=== PATIENT | female | born 1975 | race Caucasian/White ===

== ENCOUNTER → 2018-05-06 11:48 | Outpatient (CLI) | payer BC, SELFPAY ==
[2018-05-06 12:39] LABS: Hematocrit 46.7 % (37-47); Hemoglobin 15.9 g/dl (12.0-15.0); Mean Corpuscular Hgb 33.7 pg (27.0-32.0); Mean Corpuscular Volume 98.9 fL (81-99); Mean Platelet Vol. 9.8 fl (6.2-12.0); Platelet Count 249 K/mm3 (150-450); RBC Distribution Width CV 12.3 % (11.6-14.6); RBC Distribution Width SD 44.6 fl (35.1-43.9); Red Blood Count 4.72 M/mm3 (4.2-5.4)
[2018-05-06 12:41] LABS: Scan Indicated on CBC? Y/N NO
[2018-05-06 13:20] LABS: Hemoglobin A1c 5.1 % (4.2-6.3)
[2018-05-06 13:31] LABS: Progesterone Level 0.41 ng/mL (See Comment)
[2018-05-06 14:56] LABS: Estradiol 43.3 pg/mL; Free T3 2.8 pg/mL (2.18-3.98); T4 Free Direct 0.89 ng/dL (0.76-1.46)
== END ==
PROVIDERS: Visit Provider Obstetrics & Gynecology
DX: N92.6 Irregular menstruation, unspecified (principal)
CPT/HCPCS: 36415; 82670; 83036; 84144; 84403; 84439; 84443; 84481; 85027

== ENCOUNTER 2018-08-22 18:41 | Emergency (ER) | payer BC, SELFPAY ==
[2018-08-22 18:42] VITALS: BP 131/103; PULSE 104; RESP 20; TEMP 36.2; O2SAT 93; BMI 29.5
[2018-08-22] MEDS: MethylPREDNISolone 125 MG/2 ML Vial IV (18:54)
[2018-08-22] MEDS: DiphenhydrAMINE 50 MG/ML Syringe 25 MG IV (18:55)
[2018-08-22] MEDS: 0.9% Normal Saline 1,000 ML 1000 ML IV (18:55)
--- NOTE | 2018-08-22 18:56 | ED.DCSUM_ITS ---
- ER Visit Summary Date of Service: 08/22/18 Chief Complaint: Allergic rash History of Present Illness: The patient is a 43 F presents to the emergency department with allergic reaction. 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 She states that it was her dadejuan hter's birthday. They did buy her a guinea pig. She was trying to prepare the cage. She states that there was heavy in cedar. She states shortly after this exposure. She she began to have facial swelling, eye watering, and felt short of breath. She denies any throat swelling. She did not take her EpiPen. She did take oral Benadryl with little improvement. Physical Examination: Vital signs reviewed General: Well-nourished, well-developed Head: Normocephalic, atraumatic Eyes: Pupils equal and reactive, extraocular muscles intact, diffuse facial edema ENT: Posterior oropharynx widely patent. No angioedema Neck, supple, no lymphadenopathy Heart: Regular rate and rhythm Respiratory: No distress, wheezing throughout Abdomen: Soft, nontender, nondistended, no peritoneal signs Back: Nontender Extremities: Nontender, no edema, no cords Skin: Normal color urticaria of the face and upper chest Neuro: Alert and oriented, no focal or lateralizing deficits Test Results: [] Emergency Department Course and Treatment: The patient presents with allergic reaction. She has facial edema, cough, shortness of breath. She is not hypertensive, but given the progression of her symptoms she was given epi. She was also given Solu-Medrol, Benadryl, and Pepcid. Within 30 minutes, the patient had marked improvement. She was observed and continued to have improvement. She had no further wheezing. She had resolution of her facial edema. At this time, I do feel the patient is safe for discharge. She will be given an EpiPen for home. She will be continued on Pepcid and prednisone. She was counseled on concerning symptoms and reasons to return. She will be discharged home. Treatment Plan: [] Disposition: Discharge Impression: 1. Allergic reaction This note was generated with [employer] software. It may contain incorrect words, spelling, and punctuation that were not noted in review of the chart prior to signing ED Disposition - Plan for ED Patient: Chief Complaint: Allergic Reaction Instructions: ED Allergic Reaction General Other Prescriptions: Prednisone [Deltasone] 60 mg PO DAILY #15 tab Famotidine [Pepcid] 20 mg PO BID #28 tab Referrals: Flora Fuentes MD [Primary Care Provider] -
[2018-08-22 19:01] VITALS: BP 138/87; PULSE 98; RESP 22
[2018-08-22 19:07] VITALS: PULSE 103; RESP 18; O2SAT 99
[2018-08-22] MEDS: Ipratropium/Albuterol Sulfate 3 ML AMPUL.NEB INHALATION (19:07)
[2018-08-22 22:09] VITALS: BP 138/93; PULSE 93; RESP 17; O2SAT 97
[2018-08-22 22:10] VITALS: BP 138/97; PULSE 92; RESP 18; O2SAT 97
--- OUTSIDE RECORDS SUMMARY | 2018-10-17 23:36 | XMS RPT_ITS ---
:1975 Author Organization OH[facility] Care Team Providers Name Role Phone KATHY VILLALOBOS (SWINE GENETICS RESEARCHER) Attending Unavailable HANNAH MASON (PHOTOGRAPHIC SPOTTER) Attending Unavailable FLORA PETERSON Attending Unavailable FLORA PETERSON Referring Unavailable FLORA PETERSON Referring Unavailable NEO NAIK (RANGE MANAGER) Attending Unavailable GANJOLLY, FLORA Referring Unavailable Nichelle Ovalles Attending Unavailable Flora Peterson Primary Care Unavailable Van López Attending Unavailable PROBLEMS PROBLEMS DATE TYPE CONDITION / CODE ATTENDING STATUS SOURCE 06/15/2017 Active Essential NA Active [facility] (primary) [place] hypertension / Repository I10(ICD-10) 07/24/2018 Active Other termite inspector NA Active [facility] (current) drug [place] therapy / Repository Z79.899(ICD-10) 07/24/2018 Active Vitamin D NA Active [facility] deficiency, [place] unspecified / Repository E55.9(ICD-10) 07/24/2018 Active Other fatigue / NA Active [facility] R53.83(ICD-10) [place] Repository 05/06/2018 Unknown N92.6 - Irregular Nichelle Ovalles Active [facility] menstruation, Community unspecified / Hospital N92.6(ICD-10) Repository 10/23/2017 Active Unknown / HANNAH MASON Active [facility] UNK(Unknown) (PHOTOGRAPHIC SPOTTER) [place] Repository PROCEDURES PROCEDURES No Procedure Records FoundRESULTS RESULTS EMERGENCY DEPARTMENT Observed: 08/22/2018 Status: F Source: [place] SUMMARY 10:05 PM [facility] REPOSITORY [facility] Medical Records Department [address] [place] [address] Emergency Department Summary 08/22/18 1855 MR#: [id number] Acct: [id number] Name: ANDREIAN GEE Rep #: [id number] : 1975 43 From: Van López MD PCP: Flora Peterson MD Status: REG ER - ER Visit Summary Date of Service: 08/22/18 Chief Complaint: Allergic rash History of Present Illness: The patient is a 43 F presents to the emergency department with allergic reaction. 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 She states that it was her daughter's birthday. They did buy her a guinea pig. She was trying to prepare the cage. She states that there was heavy in cedar. She states shortly after this exposure. She she began to have facial swelling, eye watering, and felt short of breath. She denies any throat swelling. She did not take her EpiPen. She did take oral Benadryl with little improvement. Physical Examination: Vital signs reviewed General: Well-nourished, well-developed Head: Normocephalic, atraumatic Eyes: Pupils equal and reactive, extraocular muscles intact, diffuse facial edema ENT: Posterior oropharynx widely patent. No angioedema Neck, supple, no lymphadenopathy Heart: Regular rate and rhythm Respiratory: No distress, wheezing throughout Abdomen: Soft, nontender, nondistended, no peritoneal signs Back: Nontender Extremities: Nontender, no edema, no cords Skin: Normal color urticaria of the face and upper chest Neuro: Alert and oriented, no focal or lateralizing deficits Test Results: [] Emergency Department Course and Treatment: The patient presents with allergic reaction. She has facial edema, cough, shortness of breath. She is not hypertensive, but given the progression of her symptoms she was given epi. She was also given Solu-Medrol, Benadryl, and Pepcid. Within 30 minutes, the patient had marked improvement. She was observed and continued to have improvement. She had no further wheezing. She had resolution of her facial edema. At this time, I do feel the patient is safe for discharge. She will be given an EpiPen for home. She will be continued on Pepcid and prednisone. She was counseled on concerning symptoms and reasons to return. She will be discharged home. Treatment Plan: [] Disposition: Discharge Impression: 1. Allergic reaction This note was generated with [employer] dictation software. It may contain incorrect words, spelling, and punctuation that were not noted in review of the chart prior to signing ED Disposition - Plan for ED Patient: Chief Complaint: Allergic Reaction Instructions: ED Allergic Reaction General Other Prescriptions: Prednisone [Deltasone] 60 mg PO DAILY #15 tab Famotidine [Pepcid] 20 mg PO BID #28 tab Referrals: Flora Peterson MD [Primary Care Provider] - What to do if you have Problems For any increased pain, shortness of breath, bleeding, nausea or vomiting, chest pain, or any unexpected problems, contact your Primary Care Provider. Call [facility] ([phone]) or report to the closest Emergency Room. Call 911 if necessary. 08/22/18 1800 <Electronically signed by Van López MD> Date Van López MD Cosigner Signature (If Indicated): Date CC: Flora Peterson MD PROGRESS Observed: 08/21/2018 Status: COMPLETED Source: [place] 11:26 AM [facility] REPOSITORY O ID: [id number] Author: Neo (Kai) Thang Service: (none) Author Type: Nurse Practitioner Type: Progress Notes Filed: 08/21/2018 12:10 PM Note Text: HPI/CC: Andreina Gee is an 43 year old female who presents for followup of depression and anxiety treatment. Increased Zoloft from 25mg to 50mg ~4 weeks ago. Patient reports she hasn't noticed much of a difference. 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 Since last visit patient anxious feelings, fatigue and feelings of worthlessness/guilt. Denies SI/HI Symptoms have occurred daily. Panic hx: No Sleep Problems: Yes averages 5 hours of sleep per night. Routine putting kids to bed then TV and bed. Appetite: No changes Support system: , kids, parents. 3 kids at home, 2 of which are in counseling. Patient reports that she is able to have counseling time of her own during these sessions and finds them helpful. Positive health behaviors: Nothing specific- mostly focuses on the kids and work. Does like to take walks with her depending on weather. Ongoing sinus complaints, Reports recurrent sinus infections over the last 2 months. Prescribed 2 different antibiotics, on flonase, cough syrup and steroids without much realief. Told the last time she saw UC she needed referral to ENT if symptoms persist. Associated symptoms include fatigue, maxillary sinus pain and pressure, stuffy nose, mild PND, non-productive cough and intermittent headaches. Previously received allergy shots as a child, tried Zyrtec/Claritin without improvement. Allergic to most plants, trees and grass. Continues use of Flonase, Miriam pot and humidifier. ROS as above, otherwise non-contributory. Reviewed PMHx, PSHx, social Hx, medications and allergies. PHYSICAL EXAMINATION: BP 132/84 Pulse 99 Temp 36.4 ?C (97.5 ?F) (Temporal Artery) Resp 16 Wt 77.1 kg (170 lb) SpO2 97% BMI 29.18 kg/m? Appearance: well dressed well groomed, cooperative and pleasant Behavior: good eye contact Speech: fluent and coherent Mood: appropriate Affect: appropriate Perceptions: none Thought process: goal directed Thought Content: normal Intelligence level: normal Insight: good Judgment: good Head: Normocephalic Eyes: normal, conjunctiva/corneas normal Ears: R TM - clear with good landmarks, L TM - clear with good landmarks Nose: clear rhinorrhea, mucosa erythematous and swollen, sinus tenderness over maxillary sinuses bilateral Oropharynx: moist without lesions, teeth in good repair Neck: supple Lungs: Lungs clear to auscultation. No wheezing, rhonchi, rales Heart: RRR without murmur, gallop, or rubs. No ectopy ASSESSMENT/PLAN: 1. Anxiety and depression - ICD9: 300.00, 311, ICD10: F41.9, F32.9 (primary diagnosis) - Unchanged, increase Zoloft dosing as instructed to 100mg daily - Follow up in 6 weeks, sooner for new or worsening symptoms 2. Chronic sinusitis of both maxillary sinuses - ICD9: 473.0, ICD10: J32.0 - The patient should also be given OTC decongestants prn, OTC cough and cold meds as needed, behind the counter Pseudoephedrine, Cough syrup with codeine- Rx given, warm salt water gargles, throat lozenges and/or OTC throat spray as needed and nasal saline gtts and suction prn - Supportive care with plenty of fluids, rest, and analgesia prn. - CONSULT TO ENT Prescription instructions reviewed with patient as applicable. Potential red flag symptoms discussed with the patient. Reviewed appropriate action plan to take if red flag symptoms occur. Patient agreeable to treatment plan. STEVEN ScottOV Observed: 08/21/2018 Status: COMPLETED Source: [place] 11:20 AM [facility] REPOSITORY Office Visit (INTMWS) HAROONANDREINA Anthony ([id number]) 1975 F Date Time Provider Department 08/21/18 11:20 AM NEO NAIK (RANGE MANAGER) INTMWS During your visit today, we recorded the following information about you: Temperature Pulse Respiration Blood pressure 97.5 degrees 99/minute 16/minute 132/84 Weight 77.1 kg Neo Naik APRN.CNP 08/21/2018 12:10 PM Signed HPI/CC: Andreina Anthony Gee is an 43 year old female who presents for followup of depression and anxiety treatment. Increased Zoloft from 25mg to 50mg ~4 weeks ago. Patient reports she hasn't noticed much of a difference. 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 Since last visit patient anxious feelings, fatigue and feelings of worthlessness/guilt. Denies SI/HI Symptoms have occurred daily. Panic hx: No Sleep Problems: Yes averages 5 hours of sleep per night. Routine putting kids to bed then TV and bed. Appetite: No changes Support system: , kids, parents. 3 kids at home, 2 of which are in counseling. Patient reports that she is able to have counseling time of her own during these sessions and finds them helpful. Positive health behaviors: Nothing specific- mostly focuses on the kids and work. Does like to take walks with her depending on weather. Ongoing sinus complaints, Reports recurrent sinus infections over the last 2 months. Prescribed 2 different antibiotics, on flonase, cough syrup and steroids without much realief. Told the last time she saw UC she needed referral to ENT if symptoms persist. Associated symptoms include fatigue, maxillary sinus pain and pressure, stuffy nose, mild PND, non-productive cough and intermittent headaches. Previously received allergy shots as a child, tried Zyrtec/Claritin without improvement. Allergic to most plants, trees and grass. Continues use of Flonase, Miriam pot and humidifier. ROS as above, otherwise non-contributory. Reviewed PMHx, PSHx, social Hx, medications and allergies. PHYSICAL EXAMINATION: BP 132/84 Pulse 99 Temp 36.4 ?C (97.5 ?F) (Temporal Artery) Resp 16 Wt 77.1 kg (170 lb) SpO2 97% BMI 29.18 kg/m? Appearance: well dressed well groomed, cooperative and pleasant Behavior: good eye contact Speech: fluent and coherent Mood: appropriate Affect: appropriate Perceptions: none Thought process: goal directed Thought Content: normal Intelligence level: normal Insight: good Judgment: good Head: Normocephalic Eyes: normal, conjunctiva/corneas normal Ears: R TM - clear with good landmarks, L TM - clear with good landmarks Nose: clear rhinorrhea, mucosa erythematous and swollen, sinus tenderness over maxillary sinuses bilateral Oropharynx: moist without lesions, teeth in good repair Neck: supple Lungs: Lungs clear to auscultation. No wheezing, rhonchi, rales Heart: RRR without murmur, gallop, or rubs. No ectopy ASSESSMENT/PLAN: 1. Anxiety and depression - ICD9: 300.00, 311, ICD10: F41.9, F32.9 (primary diagnosis) - Unchanged, increase Zoloft dosing as instructed to 100mg daily - Follow up in 6 weeks, sooner for new or worsening symptoms 2. Chronic sinusitis of both maxillary sinuses - ICD9: 473.0, ICD10: J32.0 - The patient should also be given OTC decongestants prn, OTC cough and cold meds as needed, behind the counter Pseudoephedrine, Cough syrup with codeine- Rx given, warm salt water gargles, throat lozenges and/or OTC throat spray as needed and nasal saline gtts and suction prn - Supportive care with plenty of fluids, rest, and analgesia prn. - CONSULT TO ENT Prescription instructions reviewed with patient as applicable. Potential red flag symptoms discussed with the patient. Reviewed appropriate action plan to take if red flag symptoms occur. Patient agreeable to treatment plan. STEVEN Scott APRN.KAI 08/21/2018 11:50 AM Signed Increase Zoloft to a goal of 100mg. Start by taking 1.5 tabs (50mg) daily for 1-2 weeks then increase to full 2 tabs for a total of 100mg. Follow up in 6 weeks. Referring Provider: FLORA PETERSON [[id number]] Allergies As of Date: 08/21/2018 Noted Allergy Reaction PENICILLINS 03/02/2006 Date Reviewed: 08/21/2018 Reviewed by: Bibi Willett Ma - Fully Assessed Reason for Visit: Recheck [92] Cmt: Medication follow up Primary Visit Diagnosis:Anxiety and depression [F41.9, F32.9] Other Visit Diagnosis:Chronic sinusitis of both maxillary sinuses [J32.0] Order(s):sertraline (ZOLOFT) 50 mg tabletTake 2 tablets by mouth once daily.Disp: 90 tabletRfl: 1 CONSULT TO ENT [[id number]] Order #: [id number]: 1 Prescriptions as of 08/21/2018 Sig: SERTRALINE 50 MG TABLET Take 2 tablets by mouth once * ERGOCALCIFEROL (VITAMIN D2) 5* Take 1 capsule by mouth twice* AMILORIDE 5 MG-HYDROCHLOROTHI* Take 0.5 tablets by mouth onc* AMLODIPINE 2.5 MG TABLET take 1 tablet by mouth once d* ZOLPIDEM 10 MG TABLET Take 0.5 tablets by mouth at * Problem List As Of Date 08/21/2018 Noted Resolved 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 Start by taking 1.5 tabs (50mg) daily for 1-2 weeks then increase to full 2 tabs for a total of 100mg. Follow up in 6 weeks. Prescriptions ordered this encounter Disp Refills Start End SERTRALINE 50 MG TABLET 90 t* 1 08/21/2018 Route: ORAL Sig: Take 2 tablets by mouth once daily. Medications Discontinued During This Encounter sertraline (ZOLOFT) 50 mg tablet 30 t* 3 07/24/2018 08/21/2018 Route: ORAL Sig: Take 1 tablet by mouth once daily. Disc: Reason for discontinue is not on file. Disposition: Return in about 6 weeks (around 10/02/2018). Follow-up and Disposition History Recorded Encounter Status:Closed by NEO NAIK CNP on 08/21/18 PROGRESS Observed: 08/04/2018 Status: COMPLETED Source: [place] 12:54 PM [facility] REPOSITORY HNO ID: [id number] Author: Kathy Latham (Agustin) Anjum Service: (none) Author Type: Nurse Practitioner Type: Progress Notes Filed: 08/04/2018 1:17 PM Note Text: Subjective HPI Patient presents with: Sinus pain, cough, headaches, fatigue x 5 weeks. Seen 07/18 in , tx for Sinusitis, tx with Doxycycline but no improvement. Review of Systems Constitutional: Positive for malaise/fatigue. Negative for chills and fever. HENT: Positive for congestion and sinus pain. Negative for ear pain and sore throat. Eyes: Positive for redness. Negative for discharge. Respiratory: Positive for cough. Negative for hemoptysis, sputum production, shortness of breath and wheezing. Gastrointestinal: Negative for abdominal pain, diarrhea, nausea and vomiting. Skin: Negative for rash. Neurological: Positive for headaches. PAST MEDICAL HISTORY Diagnosis Date - Essential hypertension PAST SURGICAL HISTORY Procedure Laterality Date - SECTION HX x2 - EXTRACTION ERUPTED TOOTH/EXR - REMOVAL OF TONSILS,<12 Y/O Tonsillectomy ALLERGIES Penicillins MEDICATIONS ergocalciferol, vitamin D2, (DRISDOL) 50,000 unit capsule Take 1 capsule by mouth twice a week. TO BE TAKEN ORALLY DIRECTED. Take 1 tablet by mouth twice weekly [id number], then decrease to 1 tablet weekly. aMILoride-hydrochlorothiazide (MODURETIC 5-50) 5-50 mg tab Take 0.5 tablets by mouth once daily. sertraline (ZOLOFT) 50 mg tablet Take 1 tablet by mouth once daily. amLODIPine (NORVASC) 2.5 mg tablet take 1 tablet by mouth once daily zolpidem (AMBIEN) 10 mg tab Take 0.5 tablets by mouth at bedtime as needed. cefdinir (OMNICEF) 300 mg capsule Take 1 capsule by mouth twice daily for 10 days. predniSONE (DELTASONE) 20 mg tablet Take 2 tablets by mouth once daily for 5 days. Take daily with food. Wfimkhylrhqafok-Pigueewxd-AZ (BROMFED DM) 2-30-10 mg/5 mL syrup Take 10 mL by mouth four times daily as needed for up to 7 days. FAMILY HISTORY Problem Relation Age of Onset - Hypertension Mother - Stroke Mother - Heart Mother - Hypertension Father - Heart Father - COPD Father Social History Substance Use Topics - Smoking status: Former Smoker Packs/day: 1.00 Years: 20.00 Quit date: 09/24/2011 - Smokeless tobacco: Never Used Comment: uses E-cigarettes - Alcohol use 3.0 - 6.0 oz/week 2 - 4 Glasses of Wine (5oz) per week Objective Physical Exam Constitutional: She is well-developed, well-nourished, and in no distress. HENT: Head: Normocephalic. Right Ear: Tympanic membrane, external ear and ear canal normal. Left Ear: Tympanic membrane, external ear and ear canal normal. Nose: Mucosal edema present. Right sinus exhibits maxillary sinus tenderness. Right sinus exhibits no frontal sinus tenderness. Left sinus exhibits maxillary sinus tenderness. Left sinus exhibits no frontal sinus tenderness. Mouth/Throat: Posterior oropharyngeal erythema (PND) present. Eyes: Right conjunctiva is injected. Left conjunctiva is injected. Neck: Normal range of motion. Neck supple. Cardiovascular: Normal rate, regular rhythm and normal heart sounds. Pulmonary/Chest: Effort normal and breath sounds normal. No respiratory distress. She has no wheezes. Abdominal: Soft. She exhibits no distension. There is no tenderness. Lymphadenopathy: She has no cervical adenopathy. Skin: Skin is warm and dry. No rash noted. Nursing note and vitals reviewed. ASSESSMENT/PLAN: 1. Acute sinusitis, recurrence not specified, unspecified location - ICD9: 461.9, ICD10: J01.90 (primary diagnosis) - Will begin treatment with as per antibiotic as written, see orders - The patient should also be given OTC decongestants prn, OTC cough and cold meds as needed, warm salt water gargles, throat lozenges and/or OTC throat spray as needed and nasal saline gtts and suction prn for the first 5-7 days of treatment. - Supportive care with plenty of fluids, rest, and analgesia prn. - Follow up in 3-5 days if symptoms persist or worsen. 2. Cough - ICD9: 786.2, ICD10: R05 -Prednisone -Bromfed -F/u with pcp in 3-5 days or sooner if symptoms are not improving or worsening Prescription instructions reviewed with patient as applicable. Patient advised if symptoms do not improve or if symptoms worsen sooner, to contact their primary care physician. Potential red flag symptoms discussed with the patient. Reviewed appropriate action plan to take if red flag symptoms occur. Patient agreeable to treatment plan. Kathy Robertson APRN.CNP CNOV Observed: 08/04/2018 Status: COMPLETED Source: [place] 12:15 PM [facility] REPOSITORY Office Visit (WSTR) ANDREINA GEE ([id number]) 1975 F Date Time Provider Department 08/04/18 12:15 PM KATHY ROBERTSON (SWINE GENETICS RESEARCHER) W[facility] During your visit today, we recorded the following information about you: Temperature Pulse Respiration Blood pressure 98.8 degrees 94/minute 16/minute 118/88 Weight 76.7 kg Kathy Robertson APRN.CNP 08/04/2018 12:41 PM Signed Each of us has four paired cavities (spaces) in our head that are connected to the nose by narrow channels. These cavities, known as sinuses, produce a thin mucus that drains out of the channels of the nose. Normally, sinuses are filled with air. But when sinuses become blocked and filled with fluid, bacteria can grow and cause an infection (sinusitis). Conditions that cause sinus blockage include the common cold, allergic rhinitis (swelling of the lining of the nose due to allergies), nasal polyps (small growths in the lining of the nose), or deviated septum (a shift in the nasal cavity). Allergies such as hay fever can also cause swelling and poor drainage of the sinuses. If you have symptoms that involve the sinuses, it may be difficult to tell if you have sinusitis, a cold, or a nasal allergy. This article will describe the symptoms, diagnosis, and treatment of sinusitis, and how to distinguish sinusitis from a cold or nasal allergy. What is sinusitis? Sinusitis is an inflammation, or swelling, of the tissue lining the sinuses. There are two types of sinusitis: Acute sinusitis: a sudden onset of cold symptoms such as runny nose, stuffy nose, and facial pain that does not go away after 7-10 days. It responds well to antibiotics and decongestants. Chronic sinusitis: characterized by nasal congestion, drainage, facial pain/pressure, and decreased sense of smell for at least 12 weeks. Who gets sinusitis? About 37 million Americans suffer from at least one episode of sinusitis each year. People who have the following conditions have a higher risk of sinusitis: Nasal mucus membrane swelling, as from a common cold Blockage of drainage ducts Structure differences that narrow the drainage ducts Conditions that result in an increased risk of infection In children, common environmental factors that contribute to sinusitis include allergies, illness from other children at day care or school, pacifiers, bottle drinking while lying on the back, and smoke in the environment. In adults, the contributing factors are most frequently infections, allergies, and smoking. What are the signs and symptoms of acute sinusitis? The primary symptoms of acute sinusitis include: Facial pain/pressure Nasal stuffiness Nasal discharge Loss of smell Cough/congestion Additional symptoms may include: Fever Bad breath Fatigue Dental pain Acute sinusitis can last four weeks or more. This condition may be diagnosed when a person has two or more symptoms and/or the presence of thick, green, or yellow nasal discharge. What are the signs and symptoms of chronic sinusitis? People with chronic sinusitis may have the following symptoms for 12 weeks or more: Facial congestion/fullness A nasal obstruction/blockage Pus in the nasal cavity Fever Nasal discharge/discolored postnasal drainage Additional symptoms may include: Headaches Bad breath Fatigue Dental pain Thick nasal discharge How is sinusitis treated? Acute sinusitis. If you have a simple sinusitis infection, your health care provider may recommend treatment with decongestants like Sudafed and steam inhalations alone, as most sinusitis is viral. Antibiotics are generally needed for more seriously ill patients. If antibiotics are administered, they are given for 10 to 14 days. With treatment, the symptoms usually disappear and antibiotics are no longer required. Oral and topical decongestants may be prescribed to alleviate the symptoms. Use of prescription intranasal steroid sprays might be effective in controlling symptoms. However, non-prescription drops or sprays should not be used beyond their recommended period--usually four to five days--or they may actually increase congestion. Chronic sinusitis. Warm moist air may alleviate sinus congestion. Using a vaporizer or inhaling steam from a martinez of boiling water (removed from heat) may also help. Warm compresses are useful to relieve pain in the nose and sinuses. Saline nose drops are also safe for home use. Nonprescription drops or sprays might be effective in controlling symptoms; however, they should not be used beyond their recommended period of time. Nasal steroid sprays that shrink swollen membranes of the nose are beneficial. Antibiotics may also be prescribed. Avoidance of triggers is important. Allergies should be controlled and irritants, such as smoke, should be avoided. Kathy Robertson APRN.RANGE MANAGER 08/04/2018 1:17 PM Signed Subjective HPI Patient presents with: Sinus pain, cough, headaches, fatigue x 5 weeks. Seen 07/18 in UC, tx for Sinusitis, tx with Doxycycline but no improvement. Review of Systems Constitutional: Positive for malaise/fatigue. Negative for chills and fever. HENT: Positive for congestion and sinus pain. Negative for ear pain and sore throat. Eyes: Positive for redness. Negative for discharge. Respiratory: Positive for cough. Negative for hemoptysis, sputum production, shortness of breath and wheezing. Gastrointestinal: Negative for abdominal pain, diarrhea, nausea and vomiting. Skin: Negative for rash. Neurological: Positive for headaches. PAST MEDICAL HISTORY Diagnosis Date - Essential hypertension PAST SURGICAL HISTORY Procedure Laterality Date - SECTION HX x2 - EXTRACTION ERUPTED TOOTH/EXR - REMOVAL OF TONSILS,<12 Y/O Tonsillectomy ALLERGIES Penicillins MEDICATIONS ergocalciferol, vitamin D2, (DRISDOL) 50,000 unit capsule Take 1 capsule by mouth twice a week. TO BE TAKEN ORALLY DIRECTED. Take 1 tablet by mouth twice weekly [id number], then decrease to 1 tablet weekly. aMILoride-hydrochlorothiazide (MODURETIC 5-50) 5-50 mg tab Take 0.5 tablets by mouth once daily. sertraline (ZOLOFT) 50 mg tablet Take 1 tablet by mouth once daily. amLODIPine (NORVASC) 2.5 mg tablet take 1 tablet by mouth once daily zolpidem (AMBIEN) 10 mg tab Take 0.5 tablets by mouth at bedtime as needed. cefdinir (OMNICEF) 300 mg capsule Take 1 capsule by mouth twice daily for 10 days. predniSONE (DELTASONE) 20 mg tablet Take 2 tablets by mouth once daily for 5 days. Take daily with food. Nozqoqkhtdaijnn-Czrraynvt-IC (BROMFED DM) 2-30-10 mg/5 mL syrup Take 10 mL by mouth four times daily as needed for up to 7 days. FAMILY HISTORY Problem Relation Age of Onset - Hypertension Mother - Stroke Mother - Heart Mother - Hypertension Father - Heart Father - COPD Father Social History Substance Use Topics - Smoking status: Former Smoker Packs/day: 1.00 Years: 20.00 Quit date: 09/24/2011 - Smokeless tobacco: Never Used Comment: uses E-cigarettes - Alcohol use 3.0 - 6.0 oz/week 2 - 4 Glasses of Wine (5oz) per week Objective Physical Exam Constitutional: She is well-developed, well-nourished, and in no distress. HENT: Head: Normocephalic. Right Ear: Tympanic membrane, external ear and ear canal normal. Left Ear: Tympanic membrane, external ear and ear canal normal. Nose: Mucosal edema present. Right sinus exhibits maxillary sinus tenderness. Right sinus exhibits no frontal sinus tenderness. Left sinus exhibits maxillary sinus tenderness. Left sinus exhibits no frontal sinus tenderness. Mouth/Throat: Posterior oropharyngeal erythema (PND) present. Eyes: Right conjunctiva is injected. Left conjunctiva is injected. Neck: Normal range of motion. Neck supple. Cardiovascular: Normal rate, regular rhythm and normal heart sounds. Pulmonary/Chest: Effort normal and breath sounds normal. No respiratory distress. She has no wheezes. Abdominal: Soft. She exhibits no distension. There is no tenderness. Lymphadenopathy: She has no cervical adenopathy. Skin: Skin is warm and dry. No rash noted. Nursing note and vitals reviewed. ASSESSMENT/PLAN: 1. Acute sinusitis, recurrence not specified, unspecified location - ICD9: 461.9, ICD10: J01.90 (primary diagnosis) - Will begin treatment with as per antibiotic as written, see orders - The patient should also be given OTC decongestants prn, OTC cough and cold meds as needed, warm salt water gargles, throat lozenges and/or OTC throat spray as needed and nasal saline gtts and suction prn for the first 5-7 days of treatment. - Supportive care with plenty of fluids, rest, and analgesia prn. - Follow up in 3-5 days if symptoms persist or worsen. 2. Cough - ICD9: 786.2, ICD10: R05 -Prednisone -Bromfed -F/u with pcp in 3-5 days or sooner if symptoms are not improving or worsening Prescription instructions reviewed with patient as applicable. Patient advised if symptoms do not improve or if symptoms worsen sooner, to contact their primary care physician. Potential red flag symptoms discussed with the patient. Reviewed appropriate action plan to take if red flag symptoms occur. Patient agreeable to treatment plan. Kathy Robertson APRN.RANGE MANAGER Referring Provider: SELF [[id number]] Allergies As of Date: 08/04/2018 Noted Allergy Reaction PENICILLINS 03/02/2006 Date Reviewed: 08/04/2018 Reviewed by: Kathy Latham (Agustin) Anjum - Fully Assessed Reason for Visit: Recheck [92] Cmt: from visit 07/19/18 Reason For Visit History Recorded Primary Visit Diagnosis:Acute sinusitis, recurrence not specified, unspecified location [J01.90] Other Visit Diagnosis:Cough [R05] Order(s):cefdinir (OMNICEF) 300 mg capsuleTake 1 capsule by mouth twice daily for 10 days.Disp: 20 capsuleRfl: 0 predniSONE (DELTASONE) 20 mg tabletTake 2 tablets by mouth once daily for 5 days. Take daily with food.Disp: 10 tabletRfl: 0 Tihwbasrnnarfje-Cjlqggjsf-KN (BROMFED DM) 2-30-10 mg/5 mL syrupTake 10 mL by mouth four times daily as needed for up to 7 days.Disp: 240 mLRfl: 0 Prescriptions as of 08/04/2018 Sig: ERGOCALCIFEROL (VITAMIN D2) 5* Take 1 capsule by mouth twice* AMILORIDE 5 MG-HYDROCHLOROTHI* Take 0.5 tablets by mouth onc* SERTRALINE 50 MG TABLET Take 1 tablet by mouth once d* AMLODIPINE 2.5 MG TABLET take 1 tablet by mouth once d* ZOLPIDEM 10 MG TABLET Take 0.5 tablets by mouth at * CEFDINIR 300 MG CAPSULE Take 1 capsule by mouth twice* PREDNISONE 20 MG TABLET Take 2 tablets by mouth once * BROMPHENIRAMINE-PSEUDOEPHEDRI* Take 10 mL by mouth four time* Problem List As Of Date 08/04/2018 Noted Resolved 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 These cavities, known as sinuses, produce a thin mucus that drains out of the channels of the nose. Normally, sinuses are filled with air. But when sinuses become blocked and filled with fluid, bacteria can grow and cause an infection (sinusitis). Conditions that cause sinus blockage include the common cold, allergic rhinitis (swelling of the lining of the nose due to allergies), nasal polyps (small growths in the lining of the nose), or deviated septum (a shift in the nasal cavity). Allergies such as hay fever can also cause swelling and poor drainage of the sinuses. If you have symptoms that involve the sinuses, it may be difficult to tell if you have sinusitis, a cold, or a nasal allergy. This article will describe the symptoms, diagnosis, and treatment of sinusitis, and how to distinguish sinusitis from a cold or nasal allergy. What is sinusitis? Sinusitis is an inflammation, or swelling, of the tissue lining the sinuses. There are two types of sinusitis: Acute sinusitis: a sudden onset of cold symptoms such as runny nose, stuffy nose, and facial pain that does not go away after 7-10 days. It responds well to antibiotics and decongestants. Chronic sinusitis: characterized by nasal congestion, drainage, facial pain/pressure, and decreased sense of smell for at least 12 weeks. Who gets sinusitis? About 37 million Americans suffer from at least one episode of sinusitis each year. People who have the following conditions have a higher risk of sinusitis: Nasal mucus membrane swelling, as from a common cold Blockage of drainage ducts Structure differences that narrow the drainage ducts Conditions that result in an increased risk of infection In children, common environmental factors that contribute to sinusitis include allergies, illness from other children at day care or school, pacifiers, bottle drinking while lying on the back, and smoke in the environment. In adults, the contributing factors are most frequently infections, allergies, and smoking. What are the signs and symptoms of acute sinusitis? The primary symptoms of acute sinusitis include: Facial pain/pressure Nasal stuffiness Nasal discharge Loss of smell Cough/congestion Additional symptoms may include: Fever Bad breath Fatigue Dental pain Acute sinusitis can last four weeks or more. This condition may be diagnosed when a person has two or more symptoms and/or the presence of thick, green, or yellow nasal discharge. What are the signs and symptoms of chronic sinusitis? People with chronic sinusitis may have the following symptoms for 12 weeks or more: Facial congestion/fullness A nasal obstruction/blockage Pus in the nasal cavity Fever Nasal discharge/discolored postnasal drainage Additional symptoms may include: Headaches Bad breath Fatigue Dental pain Thick nasal discharge How is sinusitis treated? Acute sinusitis. If you have a simple sinusitis infection, your health care provider may recommend treatment with decongestants like Sudafed and steam inhalations alone, as most sinusitis is viral. Antibiotics are generally needed for more seriously ill patients. If antibiotics are administered, they are given for 10 to 14 days. With treatment, the symptoms usually disappear and antibiotics are no longer required. Oral and topical decongestants may be prescribed to alleviate the symptoms. Use of prescription intranasal steroid sprays might be effective in controlling symptoms. However, non-prescription drops or sprays should not be used beyond their recommended period--usually four to five days--or they may actually increase congestion. Chronic sinusitis. Warm moist air may alleviate sinus congestion. Using a vaporizer or inhaling steam from a martinez of boiling water (removed from heat) may also help. Warm compresses are useful to relieve pain in the nose and sinuses. Saline nose drops are also safe for home use. Nonprescription drops or sprays might be effective in controlling symptoms; however, they should not be used beyond their recommended period of time. Nasal steroid sprays that shrink swollen membranes of the nose are beneficial. Antibiotics may also be prescribed. Avoidance of triggers is important. Allergies should be controlled and irritants, such as smoke, should be avoided. Prescriptions ordered this encounter Disp Refills Start End CEFDINIR 300 MG CAPSULE 20 c* 0 08/04/2018 08/14/2018 Route: ORAL Sig: Take 1 capsule by mouth twice daily for 10 days. PREDNISONE 20 MG TABLET 10 t* 0 08/04/2018 08/09/2018 Route: ORAL Sig: Take 2 tablets by mouth once daily for 5 days. Take daily with food. KIIJSUNWURJTCWV-WDNOTGFDFNFXWAP-CI 2* 240 * 0 08/04/2018 08/11/2018 Route: ORAL Sig: Take 10 mL by mouth four times daily as needed for up to 7 days. Disposition: Return if symptoms worsen or fail to improve. Follow-up and Disposition History Recorded Encounter Status:Closed by KATHY ROBERTSON on 08/04/18 CBC AND DIFFERENTIAL Collected: 07/24/2018 Status: F Source: [place] 10:50 AM [facility] REPOSITORY TYPE CODE TESTS RESULT OUT OF REFERENCE UNITS RANGE LAB WBC 3.70-11.00 k/uL WBC 10.80 LAB RBC 3.90-5.20 m/uL RBC 4.74 LAB HGB 11.5-15.5 g/dL High Hemoglobin 16.1 LAB HCT 36.0-46.0 % High Hematocrit 46.9 LAB MCV 80.0-100.0 fL MCV 98.9 LAB MCH 26.0-34.0 pG MCH 34.0 LAB MCHC 30.5-36.0 g/dL MCHC 34.3 LAB RDWCV 11.5-15.0 % RDW-CV 12.1 LAB PLTCT 150-400 k/uL Platelet Count 259 LAB MPV 9.0-12.7 fL MPV 9.8 LAB ANEUT % Neut% 73.9 LAB AANEUT 1.45-7.50 k/uL Abs Neut High 7.98 LAB ALYMP % Lymph% 18.4 LAB AALYMP 1.00-4.00 k/uL Abs Lymph 1.99 LAB AMONO % [place]% 5.1 LAB AAMONO <0.87 k/uL Abs [place] 0.55 LAB AEOS % Eosin% 2.0 LAB AAEOS <0.46 k/uL Abs Eosin 0.22 LAB ABASO % Baso% 0.6 LAB AABASO <0.11 k/uL Abs Baso 0.06 LAB AUNRBC 0 /100 WBC NRBCs 0.0 LAB ABNRBC <0.01 k/uL Absolute nRBC <0.01 LAB DTYP DTYPE Auto Diff Performed By: #### CBCDIF, CMP, LIPB, TSH, VITD #### [facility] [address] [place] [id number] COMP METABOLIC PANEL Collected: 07/24/2018 Status: F Source: [place] 10:50 AM [facility] REPOSITORY TYPE CODE TESTS RESULT OUT OF REFERENCE UNITS RANGE LAB TP 6.3-8.0 g/dL Protein, Total 7.8 LAB ALB 3.9-4.9 g/dL Albumin 4.5 LAB CA 8.5-10.2 mg/dL Calcium, Total 9.2 LAB TBIL 0.2-1.3 mg/dL Bilirubin, Total 0.6 LAB ALKP 34-123 U/L Alkaline Phosphatase 71 LAB AST 13-35 U/L AST High 115 LAB GLU 74-99 mg/dL Glucose High 104 Result Comment: The [place] [employer] (ADA) provides guidance for cutoff values for fasting glucose and random glucose. The ADA defines fasting as no caloric intake for at least 8 hours. Fas ting plasma glucose results between 100 to 125 mg/dL indicate increased risk for diabetes (prediabetes). Fasting plasma glucose results greater than or equal to 126 mg/dL meet the criteria for diagnosis of diabetes. In the absence of unequivocal hyperglycemia, results should be confirmed by repeat testing. In a patient with classic symptoms of hyperglycemia or hyperglycemic crisis, random plasma glucose results greater than or equal to 200 mg/dL meet the criteria for diagnosis of diabetes. Reference: Standards of Medical Care in Diabetes 2016, [place] [employer]. Diabetes Care. 2016.39(Suppl 1). LAB BUN 7-21 mg/dL BUN 12 LAB CRET 0.58-0.96 mg/dL Creatinine 0.64 LAB NA 136-144 mmol/L Sodium 140 LAB K 3.7-5.1 mmol/L Potassium 3.7 LAB CL 97-105 mmol/L Low Chloride 96 LAB CO2 22-30 mmol/L CO2 24 LAB AGAP 9-18 mmol/L Anion Gap High 20 LAB ALT 7-38 U/L ALT High 66 LAB GFRAA eGFR- Amer. >60 LAB GFRNAA . eGFR-All Other Races >60 Result Comment: eGFR (Estimated GFR) Units of measure: mL/min/1.73 meters squared eGFR is derived from the reexpressed MDRD Study equation using the following parameters: serum creatinine, age, gender and race. The creatinine assay has been calibrated to be traceable to IDMS. An eGFR <60 mL/min/1.73m2 for >3 months is consistent with chronic kidney disease. Refer to KDOQI guidelines for clinical interpretation. In patients with unstable renal function, e.g. those with acute kidney injury, the eGFR may not accurately reflect actual GFR. Performed By: #### CBCDIF, CMP, LIPB, TSH, VITD #### [facility] [address] [place], [place] [address] LIPID PANEL, BASIC Collected: 07/24/2018 Status: F Source: [place] 10:50 AM [facility] REPOSITORY TYPE CODE TESTS RESULT OUT OF REFERENCE UNITS RANGE LAB CHOL <200 mg/dL Cholesterol High 227 Result Comment: <200 mg/dL, Desirable 200-239 mg/dL, Borderline high >239 mg/dL, High LAB TRIGLY <150 mg/dL Triglyceride High 153 Result Comment: <150 mg/dL, Normal 150-199 mg/dL, Borderline high 200-499 mg/dL, High >499 mg/dL, Very high LAB HDL >39 mg/dL HDL-Cholesterol 60 Result Comment: 40-59 mg/dL, Acceptable >59 mg/dL, High: Negative risk factor for coronary heart disease <40 mg/dL, Low: Positive risk factor for coronary heart disease LAB LDL <100 mg/dL LDL-Cholesterol High 136 Result Comment: <100 mg/dL, Optimal 100-129 mg/dL, Near optimal/above optimal 130-159 mg/dL, Borderline high 160-189 mg/dL, High >189 mg/dL, Very high Secondary prevention optimal LDL Cholesterol levels are recommended to be < 70 mg/dL LAB NONHDL <130 mg/dL Non HDL High Cholesterol 167 Result Comment: <130 mg/dL, Optimal 130-159 mg/dL, Near optimal/above optimal 160-189 mg/dL, Borderline high 190-219 mg/dL, High >219 mg/dL, Very high Secondary prevention optimal non HDL Cholesterol levels are recommended to be < 100 mg/dL LAB FT hrs Fasting Time 15 LAB VLDL <30 mg/dL High VLDL Cholesterol 31 LAB TCHDL <5.10 TC:HDL Ratio 3.78 LAB LDLHDL <2.54 LDL:HDL Ratio 2.27 Result Comment: Reference: 1. National Cholesterol Education Program ATP III Guideline At-A-Glance Quick Desk Reference: National Heart, Lung, and Blood [place]. National Institutes of Health. 2001: NIH Publication No. 01-3305. 2. An International Atherosclerosis Society position paper: global recommendations for the management of dyslipidemia: executive summary, Atherosclerosis. 2014: 232(2):410-413. Performed By: #### CBCDIF, CMP, LIPB, TSH, VITD #### [facility] [address] [place] [address] TSH Collected: 07/24/2018 Status: F Source: [place] 10:50 AM [facility] REPOSITORY TYPE CODE TESTS RESULT OUT OF RANGE REFERENCE UNITS LAB TSH 0.400-5.500 uU/mL TSH 0.871 Result Comment: If the patient is , TSH reference range varies by gestational period: First Trimester 0.100-2.500 uU/mL Second Trimester 0.200-3.000 uU/mL Third Trimester 0.300-3.000 uU/mL References: 1. Hernandez L, Adi M, Donis EK, et al. Management of Thyroid Dysfunction during and : An Endocrine Society Clinical Practice Guideline. J Clin Endocrinol Metab, 2012:97:1934-4090. 2. Blaise ALDRIDGE. Overview of thyroid disease in . UpToDate. 2016. Accessed on March 10, 2016. Performed By: #### CBCDIF, CMP, LIPB, TSH, VITD #### [facility] [address] [place], [place] [address] VITAMIN D 25 HYDROXY Collected: 07/24/2018 Status: F Source: [place] 10:50 AM [facility] REPOSITORY TYPE CODE TESTS RESULT OUT OF REFERENCE UNITS RANGE LAB VITD 31.0-80.0 ng/mL Low Vitamin D 25 26.3 Hydroxy Result Comment: Classification of 25 [place] Vitamin D status: Insufficiency/Moderate Deficiency: < or = 30 ng/mL Sufficiency/Optimal Levels: 31 to 80 ng/mL Toxicity: > 100 ng/mL Test performed by chemiluminescent immunoassay. Performed By: #### CBCDIF, CMP, LIPB, TSH, VITD #### [facility] [address] [place], [place] [address] PROGRESS Observed: 07/24/2018 Status: COMPLETED Source: [place] 10:17 AM [facility] REPOSITORY HNO ID: [id number] Author: Flora Peterson Service: (none) Author Type: Physician Type: Progress Notes Filed: 07/24/2018 7:54 PM Note Text: Reason for Visit Patient presents with: Established Patient: follow up-medication anxiety Andreina Gee is a 43 year old female who presents here today for Above Complaints. Health Maintenance BP CONTROLLED (<130/80) DTAP,TDAP,TD(1 - Tdap) ADULT PREVNAR-13 PAP EVERY 5 YEARS HPV EVERY 5 YEARS MAMMOGRAM INFLUENZA(1) HPI Her BP today is very good on the Amiloride and HCTZ, and the amlodipine. She has a very stressful Job and the setraline 25 mg is not helping. She thinks it may have helped her some bit. Had a uri for 6 weeks, finally she was put on abx and is doing good. Been feeling tired, gained weight and is not feeling good over all No problem-specific Assessment AND Plan notes found for this encounter. PAST MEDICAL HISTORY Diagnosis Date - Essential hypertension PAST SURGICAL HISTORY Procedure Laterality Date - SECTION HX x2 - EXTRACTION ERUPTED TOOTH/EXR - REMOVAL OF TONSILS,<12 Y/O Tonsillectomy FAMILY HISTORY Problem Relation Age of Onset - Hypertension Mother - Stroke Mother - Heart Mother - Hypertension Father - Heart Father - COPD Father Social History Substance Use Topics - Smoking status: Former Smoker Packs/day: 1.00 Years: 20.00 Quit date: 09/24/2011 - Smokeless tobacco: Never Used Comment: uses E-cigarettes - Alcohol use 3.0 - 6.0 oz/week 2 - 4 Glasses of Wine (5oz) per week Past medical history, appointments, medications, allergies reviewed. Pertinent Lab/Diagnostic Studies are reviewed and discussed today Current Outpatient Prescriptions: - doxycycline hyclate (VIBRAMYCIN) 100 mg capsule - amLODIPine (NORVASC) 2.5 mg tablet - aMILoride-hydrochlorothiazide (MODURETIC 5-50) 5-50 mg tab - sertraline (ZOLOFT) 25 mg tablet - zolpidem (AMBIEN) 10 mg tab Review of Systems CONSTITUTIONAL: No fevers, chills night sweats, unintended weight loss CARDIOVASCULAR: No chest pain, dyspnea, palpitations, orthopnea, PND, ankle edema. PULM: No dyspnea, unexplained cough. GI: No dysphagia/odynophagia, problematic reflux, constipation, diarrhea, changes in stool habits, hematochezia, melena. : No new urinary complaints, including dysuria, gross hematuria or pyuria. NEURO: No new balance problems, peripheral weakness/paresthesias or numbness of concern. Physical Exam BP 130/70 (BP Site: Left Arm, BP Position: Sitting, BP Cuff Size: Regular Adult) Pulse 105 Resp 12 Ht 162.6 cm (5' 4) Wt 76.7 kg (169 lb) SpO2 96% BMI 29.01 kg/m? General appearance: Well appearing, alert, in no acute distress, well nourished. Skin: Skin color, texture, turgor normal, no suspicious rashes or lesions Head: Normocephalic, no masses, lesions, tenderness or abnormalities Eyes: Anicteric sclera. Pupils are equally round and reactive to light. Extraocular movements are intact. Lungs: Lungs clear to auscultation. No wheezing, rhonchi, rales Heart: RRR without murmur, gallop, or rubs. Extremities: No deformities, edema, skin discoloration, clubbing or cyanosis. Good capillary refill. ASSESSMENT/PLAN: 1. Anxiety and depression - ICD9: 300.00, 311, ICD10: F41.9, F32.9 (primary diagnosis) - SERTRALINE 50 MG TABLET 2. Essential hypertension - ICD9: 401.9, ICD10: I10 - good control - Recommended regular aerobic exercise. - Recommend home blood pressure monitoring, to bring results in on next visit - Goal of BP <130/80 - AMILORIDE 5 MG-HYDROCHLOROTHIAZIDE 50 MG TABLET - LIPID PANEL BASIC - CBC + DIFF - COMP METABOLIC PANEL 3. Breast cancer screening by mammogram - ICD9: V76.12, ICD10: Z12.31 - Follow up for annual exam in one year. - ROLANDO SCREENING 4. Vitamin D deficiency - ICD9: 268.9, ICD10: E55.9 - VITAMIN D 25 HYDROXY 5. Other fatigue - ICD9: 780.79, ICD10: R53.83 - TSH BLD FLORA PETERSON MD CNOV Observed: 07/24/2018 Status: COMPLETED Source: [place] 9:40 AM [facility] REPOSITORY Office Visit (INTMWS) ANDREINA GEE ([id number]) 1975 F Date Time Provider Department 07/24/18 9:40 AM FLORA PETERSON INTM[facility] During your visit today, we recorded the following information about you: Pulse Respiration Blood pressure Weight 105/minute 12/minute 130/70 76.7 kg Height 1.626 m FLORA PETERSON MD 07/24/2018 7:54 PM Signed Reason for Visit Patient presents with: Established Patient: follow up-medication anxiety Andreina Gee is a 43 year old female who presents here today for Above Complaints. Health Maintenance BP CONTROLLED (<130/80) DTAP,TDAP,TD(1 - Tdap) ADULT PREVNAR-13 PAP EVERY 5 YEARS HPV EVERY 5 YEARS MAMMOGRAM INFLUENZA(1) HPI Her BP today is very good on the Amiloride and HCTZ, and the amlodipine. She has a very stressful Job and the setraline 25 mg is not helping. She thinks it may have helped her some bit. Had a uri for 6 weeks, finally she was put on abx and is doing good. Been feeling tired, gained weight and is not feeling good over all No problem-specific Assessment AND Plan notes found for this encounter. PAST MEDICAL HISTORY Diagnosis Date - Essential hypertension PAST SURGICAL HISTORY Procedure Laterality Date - SECTION HX x2 - EXTRACTION ERUPTED TOOTH/EXR - REMOVAL OF TONSILS,<12 Y/O Tonsillectomy FAMILY HISTORY Problem Relation Age of Onset - Hypertension Mother - Stroke Mother - Heart Mother - Hypertension Father - Heart Father - COPD Father Social History Substance Use Topics - Smoking status: Former Smoker Packs/day: 1.00 Years: 20.00 Quit date: 09/24/2011 - Smokeless tobacco: Never Used Comment: uses E-cigarettes - Alcohol use 3.0 - 6.0 oz/week 2 - 4 Glasses of Wine (5oz) per week Past medical history, appointments, medications, allergies reviewed. Pertinent Lab/Diagnostic Studies are reviewed and discussed today Current Outpatient Prescriptions: - doxycycline hyclate (VIBRAMYCIN) 100 mg capsule - amLODIPine (NORVASC) 2.5 mg tablet - aMILoride-hydrochlorothiazide (MODURETIC 5-50) 5-50 mg tab - sertraline (ZOLOFT) 25 mg tablet - zolpidem (AMBIEN) 10 mg tab Review of Systems CONSTITUTIONAL: No fevers, chills night sweats, unintended weight loss CARDIOVASCULAR: No chest pain, dyspnea, palpitations, orthopnea, PND, ankle edema. PULM: No dyspnea, unexplained cough. GI: No dysphagia/odynophagia, problematic reflux, constipation, diarrhea, changes in stool habits, hematochezia, melena. : No new urinary complaints, including dysuria, gross hematuria or pyuria. NEURO: No new balance problems, peripheral weakness/paresthesias or numbness of concern. Physical Exam BP 130/70 (BP Site: Left Arm, BP Position: Sitting, BP Cuff Size: Regular Adult) Pulse 105 Resp 12 Ht 162.6 cm (5' 4) Wt 76.7 kg (169 lb) SpO2 96% BMI 29.01 kg/m? General appearance: Well appearing, alert, in no acute distress, well nourished. Skin: Skin color, texture, turgor normal, no suspicious rashes or lesions Head: Normocephalic, no masses, lesions, tenderness or abnormalities Eyes: Anicteric sclera. Pupils are equally round and reactive to light. Extraocular movements are intact. Lungs: Lungs clear to auscultation. No wheezing, rhonchi, rales Heart: RRR without murmur, gallop, or rubs. Extremities: No deformities, edema, skin discoloration, clubbing or cyanosis. Good capillary refill. ASSESSMENT/PLAN: 1. Anxiety and depression - ICD9: 300.00, 311, ICD10: F41.9, F32.9 (primary diagnosis) - SERTRALINE 50 MG TABLET 2. Essential hypertension - ICD9: 401.9, ICD10: I10 - good control - Recommended regular aerobic exercise. - Recommend home blood pressure monitoring, to bring results in on next visit - Goal of BP <130/80 - AMILORIDE 5 MG-HYDROCHLOROTHIAZIDE 50 MG TABLET - LIPID PANEL BASIC - CBC + DIFF - COMP METABOLIC PANEL 3. Breast cancer screening by mammogram - ICD9: V76.12, ICD10: Z12.31 - Follow up for annual exam in one year. - ROLANDO SCREENING 4. Vitamin D deficiency - ICD9: 268.9, ICD10: E55.9 - VITAMIN D 25 HYDROXY 5. Other fatigue - ICD9: 780.79, ICD10: R53.83 - TSH BLD FLORA PETERSON MD Referring Provider: FLORA PETERSON [[id number]] Allergies As of Date: 07/24/2018 Noted Allergy Reaction PENICILLINS 03/02/2006 Date Reviewed: 07/24/2018 Reviewed by: Fatmata Amanda LPN - Fully Assessed Reason for Visit: Established Patient [175] Cmt: follow up-medication anxiety Primary Visit Diagnosis:Anxiety and depression [F41.9, F32.9] Other Visit Diagnoses:Essential hypertension [I10] Breast cancer screening by mammogram [Z12.31] Vitamin D deficiency [E55.9] Other fatigue [R53.83] Order(s):RLOANDO SCREENING [[id number]] Order #: [id number] FUTURE aMILoride-hydrochlorothiazide (MODURETIC 5-50) 5- 50 mg tabTake 0.5 tablets by mouth once daily.Disp: 30 tabletRfl: 3 sertraline (ZOLOFT) 50 mg tabletTake 1 tablet by mouth once daily.Disp: 30 tabletRfl: 3 LIPID PANEL BASIC [SQLIPB] Order #: [id number] FUTURE CBC + DIFF [SQCBCDIF] Order #: [id number] FUTURE COMP METABOLIC PANEL [SQCMP] Order #: [id number] FUTURE VITAMIN D 25 HYDROXY [SQVITD] Order #: [id number] FUTURE TSH BLD [SQTSH] Order #: [id number] FUTURE Prescriptions as of 07/24/2018 Sig: AMILORIDE 5 MG-HYDROCHLOROTHI* Take 0.5 tablets by mouth onc* SERTRALINE 50 MG TABLET Take 1 tablet by mouth once d* DOXYCYCLINE HYCLATE 100 MG CA* Take 1 capsule by mouth twice* AMLODIPINE 2.5 MG TABLET take 1 tablet by mouth once d* ZOLPIDEM 10 MG TABLET Take 0.5 tablets by mouth at * Problem List As Of Date 07/24/2018 Noted Resolved 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 SERTRALINE 50 MG TABLET 30 t* 3 07/24/2018 Route: ORAL Sig: Take 1 tablet by mouth once daily. Medications Discontinued During This Encounter sertraline (ZOLOFT) 25 mg tablet 30 t* 5 01/15/2018 07/24/2018 Sig: take 1 tablet by mouth once daily Disc: Reason for discontinue is not on file. aMILoride-hydrochlorothiazide (MODUR* 30 t* 3 06/05/2018 07/24/2018 Sig: take 1/2 tablet by mouth once daily Disc: Reason for discontinue is not on file. Encounter Status:Closed by FLORA PETERSON MD on 07/24/18 PROGRESS Observed: 07/19/2018 Status: COMPLETED Source: [place] 4:48 PM [facility] REPOSITORY [facility] ID: [id number] Author: Lexie (Decorator Inspector) [facility] Service: (none) Author Type: Nurse Practitioner Type: Progress Notes Filed: 07/19/2018 5:01 PM Note Text: Subjective The history is provided by the patient and the spouse. Andreina Gee is a 43 year old female who presents with cold symptoms x 2 weeks. She has been taking advil cold and sinus, using netti pot and taking airborne. She feels her symptoms are worsening. Sick contacts include a son with URI symptoms. Review of Systems Constitutional: Positive for malaise/fatigue. Negative for fever. HENT: Positive for congestion, sinus pain and sore throat (intermittent). Negative for ear pain. Respiratory: Positive for cough. Gastrointestinal: Negative for nausea and vomiting. Neurological: Positive for headaches (intermittent). BP 152/92 Pulse 93 Temp 36.6 ?C (97.9 ?F) (Left Tympanic) Resp 16 Wt 78 kg (172 lb) SpO2 98% BMI 29.52 kg/m? PAST MEDICAL HISTORY Diagnosis Date - Essential hypertension PAST SURGICAL HISTORY Procedure Laterality Date - SECTION HX x2 - EXTRACTION ERUPTED TOOTH/EXR - REMOVAL OF TONSILS,<12 Y/O Tonsillectomy ALLERGIES Penicillins MEDICATIONS amLODIPine (NORVASC) 2.5 mg tablet take 1 tablet by mouth once daily aMILoride-hydrochlorothiazide (MODURETIC 5-50) 5-50 mg tab take 1/2 tablet by mouth once daily sertraline (ZOLOFT) 25 mg tablet take 1 tablet by mouth once daily zolpidem (AMBIEN) 10 mg tab Take 0.5 tablets by mouth at bedtime as needed. azithromycin (ZITHROMAX) 250 mg tablet Take 2 tablets today then one tablet daily for 4 days. FAMILY HISTORY Problem Relation Age of Onset - Hypertension Mother - Stroke Mother - Heart Mother - Hypertension Father - Heart Father - COPD Father Social History Substance Use Topics - Smoking status: Former Smoker Packs/day: 1.00 Years: 20.00 Quit date: 09/24/2011 - Smokeless tobacco: Never Used Comment: uses E-cigarettes - Alcohol use 3.0 - 6.0 oz/week 2 - 4 Glasses of Wine (5oz) per week Objective Physical Exam Constitutional: She is well-developed, well-nourished, and in no distress. HENT: Right Ear: Tympanic membrane, external ear and ear canal normal. Left Ear: Tympanic membrane, external ear and ear canal normal. Nose: Sinus tenderness present. No rhinorrhea. Right sinus exhibits frontal sinus tenderness. Left sinus exhibits frontal sinus tenderness. Mouth/Throat: Uvula is midline, oropharynx is clear and moist and mucous membranes are normal. No posterior oropharyngeal edema or posterior oropharyngeal erythema. Eyes: Right conjunctiva is injected. Left conjunctiva is injected. Neck: Neck supple. Cardiovascular: Normal rate, regular rhythm and normal heart sounds. Pulmonary/Chest: Effort normal and breath sounds normal. No respiratory distress. She has no wheezes. She has no rales. Lymphadenopathy: She has no cervical adenopathy. Neurological: She is alert. Skin: Skin is warm and dry. No rash noted. Nursing note and vitals reviewed. ASSESSMENT/PLAN: 1. Bacterial sinusitis - ICD9: 473.9, 041.9, ICD10: J32.9, B96.89 - Will begin treatment with Doxycycline - The patient should also be given Mucinex for the first 5- 7 days of treatment. - Supportive care with plenty of fluids, rest, and analgesia prn. - DOXYCYCLINE HYCLATE 100 MG CAPSULE - Follow-up with your PCP in 3-5 days if symptoms have not improved or sooner if symptoms worsen - Discussed red flags and need for immediate medical evaluation if any occur. - Discussed supportive care treatment with fluids, rest and analgesia. - Discussed expected course of illness Lexie Yancey APRN.CNP CNOV Observed: 07/19/2018 Status: COMPLETED Source: [place] 4:45 PM [facility] REPOSITORY Office Visit (WSTR) ANDREINA GEE ([id number]) 1975 F Date Time Provider Department 07/19/18 4:45 PM LEXIE YANCEY (KAI) [facility] During your visit today, we recorded the following information about you: Temperature Pulse Respiration Blood pressure 97.9 degrees 93/minute 16/minute 152/92 Weight 78 kg Lexie Yancey APRN.CNP 07/19/2018 5:01 PM Signed Subjective The history is provided by the patient and the spouse. Andreina Gee is a 43 year old female who presents with cold symptoms x 2 weeks. She has been taking advil cold and sinus, using netti pot and taking airborne. She feels her symptoms are worsening. Sick contacts include a son with URI symptoms. Review of Systems Constitutional: Positive for malaise/fatigue. Negative for fever. HENT: Positive for congestion, sinus pain and sore throat (intermittent). Negative for ear pain. Respiratory: Positive for cough. Gastrointestinal: Negative for nausea and vomiting. Neurological: Positive for headaches (intermittent). BP 152/92 Pulse 93 Temp 36.6 ?C (97.9 ?F) (Left Tympanic) Resp 16 Wt 78 kg (172 lb) SpO2 98% BMI 29.52 kg/m? PAST MEDICAL HISTORY Diagnosis Date - Essential hypertension PAST SURGICAL HISTORY Procedure Laterality Date - SECTION HX x2 - EXTRACTION ERUPTED TOOTH/EXR - REMOVAL OF TONSILS,<12 Y/O Tonsillectomy ALLERGIES Penicillins MEDICATIONS amLODIPine (NORVASC) 2.5 mg tablet take 1 tablet by mouth once daily aMILoride-hydrochlorothiazide (MODURETIC 5-50) 5-50 mg tab take 1/2 tablet by mouth once daily sertraline (ZOLOFT) 25 mg tablet take 1 tablet by mouth once daily zolpidem (AMBIEN) 10 mg tab Take 0.5 tablets by mouth at bedtime as needed. azithromycin (ZITHROMAX) 250 mg tablet Take 2 tablets today then one tablet daily for 4 days. FAMILY HISTORY Problem Relation Age of Onset - Hypertension Mother - Stroke Mother - Heart Mother - Hypertension Father - Heart Father - COPD Father Social History Substance Use Topics - Smoking status: Former Smoker Packs/day: 1.00 Years: 20.00 Quit date: 09/24/2011 - Smokeless tobacco: Never Used Comment: uses E-cigarettes - Alcohol use 3.0 - 6.0 oz/week 2 - 4 Glasses of Wine (5oz) per week Objective Physical Exam Constitutional: She is well-developed, well-nourished, and in no distress. HENT: Right Ear: Tympanic membrane, external ear and ear canal normal. Left Ear: Tympanic membrane, external ear and ear canal normal. Nose: Sinus tenderness present. No rhinorrhea. Right sinus exhibits frontal sinus tenderness. Left sinus exhibits frontal sinus tenderness. Mouth/Throat: Uvula is midline, oropharynx is clear and moist and mucous membranes are normal. No posterior oropharyngeal edema or posterior oropharyngeal erythema. Eyes: Right conjunctiva is injected. Left conjunctiva is injected. Neck: Neck supple. Cardiovascular: Normal rate, regular rhythm and normal heart sounds. Pulmonary/Chest: Effort normal and breath sounds normal. No respiratory distress. She has no wheezes. She has no rales. Lymphadenopathy: She has no cervical adenopathy. Neurological: She is alert. Skin: Skin is warm and dry. No rash noted. Nursing note and vitals reviewed. ASSESSMENT/PLAN: 1. Bacterial sinusitis - ICD9: 473.9, 041.9, ICD10: J32.9, B96.89 - Will begin treatment with Doxycycline - The patient should also be given Mucinex for the first 5- 7 days of treatment. - Supportive care with plenty of fluids, rest, and analgesia prn. - DOXYCYCLINE HYCLATE 100 MG CAPSULE - Follow-up with your PCP in 3-5 days if symptoms have not improved or sooner if symptoms worsen - Discussed red flags and need for immediate medical evaluation if any occur. - Discussed supportive care treatment with fluids, rest and analgesia. - Discussed expected course of illness STEVEN Pompa APRN.CNP 07/19/2018 4:55 PM Signed ASSESSMENT/PLAN: 1. Bacterial sinusitis - ICD9: 473.9, 041.9, ICD10: J32.9, B96.89 - Will begin treatment with Doxycycline - The patient should also be given Mucinex for the first 5- 7 days of treatment. - Supportive care with plenty of fluids, rest, and analgesia prn. - DOXYCYCLINE HYCLATE 100 MG CAPSULE - Follow-up with your PCP in 3-5 days if symptoms have not improved or sooner if symptoms worsen - Discussed red flags and need for immediate medical evaluation if any occur. - Discussed supportive care treatment with fluids, rest and analgesia. - Discussed expected course of illness Lexie Yancey APRN.CNP Acute Sinusitis Each of us has four paired cavities (spaces) in our head that are connected to the nose by narrow channels. These cavities, known as sinuses, produce thin mucus that drains out of the channels of the nose. This drainage helps keep the nose clean and free of particles and bacteria. Normally, sinuses are filled with air. But when sinuses become blocked and filled with fluid, bacteria can grow and cause an infection (bacterial sinusitis). Conditions that cause sinus blockage include: ? the common cold ? allergic rhinitis (swelling of the lining of the nose due to allergies) ? nasal polyps (small growths in the lining of the nose), or ? a deviated septum (the wall between the left and right nostril is crooked). Allergies, such as hay fever, can also cause swelling and poor drainage of the sinuses. One confusing factor to consider is that many people with ?sinus headaches? are actually suffering from migraines. In fact, in large clinical studies, up to 90% of people who reported sinus headaches were diagnosed with migraines instead. Migraines can cause headaches in combination with facial pressure over the sinuses, a runny nose, and nasal congestion. If you have symptoms that involve the sinuses, it may be difficult to tell if you have sinusitis, a cold, nasal allergy, or even a migraine. This article will describe the symptoms, diagnosis, and treatment of sinusitis, and how to tell the difference between sinusitis, cold, migraines, and nasal allergy. What is sinusitis? Sinusitis is an inflammation, or swelling, of the tissue lining the sinuses. There are two types of sinusitis: ? Acute bacterial sinusitis: a sudden onset of cold symptoms such as runny nose, stuffy nose, and facial pain that does not go away after 10 days, or symptoms that seem to begin improving but return worse than the initial symptoms. It responds well to antibiotics and decongestants. ? Chronic sinusitis: a condition defined by nasal congestion, drainage, facial pain/pressure, and decreased sense of smell for at least 12 weeks. Who gets sinusitis? Every year, approximately 1 billion Americans have at least one episode of viral sinusitis. About 37 million will develop a bacterial sinusitis. People who have the following conditions have a higher risk of sinusitis: ? Nasal mucus membrane swelling, as from a common cold or allergies ? Blockage of drainage ducts, leading to trapping of mucus ? Structure differences that narrow the drainage ducts ? Conditions that result in an increased risk of infection ? Polyps (growths) In children, common factors in the environment that contribute to sinusitis include allergies, illness from other children at day care or school, and smoke in the environment. In adults, the contributing factors are most frequently viral infections, allergies, and smoking. What are the signs and symptoms of acute sinusitis? The primary symptoms of acute sinusitis include: ? Facial pain/pressure/tenderness ? Nasal stuffiness ? Nasal discharge (thick yellow or green discharge from nose), especially if it is long-lasting. These also may be present with viral illness. ? Loss of smell and taste ? Cough/congestion Additional symptoms may include: ? Fever of 102? or higher ? Ear pain ? Headache ? Bad breath ? Fatigue ? Ache in upper jaw and teeth How is sinusitis diagnosed? To diagnose sinusitis, your doctor will discuss your symptoms and examine your nose for swelling and drainage. Your personal history is most important in diagnosing sinusitis. A physical exam of the ears, nose, and throat is performed to look for signs of obstruction (blockage) or infection. Some patients may have conditions that may need to be referred to a specialist, such as an ear, nose, and throat (ENT) physician. How is sinusitis treated? Acute sinusitis. If you have a simple sinusitis infection, your health care provider may recommend treatment with [id number] medications for cold and allergy, nasal saline irrigation, and drinking fluids (as most sinusitis is viral). Use of prescription intranasal steroid sprays might be added to help control symptoms. However, non-prescription drops or sprays should not be used beyond 5 days -- or they may actually increase congestion. If symptoms do not improve after at least 10 days, if the symptoms seem to be getting worse, or if medications for cold or allergy do not improve symptoms, a bacterial infection may be causing the sinusitis. In this case, antibiotics are given for 7 days in adults and 10 days in children. Antibiotics should improve symptoms within 48 hours. Chronic sinusitis. Treating chronic sinusitis begins with controlling the underlying condition, which is most often allergies. Standard treatments include intranasal steroid sprays, topical antihistamine sprays, or antihistamine pills, and leukotriene antagonists such as montelukast. Often you will be encouraged to rinse the nose with saline irrigations. Sometimes medications may be added to these irrigations. If sinusitis is not controlled, the next step is a visit with an Ear, Nose and Throat Specialist. Will I need to make lifestyle changes? If you have indoor allergies, avoiding triggers -- such as animal dander and dust mites ? is recommended in addition to medications. Smoking is never recommended, but if you do smoke, strongly consider a program to help you stop smoking, as this may be the main reason you have sinus infections. No special diet is required, but drinking extra fluids helps to thin nasal secretions. What are the symptoms of the common cold? An upper respiratory infection (the common cold) is usually caused by a virus that infects the nose and throat. Most upper respiratory infections are not bacterial and do not respond to antibiotics. A cold may cause swelling in the sinuses, preventing the outflow of mucus. Cold symptoms include nasal congestion, runny nose, post-nasal drip (rxsv-up-sapg release of nasal fluid into the back of the throat), headache, achiness, and fatigue. Cough and fever may also go along with these symptoms. Cold symptoms usually build, peak, and slowly disappear. No treatment is necessary for a cold, but some medications can ease symptoms. For example, decongestants may decrease drainage and open the nasal passages. Analgesics (pain relievers) may help with fever and headache. Cough medication may help, as well. Colds will typically last from a few days to about a week. What is the harm in getting an antibiotic for a common cold? Viral infections like the common cold are not cured by antibiotics. Taking an antibiotic for a viral infection unnecessarily puts you at risk for side effects related to the antibiotic. In addition, the overuse of antibiotics leads to antibiotic resistance, which may make future infections more difficult to treat. Finally, the use of inappropriate medication increases health care costs unnecessarily. What are the symptoms of nasal allergy? Symptoms of nasal allergy include: ? Sneezing ? Itchy nose ? Clear, watery nasal discharge ? Nasal blockage ? Feeling fatigued How is nasal allergy treated? Usually medications are prescribed to relieve symptoms. These may include antihistamines, with or without decongestants, or steroid nasal sprays. Other nasal sprays, which deliver antihistamines or cromolyn sodium, are sometimes helpful. If allergy symptoms are chronic (long-term), allergy testing and allergy shots (immunotherapy) may be helpful. How can I tell if I have a sinus infection, cold, or nasal allergy? Although the symptoms of sinusitis and nasal allergy may occur with a common cold, in general, cold-related symptoms disappear within 1 week. The point at which a normal cold ends and a sinus condition begins is not always easy to know. If you are fighting off a cold and develop symptoms of a sinus infection or nasal allergy, see your health care provider. You will be asked to describe your symptoms and medical history. ? How do I know if my sinus condition requires the care of an ear, nose, and throat specialist? Most routine sinus conditions are easily cared for by primary care physicians. If, however, you are bothered by ongoing abnormal symptoms, recurring infections, or have abnormal X-ray findings or complications, a referral to a specialist is appropriate. References ? Opal Adame. et al., IDSA Clinical Practice Guideline for Acute Bacterial Rhinosinusitis in Children and Adults. Clinical Infectious Diseases; 2012;54(8):2139-0631. ? Haim Vazquez, Sinusitis: Allergies, antibiotics, aspirin, asthma. [facility] Journal of Medicine 2006; 73(7): 671-678 ? [employer] [place] [employer]ious [employer]. Sinusitis (Sinus Infection) Accessed 08/03/2015. ? [employer], [employer]. Sinusitis Accessed 08/03/2015. ? [employer]. Sinus Information Accessed 08/03/2015. ? Maggi Fine., Prevalence of migraine in patients with a history of self-reported or physician-diagnosed sinus headache. Arch Optomechanical Engineer Med, 2004. 164(16):1769-83. ? Copyright 4023-7163 [facility]. All rights reserved. Referring Provider: SELF [[id number]] Allergies As of Date: 07/19/2018 Noted Allergy Reaction PENICILLINS 03/02/2006 Date Reviewed: 07/19/2018 Reviewed by: Lexie ([facility]) Bc - Fully Assessed Reason for Visit: URI [115] Primary Visit Diagnosis:Bacterial sinusitis [J32.9, B96.89] Order(s):doxycycline hyclate (VIBRAMYCIN) 100 mg capsuleTake 1 capsule by mouth twice daily for 10 days.Disp: 20 capsuleRfl: 0 Prescriptions as of 07/19/2018 Sig: AMLODIPINE 2.5 MG TABLET take 1 tablet by mouth once d* AMILORIDE 5 MG-HYDROCHLOROTHI* take 1/2 tablet by mouth once* SERTRALINE 25 MG TABLET take 1 tablet by mouth once d* ZOLPIDEM 10 MG TABLET Take 0.5 tablets by mouth at * DOXYCYCLINE HYCLATE 100 MG CA* Take 1 capsule by mouth twice* Problem List As Of Date 07/19/2018 Noted Resolved 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 Bacterial sinusitis - ICD9: 473.9, 041.9, ICD10: J32.9, B96.89 - Will begin treatment with Doxycycline - The patient should also be given Mucinex for the first 5-7 days of treatment. - Supportive care with plenty of fluids, rest, and analgesia prn. - DOXYCYCLINE HYCLATE 100 MG CAPSULE - Follow-up with your PCP in 3-5 days if symptoms have not improved or sooner if symptoms worsen - Discussed red flags and need for immediate medical evaluation if any occur. - Discussed supportive care treatment with fluids, rest and analgesia. - Discussed expected course of illness Lexie Yancey, RAUHL.RANGE MANAGER Acute Sinusitis Each of us has four paired cavities (spaces) in our head that are connected to the nose by narrow channels. These cavities, known as sinuses, produce thin mucus that drains out of the channels of the nose. This drainage helps keep the nose clean and free of particles and bacteria. Normally, sinuses are filled with air. But when sinuses become blocked and filled with fluid, bacteria can grow and cause an infection (bacterial sinusitis). Conditions that cause sinus blockage include: ? the common cold ? allergic rhinitis (swelling of the lining of the nose due to allergies) ? nasal polyps (small growths in the lining of the nose), or ? a deviated septum (the wall between the left and right nostril is crooked). Allergies, such as hay fever, can also cause swelling and poor drainage of the sinuses. One confusing factor to consider is that many people with ?sinus headaches? are actually suffering from migraines. In fact, in large clinical studies, up to 90% of people who reported sinus headaches were diagnosed with migraines instead. Migraines can cause headaches in combination with facial pressure over the sinuses, a runny nose, and nasal congestion. If you have symptoms that involve the sinuses, it may be difficult to tell if you have sinusitis, a cold, nasal allergy, or even a migraine. This article will describe the symptoms, diagnosis, and treatment of sinusitis, and how to tell the difference between sinusitis, cold, migraines, and nasal allergy. What is sinusitis? Sinusitis is an inflammation, or swelling, of the tissue lining the sinuses. There are two types of sinusitis: ? Acute bacterial sinusitis: a sudden onset of cold symptoms such as runny nose, stuffy nose, and facial pain that does not go away after 10 days, or symptoms that seem to begin improving but return worse than the initial symptoms. It responds well to antibiotics and decongestants. ? Chronic sinusitis: a condition defined by nasal congestion, drainage, facial pain/pressure, and decreased sense of smell for at least 12 weeks. Who gets sinusitis? Every year, approximately 1 billion Americans have at least one episode of viral sinusitis. About 37 million will develop a bacterial sinusitis. People who have the following conditions have a higher risk of sinusitis: ? Nasal mucus membrane swelling, as from a common cold or allergies ? Blockage of drainage ducts, leading to trapping of mucus ? Structure differences that narrow the drainage ducts ? Conditions that result in an increased risk of infection ? Polyps (growths) In children, common factors in the environment that contribute to sinusitis include allergies, illness from other children at day care or school, and smoke in the environment. In adults, the contributing factors are most frequently viral infections, allergies, and smoking. What are the signs and symptoms of acute sinusitis? The primary symptoms of acute sinusitis include: ? Facial pain/pressure/tenderness ? Nasal stuffiness ? Nasal discharge (thick yellow or green discharge from nose), especially if it is long-lasting. These also may be present with viral illness. ? Loss of smell and taste ? Cough/congestion Additional symptoms may include: ? Fever of 102? or higher ? Ear pain ? Headache ? Bad breath ? Fatigue ? Ache in upper jaw and teeth How is sinusitis diagnosed? To diagnose sinusitis, your doctor will discuss your symptoms and examine your nose for swelling and drainage. Your personal history is most important in diagnosing sinusitis. A physical exam of the ears, nose, and throat is performed to look for signs of obstruction (blockage) or infection. Some patients may have conditions that may need to be referred to a specialist, such as an ear, nose, and throat (ENT) physician. How is sinusitis treated? Acute sinusitis. If you have a simple sinusitis infection, your health care provider may recommend treatment with [id number]-[id number] medications for cold and allergy, nasal saline irrigation, and drinking fluids (as most sinusitis is viral). Use of prescription intranasal steroid sprays might be added to help control symptoms. However, non- prescription drops or sprays should not be used beyond 5 days -- or they may actually increase congestion. If symptoms do not improve after at least 10 days, if the symptoms seem to be getting worse, or if medications for cold or allergy do not improve symptoms, a bacterial infection may be causing the sinusitis. In this case, antibiotics are given for 7 days in adults and 10 days in children. Antibiotics should improve symptoms within 48 hours. Chronic sinusitis. Treating chronic sinusitis begins with controlling the underlying condition, which is most often allergies. Standard treatments include intranasal steroid sprays, topical antihistamine sprays, or antihistamine pills, and leukotriene antagonists such as montelukast. Often you will be encouraged to rinse the nose with saline irrigations. Sometimes medications may be added to these irrigations. If sinusitis is not controlled, the next step is a visit with an Ear, Nose and Throat Specialist. Will I need to make lifestyle changes? If you have indoor allergies, avoiding triggers -- such as animal dander and dust mites ? is recommended in addition to medications. Smoking is never recommended, but if you do smoke, strongly consider a program to help you stop smoking, as this may be the main reason you have sinus infections. No special diet is required, but drinking extra fluids helps to thin nasal secretions. What are the symptoms of the common cold? An upper respiratory infection (the common cold) is usually caused by a virus that infects the nose and throat. Most upper respiratory infections are not bacterial and do not respond to antibiotics. A cold may cause swelling in the sinuses, preventing the outflow of mucus. Cold symptoms include nasal congestion, runny nose, post- nasal drip (acgt-mk-qzrc release of nasal fluid into the back of the throat), headache, achiness, and fatigue. Cough and fever may also go along with these symptoms. Cold symptoms usually build, peak, and slowly disappear. No treatment is necessary for a cold, but some medications can ease symptoms. For example, decongestants may decrease drainage and open the nasal passages. Analgesics (pain relievers) may help with fever and headache. Cough medication may help, as well. Colds will typically last from a few days to about a week. What is the harm in getting an antibiotic for a common cold? Viral infections like the common cold are not cured by antibiotics. Taking an antibiotic for a viral infection unnecessarily puts you at risk for side effects related to the antibiotic. In addition, the overuse of antibiotics leads to antibiotic resistance, which may make future infections more difficult to treat. Finally, the use of inappropriate medication increases health care costs unnecessarily. What are the symptoms of nasal allergy? Symptoms of nasal allergy include: ? Sneezing ? Itchy nose ? Clear, watery nasal discharge ? Nasal blockage ? Feeling fatigued How is nasal allergy treated? Usually medications are prescribed to relieve symptoms. These may include antihistamines, with or without decongestants, or steroid nasal sprays. Other nasal sprays, which deliver antihistamines or cromolyn sodium, are sometimes helpful. If allergy symptoms are chronic (long- term), allergy testing and allergy shots (immunotherapy) may be helpful. How can I tell if I have a sinus infection, cold, or nasal allergy? Although the symptoms of sinusitis and nasal allergy may occur with a common cold, in general, cold-related symptoms disappear within 1 week. The point at which a normal cold ends and a sinus condition begins is not always easy to know. If you are fighting off a cold and develop symptoms of a sinus infection or nasal allergy, see your health care provider. You will be asked to describe your symptoms and medical history. ? How do I know if my sinus condition requires the care of an ear, nose, and throat specialist? Most routine sinus conditions are easily cared for by primary care physicians. If, however, you are bothered by ongoing abnormal symptoms, recurring infections, or have abnormal X-ray findings or complications, a referral to a specialist is appropriate. References ? Luis Carlos Adame et al., IDSA Clinical Practice Guideline for Acute Bacterial Rhinosinusitis in Children and Adults. Clinical Infectious Diseases; 2012;54(8):6231-1697. ? Haim Vazquez, Sinusitis: Allergies, antibiotics, aspirin, asthma. [facility] Journal of Medicine 2006; 73(7): 671-678 ? National [place] of Allergy and Infectious Diseases. Sinusitis (Sinus Infection) Accessed 08/03/2015. ? [place] [employer], [employer]hma, [employer] Immun[employer]. Sinusitis Accessed 08/03/2015. ? [employer], [employer]. Sinus Information Accessed 08/03/2015. ? Maggi Fine., Prevalence of migraine in patients with a history of self-reported or physician-diagnosed sinus headache. Arch Optomechanical Engineer Med, 2004. 164(16):1769-72. ? Copyright 6927-8512 The [facility]. All rights reserved. Prescriptions ordered this encounter Disp Refills Start End DOXYCYCLINE HYCLATE 100 MG CAPSULE 20 c* 0 07/19/2018 07/29/2018 Route: ORAL Sig: Take 1 capsule by mouth twice daily for 10 days. Medications Discontinued During This Encounter azithromycin (ZITHROMAX) 250 mg tabl* 6 ta* 0 11/17/2017 07/19/2018 Sig: Take 2 tablets today then one tablet daily for 4 days. Disc: Reason for discontinue is not on file. Encounter Status:Closed by LEXIE YANCEY on 07/19/18 DIANNE Observed: 07/09/2018 Status: COMPLETED Source: [place] 12:00 AM [facility] REPOSITORY [facility] ANDREINA GEE ([id number]) 1975 F Date Time Provider Department 07/09/18 FLORA PETERSON [facility] During your visit today, we recorded the following information about you: Allergies As of Date: 07/09/2018 Noted Allergy Reaction PENICILLINS 03/02/2006 Date Reviewed: 11/17/2017 Reviewed by: Lexie ([facility]) STEVEN Yancey - Fully Assessed Visit Diagnosis:Medication management [Z79.899] Order(s):LIPID PANEL BASIC [SQLIPB] Order #: [id number] FUTURE Prescriptions as of 07/09/2018 Sig: AMLODIPINE 2.5 MG TABLET take 1 tablet by mouth once d* X AMILORIDE 5 MG-HYDROCHLOROTHI* take 1/2 tablet by mouth once* X SERTRALINE 25 MG TABLET take 1 tablet by mouth once d* X AZITHROMYCIN 250 MG TABLET Take 2 tablets today then one* ZOLPIDEM 10 MG TABLET Take 0.5 tablets by mouth at * Problem List As Of Date 07/09/2018 Noted Resolved WBC DISEASE NEC [D72.89] INVALID FOR* Essential hypertension [I10] Alcohol abuse [F10.10] INVALID FOR* Encounter Status:Closed by HERMINIO SAMSONUSER on 08/09/18 CBC-COMPLETE BLOOD CNT Collected: 05/06/2018 Status: F Source: [place] NO DIFF 11:51 AM [facility] REPOSITORY TYPE CODE TESTS RESULT OUT OF RANGE REFERENCE UNITS LAB L100.1000 4.4-11.0 K/mm3 Normal WBC 11.0 LAB L100.1200 4.2-5.4 M/mm3 Normal RBC 4.72 LAB L100.1300 12.0-15.0 g/dl High HGB 15.9 LAB L100.1400 37-47 % Normal HCT 46.7 LAB L100.1500 81-99 fL Normal MCV 98.9 LAB L100.1600 27.0-32.0 pg High MCH 33.7 LAB L100.1700 32-36 g/gl Normal MCHC 34.0 LAB L100.1810 11.6-14.6 % Normal RDW CV 12.3 LAB L100.1820 35.1-43.9 fl High RDW SD 44.6 LAB L100.1900 150-450 K/mm3 Normal PLT 249 LAB L100.2000 6.2-12.0 fl Normal MPV 9.8 Performed By: #### L100.0500 #### [facility] [address] [place], [place], [address] HEMOGLOBIN A1C Collected: 05/06/2018 Status: F Source: [place] 11:51 AM [facility] REPOSITORY TYPE CODE TESTS RESULT OUT OF RANGE REFERENCE UNITS LAB L501.9985 4.2-6.3 % Normal HGB A1C 5.1 Performed By: #### L501.9985 #### [facility] [address] [place], [address] TESTOSTERONE, SERUM TOTAL Collected: 05/06/2018 Status: F Source: [place] 11:51 AM [facility] REPOSITORY TYPE CODE TESTS RESULT OUT OF REFERENCE UNITS RANGE LAB L509.3000 ng/dL Testosterone Normal 30.83 Result Comment: NORMAL REFERENCE RANGES MALE AGE <50 123.06 - 813.86 ng/dL MALE AGE >50 89.98 - 780.10 ng/dL FEMALE PREMENOPAUSE AGE 21 - 60 9.01 - 47.94 ng/dL FEMALE POSTMENOPAUSE AGE 45 - 89 <7.00 - 45.62 ng/dL REFERENCE RANGE AND METHODOLOGY CHANGED 09/12/2017 Performed By: #### L509.3000, L509.4001 #### [facility] [address] [place], [address] PROGESTERONE LEVEL Collected: 05/06/2018 Status: F Source: [place] 11:51 AM [facility] REPOSITORY TYPE CODE TESTS RESULT OUT OF REFERENCE UNITS RANGE LAB L509.4001 See Comment ng/mL Progesterone Normal 0.41 Result Comment: Progesterone Reference Table: UNITS Female: Follicular 0.15 - 1.40 ng/mL Luteal 3.34 - 25.56 ng/mL Mid-luteal 4.44 - 28.03 ng/mL Postmenopausal 0.0 - 0.73 ng/mL : 1st Trimester 11.22 - 90.00 ng/mL 2nd Trimester 25.55 - 89.40 ng/mL 3rd Trimester 48.40 -422.50 ng/mL Performed By: #### L509.3000, L509.4001 #### [facility] [address] [place], [address] FREE T3 Collected: 05/06/2018 Status: F Source: [place] 11:51 AM [facility] REPOSITORY TYPE CODE TESTS RESULT OUT OF RANGE REFERENCE UNITS LAB L501.17097 2.18-3.98 pg/mL Normal FREE T3 2.8 Performed By: #### L501.87423, L501.9520, L506.0400, L3300.1750 #### [facility] [address] [place], [address] THYROID STIM HORMONE Collected: 05/06/2018 Status: F Source: [place] (TSH) 11:51 AM [facility] REPOSITORY TYPE CODE TESTS RESULT OUT OF RANGE REFERENCE UNITS LAB L501.9520 0.358-3.74 uIU/mL Normal TSH 1.00 Performed By: #### L501.65541, L501.9520, L506.0400, L3300.1750 #### [facility] [address] [place], [address] T4 FREE DIRECT Collected: 05/06/2018 Status: F Source: [place] 11:51 AM [facility] REPOSITORY TYPE CODE TESTS RESULT OUT OF RANGE REFERENCE UNITS LAB L506.0400 0.76-1.46 ng/dL Normal T4 FREE 0.89 DIRECT Performed By: #### L501.32663, L501.9520, L506.0400, L3300.1750 #### [facility] [address] [place], [address] ESTRADIOL Collected: 05/06/2018 Status: F Source: [place] 11:51 AM [facility] REPOSITORY TYPE CODE TESTS RESULT OUT OF RANGE REFERENCE UNITS LAB L3300.1750 pg/mL Normal ESTRADIOL 43.3 Result Comment: NORMAL REFERENCE RANGES FEMALE FOLLICULAR 21.4 - 164.8 pg/mL MID-CYCLE PEAK 49.9 - 367.2 pg/mL LUTEAL 40.2 - 259.0 pg/mL POST-MENOPAUSAL ON MHT <11.0 - 462.1 pg/mL NOT ON MHT <11.0 - 58.3 pg/mL MALE <11.0 - 52.5 pg/mL NOTE: [facility] HAS CONFIRMED THE DRUG FULVETRANT (FASLODEX) MAY CAUSE FALSELY ELEVATED ESTRADIOL RESULTS WHEN USING THIS TEST METHOD. IF PATIENT IS TAKING FULVESTRANT AN ALTERNATIVE METHOD SHOULD BE USED TO DETERMINE ESTRADIOL CONCENTRATION. Performed By: #### L501.87886, L501.9520, L506.0400, L3300.1750 #### [facility] [address] [place], [address] GROUP A STREP BY Collected: 11/17/2017 Status: F Source: [facility] 2:06 PM [facility] REPOSITORY TYPE CODE TESTS RESULT OUT OF REFERENCE UNITS RANGE LAB GASSRC Throat Swab GAS Specimen Source LAB PCRGAS Negative for Group A Strep Group A PCR Streptococcus by PCR. Result Comment: This test was developed and its performance characteristics determined by [facility] Evelio Beasley [facility] [place] [facility]). It has not been cleared or approved by the FDA. [facility] is regulated under CLIA as qualified to perform high-complexity testing. This test is used for clinical purposes. It should not be regarded as inv estigational or for research. Performed By: #### GASPCR #### [facility] [address] [place], [place] [address] PROGRESS Observed: 11/17/2017 Status: COMPLETED Source: [place] 2:03 PM [facility] REPOSITORY HNO ID: [id number] Author: Lexie (Kai) Bc Service: (none) Author Type: Nurse Practitioner Type: Progress Notes Filed: 11/17/2017 2:32 PM Note Text: Subjective HPI Andreina Gee is a 42 year old female who presents with sore throat, and a fever. Her son was diagnosed with strep 3 days ago. He was treated with amoxicillin and doing much better. She rates her sore throat pain a 3/10. Review of Systems Constitutional: Positive for fever. HENT: Positive for congestion and sore throat. Respiratory: Positive for cough. Cardiovascular: Negative. Gastrointestinal: Negative for nausea and vomiting. Musculoskeletal: Negative. Negative for myalgias. Skin: Positive for rash (chest). Neurological: Positive for headaches. BP 130/84 Pulse 72 Temp 36.9 ?C (98.4 ?F) (Tympanic) Resp 18 Wt 78.7 kg (173 lb 9.6 oz) BMI 29.8 kg/m2 PAST MEDICAL HISTORY Diagnosis Date - Essential hypertension PAST SURGICAL HISTORY Procedure Laterality Date - SECTION HX x2 - EXTRACTION ERUPTED TOOTH/EXR - REMOVAL OF TONSILS,<12 Y/O Tonsillectomy ALLERGIES Penicillins MEDICATIONS aMILoride-hydrochlorothiazide (MODURETIC 5-50) 5-50 mg tab Take 0.5 tablets by mouth once daily. sertraline (ZOLOFT) 25 mg tablet Take 1 tablet by mouth once daily. zolpidem (AMBIEN) 10 mg tab Take 0.5 tablets by mouth at bedtime as needed. amLODIPine (NORVASC) 2.5 mg tablet Take 1 tablet by mouth once daily. fluticasone (FLONASE) 50 mcg/actuation nasal spray Use 2 Sprays in each nostril once daily. Rinse mouth after use. For nasal drainage cetirizine (ZYRTEC) 10 mg tablet Take 1 tablet by mouth once daily. For nasal drainage dextromethorphan (DELSYM) 30 mg/5 mL liquid Take 10 mL by mouth twice daily. For cough codeine-guaiFENesin (ROBITUSSIN AC) 10-100 mg/5 mL syrup Take 5-10 mL by mouth four times daily as needed for Cough for up to 7 days. May cause drowsiness. FAMILY HISTORY Problem Relation Age of Onset - Hypertension Mother - Stroke Mother - Heart Mother - Hypertension Father - Heart Father - COPD Father Social History Substance Use Topics - Smoking status: Former Smoker Packs/day: 1.00 Years: 20.00 Quit date: 09/24/2011 - Smokeless tobacco: Never Used Comment: uses E-cigarettes - Alcohol use 3.0 - 6.0 oz/week 2 - 4 Glasses of Wine (5oz) per week Objective Physical Exam Constitutional: She is well-developed, well-nourished, and in no distress. HENT: Head: Normocephalic. Right Ear: Tympanic membrane, external ear and ear canal normal. Left Ear: Tympanic membrane, external ear and ear canal normal. Nose: Nose normal. No rhinorrhea. Mouth/Throat: Uvula is midline and mucous membranes are normal. Mucous membranes are not pale and not dry. Posterior oropharyngeal edema and posterior oropharyngeal erythema present. No oropharyngeal exudate. Eyes: Conjunctivae are normal. Right eye exhibits no discharge. Left eye exhibits no discharge. Neck: Neck supple. Cardiovascular: Normal rate, regular rhythm and normal heart sounds. Pulmonary/Chest: Effort normal and breath sounds normal. Lymphadenopathy: She has cervical adenopathy. Neurological: She is alert. Skin: Skin is warm and dry. Rash (slight rash across upper chest) noted. Nursing note and vitals reviewed. ASSESSMENT/PLAN: 1. Exposure to strep throat - ICD9: V01.89, ICD10: Z20.818 (primary diagnosis) - AZITHROMYCIN 250 MG TABLET- will treat due to close exposure with household family member. 2. Sore throat - ICD9: 462, ICD10: J02.9 - suspect strep - Rapid Strep negative in the office today and Throat culture pending - Discussed supportive care treatment with fluids, rest and analgesia. - The patient may also use warm salt water gargles, throat lozenges and/or OTC throat spray as needed. - Contagious dz precautions discussed- including considered contagious until on antibiotics for 24 hours - Call back if drooling, increased temperature, symptoms of dehydration and/or still sick in one week - RAPID STREP TEST B/O - GROUP A STREPTOCOCCUS BY PCR- request call if negative, may stop antibiotic. - Follow-up with your PCP in 3-5 days if symptoms have not improved or sooner if symptoms worsen - Discussed red flags and need for immediate medical evaluation if any occur. - Discussed supportive care treatment with fluids, rest and analgesia. - Discussed expected course of illness Lexie Yancey CNP PROGRESS Observed: 10/30/2017 Status: COMPLETED Source: [place] 9:29 AM [facility] REPOSITORY HNO ID: [id number] Author: Joy Whitley [facility] Service: (none) Author Type: (none) Type: Progress Notes Filed: 10/30/2017 9:29 AM Note Text: bp ok last visit. PROGRESS Observed: 10/25/2017 Status: COMPLETED Source: [place] 9:00 AM [facility] REPOSITORY HNO ID: [id number] Author: Joy Whitley [facility] Service: (none) Author Type: (none) Type: Progress Notes Filed: 10/30/2017 9:29 AM Note Text: Needs f/up for htn next available with PCP or SWINE GENETICS RESEARCHER PROGRESS Observed: 10/25/2017 Status: COMPLETED Source: [place] 8:59 AM [facility] REPOSITORY HNO ID: [id number] Author: Joy Whitley [facility] Service: (none) Author Type: (none) Type: Progress Notes Filed: 10/25/2017 8:59 AM Note Text: Came in and BP was normal. Last 14 BP Last 14 Encounter BP Readings: Date: BP: 10/23/2017 120/82 10/16/2017 140/100 09/03/2017 134/84 06/15/2017 122/70 05/15/2017 122/86 05/14/2017 124/80 05/09/2017 126/84 09/12/2016 136/86 04/24/2016 122/70 12/17/2015 130/102 12/13/2015 140/92 08/28/2014 130/80 12/02/2013 116/74 10/29/2007 116/86 CNPTOUTREACH Observed: 10/25/2017 Status: COMPLETED Source: [place] 12:00 AM [facility] REPOSITORY Patient Outreach ([facility]) ANDRIENA GEE ([id number]) 1975 F Date Time Provider Department 10/25/17 JOY WHITLEY ([facility]) [facility] During your visit today, we recorded the following information about you: Joy Whitley Cma 10/30/2017 9:29 AM Signed Needs f/up for htn next available with PCP or SWINE GENETICS RESEARCHER Joy Whitley Cma 10/30/2017 9:29 AM Signed bp ok last visit. Allergies As of Date: 10/25/2017 Noted Allergy Reaction PENICILLINS 03/02/2006 Date Reviewed: 10/23/2017 Reviewed by: Lakshmi Chaves LPN - Fully Assessed Reason for Visit: PHMA/Care Gap Outreach [[id number]] Prescriptions as of 10/25/2017 Sig: AZITHROMYCIN 250 MG TABLET Take 2 tablets day one, then,* FLUTICASONE 50 MCG/ACTUATION * Use 2 Sprays in each nostril * CETIRIZINE 10 MG TABLET Take 1 tablet by mouth once d* DEXTROMETHORPHAN POLISTIREX E* Take 10 mL by mouth twice sudheer* CODEINE 10 MG-GUAIFENESIN 100* Take 5-10 mL by mouth four ti* AMILORIDE 5 MG-HYDROCHLOROTHI* Take 0.5 tablets by mouth onc* SERTRALINE 25 MG TABLET Take 1 tablet by mouth once d* ZOLPIDEM 10 MG TABLET Take 0.5 tablets by mouth at * AMLODIPINE 2.5 MG TABLET Take 1 tablet by mouth once d* Problem List As Of Date 10/25/2017 Noted Resolved WBC DISEASE NEC [D72.89] INVALID FOR* Essential hypertension [I10] Alcohol abuse [F10.10] INVALID FOR* Encounter Status:Closed by JOY WHITLEY CMA on 10/30/17 PROGRESS Observed: 10/23/2017 Status: COMPLETED Source: [place] 11:47 AM [facility] REPOSITORY HNO ID: [id number] Author: Hannah Tran) YVON Mason Service: (none) Author Type: Nurse Specialist Type: Progress Notes Filed: 10/23/2017 11:55 AM Note Text: OUTPATIENT VISIT DATE October 23, 2017 OUTPATIENT VISIT TYPE ESTABLISHED PRIMARY CARE PHYSICIAN: FLORA PETERSON MD CHIEF COMPLAINT: Patient presents with: Cough History of Present Illness: Andreina Gee is a 42 year old female who was last seen 10/16/2017 in urgent care. She has been seen in the past for ACTIVE PROBLEM LIST Other Specified Disease of White Blood Cells Essential Hypertension Alcohol Abuse She presented to urgent care with report of 4 days of malaise fatigue cough fever nausea nasal congestion. Viral etiology, flu like symptoms. Supportive care advised. Provided with cough syrup, prednisone. She reports today that malaise, fatigue, fever, and nausea are resolved. Continues with nasal congestion, frequent cough, and shortness of breath on exertion with activities.She did feel somewhat improved with prior treatment. Able to eat, drink, complete daily activities The ROS is otherwise negative. The patient's pmh, medications, allergies, and past visits are reviewed. PHYSICAL EXAM: BP 120/82 (BP Site: Right Arm, BP Position: Sitting, BP Cuff Size: Regular Adult) Pulse 88 Temp (!) 35.7 ?C (96.2 ?F) Resp 16 Wt 77.1 kg (170 lb) SpO2 96% BMI 29.18 kg/m2 General appearance: alert, cooperative, pleasant Head: Normocephalic Eyes: conjunctiva/corneas normal Ears: R TM - clear with good landmarks, L TM - clear with good landmarks Nose: mucosa erythematous and swollen Oropharynx: moist without lesions Neck: supple and no adenopathy Heart: regular rate and rhythm, without murmur Lungs: clear to auscultation, without rales or wheeze, good air exchange PAST MEDICAL HISTORY Diagnosis Date - Essential hypertension PAST SURGICAL HISTORY Procedure Laterality Date - SECTION HX x2 - EXTRACTION ERUPTED TOOTH/EXR - REMOVAL OF TONSILS,<12 Y/O Tonsillectomy FAMILY HISTORY Problem Relation Age of Onset - Hypertension Mother - Stroke Mother - Heart Mother - Hypertension Father - Heart Father - COPD Father Social History Substance Use Topics - Smoking status: Former Smoker Packs/day: 1.00 Years: 20.00 Quit date: 09/24/2011 - Smokeless tobacco: Never Used Comment: uses E-cigarettes - Alcohol use 3.0 - 6.0 oz/week 2 - 4 Glasses of Wine (5oz) per week ALLERGIES: ALLERGIES Allergen Reactions - Penicillins MEDICATIONS azithromycin (ZITHROMAX Z-ALYSSIA) 250 mg tablet Take 2 tablets day one, then, 1 tablet daily until gone. Take with food fluticasone (FLONASE) 50 mcg/actuation nasal spray Use 2 Sprays in each nostril once daily. Rinse mouth after use. For nasal drainage cetirizine (ZYRTEC) 10 mg tablet Take 1 tablet by mouth once daily. For nasal drainage dextromethorphan (DELSYM) 30 mg/5 mL liquid Take 10 mL by mouth twice daily. For cough codeine-guaiFENesin (ROBITUSSIN AC) 10-100 mg/5 mL syrup Take 5-10 mL by mouth four times daily as needed for Cough for up to 7 days. May cause drowsiness. Aziutumnalvcmyr-Edvapluvc-FE (BROMFED DM) 2-30-10 mg/5 mL syrup Take 10 mL by mouth four times daily as needed for up to 7 days. aMILoride-hydrochlorothiazide (MODURETIC 5-50) 5-50 mg tab Take 0.5 tablets by mouth once daily. sertraline (ZOLOFT) 25 mg tablet Take 1 tablet by mouth once daily. zolpidem (AMBIEN) 10 mg tab Take 0.5 tablets by mouth at bedtime as needed. amLODIPine (NORVASC) 2.5 mg tablet Take 1 tablet by mouth once daily. OAS website checked and validated. All prescriptions have been APPROPRIATELY filled. No suspicious activity was identified.- 10/23/2017 by Hannah Mason PHOTOGRAPHIC SPOTTER I personally interviewed, confirmed and edited the above information if obtained by others. TESTING: Glucose (mg/dL) Date Value 12/17/2015 92 Potassium (mmol/L) Date Value 12/17/2015 4.6 Sodium (mmol/L) Date Value 12/17/2015 139 Chloride (mmol/L) Date Value 12/17/2015 99 CO2 (mmol/L) Date Value 12/17/2015 27 Creatinine (mg/dL) Date Value 12/17/2015 0.66 BUN (mg/dL) Date Value 12/17/2015 13 Anion Gap (mmol/L) Date Value 12/17/2015 13 Calcium (mg/dL) Date Value 12/17/2015 10.0 Glucose (mg/dL) Date Value 12/17/2015 92 Potassium (mmol/L) Date Value 12/17/2015 4.6 Sodium (mmol/L) Date Value 12/17/2015 139 Chloride (mmol/L) Date Value 12/17/2015 99 CO2 (mmol/L) Date Value 12/17/2015 27 Creatinine (mg/dL) Date Value 12/17/2015 0.66 BUN (mg/dL) Date Value 12/17/2015 13 Anion Gap (mmol/L) Date Value 12/17/2015 13 Calcium (mg/dL) Date Value 12/17/2015 10.0 Protein, Total (g/dL) Date Value 12/17/2015 7.7 Albumin (g/dL) Date Value 12/17/2015 4.5 Bilirubin, Total (mg/dL) Date Value 12/17/2015 0.5 Alkaline Phosphatase (U/L) Date Value 12/17/2015 70 AST (U/L) Date Value 12/17/2015 32 ALT (U/L) Date Value 12/17/2015 29 Hemoglobin (g/dL) Date Value 12/17/2015 15.3 Hematocrit (%) Date Value 12/17/2015 44.4 WBC (k/uL) Date Value 12/17/2015 13.98 No results found for: CHOL, HDL, LDL, TG No results found for: HBA1C Ejection Fraction: No results found IMPRESSION: Ms. Gee is a 42 year old woman who presents with symptoms consistent with bronchitis. After my examination and review of data, I make the following recommendations. PLAN AND RECOMMENDATIONS: 1. Bronchitis - ICD9: 490, ICD10: J40 (primary diagnosis) - AZITHROMYCIN 250 MG TABLET - FLUTICASONE 50 MCG/ACTUATION NASAL SPRAY,SUSPENSION - CETIRIZINE 10 MG TABLET - DEXTROMETHORPHAN POLISTIREX ER 30 MG/5 ML ORAL SUSP EXT.RELEASE 12HR - CODEINE 10 MG-GUAIFENESIN 100 MG/5 ML ORAL LIQUID 2. Cough - ICD9: 786.2, ICD10: R05 - DEXTROMETHORPHAN POLISTIREX ER 30 MG/5 ML ORAL SUSP EXT.RELEASE 12HR - CODEINE 10 MG-GUAIFENESIN 100 MG/5 ML ORAL LIQUID Call or return to clinic if not feeling improved. Advised to go to ER if develops chest pain, shortness of breath, or severe worsening of symptoms. Discussed risks, benefits, alternatives, and potential side effects of medications. Ms. Gee expressed understanding and agreed with the plan. YVON Dutta CNOV Observed: 10/23/2017 Status: COMPLETED Source: [place] 11:00 AM [facility] REPOSITORY Office Visit (INTMWS) ANDREINA GEE ([id number]) 1975 F Date Time Provider Department 10/23/17 11:00 AM HANNAH MASON) INTMWS During your visit today, we recorded the following information about you: Temperature Pulse Respiration Blood pressure 96.2 degrees 88/minute 16/minute 120/82 Weight 77.1 kg YVON Dutta CNS 10/23/2017 11:55 AM Signed OUTPATIENT VISIT DATE October 23, 2017 OUTPATIENT VISIT TYPE ESTABLISHED PRIMARY CARE PHYSICIAN: FLORA PETERSON MD CHIEF COMPLAINT: Patient presents with: Cough History of Present Illness: Andreina Gee is a 42 year old female who was last seen 10/16/2017 in urgent care. She has been seen in the past for ACTIVE PROBLEM LIST Other Specified Disease of White Blood Cells Essential Hypertension Alcohol Abuse She presented to urgent care with report of 4 days of malaise fatigue cough fever nausea nasal congestion. Viral etiology, flu like symptoms. Supportive care advised. Provided with cough syrup, prednisone. She reports today that malaise, fatigue, fever, and nausea are resolved. Continues with nasal congestion, frequent cough, and shortness of breath on exertion with activities.She did feel somewhat improved with prior treatment. Able to eat, drink, complete daily activities The ROS is otherwise negative. The patient's pmh, medications, allergies, and past visits are reviewed. PHYSICAL EXAM: BP 120/82 (BP Site: Right Arm, BP Position: Sitting, BP Cuff Size: Regular Adult) Pulse 88 Temp (!) 35.7 ?C (96.2 ?F) Resp 16 Wt 77.1 kg (170 lb) SpO2 96% BMI 29.18 kg/m2 General appearance: alert, cooperative, pleasant Head: Normocephalic Eyes: conjunctiva/corneas normal Ears: R TM - clear with good landmarks, L TM - clear with good landmarks Nose: mucosa erythematous and swollen Oropharynx: moist without lesions Neck: supple and no adenopathy Heart: regular rate and rhythm, without murmur Lungs: clear to auscultation, without rales or wheeze, good air exchange PAST MEDICAL HISTORY Diagnosis Date - Essential hypertension PAST SURGICAL HISTORY Procedure Laterality Date - SECTION HX x2 - EXTRACTION ERUPTED TOOTH/EXR - REMOVAL OF TONSILS,ANDlt;12 Y/O Tonsillectomy FAMILY HISTORY Problem Relation Age of Onset - Hypertension Mother - Stroke Mother - Heart Mother - Hypertension Father - Heart Father - COPD Father Social History Substance Use Topics - Smoking status: Former Smoker Packs/day: 1.00 Years: 20.00 Quit date: 09/24/2011 - Smokeless tobacco: Never Used Comment: uses E-cigarettes - Alcohol use 3.0 - 6.0 oz/week 2 - 4 Glasses of Wine (5oz) per week ALLERGIES: ALLERGIES Allergen Reactions - Penicillins MEDICATIONS azithromycin (ZITHROMAX Z-ALYSSIA) 250 mg tablet Take 2 tablets day one, then, 1 tablet daily until gone. Take with food fluticasone (FLONASE) 50 mcg/actuation nasal spray Use 2 Sprays in each nostril once daily. Rinse mouth after use. For nasal drainage cetirizine (ZYRTEC) 10 mg tablet Take 1 tablet by mouth once daily. For nasal drainage dextromethorphan (DELSYM) 30 mg/5 mL liquid Take 10 mL by mouth twice daily. For cough codeine-guaiFENesin (ROBITUSSIN AC) 10-100 mg/5 mL syrup Take 5-10 mL by mouth four times daily as needed for Cough for up to 7 days. May cause drowsiness. Bzyspfgkxhqfpdw-Zyicjvnxh-LN (BROMFED DM) 2-30-10 mg/5 mL syrup Take 10 mL by mouth four times daily as needed for up to 7 days. aMILoride-hydrochlorothiazide (MODURETIC 5-50) 5-50 mg tab Take 0.5 tablets by mouth once daily. sertraline (ZOLOFT) 25 mg tablet Take 1 tablet by mouth once daily. zolpidem (AMBIEN) 10 mg tab Take 0.5 tablets by mouth at bedtime as needed. amLODIPine (NORVASC) 2.5 mg tablet Take 1 tablet by mouth once daily. OAS website checked and validated. All prescriptions have been APPROPRIATELY filled. No suspicious activity was identified.- 10/23/2017 by Hannah Mason PHOTOGRAPHIC SPOTTER I personally interviewed, confirmed and edited the above information if obtained by others. TESTING: Glucose (mg/dL) Date Value 12/17/2015 92 Potassium (mmol/L) Date Value 12/17/2015 4.6 Sodium (mmol/L) Date Value 12/17/2015 139 Chloride (mmol/L) Date Value 12/17/2015 99 CO2 (mmol/L) Date Value 12/17/2015 27 Creatinine (mg/dL) Date Value 12/17/2015 0.66 BUN (mg/dL) Date Value 12/17/2015 13 Anion Gap (mmol/L) Date Value 12/17/2015 13 Calcium (mg/dL) Date Value 12/17/2015 10.0 Glucose (mg/dL) Date Value 12/17/2015 92 Potassium (mmol/L) Date Value 12/17/2015 4.6 Sodium (mmol/L) Date Value 12/17/2015 139 Chloride (mmol/L) Date Value 12/17/2015 99 CO2 (mmol/L) Date Value 12/17/2015 27 Creatinine (mg/dL) Date Value 12/17/2015 0.66 BUN (mg/dL) Date Value 12/17/2015 13 Anion Gap (mmol/L) Date Value 12/17/2015 13 Calcium (mg/dL) Date Value 12/17/2015 10.0 Protein, Total (g/dL) Date Value 12/17/2015 7.7 Albumin (g/dL) Date Value 12/17/2015 4.5 Bilirubin, Total (mg/dL) Date Value 12/17/2015 0.5 Alkaline Phosphatase (U/L) Date Value 12/17/2015 70 AST (U/L) Date Value 12/17/2015 32 ALT (U/L) Date Value 12/17/2015 29 Hemoglobin (g/dL) Date Value 12/17/2015 15.3 Hematocrit (%) Date Value 12/17/2015 44.4 WBC (k/uL) Date Value 12/17/2015 13.98 No results found for: CHOL, HDL, LDL, TG No results found for: HBA1C Ejection Fraction: No results found IMPRESSION: Ms. Gee is a 42 year old woman who presents with symptoms consistent with bronchitis. After my examination and review of data, I make the following recommendations. PLAN AND RECOMMENDATIONS: 1. Bronchitis - ICD9: 490, ICD10: J40 (primary diagnosis) - AZITHROMYCIN 250 MG TABLET - FLUTICASONE 50 MCG/ACTUATION NASAL SPRAY,SUSPENSION - CETIRIZINE 10 MG TABLET - DEXTROMETHORPHAN POLISTIREX ER 30 MG/5 ML ORAL SUSP EXT.RELEASE 12HR - CODEINE 10 MG-GUAIFENESIN 100 MG/5 ML ORAL LIQUID 2. Cough - ICD9: 786.2, ICD10: R05 - DEXTROMETHORPHAN POLISTIREX ER 30 MG/5 ML ORAL SUSP EXT.RELEASE 12HR - CODEINE 10 MG-GUAIFENESIN 100 MG/5 ML ORAL LIQUID Call or return to clinic if not feeling improved. Advised to go to ER if develops chest pain, shortness of breath, or severe worsening of symptoms. Discussed risks, benefits, alternatives, and potential side effects of medications. Ms. Gee expressed understanding and agreed with the plan. Hannah Mason, PHOTOGRAPHIC SPOTTER Referring Provider: SELF [200] Allergies As of Date: 10/23/2017 Noted Allergy Reaction PENICILLINS 03/02/2006 Date Reviewed: 10/23/2017 Reviewed by: Lakshmi Chaves LPN - Fully Assessed Reason for Visit: Cough [28] Primary Visit Diagnosis:Bronchitis [J40] Other Visit Diagnosis:Cough [R05] Order(s):azithromycin (ZITHROMAX Z-ALYSSIA) 250 mg tabletTake 2 tablets day one, then, 1 tablet daily until gone. Take with foodDisp: 1 PackageRfl: 0 fluticasone (FLONASE) 50 mcg/actuation nasal sprayUse 2 Sprays in each nostril once daily. Rinse mouth after use. For nasal drainageDisp: 1 BottleRfl: 1 cetirizine (ZYRTEC) 10 mg tabletTake 1 tablet by mouth once daily. For nasal drainageDisp: 30 tabletRfl: 1 dextromethorphan (DELSYM) 30 mg/5 mL liquidTake 10 mL by mouth twice daily. For coughDisp: 120 mLRfl: 1 codeine-guaiFENesin (ROBITUSSIN AC) 10-100 mg/5 mL syrupTake 5-10 mL by mouth four times daily as needed for Cough for up to 7 days. May cause drowsiness.Disp: 120 mLRfl: 0 Prescriptions as of 10/23/2017 Sig: AZITHROMYCIN 250 MG TABLET Take 2 tablets day one, then,* FLUTICASONE 50 MCG/ACTUATION * Use 2 Sprays in each nostril * CETIRIZINE 10 MG TABLET Take 1 tablet by mouth once d* DEXTROMETHORPHAN POLISTIREX E* Take 10 mL by mouth twice sudheer* CODEINE 10 MG-GUAIFENESIN 100* Take 5-10 mL by mouth four ti* BROMPHENIRAMINE-PSEUDOEPHEDRI* Take 10 mL by mouth four time* AMILORIDE 5 MG-HYDROCHLOROTHI* Take 0.5 tablets by mouth onc* SERTRALINE 25 MG TABLET Take 1 tablet by mouth once d* ZOLPIDEM 10 MG TABLET Take 0.5 tablets by mouth at * AMLODIPINE 2.5 MG TABLET Take 1 tablet by mouth once d* Problem List As Of Date 10/23/2017 Noted Resolved 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 Take with food FLUTICASONE 50 MCG/ACTUATION NASAL S* 1 Andrés* 1 10/23/2017 Route: EACH NOSTRIL Sig: Use 2 Sprays in each nostril once daily. Rinse mouth after use. For nasal drainage CETIRIZINE 10 MG TABLET 30 t* 1 10/23/2017 Route: ORAL Sig: Take 1 tablet by mouth once daily. For nasal drainage DEXTROMETHORPHAN POLISTIREX ER 30 MG* 120 * 1 10/23/2017 Route: ORAL Sig: Take 10 mL by mouth twice daily. For cough CODEINE 10 MG-GUAIFENESIN 100 MG/5 M* 120 * 0 10/23/2017 10/30/2017 Class: Print RX Route: ORAL Sig: Take 5-10 mL by mouth four times daily as needed for Cough for up to 7 days. May cause drowsiness. Medications Discontinued During This Encounter hydroCHLOROthiazide (HYDRODIURIL, ES* 90 t* 1 06/15/2017 10/23/2017 Route: ORAL Sig: Take 1 tablet by mouth once daily. Disc: Reason for discontinue is not on file. hydrOXYzine HCl (ATARAX) 25 mg tablet 15 t* 0 05/15/2017 10/23/2017 Route: ORAL Sig: Take 1 tablet by mouth every 8 hours as needed for Itching/Rash. Disc: Reason for discontinue is not on file. Encounter Status:Closed by HANNAH PRECIADO on 10/23/17 PROGRESS Observed: 10/22/2017 Status: COMPLETED Source: [place] 9:40 AM [facility] REPOSITORY HNO ID: [id number] Author: Joy Whitley [facility] Service: (none) Author Type: (none) Type: Progress Notes Filed: 10/25/2017 8:59 AM Note Text: Left detailed message about making a f/up appointment. PROGRESS Observed: 10/22/2017 Status: COMPLETED Source: [place] 9:37 AM [facility] REPOSITORY HNO ID: [id number] Author: Joy Whitley [facility] Service: (none) Author Type: (none) Type: Progress Notes Filed: 10/25/2017 8:59 AM Note Text: PHMA TEAMLET DOCUMENTATION Provider Action/FYI: PSR Action/FYI: Teamlet has identified patient by name and date of . Team: n/a ? Last Office Visit:06/15/2017 ? Next Office Visit: Visit date not found ? Last BP/Labs: Blood Pressure: Last 3 Encounter BP Readings: Date: BP: 10/16/2017 140/100 09/03/2017 134/84 06/15/2017 122/70 Lipids: No results found for: CHOL No results found for: HDL No results found for: LDL No results found for: TG HGB A1C: No results found for: HBA1C TSH: No results found for: TSH) Care Gap: HTN - Last BP NOT under 140/90 Plan: ? Type of appointment needed: Follow-up HTN in next available with Provider PCP or [facility] [employer] RESEARCHER ? Consultation Appointments: No patient outreach needed at this time ? Rolando, pap AND HPV due Labs, HM and Immunization: Health Maintenance Due: TETANUS due on 1986 ADULT PREVNAR-13 due on 1994 PAP EVERY 5 YEARS due on 2005 HPV EVERY 5 YEARS due on 2005 MAMMOGRAM due on 05/03/2017 - order pending INFLUENZA(1) due on 05/25/2017 Joymagdalena Whitley [employer] CNPTOUTREACH Observed: 10/22/2017 Status: COMPLETED Source: [place] 12:00 AM [facility] REPOSITORY Patient Outreach (FAMPWS) ANDREINA GEE ([id number]) 1975 F Date Time Provider Department 10/22/17 JOY WHITLEY ([facility] FAMPWS During your visit today, we recorded the following information about you: Joy Whitley [facility] 10/25/2017 8:59 AM Signed PHMA TEAMLET DOCUMENTATION Provider Action/FYI: PSR Action/FYI: Teamlet has identified patient by name and date of . Team: n/a ? Last Office Visit:06/15/2017 ? Next Office Visit: Visit date not found ? Last BP/Labs: Blood Pressure: Last 3 Encounter BP Readings: Date: BP: 10/16/2017 140/100 09/03/2017 134/84 06/15/2017 122/70 Lipids: No results found for: CHOL No results found for: HDL No results found for: LDL No results found for: TG HGB A1C: No results found for: HBA1C TSH: No results found for: TSH) Care Gap: HTN - Last BP NOT under 140/90 Plan: ? Type of appointment needed: Follow-up HTN in next available with Provider PCP or [employer]INE GENET[employer] RESEARCHER ? Consultation Appointments: No patient outreach needed at this time ? Rolando, pap ANDamp; HPV due Labs, HM and Immunization: Health Maintenance Due: TETANUS due on 1986 ADULT PREVNAR-13 due on 1994 PAP EVERY 5 YEARS due on 2005 HPV EVERY 5 YEARS due on 2005 MAMMOGRAM due on 05/03/2017 - order pending INFLUENZA(1) due on 05/25/2017 Joy Whitley [employer] 10/25/2017 8:59 AM Signed Left detailed message about making a f/up appointment. Joy Whitley Cma 10/25/2017 8:59 AM Signed Came in and BP was normal. Last 14 BP Last 14 Encounter BP Readings: Date: BP: 10/23/2017 120/82 10/16/2017 140/100 09/03/2017 134/84 06/15/2017 122/70 05/15/2017 122/86 05/14/2017 124/80 05/09/2017 126/84 09/12/2016 136/86 04/24/2016 122/70 12/17/2015 130/102 12/13/2015 140/92 08/28/2014 130/80 12/02/2013 116/74 10/29/2007 116/86 Allergies As of Date: 10/22/2017 Noted Allergy Reaction PENICILLINS 03/02/2006 Date Reviewed: 10/16/2017 Reviewed by: Ghassan Buck LPN - Fully Assessed Reason for Visit: PHMA/Care Gap Outreach [[id number]] Primary Visit Diagnosis:History of mammography, screening [Z92.89] Prescriptions as of 10/22/2017 Sig: BROMPHENIRAMINE-PSEUDOEPHEDRI* Take 10 mL by mouth four time* AMILORIDE 5 MG-HYDROCHLOROTHI* Take 0.5 tablets by mouth onc* SERTRALINE 25 MG TABLET Take 1 tablet by mouth once d* ZOLPIDEM 10 MG TABLET Take 0.5 tablets by mouth at * AMLODIPINE 2.5 MG TABLET Take 1 tablet by mouth once d* X HYDROCHLOROTHIAZIDE 25 MG TAB* Take 1 tablet by mouth once d* X HYDROXYZINE HCL 25 MG TABLET Take 1 tablet by mouth every * Problem List As Of Date 10/22/2017 Noted Resolved WBC DISEASE NEC [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 Denies getting flu vaccine this season. OTC cold/sinus medication with minimal relief. Review of Systems Constitutional: Positive for chills, fever and malaise/fatigue. HENT: Positive for congestion. Negative for ear pain and sore throat. Eyes: Negative for discharge and redness. Respiratory: Positive for cough. Negative for hemoptysis, sputum production, shortness of breath and wheezing. Gastrointestinal: Positive for nausea. Negative for abdominal pain, diarrhea and vomiting. Musculoskeletal: Positive for myalgias. Skin: Negative for rash. Neurological: Negative for headaches. All other systems reviewed and are negative. PAST MEDICAL HISTORY Diagnosis Date - Essential hypertension PAST SURGICAL HISTORY Procedure Laterality Date - SECTION HX x2 - EXTRACTION ERUPTED TOOTH/EXR - REMOVAL OF TONSILS,<12 Y/O Tonsillectomy ALLERGIES Penicillins MEDICATIONS aMILoride-hydrochlorothiazide (MODURETIC 5-50) 5-50 mg tab Take 0.5 tablets by mouth once daily. sertraline (ZOLOFT) 25 mg tablet Take 1 tablet by mouth once daily. zolpidem (AMBIEN) 10 mg tab Take 0.5 tablets by mouth at bedtime as needed. amLODIPine (NORVASC) 2.5 mg tablet Take 1 tablet by mouth once daily. hydroCHLOROthiazide (HYDRODIURIL, ESIDRIX) 25 mg tablet Take 1 tablet by mouth once daily. hydrOXYzine HCl (ATARAX) 25 mg tablet Take 1 tablet by mouth every 8 hours as needed for Itching/Rash. FAMILY HISTORY Problem Relation Age of Onset - Hypertension Mother - Stroke Mother - Heart Mother - Hypertension Father - Heart Father - COPD Father Social History Substance Use Topics - Smoking status: Former Smoker Packs/day: 1.00 Years: 20.00 Quit date: 09/24/2011 - Smokeless tobacco: Never Used Comment: uses E-cigarettes - Alcohol use 3.0 - 6.0 oz/week 2 - 4 Glasses of Wine (5oz) per week Physical Exam Constitutional: She is well-developed, well-nourished, and in no distress. HENT: Head: Normocephalic. Right Ear: External ear and ear canal normal. A middle ear effusion (clear) is present. Left Ear: External ear and ear canal normal. A middle ear effusion (clear) is present. Nose: Rhinorrhea present. Right sinus exhibits no maxillary sinus tenderness and no frontal sinus tenderness. Left sinus exhibits no maxillary sinus tenderness and no frontal sinus tenderness. Mouth/Throat: Posterior oropharyngeal erythema (PND) present. Eyes: Conjunctivae are normal. Neck: Normal range of motion. Neck supple. Cardiovascular: Normal rate, regular rhythm and normal heart sounds. Pulmonary/Chest: Effort normal and breath sounds normal. No respiratory distress. She has no wheezes. Abdominal: Soft. She exhibits no distension. There is no tenderness. Lymphadenopathy: She has no cervical adenopathy. Skin: Skin is warm and dry. No rash noted. Nursing note and vitals reviewed. ASSESSMENT/PLAN: 1. Flu-like symptoms - ICD9: 780.99, ICD10: R68.89 ->48hrs onset -reviewed viral etiology -supportive care, rest, fluids, analgesics PRN -F/u with pcp in 3-5 days or sooner if symptoms are not improving or worsening Prescription instructions reviewed with patient as applicable. Patient advised if symptoms do not improve or if symptoms worsen sooner, to contact their primary care physician. Potential red flag symptoms discussed with the patient. Reviewed appropriate action plan to take if red flag symptoms occur. Patient agreeable to treatment plan. Kathy Robertson CNP CNOV Observed: 10/16/2017 Status: COMPLETED Source: [place] 5:00 PM [facility] REPOSITORY Office Visit (WSTR) ANDREINA GEE ([id number]) 1975 F Date Time Provider Department 10/16/17 5:00 PM KATHY ROBERTSON ([facility] [employer] [facility]ER) [facility] During your visit today, we recorded the following information about you: Temperature Pulse Respiration Blood pressure 98.4 degrees 91/minute 18/minute 140/100 Weight 77.6 kg Kathy Robertson CNP, KAI 10/16/2017 6:13 PM Signed HPI Patient presents with: Cough: nasal ANDamp; chest congestion, fatique ANDamp; felt warm, Sx started X 4 days States hx of asthma, bronchitis, pneumonia, and former smoker. Denies getting flu vaccine this season. OTC cold/sinus medication with minimal relief. Review of Systems Constitutional: Positive for chills, fever and malaise/fatigue. HENT: Positive for congestion. Negative for ear pain and sore throat. Eyes: Negative for discharge and redness. Respiratory: Positive for cough. Negative for hemoptysis, sputum production, shortness of breath and wheezing. Gastrointestinal: Positive for nausea. Negative for abdominal pain, diarrhea and vomiting. Musculoskeletal: Positive for myalgias. Skin: Negative for rash. Neurological: Negative for headaches. All other systems reviewed and are negative. PAST MEDICAL HISTORY Diagnosis Date - Essential hypertension PAST SURGICAL HISTORY Procedure Laterality Date - SECTION HX x2 - EXTRACTION ERUPTED TOOTH/EXR - REMOVAL OF TONSILS,ANDlt;12 Y/O Tonsillectomy ALLERGIES Penicillins MEDICATIONS aMILoride-hydrochlorothiazide (MODURETIC 5-50) 5-50 mg tab Take 0.5 tablets by mouth once daily. sertraline (ZOLOFT) 25 mg tablet Take 1 tablet by mouth once daily. zolpidem (AMBIEN) 10 mg tab Take 0.5 tablets by mouth at bedtime as needed. amLODIPine (NORVASC) 2.5 mg tablet Take 1 tablet by mouth once daily. hydroCHLOROthiazide (HYDRODIURIL, ESIDRIX) 25 mg tablet Take 1 tablet by mouth once daily. hydrOXYzine HCl (ATARAX) 25 mg tablet Take 1 tablet by mouth every 8 hours as needed for Itching/Rash. FAMILY HISTORY Problem Relation Age of Onset - Hypertension Mother - Stroke Mother - Heart Mother - Hypertension Father - Heart Father - COPD Father Social History Substance Use Topics - Smoking status: Former Smoker Packs/day: 1.00 Years: 20.00 Quit date: 09/24/2011 - Smokeless tobacco: Never Used Comment: uses E-cigarettes - Alcohol use 3.0 - 6.0 oz/week 2 - 4 Glasses of Wine (5oz) per week Physical Exam Constitutional: She is well-developed, well-nourished, and in no distress. HENT: Head: Normocephalic. Right Ear: External ear and ear canal normal. A middle ear effusion (clear) is present. Left Ear: External ear and ear canal normal. A middle ear effusion (clear) is present. Nose: Rhinorrhea present. Right sinus exhibits no maxillary sinus tenderness and no frontal sinus tenderness. Left sinus exhibits no maxillary sinus tenderness and no frontal sinus tenderness. Mouth/Throat: Posterior oropharyngeal erythema (PND) present. Eyes: Conjunctivae are normal. Neck: Normal range of motion. Neck supple. Cardiovascular: Normal rate, regular rhythm and normal heart sounds. Pulmonary/Chest: Effort normal and breath sounds normal. No respiratory distress. She has no wheezes. Abdominal: Soft. She exhibits no distension. There is no tenderness. Lymphadenopathy: She has no cervical adenopathy. Skin: Skin is warm and dry. No rash noted. Nursing note and vitals reviewed. ASSESSMENT/PLAN: 1. Flu-like symptoms - ICD9: 780.99, ICD10: R68.89 -ANDgt;48hrs onset -reviewed viral etiology -supportive care, rest, fluids, analgesics PRN -F/u with pcp in 3-5 days or sooner if symptoms are not improving or worsening Prescription instructions reviewed with patient as applicable. Patient advised if symptoms do not improve or if symptoms worsen sooner, to contact their primary care physician. Potential red flag symptoms discussed with the patient. Reviewed appropriate action plan to take if red flag symptoms occur. Patient agreeable to treatment plan. KAI Montoya CNP, KAI 10/16/2017 5:42 PM Signed [facility] PATIENT INFO INFLUENZA INTRODUCTION Influenza (commonly called the flu) is a highly contagious illness that can occur in children or adults of any age. It occurs more often in the winter months because people spend more time in close contact with one another. The flu is spread easily from gjwvng-ca-prbaxg by coughing, sneezing, or touching surfaces. Every year, complications of the flu require more than 200,000 people in the [place] to be hospitalized. Serious illness is more likely in the very young, older adults, women, and people who have certain health problems such as asthma or other forms of lung disease. There have been several widespread flu outbreaks (called pandemics), which led to the deaths of many people worldwide. These outbreaks occurred when new strains of influenza viruses formed (often from pigs or birds) and humans became infected because they had no immunity to these viruses. FLU SYMPTOMS Symptoms of seasonal flu can vary from person to person, but usually include: ? Fever (temperature higher than 100?F or 37.8?C) ? Headache and muscle aches ? Fatigue ? Cough and sore throat may also be present People with the flu usually have a fever for two to five days. This is different than fever caused by other upper respiratory viruses, which usually resolve after 24 to 48 hours. Some people have cold-like symptoms (runny nose, sore throat) during the flu while others have fever and muscle aches. Flu symptoms usually improve over two to five days, although the illness may last for a week or more. Weakness and fatigue may persist for several weeks Flu complications ? Complications of influenza occur in some people; pneumonia is the most common complication. Pneumonia is a serious infection of the lungs, and is more likely to occur in people over the age of 65, people who live in fpc care facilities (nursing homes), and those with other illnesses such as diabetes or conditions affecting the heart or lungs. FLU DIAGNOSIS Influenza is usually diagnosed based on symptoms (fever, cough and muscle aches). Lab testing for influenza is performed in certain cases, such as during a new influenza outbreak in a community. FLU TREATMENT When to seek help ? Most people with the flu recover within one to two weeks without treatment. However, serious complications of the flu can occur. Call your doctor or nurse immediately if: ? You feel short of breath or have trouble breathing ? You have pain or pressure in your chest or stomach ? You have signs of being dehydrated, such as dizziness when standing or not passing urine ? You feel confused ? You cannot stop vomiting or you cannot drink enough fluids There are several groups of people who are at increased risk for flu complications. These include women, young children (ANDlt;5 years of age, and especially ANDlt;2 years of age), people ?65 years of age, and people with certain diseases such as chronic lung disease (such as asthma), heart disease, diabetes, immunosuppressing conditions (such as HIV infection or transplantation), and some other diseases. If you or your child has flu symptoms and is at increased risk of flu complications, you should call your healthcare provider. Treat symptoms ? Treating the symptoms of influenza can help you to feel better, but will not make the flu go away faster. ? Rest until the flu is fully resolved, especially if the illness has been severe ? Fluids ? Drink enough fluids so that you do not become dehydrated. One way to melt house supervisor if you are drinking enough is to look at the color of your urine. Normally, urine should be light yellow to nearly colorless. If you are drinking enough, you should pass urine every three to five hours. ? Acetaminophen (such as Tylenol? and other brands) can relieve fever, headache, and muscle aches. Aspirin, and medicines that include aspirin (eg, bismuth subsalicylate; PeptoBismol), are not recommended for children under 18 because aspirin can lead to a serious disease called Vidal syndrome. ? Cough medicines are not usually helpful; cough usually resolves without treatment. We do not recommend cough or cold medicine for children under age six years. Antiviral treatment ? Antiviral medicines can be used to treat or prevent influenza. When used as a treatment, the medicine does not eliminate flu symptoms, although it can reduce the severity and duration of symptoms by about one day. Not every person with influenza needs an antiviral medicine; the decision is based upon your risk of developing complications of influenza. Antiviral treatment is most effective for seasonal influenza when it is taken within the first 48 hours of flu symptoms. Side effects ? Zanamivir and oseltamivir can cause mild side effects, including nausea and vomiting; zanamivir, which is inhaled, can cause difficulty breathing in some cases. Most people are able to continue the medicine despite the side effects. Antibiotics ? Antibiotics are NOT useful for treating viral illnesses such as influenza. Antibiotics should only used if there is a bacterial complication of the flu such as bacterial pneumonia, ear infection, or sinusitis. Antibiotics can cause side effects and lead to development of antibiotic resistance. Referring Provider: SELF [200] Allergies As of Date: 10/16/2017 Noted Allergy Reaction PENICILLINS 03/02/2006 Date Reviewed: 10/16/2017 Reviewed by: Ghassan Buck LPN - Fully Assessed Reason for Visit: Cough [28] Cmt: nasal AND chest congestion, fatique AND felt warm, Sx started X 4 days Primary Visit Diagnosis:Flu-like symptoms [R68.89] Order(s):predniSONE (DELTASONE) 20 mg tabletTake 2 tablets by mouth once daily for 5 days. Take daily with food.Disp: 10 tabletRfl: 0 Huvctprdagqttrj-Svwjkhlyq-BU (BROMFED DM) 2-30-10 mg/5 mL syrupTake 10 mL by mouth four times daily as needed for up to 7 days.Disp: 240 mLRfl: 0 Prescriptions as of 10/16/2017 Sig: AMILORIDE 5 MG-HYDROCHLOROTHI* Take 0.5 tablets by mouth onc* SERTRALINE 25 MG TABLET Take 1 tablet by mouth once d* ZOLPIDEM 10 MG TABLET Take 0.5 tablets by mouth at * AMLODIPINE 2.5 MG TABLET Take 1 tablet by mouth once d* PREDNISONE 20 MG TABLET Take 2 tablets by mouth once * BROMPHENIRAMINE-PSEUDOEPHEDRI* Take 10 mL by mouth four time* HYDROCHLOROTHIAZIDE 25 MG TAB* Take 1 tablet by mouth once d* HYDROXYZINE HCL 25 MG TABLET Take 1 tablet by mouth every * Medication notes this encounter HYDROCHLOROTHIAZIDE 25 MG TABLET >> Ghassan Buck LPN 10/16/2017 5:09 PM >> GHASSAN BUCK LPN Oct 16, 2017 5:09 PM No longer taking HYDROXYZINE HCL 25 MG TABLET >> Ghassan Buck LPN 10/16/2017 5:09 PM >> GHASSAN BUCK LPN Oct 16, 2017 5:09 PM No longer taking Problem List As Of Date 10/16/2017 Noted Resolved WBC DISEASE NEC [D72.89] INVALID FOR* Essential hypertension [I10] Alcohol abuse [F10.10] INVALID FOR* Other instructions from your clinician: [facility] PATIENT INFO INFLUENZA INTRODUCTION Influenza (commonly called the flu) is a highly contagious illness that can occur in children or adults of any age. It occurs more often in the winter months because people spend more time in close contact with one another. The flu is spread easily from kayasp-no-mxjifg by coughing, sneezing, or touching surfaces. Every year, complications of the flu require more than 200,000 people in the [place] to be hospitalized. Serious illness is more likely in the very young, older adults, women, and people who have certain health problems such as asthma or other forms of lung disease. There have been several widespread flu outbreaks (called pandemics), which led to the deaths of many people worldwide. These outbreaks occurred when new strains of influenza viruses formed (often from pigs or birds) and humans became infected because they had no immunity to these viruses. FLU SYMPTOMS Symptoms of seasonal flu can vary from person to person, but usually include: ? Fever (temperature higher than 100?F or 37.8?C) ? Headache and muscle aches ? Fatigue ? Cough and sore throat may also be present People with the flu usually have a fever for two to five days. This is different than fever caused by other upper respiratory viruses, which usually resolve after 24 to 48 hours. Some people have cold-like symptoms (runny nose, sore throat) during the flu while others have fever and muscle aches. Flu symptoms usually improve over two to five days, although the illness may last for a week or more. Weakness and fatigue may persist for several weeks Flu complications ? Complications of influenza occur in some people; pneumonia is the most common complication. Pneumonia is a serious infection of the lungs, and is more likely to occur in people over the age of 65, people who live in termite inspector care facilities (nursing homes), and those with other illnesses such as diabetes or conditions affecting the heart or lungs. FLU DIAGNOSIS Influenza is usually diagnosed based on symptoms (fever, cough and muscle aches). Lab testing for influenza is performed in certain cases, such as during a new influenza outbreak in a community. FLU TREATMENT When to seek help ? Most people with the flu recover within one to two weeks without treatment. However, serious complications of the flu can occur. Call your doctor or nurse immediately if: ? You feel short of breath or have trouble breathing ? You have pain or pressure in your chest or stomach ? You have signs of being dehydrated, such as dizziness when standing or not passing urine ? You feel confused ? You cannot stop vomiting or you cannot drink enough fluids There are several groups of people who are at increased risk for flu complications. These include women, young children (<5 years of age, and especially <2 years of age), people ?65 years of age, and people with certain diseases such as chronic lung disease (such as asthma), heart disease, diabetes, immunosuppressing conditions (such as HIV infection or transplantation), and some other diseases. If you or your child has flu symptoms and is at increased risk of flu complications, you should call your healthcare provider. Treat symptoms ? Treating the symptoms of influenza can help you to feel better, but will not make the flu go away faster. ? Rest until the flu is fully resolved, especially if the illness has been severe ? Fluids ? Drink enough fluids so that you do not become dehydrated. One way to melt house supervisor if you are drinking enough is to look at the color of your urine. Normally, urine should be light yellow to nearly colorless. If you are drinking enough, you should pass urine every three to five hours. ? Acetaminophen (such as Tylenol? and other brands) can relieve fever, headache, and muscle aches. Aspirin, and medicines that include aspirin (eg, bismuth subsalicylate; PeptoBismol), are not recommended for children under 18 because aspirin can lead to a serious disease called Vidal syndrome. ? Cough medicines are not usually helpful; cough usually resolves without treatment. We do not recommend cough or cold medicine for children under age six years. Antiviral treatment ? Antiviral medicines can be used to treat or prevent influenza. When used as a treatment, the medicine does not eliminate flu symptoms, although it can reduce the severity and duration of symptoms by about one day. Not every person with influenza needs an antiviral medicine; the decision is based upon your risk of developing complications of influenza. Antiviral treatment is most effective for seasonal influenza when it is taken within the first 48 hours of flu symptoms. Side effects ? Zanamivir and oseltamivir can cause mild side effects, including nausea and vomiting; zanamivir, which is inhaled, can cause difficulty breathing in some cases. Most people are able to continue the medicine despite the side effects. Antibiotics ? Antibiotics are NOT useful for treating viral illnesses such as influenza. Antibiotics should only used if there is a bacterial complication of the flu such as bacterial pneumonia, ear infection, or sinusitis. Antibiotics can cause side effects and lead to development of antibiotic resistance. Prescriptions ordered this encounter Disp Refills Start End PREDNISONE 20 MG TABLET 10 t* 0 10/16/2017 10/21/2017 Route: ORAL Sig: Take 2 tablets by mouth once daily for 5 days. Take daily with food. IOPHHRZNJAPGKDR-EWDORFBUZMIYARJ-CN 2* 240 * 0 10/16/2017 10/23/2017 Route: ORAL Sig: Take 10 mL by mouth four times daily as needed for up to 7 days. Disposition: Return if symptoms worsen or fail to improve. Follow-up and Disposition History Recorded Letter Text Kathy Robertson, RANGE MANAGER Ur[facility] [address] [facility] [address] Dept: [phone] 10/16/2017 Andreina Gee [address] [facility] [address] To Whom it May Concern: This is to certify that Andreina Gee was seen at our office for medical care. Andreina may return to work on 10/18/2017. If you have any questions please feel free to call. Sincerely: Kathy Robertson CNP Encounter Status:Closed by KATHY ROBERTSON on 10/16/17 ALLERGIES ALLERGIES DATE TYPE / NAME / CODE REACTION SEVERITY SOURCE CODE 08/22/2018 Drug Penicillins/F0010 Anaphylaxis Unknown [place] Allergy/41 [address](RXNORM) Community [id number]([facility] CT) Repository 08/22/2018 Drug bee venom protein Anaphylaxis Unknown [place] Allergy/41 (honey Community 1200180( bee)/[id number]([facility]) XNORM) Repository 08/22/2018 Drug grass Swelling Unknown [place] Allergy/41 pollen/[id number] Community [id number]( (RXNORM) [facility]) Repository 03/02/2006 Drug PENICILLINS [facility] Class/[address] [place] [address](SN Repository ED CT) ENCOUNTERS ENCOUNTERS ADMIT/DISCHARGE ACCOUNT ADMITTING ENCOUNTER LOCATION SOURCE NUMBER CLASS 08/22/2018/08/22/20 [id number] Emergency [address] ing:ED Repository 08/21/2018/08/22/20 [id number] Ambulatory [address] [place] Repository 08/04/2018/08/06/20 [id number] Ambulatory [address] [place] Repository 07/24/2018/07/24/20 [id number] Ambulatory [address] [place] Repository 07/24/2018/07/25/20 [id number] Ambulatory [address] [place] Repository 07/19/2018/07/22/20 [id number] Ambulatory [address] [place] Repository 05/06/2018 [id number] Ambulatory [facility] ing:WOBLAB Repository 11/17/2017/11/23/19 [id number] Ambulatory [address] [place] Repository 10/23/2017/10/24/19 [id number] Ambulatory [address] [place] Repository 10/16/2017/10/16/[id number] Repository PAYERS PAYERS ENCOUNTER GUARANTOR PAYER SUBSCRIBER SOURCE 08/22/2018 GONZALEZ Ruiz Primary ANDREINA Gabrielle Guadarrama [id number] Insurance:ANTHEMPolic SMITHDOB: Community [place] y [place]: [id number] [id number] Repository [address]Dky: [phone]) kieran Date:9523-72-26SP [phone] () [address], [place] [address]QN: 08/22/2018 Secondary NOT GIVENUNK Thierry Insurance:SELF PAY [facility] Number: Effective Repository Date:2018-08-22 05/06/2018 GONZALEZ Ruiz Primary Andreina Gabrielle Guadarrama [id number] Insurance:ANTHEMPolic SmithDOB: Community [place] y Number: [id number] [id number] Repository [address]Bhv: [phone]) kieran Date:[id number] [phone] () [address], [place] [address]BO: 05/06/2018 Secondary NOT GIVENUNK [place] Insurance:SELF PAY [facility] Number: Effective Repository Date:2018-05-06
== END 2018-08-22 22:14 | disposition home or self-care (01) ==
LOC: ED 19:08
PROVIDERS: Emergency Provider Emergency Medicine; Family Provider Internal Medicine; PCP Internal Medicine
DX: L50.0 Allergic urticaria (principal); R06.00 Dyspnea, unspecified; R05 Cough; R11.0 Nausea; I10 Essential (primary) hypertension; Z87.892 Personal history of anaphylaxis; Z79.899 Other long term (current) drug therapy
CPT/HCPCS: 94640; 96361; 96372; 96374; 96375; 99284; J7030; A4216; J3490

== ENCOUNTER 2019-01-03 00:50 | Emergency (ER) | payer BC, SELFPAY ==
[2019-01-03 00:51] VITALS: BP 114/71; PULSE 71; RESP 16; TEMP 36.2; O2SAT 99; BMI 28.8
--- NOTE | 2019-01-03 01:09 | RAD_ITS ---
STUDY: X-RAY CHEST REASON FOR EXAM: Female, 43 years old. Chest pain TECHNIQUE: PA and lateral views of the chest. COMPARISON: 09/01/2017. FINDINGS: The lungs are clear and expanded. There is no demonstrated pleural abnormality. Normal size heart. Normal mediastinum and bob. Normal visualized pulmonary arteries. Normal visualized aortic arch and descending thoracic aorta. Normal visualized thoracic spine. Normal visualized ribs, clavicles, and shoulders. There is no demonstrated abnormality of the visualized soft tissue structures of the upper abdomen. RAD/Chest PA and Lateral IMPRESSION: Normal x-ray examination of the chest. Electronically Signed: Tristan Ford MD at 2:04 EDT Tel , Service support ,
--- NOTE | 2019-01-03 01:09 | EKG12_ITS ---
Test Reason : CP Blood Pressure : / mmHG Vent. Rate : 068 BPM Atrial Rate : 068 BPM P-R Int : 126 ms QRS Dur : 070 ms QT Int : 422 ms P-R-T Axes : 062 049 033 degrees QTc Int : 448 ms Normal sinus rhythm Normal ECG Confirmed by MAYNOR TUTTLE ([id number]), video news editor RADHA SHEEHAN ([id number]) on 01/06/2019 4:50:29 PM Referred By: DR ANDERSON Confirmed By:MAYNOR TUTTLE
--- NOTE | 2019-01-03 01:13 | ED.DCSUM_ITS ---
History of Present Illness Chief Complaint: Chest Pain Narrative: Stated she noticed 2 hours ago intermittent right-sided chest discomfort. It is a squeezing sensation that lasts for 2 seconds at a time. It comes and goes every 10-15 seconds. She denies any other symptoms. She is never had this before. Between episodes she feels completely normal. She does have 2 cardiac risk factors including hypertension and history of smoking. No other cardiac risk factors. Denies any PE risk factors. Approximately a month ago she did take a airplane trip. She had no swelling or pain in her legs. She denies any shortness of breath. No home treatment other than taking Gas-X. She denies any history of coronary artery disease. She is never had a stress test or heart cath. No history of PE or dissection. Past Medical History - Allergies and Home Meds Allergies/Adverse Reactions: Allergies bee venom protein (honey bee) Allergy (Verified 01/03/19 00:54) Anaphylaxis grass pollen Allergy (Verified 01/03/19 00:54) Swelling Penicillins [PCN] Allergy (Verified 01/03/19 00:54) Anaphylaxis Primary Care Physician: Flora Fuentes MD [Primary Care Provider] - Prior records reviewed: Yes Past Medical History: - - Hypertension Surgical History: - - Reviewed Lives: With Family Smoking Status: Former smoker Alcohol: None, Sober Drugs: None Review of Systems General: Denies: Chills, Fever, Sweats Eyes: Denies: Visual changes - bilaterally, Diplopia ENT: Denies: Rhinorrhea, Sore throat Cardiovascular: Reports: Chest pain. Denies: Palpitations, Heart racing Respiratory: Denies: Dyspnea, Cough, Dyspnea on exertion Gastrointestinal: Denies: Abdominal pain, Nausea, Vomiting, Diarrhea, Melena, Hematochezia Genitourinary: Denies: Dysuria, Hematuria, Frequency Musculoskeletal: Denies: Back pain, Extremity Pain Skin: Denies: Rash, Wounds Neurological: Denies: Headache, Weakness, Numbness Physical Exam Vital Signs/Narrative: Vital Signs Temp Pulse Resp BP Pulse Ox 01/03/19 00:51 97.2 F L 71 16 114/71 99 General: Well nourished, Well developed, No Acute Distress Head: Normocephalic, Atraumatic Eyes: Perrl, EOMI ENT: Moist mucous membranes, No rhinorrhea Neck: Supple, Nontender Cardiovascular: Regular rate, Regular rhythm, No murmurs Respiratory: No distress, CTA bilaterally, Chest nontender Abdomen: Soft, Nontender, Nondistended, Normal bowel sounds Back: Nontender, Normal Inspection Extremities: Nontender, No edema Skin: Normal color, No rash Neurological: Alert, Oriented x3, Cranial nerves II-XII grossly intact, Normal Strength, Normal Sensation Psychological: Normal affect, Normal Mood Diagnostic/Tx/Re-eval - Rhythm Strip Rhythm Strip: Sinus Rhythm - EKG Initial EKG Interpretation: Sinus Rhythm, - - No acute ischemic findings. Rate of 68. - Medical Decision Making Patient given a dose of Toradol. Lab work and chest x-ray obtained. Chest x- ray unremarkable. Lab work unremarkable including negative troponin. However this is approximately 2-hour level. Patient had no symptoms after Toradol. She is resting comfortably. He is low risk for acute coronary syndrome. Her heart score is low. I discussed doing a repeat troponin delta with her. She does not want this. She understands the risk of doing this. She is asymptomatic currently. Her symptoms are very atypical only lasting seconds at a time. This could be related to muscle spasm. I feel she can follow-up and return if she worsens. ED Disposition - Plan for ED Patient: Disposition: EMPLOYEE HEALTH - NA Diagnosis: Chest pain at rest Instructions: ED Chest Pain NonCardiac Referrals: Flora Fuentes MD [Primary Care Provider] -
[2019-01-03 01:29] LABS: Absolute Lymphocyte Count 3.05 X10^3/ul (0.83-4.51); Absolute Neutrophil Count 8.7 X10^3/uL (2.0-7.7); Basophil# 0.04 X10^3/uL; Basophil% 0.3 % (0-1); Eosinophil# 0.44 X10^3/uL; Eosinophils% 3.4 % (0-5); Hemoglobin 13.1 g/dl (12.0-15.0); Lymphocyte # 3.05 X10^3/ul (4.0); Lymphocyte % 23.6 % (19-41); Mean Corp Hgb Conc 33.6 g/gl (32-36); Mean Corpuscular Hgb 30.9 pg (27.0-32.0); Mean Platelet Vol. 10.9 fl (6.2-12.0); Monocyte% 4.7 % (0-10); Neutrophil # 8.73 X10^3/uL (2.7-7.7); Neutrophil % 67.7 % (47-70); Platelet Count 290 K/mm3 (150-450); RBC Distribution Width CV 12.5 % (11.6-14.6); Red Blood Count 4.24 M/mm3 (4.2-5.4); White Blood Count 12.9 K/mm3 (4.4-11.0)
[2019-01-03 01:35] LABS: POSITIVE COUNT YES; POSITIVE DIFFERENTIAL NO; POSITIVE MORPHOLOGY YES
[2019-01-03 01:36] LABS: Differential Indicated SCAN CRITERIA MET
[2019-01-03] MEDS: Ketorolac 15 MG/ML Vial IV (01:36)
[2019-01-03 01:38] LABS: Absolute Nucleated RBC Count 0.06 10^3/uL (0-5); NRBC Flagged by Analyzer 0.5 % (0-5)
--- NOTE | 2019-01-03 01:40 | ED.RN ---
ASTER ATTEMPTED IV X 2, MYSELF X 2. BLOOD WORK TAKEN, UNABLE TO GET IV. DR. ANDERSON AWARE AND NO IV NEEDED. GIVEN TORADOL IM.
[2019-01-03 02:13] VITALS: BP 108/83; PULSE 71; RESP 14; O2SAT 98
[2019-01-03 02:26] LABS: Anion Gap 6 (5-15); BUN 14 mg/dL (7-18); BUN/Creat Ratio 24.3 RATIO (10-20); Calcium,Total 8.8 mg/dL (8.5-10.1); Chloride 106 mmol/L (98-107); Creatinine, Serum 0.58 mg/dL (0.55-1.02); EST Glomerular Filtration Rate 121 mL/min (>60); Est Glom Filt Rate - Afr Amer 147 mL/min (>60); Glucose 87 mg/dL (74-106); Potassium 4.2 mmol/L (3.5-5.1); Sodium Level 137 mmol/L (136-145)
[2019-01-03 02:47] VITALS: BP 112/80; PULSE 68; RESP 18; O2SAT 97
== END 2019-01-03 02:48 | disposition home or self-care (01) ==
PROVIDERS: Emergency Provider Emergency Medicine; Family Provider Internal Medicine; PCP Internal Medicine
DX: R07.9 Chest pain, unspecified (principal); I10 Essential (primary) hypertension; Z87.891 Personal history of nicotine dependence; Z79.899 Other long term (current) drug therapy
CPT/HCPCS: 71046; 80048; 84484; 85025; 93005; 96374; 99285; A4216

== ENCOUNTER → 2019-04-14 | Outpatient (CLI) | payer BC, SELFPAY ==
--- NOTE | 2019-04-14 13:05 | SEP_PTH ---
PATIENT: JUSTIN PATIÑO [facility] U#:[id number] AGE/SX: 43/F ROOM: RE04/14/[address]: Dr. Indio Wellington MD : 1975 BED: DIS: 04/14/2019 SPEC #: [id number] RECD: 04/14/19 15:18 STATUS: HAYES ZI #: [id number] KAYE: 04/14/19 13:[address]: Indio Wellington DEPT: SURGICAL PATHOLOGY RECD BY: Daniel Warren ENTERED: 04/15/19 08:56 SP TYPE: SEPTUM OTHR DR: MD Flora Galan MD [facility] Tissues: Nasal septum, NOS Procedures: Decalcification bone/plaque Surgery Specimen Level III HEADER OPERATION: Septoplasty, submucous resection of turbinates PRE-OP DIAGNOSIS: Nasal congestion, hypertrophy of nasal turbinates, deviated nasal septum TISSUE SUBMITTED: Septum MICROSCOPIC DIAGNOSIS Septum: Fragments of cartilage and bone, clinically deviated nasal septum. ANGELICA:naila 04/18/19 MICROSCOPIC DESCRIPTION Slides are reviewed. GROSS DESCRIPTION Received is one container labeled with the patient's name and not further designated. The specimen consists of multiple fragments of bone and cartilage that in aggregate measure 3 x 2.5 x 0.3 cm. The entire specimen is submitted in one cassette after decalcification. / ANGELICA:naila 04/15/19 TC:5 CPT: 73015, 15588
== END | disposition home or self-care (01) ==
LOC: LABSPEC 15:49
PROVIDERS: Family Provider Internal Medicine; PCP Internal Medicine; Referring Provider Otolaryngology; Visit Provider Otolaryngology
DX: J34.3 Hypertrophy of nasal turbinates (principal); J34.2 Deviated nasal septum; R09.81 Nasal congestion
CPT/HCPCS: 88304; 88311

== ENCOUNTER 2024-07-31 18:33 | Emergency (ER) | payer OTHER, SELFPAY ==
[2024-07-31 18:33] VITALS: BP 130/74; PULSE 67; RESP 15; TEMP 35.9; O2SAT 100; BMI 25.2
--- NOTE | 2024-07-31 21:24 | ED.VIS.DENTA ---
HPI History of Present Illness Chief Complaint: Dental Informant: patient Onset/Context/Timing Onset: Today Context: Gradual Onset Timing: Continuous Quality: Throbbing Location: Left lower molar Worsened by: Palpation Relieved by: - (Nothing) Narrative Narrative: Patient presents with left lower dental pain that began this morning when she woke up. Patient states it is gradually getting worse. Patient states she called her dentist who was unable to get her in today. Patient thinks he may be able to see the dentist tomorrow. Patient is concerned about pain getting worse tonight. Patient denies any fevers or chills. Patient describes her pain as throbbing. Patient states it is mainly over the left lower molar area. Patient states it is worse whenever she palpates the area and pushes on it. Patient denies any fevers or chills. Patient admits to hot and cold sensitivity. Patient admits to some swelling around the tooth. [facility] Medical History (Updated 07/31/24 @ 21:[address] Alfredo Choi, DO) Mass Deviation of middle turbinate Tonsillectomy planned Home Medications ?Medication ?Instructions ?Recorded ?Last Taken ?Type amlodipine 2.5 mg tablet 1 tab PO DAILY 04/07/17 Unknown History sertraline 50 mg tablet (Zoloft) 50 mg PO DAILY 08/22/18 Unknown History cholecalciferol (vitamin D3) 25 1,000 unit PO DAILY 01/03/19 Unknown History mcg (1,000 unit) tablet (Vitamin D3) loratadine 10 mg tablet (Allergy 10 mg PO DAILY 01/03/19 Unknown History Relief (loratadine)) tmbnastncrji-Ij-jyji-minerals 1 ea PO DAILY 01/03/19 Unknown History (Multiple Vitamin, Womens tablet) clindamycin HCl 300 mg capsule 300 mg PO Q6H #40 CAPSULES 07/31/24 Unknown Rx (Cleocin HCl) Allergy/AdvReac Type Severity Reaction Status Date / Time bee venom protein (honey bee) Allergy Anaphylaxis Verified 07/31/24 18:33 grass pollen Allergy Swelling Verified 07/31/24 18:33 Penicillins (PCN) Allergy Anaphylaxis Verified 07/31/24 18:33 Surgical History (Updated 07/31/24 @ 21:[address] Alfredo Choi, DO) Hx of nasal septoplasty Hx of tonsillectomy Previous section Social History (Updated 07/31/24 @ 21:[address] Alfredo Choi, DO) Smoking Status: Former smoker substance use type: other details: THC Gummies ROS ROS ED Constitutional Constitutional ED: Denies chills or fever(s) Eyes Eyes: Denies blurry vision or change in vision ENT ENT ED: Reports rhinorrhea; Denies sore throat Cardiovascular Cardiovascular: Denies chest pain or palpitations Respiratory/Chest Respiratory/Chest: Denies cough or dyspnea Gastrointestinal Gastrointestinal: Denies nausea or vomiting Genitourinary Genitourinary ED: Denies dysuria or hematuria Musculoskeletal Musculoskeletal: Denies back pain or neck pain Integumentary Denies abscess or rash Neurologic Neurologic: Reports headache(s); Denies weakness Allergic/Immunologic Allergic/Immunologic ED: Denies mouth swelling or urticaria EXAM Physical Exam Const Vital Signs: 07/31/24 18:33 Temperature 96.6 F L Temperature Source Temporal Pulse Rate 67 Respiratory Rate 15 Blood Pressure 130/74 H Blood Pressure Mean 92 Pulse Ox 100 Oxygen Delivery Method Room Air Positive well nourished and well developed General Appearance ED: well developed and NAD HEENT HEENT Narrative: There is tenderness over the left lower second molar. There is a crown in place. There is some mild gingival edema noted around this tooth. There is no fluctuance. There is no discharge or drainage. There is no evidence of any discrete abscess. There is no sublingual edema. There is no evidence of Dario's angina. Teeth and Gingiva: abnormal tooth and associated gingiva Positive for tenderness (Left lower first molar) and associated gingival edema Throat: posterior oropharynx normal Neck supple and no JVD General: Negative for anterior neck swelling, tenderness or submandibular swelling Neuro oriented x3, CN's II-XII intact bilaterally, moves all extremities, no focal motor deficits and no sensory deficits noted Sensorium / Orientation: alert Motor Exam: strength 5/5 throughout Psych mental status grossly normal MDM MDM MDM Narrative Medical decision making narrative: Patient was advised that this is most likely a dental infection. He patient was given a dose of clindamycin here. Patient was also given 1 dose of [place] here. Patient was given a prescription for clindamycin. Patient was instructed to follow-up with her dentist tomorrow if possible. Patient was instructed to return if worse in any way. Patient understood and was agreeable with the plan. All questions were answered. Discharge Plan Triage Chief Complaint: Dental ED Provider: Alfredo Choi Dx/Rx/DC Orders Clinical Impression: Odontalgia, Dental infection Instructions: ED Dental Pain Prescriptions: New clindamycin HCl [Cleocin HCl] 300 mg capsule 300 mg PO Q6H Qty: 40 0RF No Action amlodipine 2.5 MG tablet 1 tab PO DAILY Patient Comments: sertraline [Zoloft] 50 MG tablet 50 mg PO DAILY loratadine [Allergy Relief (loratadine)] 10 MG tablet 10 mg PO DAILY gjrqksbzghve-Iw-xsyz-minerals [Multiple Vitamin, Womens] 1 EACH tablet 1 ea PO DAILY cholecalciferol (vitamin D3) [Vitamin D3] 1,000 UNIT tablet 1,000 unit PO DAILY Primary Care Provider: Flora Fuentes Referrals: Flora Fuentes MD [Primary Care Provider] - Activity Restrictions/Additional Instructions: Follow-up with your dentist in 1 to 2 days. Print Language: Sami Disposition Disposition: Home, Self Care
--- OUTSIDE RECORDS SUMMARY | 2024-07-31 21:37 | XMS RPT_ITS | CCD ---
Author Organization [facility] [place] Care Team Providers Care Shingle Cutter Name Role Phone GANTA, JENA Unavailable Unavailable KATHY VILLALOBOS (COAL GRADER) Unavailable Unavailabl e JAE MASON (FRAME AND SCRAP CRUSHER) Unavailable Unavailable GANTA, JENA Unavailable Unavailable GANTA, JENA Unavailable Unavailable GANTA, JENA Unavailable Unavailable ARYA NAIK (CANOPY INSPECTOR) Unavailable Unavailable GANTA, JENA Unavailable Unavailable NACHO SUTTON Admitting Unavailable NACHO SUTTON Attending Unavailable Ganta, Jena C Unavailable Unavailable Unavailable Jena Peterson MD Primary Care Provider [phone] Unavailable Unavailable Jena Peterson MD Primary Care Provider Jena Peterson MD Primary Care Provider Jena Peterson MD Primary Care Provider Jena Peterson MD Primary Care Provider [phone] VANIA PERKINS Attending Unavailable GANTA, JENA Primary Care Unavailable GANTA, JENA Primary Care Unavailable MASON, JAE Referring Unavailable MASON, JAE Attending Unavailable GANTA, JENA Primary Care Unavailable LEATHA ARMSTRONG Referring Unavailable MASON, JAE Attending Unavailable GANTA, JENA Primary Care Unavailable NATHANIEL LEATHASHANTEL ECKERTL Referring Unavailable RIGOBERTO CHÁVEZ Attending Unavailable GANTA, JENA Primary Care Unavailable GANTA, JENA Primary Care Unavailable LEATHA ARMSTRONG Referring Unavailable RIGOBERTO CHÁVEZ Attending Unavailable GANTA, JENA Primary Care Unavailable GANTA, JENA Primary Care Unavailable MASON, JAE Referring Unavailable GANTA, JENA Primary Care Unavailable MASON, JAE Attending Unavailable GANTA, JENA Primary Care Unavailable BABATUNDE VASQUEZ Attending Unavailable GANTA, JENA Primary Care Unavailable GANTA, JENA Primary Care Unavailable LEATHA ARMSTRONG Attending Unavailable Allergies Allergy Classification Reported Allergen(s) Allergy Type Date of Onset Reaction(s) Facility Bee pollen (2 sources) Bee pollen Drug Allergy 3 Other: See Comments [facility] Latex (2 sources) Latex Substance Allergy 4 Rash [facility] Work Phone: Penicillins (antibiotic) (2 sources) Penicillins Drug Allergy 6 [facility] Pollen (2 sources) Grass pollen Substance Allergy 3 Other: See Comments [facility] (20 sources) Penicillins; Translations: [PENICILLINS] Propensity to adverse reactions to drug (disorder) 6 [facility] (10 sources) apis mellifera venom Allergy to substance (finding) [facility] [address] Work Phone: (11 sources) natural latex rubber; Translations: [LATEX] Allergy to substance (finding) 4 [facility] (20 sources) Tree; Translations: [TREES] Allergy to substance (finding) 3 Other: See Comments [facility] Work Phone: (10 sources) Pollens Weeds Allergy to substance (finding) -[facility] [address] Work Phone: (10 sources) Grass Allergy to substance (finding) [facility] [address] Work Phone: (10 sources) Animal dander - Dogs Allergy to substance (finding) -Otmagnessyngol [facility] [address] Work Phone: (20 sources) Bee pollen; Translations: [BEE POLLEN] Drug Allergy 3 Other: See Comments [facility] Work Phone: (20 sources) Grass pollen; Translations: [GRASS POLLEN] Drug Allergy 3 Other: See Comments [facility] Work Phone: (20 sources) Bauman; Translations: [BAUMAN] Drug Allergy 3 Other: See Comments [facility] Work Phone: (10 sources) Latex Drug Allergy 4 Rash [facility] Medications Current Medications Medication Drug Class(es) Dates Sig (Normalized) Sig (Original) cefdinir 300 mg oral capsule (1 source) Cephalosporin Antibacterial Start: 05-13-2023 End: 05-20-2023 take 1 capsule by mouth twice daily cefdinir (OMNICEF) 300 mg capsule Take 1 capsule by mouth twice daily for 7 days. 14 capsule 0 05/13/2023 05/20/2023 Active Comment on above: Take 1 capsule [facility] daily for 7 days. doxycycline monohydrate 100 mg oral capsule (1 source) Tetracycline-class Drug Start: 02-07-2022 End: 02-17-2022 take 1 capsule by mouth twice daily doxycycline monohydrate (MONODOX) 100 mg capsule Indications: Chronic bronchitis with acute exacerbation (HCC) Take 1 capsule by mouth twice daily for 10 days. 20 capsule 0 02/07/2022 02/17/2022 Active Comment on above: Take 1 capsule by [facility] twice daily for 10 days. meloxicam 15 mg oral tablet (15 sources) Nonsteroidal Anti-inflammatory Drug Start: 01-18-2024 End: 04-17-2024 take 1 tablet by mouth once daily meloxicam (MOBIC) 15 mg tablet Take 1 tablet by mouth once daily. 30 tablet 2 01/18/2024 04/17/2024 Active nirmatrelvir tablet 300 mg (150 mg x 2) and ritonavir tablet 100 mg in a dose pack (PAXLOVID) (1 source) Start: 02-15-2024 End: 02-20-2024 nirmatrelvir tablet 300 mg (150 mg x 2) and ritonavir tablet 100 mg in a dose pack (PAXLOVID) Indications: Positive self-administered antigen test for COVID-19 Administer TWO pink nirmatrelvir 150 mg tablets and ONE white ritonavir 100 mg tablet for a total of three tablets twice daily. 30 tablet 0 02/15/2024 02/20/2024 Active phentermine hydrochloride 37.5 mg oral tablet (4 sources) Sympathomimetic Amine Anorectic Start: 06-15-2023 End: 10-08-2023 take 37-37.9 tablets by mouth once daily Phentermine HCl 37.5 mg tablet Indications: Class 2 severe obesity due to excess calories with serious comorbidity and body mass index (BMI) of 37.0 to 37.9 in adult Take 0.5-1 tablets by mouth once daily for 90 days. 30 tablet 2 07/10/2023 10/08/2023 Active Comment on above: Take 1 tablet by [facility] once daily for 90 days. Take 0.5-1 tablets b y mouth once daily for 90 days. 24 hr phentermine 7.5 mg / topiramate 46 mg extended release oral capsule (12 sources) Sympathomimetic Amine Anorectic Start: 11-10-2022 End: 02-08-2023 take 35-35.9 capsules by mouth once daily phentermine-topir amate ER (QSYMIA) 7.5-46 mg 24 Hr Capsule Indications: Class 2 severe obesity with serious comorbidity and body mass index (BMI) of 35.0 to 35.9 in adult, unspecified obesity type (HCC) Take 1 capsule by mouth once daily for 90 days. 30 capsule 2 11/10/2022 02/08/2023 Active Start: 10-18-2022 End: 11-17-2022 take 35-35.9 capsules by mouth once daily phentermine-topiramate ER (QSYMIA) 3.75-23 mg 24 Hr Capsule Indications: Class 2 severe obesity with serious comorbidity and body mass index (BMI) of 35.0 to 35.9 in adult, unspecified obesity type (HCC) Take 1 capsule by mouth once daily for 30 days. 30 capsule 0 10/18/2022 11/10/2022 Discontinued Comment on above: Take 1 capsule by [facility] once daily for 30 days. Take 1 capsule by [facility] once daily for 90 days. predniSONE 10 mg oral tablet (2 sources) Start: 08-04-2022 End: 08-13-2022 predniSONE (DELTASONE) 10 mg tablet Indications: Trochanteric bursitis of left hip Take 4 tabs daily for 3 days, then 2 tabs daily for 3 days, then 1 tab daily for 3 days with food. 21 tablet 0 08/04/2022 08/13/2022 Active Start: 02-07-2022 End: 02-12-2022 take 2 tablets by mouth once daily predniSONE (DELTASONE) 20 mg tablet Indications: Chronic bronchitis with acute exacerbation (HCC) Take 2 tablets by mouth once daily for 5 days. 10 tablet 0 02/07/2022 02/12/2022 Active Comment on above: Take 2 tablets by mo [facility] once daily for 5 days. Take 4 tabs daily fo r 3 days, then 2 tabs daily for 3 days, then 1 tab daily for 3 days with food. sertraline 100 mg oral tablet (20 sources) Serotonin Reuptake Inhibitor Start: 01-07-2024 End: 06-13-2024 take 2 tablets by mouth once daily sertraline (ZOLOFT) 100 mg tablet Indications: Anxiety Take 2 tablets by mouth once daily. 60 tablet 5 06/13/2024 Active Start: 05-24-2022 End: 01-05-2024 take 2 tablets by mouth once daily sertraline (ZOLOFT) 100 mg tablet Take 2 tablets by mouth once daily. 60 tablet 5 04/03/2023 Active Start: 01-23-2022 End: 03-25-2022 take 2 tablets by mouth once daily sertraline (ZOLOFT) 100 mg tablet Take 2 tablets by mouth once daily. 60 tablet 1 03/25/2022 Active Start: 12-12-2021 Sertraline HCl - 200 MG Oral Capsule Quantity: 0 Refills: 0 Ordered: 12-Dec-2021 DO Start : 12-Dec-2021 Active Start: 11-18-2021 End: 01-20-2022 take 2 tablets by mouth once daily sertraline (ZOLOFT) 100 mg tablet Take 2 tablets by mouth once daily. 60 tablet 1 11/18/2021 01/20/2022 Discontinued Start: 08-01-2021 End: 11-18-2021 take 1 tablet by mouth once daily sertraline (ZOLOFT) 100 mg tablet Indications: major depressive disorder Take 1 tablet by mouth once daily. 30 tablet 3 08/01/2021 11/18/2021 Discontinued (Clinical Decision) Comment on above: Take 2 tablets by mo [facility] once daily. Take 1 tablet by [facility] once daily. tirzepatide (MOUNJARO) 10 mg/0.5 mL pen injector (11 sources) Start: 06-13-2024 End: 09-11-2024 tirzepatide (MOUNJARO) 10 mg/0.5 mL pen injector Indications: Class 2 severe obesity due to excess calories with serious comorbidity and body mass index (BMI) of 36.0 to 36.9 in adult ([facility]) Inject 10 mg subcutaneously one time a week. 4 mL 2 06/13/2024 09/11/2024 Active Start: 03-25-2024 End: 06-13-2024 inject 10 mg by subcutaneous injection every week tirzepatide (MOUNJARO) 10 mg/0.5 mL pen injector Inject 10 mg subcutaneously one time a week. 4 mL 2 03/25/2024 06/13/2024 Discontinued Start: 03-25-2024 End: 06-23-2024 inject 10 mg by subcutaneous injection every week tirzepatide (MOUNJARO) 10 mg/0.5 mL pen injector Inject 10 mg subcutaneously one time a week. 4 mL 2 03/25/2024 06/23/2024 Active Start: 03-10-2024 End: 03-25-2024 tirzepatide (MOUNJARO) 10 mg /0.5 mL pen injector Indications: Essential hypertension , Class 2 severe obesity due to excess calories with serious comorbidity and body mass index (BMI) of 36.0 to 36.9 in adult ([facility]) Inject 10 mg subcutaneously one time a week. Start this dose after 4 weekly doses at 5 mg 4 mL 2 03/10/2024 03/25/2024 Discontinued Start: 03-10-2024 End: 06-08-2024 tirzepatide (MOUNJARO) 10 mg /0.5 mL pen injector Indications: Essential hypertension , Class 2 severe obesity due to excess calories with serious comorbidity and body mass index (BMI) of 36.0 to 36.9 in adult ([facility]) Inject 10 mg subcutaneously one time a week. Start this dose after 4 weekly doses at 5 mg 4 mL 2 03/10/2024 06/08/2024 Active zolpidem tartrate 10 mg oral tablet (20 sources) gamma-Aminobutyric Acid-ergic Agonist Start: 04-02-2024 End: 08-12-2024 take 0.5 tablet by mouth once daily at bedtime zolpidem (AMBIEN) 10 mg Indications: Primary insomnia Take 0.5 tablets by mouth daily at bedtime for 60 days. 15 tablet 1 06/13/2024 08/12/2024 Active Start: 12-03-2023 End: 03-30-2024 take 0.5 tablet by mouth once daily at bedtime zolpidem (AMBIEN) 10 mg Indications: Primary insomnia Take 0.5 tablets by mouth daily at bedtime for 60 days. 15 tablet 1 12/03/2023 03/30/2024 Discontinued Start: 10-02-2023 End: 12-01-2023 take 0.5 tablet by mouth once daily at bedtime zolpidem (AMBIEN) 10 mg Indications: Primary insomnia Take 0.5 tablets by mouth daily at bedtime for 60 days. 15 tablet 1 10/02/2023 12/01/2023 Active Start: 07-11-2023 End: 09-09-2023 take 0.5 tablet by mouth once daily at bedtime zolpidem (AMBIEN) 10 mg Indications: Primary insomnia Take 0.5 tablets by mouth daily at bedtime for 60 days. 15 tablet 1 07/11/2023 09/09/2023 Active Start: 05-31-2023 End: 06-30-2023 take 0.5 tablet by mouth once daily at bedtime zolpidem (AMBIEN) 10 mg Indications: Primary insomnia Take 0.5 tablets by mouth daily at bedtime for 30 days. 15 tablet 0 05/31/2023 Active Start: 04-19-2023 End: 2023 take 0.5 tablet by mouth once daily at bedtime zolpidem (AMBIEN) 10 mg Indications: Primary insomnia Take 0.5 tablets by mouth daily at bedtime for 30 days. 15 tablet 0 04/19/2023 2023 Active Start: 03-01-2023 End: 03-31-2023 take 0.5 tablet by mouth once daily at bedtime zolpidem (AMBIEN) 10 mg Indications: Primary insomnia Take 0.5 tablets by mouth daily at bedtime for 30 days. 15 tablet 0 03/01/2023 Active Start: 12-12-2021 Zolpidem Tartr ate 10 MG Oral Tablet Quantity: 0 Refills: 0 Ordered: 12-Dec-2021 DO Start : 12-Dec-2021 Active Start: 03-14-2021 End: 02-21-2023 take 0.5 tablet by mouth once daily at bedtime zolpidem (AMBIEN) 10 mg Indications: Primary insomnia Take 0.5 tablets by mouth daily at bedtime for 30 days. 15 tablet 0 12/25/2022 01/21/2023 Discontinued Comment on above: Take 0.5 tablets by mouth daily at bedtime for 180 days. Take 0.5 tablets by mouth daily at bedtime for 30 days. Take 0.5 tablets by mouth daily at bedtime for 60 days. Completed/Discontinued Medications Medication Drug Class(es) Dates Sig (Normalized) Sig (Original) [id number] 200 actuat albuterol 0.09 mg/actuat metered dose inhaler (6 sources) beta2-Adrenergic Agonist Start: 02-07-2022 End: 04-05-2022 take 1-2 puff(s) by inhalation every six hours as needed for wheezing albuterol HFA (PROVENTIL HFA, VENTOLIN HFA) 90 mcg/actuation inhaler Indications: Chronic bronchitis with acute exacerbation (HCC) Inhale 1-2 Puffs as instructed every 6 hours as needed for wheezing/shortness of breath. 1 Inhaler 0 02/07/2022 04/05/2022 Discontinued Comment on above: Inhale 1-2 Puffs as instructed every 6 hours as needed for wheezing/shortness of breath. azithromycin 250 mg oral tablet (5 sources) Macrolide Antimicrobial Start: 05-03-2023 End: 06-15-2023 azithromycin (ZITHROMAX) 250 mg tablet Take 2 tablets today then one tablet daily for 4 days. 6 tablet 0 05/03/2023 06/15/2023 Discontinued Comment on above: Take 2 tablets today then one tablet daily for 4 days. fluticasone propionate 0.05 mg/actuat metered dose nasal spray (20 sources) Corticosteroid Start: 12-12-2021 take 2 spray(s) nasal route twice daily Fluticasone Propionate 50 MCG/ACT Nasal Suspension USE 2 SPRAYS IN EACH NOSTRIL TWICE DAILY. Quantity: 1 Refills: 2 Ordered: 12-Dec-2021 DO Start : 12-Dec-2021 Active End: 12-31-2023 fluticasone propionate (FLON ASE NASAL) Use in the nose. 12/31/2023 Discontinued End: 12-31-2023 fluticasone propionate (FLON ASE NASAL) Use in the nose. 0 12/31/2023 Discontinued fluticasone prop ionate (FLONASE NASAL) Use in the nose. 0 Active Comment on above: Use in the nose. 10 ml lidocaine hydrochloride 20 mg/ml injection (2 sources) Antiarrhythmic, Amide Local Anesthetic Start: 01-18-2024 End: 01-18-2024 lidocaine (PF) 20 mg/mL (2 %) 1 mL injection (XYLOCAINE) loratadine 10 mg oral capsule (20 sources) Start: 12-12-2021 Claritin 10 MG Oral Capsule Quantity: 0 Refills: 0 Ordered: 12-Dec-2021 DO Start : 12-Dec-2021 Active End: 12-31-2023 loratadine (CLARITIN ORAL) T keyana by mouth. 12/31/2023 Discontinued End: 12-31-2023 loratadine (CLARITIN ORAL) T keyana by mouth. 0 12/31/2023 Discontinued loratadine (CLAR ITIN ORAL) Take by mouth. 0 Active Comment on above: Take by mouth. 0.25 mg, 0.5 mg dose 1.5 ml semaglutide 1.34 mg/ml pen injector (14 sources) Start: 07-18-2022 semaglutide (OZEMPIC) 0.25 mg or 0.5 mg(2 mg/1.5 mL) pen Indications: Class 2 severe obesity due to excess calories with serious comorbidity and body mass index (BMI) of 37.0 to 37.9 in adult ([facility]) Inject 0.5 mg subcutaneously one time a week. 1 Each 2 07/18/2022 Active Start: 05-16-2022 End: 07-14-2022 semaglutide (OZEMPIC) 0.25 m g or 0.5 mg(2 mg/1.5 mL) pen injector Indications: Class 2 severe obesity due to excess calories with serious comorbidity and body mass index (BMI) of 37.0 to 37.9 in adult ([facility]) Inject 0.5 mg subcutaneously one time a week. 1 Each 2 05/16/2022 07/14/2022 Discontinued Start: 04-05-2022 End: 05-16-2022 semaglutide (OZEMPIC) 0.25 m g or 0.5 mg(2 mg/1.5 mL) pen injector Indications: Class 2 drug-induced obesity with serious comorbidity and body mass index (BMI) of 36.0 to 36.9 in adult Inject 0.25 mg subcutaneously one time a week. 1 Each 2 04/05/2022 05/16/2022 Discontinued Comment on above: Inject 0.25 mg subcu taneously one time a week. Inject 0.5 mg subcut aneously one time a week. semaglutide (OZEMPIC) 1 mg/dose (4 mg/3 mL) pen (4 sources) Start: End: inject 1 mg by subcutaneous injection every week semaglutide (OZEMPIC) 1 mg/dose (4 mg/3 mL) pen Inject 1 mg subcutaneously one time a week. 1 Each 3 07/31/2022 10/18/2022 Discontinued Start: 07-31-2022 inject 1 mg by subcu taneous injection every week semaglutide (OZEMPIC) 1 mg/dose (4 mg/3 mL) pen Inject 1 mg subcutaneously one time a week. 1 Each 3 07/31/2022 Active Comment on above: Inject 1 mg subcutan eously one time a week. tirzepatide (MOUNJARO) 7.5 mg/0.5 mL pen injector (5 sources) Start: 02-12-2024 End: 03-10-2024 tirzepatide (MOUNJARO) 7.5 mg/0.5 mL pen injector Inject 7.5 mg subcutaneously one time a week. Start this dose after 4 weekly doses at 5 mg 2 mL 2 02/12/2024 03/10/2024 Discontinued Start: 02-12-2024 End: 05-12-2024 tirzepatide (MOUNJARO) 7.5 m g/0.5 mL pen injector Inject 7.5 mg subcutaneously one time a week. Start this dose after 4 weekly doses at 5 mg 2 mL 2 02/12/2024 05/12/2024 Active tirzepatide, weight loss (ZEPBOUND) 2.5 mg/0.5 mL pen injector (19 sources) Start: 01-29-2024 End: 02-12-2024 tirzepatide, weight loss (ZEPBOUND) 2.5 mg/0.5 mL pen injector Indications: Class 2 severe obesity due to excess calories with serious comorbidity and body mass index (BMI) of 36.0 to 36.9 in adult ([facility]) Inject 2.5 mg subcutaneously one time a week. 2 mL 0 01/29/2024 02/12/2024 Discontinued (Dosage adjustment) Start: 01-29-2024 End: 02-28-2024 tirzepatide, weight loss (ZE PBOUND) 2.5 mg/0.5 mL pen injector Indications: Class 2 severe obesity due to excess calories with serious comorbidity and body mass index (BMI) of 36.0 to 36.9 in adult ([facility]) Inject 2.5 mg subcutaneously one time a week. 2 mL 0 01/29/2024 02/28/2024 Active Start: 01-28-2024 End: 02-12-2024 tirzepatide, weight loss (ZE PBOUND) 2.5 mg/0.5 mL pen injector Indications: Class 2 severe obesity due to excess calories with serious comorbidity and body mass index (BMI) of 36.0 to 36.9 in adult ([facility]) Inject 5 mg subcutaneously one time a week. 4 mL 1 01/28/2024 02/12/2024 Discontinued (Dosage adjustment) Start: 01-28-2024 End: 03-24-2024 tirzepatide, weight loss (ZE PBOUND) 2.5 mg/0.5 mL pen injector Indications: Class 2 severe obesity due to excess calories with serious comorbidity and body mass index (BMI) of 36.0 to 36.9 in adult ([facility]) Inject 5 mg subcutaneously one time a week. 4 mL 1 01/28/2024 03/24/2024 Active Start: 12-28-2023 End: 01-28-2024 tirzepatide, weight loss (ZE PBOUND) 2.5 mg/0.5 mL pen injector Indications: Class 2 severe obesity due to excess calories with serious comorbidity and body mass index (BMI) of 36.0 to 36.9 in adult ([facility]) Inject 5 mg subcutaneously one time a week. 4 mL 1 12/28/2023 01/28/2024 Discontinued Start: 12-28-2023 End: 02-22-2024 tirzepatide, weight loss (ZE PBOUND) 2.5 mg/0.5 mL pen injector Indications: Class 2 severe obesity due to excess calories with serious comorbidity and body mass index (BMI) of 36.0 to 36.9 in adult ([facility]) Inject 5 mg subcutaneously one time a week. 4 mL 1 12/28/2023 02/22/2024 Active Start: 12-03-2023 End: 12-20-2023 tirzepatide, weight loss (ZE PBOUND) 2.5 mg/0.5 mL pen injector Indications: Class 2 severe obesity due to excess calories with serious comorbidity and body mass index (BMI) of 36.0 to 36.9 in adult ([facility]) Inject 2.5 mg subcutaneously one time a week. 2 mL 12/03/2023 12/20/2023 Discontinued Start: 12-03-2023 End: 01-02-2024 tirzepatide, weight loss (ZE PBOUND) 2.5 mg/0.5 mL pen injector Indications: Class 2 severe obesity due to excess calories with serious comorbidity and body mass index (BMI) of 36.0 to 36.9 in adult ([facility]) Inject 2.5 mg subcutaneously one time a week. 2 mL 0 12/03/2023 01/02/2024 Active Comment on above: Inject 2.5 mg subcut aneously one time a week. Inject 5 mg subcutan eously one time a week. tirzepatide, weight loss (ZEPBOUND) 5 mg/0.5 mL pen injector (2 sources) Start: 12-20-2023 End: 12-28-2023 tirzepatide, weight loss (ZEPBOUND) 5 mg/0.5 mL pen injector Indications: Class 2 severe obesity due to excess calories with serious comorbidity and body mass index (BMI) of 36.0 to 36.9 in adult ([facility]) Inject 5 mg subcutaneously one time a week. 2 mL 0 12/20/2023 12/28/2023 Discontinued Start: 12-20-2023 End: 01-19-2024 tirzepatide, weight loss (ZE PBOUND) 5 mg/0.5 mL pen injector Indications: Class 2 severe obesity due to excess calories with serious comorbidity and body mass index (BMI) of 36.0 to 36.9 in adult (HCC) Inject 5 mg subcutaneously one time a week. 2 mL 0 12/20/2023 01/19/2024 Active Comment on above: Inject 5 mg subcutan eously one time a week. traMADol hydrochloride 50 mg oral tablet (3 sources) Opioid Agonist Start: 03-20-20 take 1 tablet by mouth every six hours as needed for pain traMADol HCl - 50 MG Oral Tablet take 1 tablet by mouth every 6 hours NEEDED FOR PAIN Quantity: 14 Refills: 0 Ordered: 20-Mar-2022 DO Start : 20-Mar-2022 Active traZODone hydrochloride 50 mg oral tablet (10 sources) Serotonin Reuptake Inhibitor Start: 12-13-19 traZODone HCl - 50 MG Oral Tablet Quantity: 0 Refills: 0 Ordered: 12-Dec-2021 DO Start : 12-Dec-2021 Active 1 ml triamcinolone acetonide 40 mg/ml injection (3 sources) Corticosteroid Start: 01-18-20 End: 01-18-20 triamcinolone acetonide 20 mg injection (KeNALog 40) Start: 08-18-2022 End: 08-19-2022 triamcinolone acetonide 40 m g injection (KeNALog 40) Problems Active Problems Problem Classification Problem Date Documented Date Episodic/Chronic Acute bronchitis (1 source) Acute exacerbation of chronic bronchitis; Translations: [Acute bronchitis, unspecified] Episodic Alcohol-related disorders (20 sources) Alcohol abuse; Translations: [Alcohol abuse, uncomplicated] Onset: 09-03-2017 09-03-2017 Chronic Anxiety disorders (20 sources) Anxiety; Translations: [Anxiety disorder, unspecified] Onset: 03-29-2019 03-29-2019 Chronic Diseases of white blood cells (20 sources) White blood cell disorder; 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] Onset: 02-01-2009 02-01-2009 Chronic Essential hypertension (20 sources) Essential (primary) hypertension; Translations: [Essential hypertension] Onset: 06-15-2017 06-15-2017 Chronic Immunizations and screening for infectious disease (1 source) Needs influenza immunization; Translations: [Encounter for immunization] Episodic Malaise and fatigue (1 source) Other fatigue; Translations: [Other fatigue] Onset: 07-24-2018 Episodic Menopausal disorders (1 source) Menopausal symptom; Translations: [Menopausal and female climacteric states] Chronic Miscellaneous mental health disorders (10 sources) Primary insomnia; Translations: [Primary insomnia] Chronic Nutritional deficiencies (1 source) Vitamin D deficiency, unspecified; Translations: [Vitamin D deficiency, unspecified] Onset: 07-24-2018 Chronic Other aftercare (1 source) Other long term care phlebotomist (current) drug therapy; Translations: [Other assisted (current) drug therapy] Onset: 07-24-2018 Episodic Other congenital anomalies (7 sources) Congenital laryngocele; 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, trachea, and bronchus] Chronic Other congenital anomalies (3 sources) Lesion of larynx; 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, trachea, and bronchus] Chronic Other connective tissue disease (1 source) Lateral epicondylitis of right humerus; Translations: [Lateral epicondylitis, right elbow] Episodic Other connective tissue disease (2 sources) Trochanteric bursitis of left hip; Translations: [Trochanteric bursitis, left hip] Episodic Other connective tissue disease (1 source) Plantar fasciitis; Translations: [Plantar fascial fibromatosis] 01-14-2024 Episodic Other ear and sense organ disorders (1 source) Ear problem; Translations: [Unspecified disorder of left ear] 05-13-2023 Episodic Other nutritional; endocrine; and metabolic disorders (10 sources) Body mass index 30+ - obesity; Translations: [Body Mass Index 34.0-34.9, adult] Chronic Other nutritional; endocrine; and metabolic disorders (1 source) Drug-induced obesity; Translations: [Drug-induced obesity] Chronic Other nutritional; endocrine; and metabolic disorders (15 sources) Severe obesity; Translations: [Morbid (severe) obesity due to excess calories] Chronic Other nutritional; endocrine; and metabolic disorders (20 sources) Obesity; Translations: [Other obesity due to excess calories] Onset: 05-16-2022 05-16-2022 Chronic Other nutritional; endocrine; and metabolic disorders (20 sources) Obesity caused by energy imbalance; Translations: [Other obesity due to excess calories] Onset: 05-16-2022 05-16-2022 Chronic Other nutritional; endocrine; and metabolic disorders (1 source) Morbid (severe) obesity due to excess calories; Translations: [Class 2 severe obesity due to excess calories with serious comorbidity and body mass index (BMI) of 36.0 to 36.9 in adult ([facility]LY [facility])] Onset: 05-16-2022 Chronic Other nutritional; endocrine; and metabolic disorders (1 source) Body mass index (BMI) 36.0-36.9, adult; Translations: [Class 2 severe obesity due to excess calories with serious comorbidity and body mass index (BMI) of 36.0 to 36.9 in adult ([facility])] Onset: 05-16-2022 Chronic Other nutritional; endocrine; and metabolic disorders (1 source) Abnormal weight gain; Translations: [Abnormal weight gain] Episodic Other screening for suspected conditions (not mental disorders or infectious disease) (8 sources) Patient encounter status; Translations: [Encounter for screening for malignant neoplasm of colon] Episodic Other upper respiratory disease (10 sources) Paralysis of vocal cords and larynx, unilateral; Translations: [Paresis of left vocal cord] Chronic Other upper respiratory disease (10 sources) Singers' nodes; Translations: [Other diseases of vocal cords] Episodic Other upper respiratory disease (10 sources) Disorder of vocal cord; Translations: [Other diseases of vocal cords] Episodic Other upper respiratory disease (10 sources) Lesion of vocal cord; Translations: [Other diseases of vocal cords] Episodic Other upper respiratory disease (10 sources) Hoarse; Translations: [Dysphonia] Episodic Other upper respiratory infections (1 source) Bacterial sinusitis; Translations: [Chronic sinusitis, unspecified] 05-13-2023 Chronic Other upper respiratory infections (1 source) Acute maxillary sinusitis; Translations: [Acute maxillary sinusitis, unspecified] 05-03-2023 Episodic Residual codes; unclassified (8 sources) Insomnia; Translations: [Insomnia, unspecified] Episodic Residual codes; unclassified (2 sources) Pain; Translations: [Pain, unspecified] 12-17-2023 Episodic Unclassified (1 source) Unknown / UNK(Unknown) Onset: 09-03-2017 Viral infection (1 source) COVID-19; Translations: [Other specified viral infection] 02-15-2024 Episodic Past or Other Problems Problem Classification Problem Date Documented Date Episodic/Chronic Acquired foot deformities (16 sources) Plantarflexion deformity of bilateral feet; Translations: [Other acquired deformities of right foot] Onset: 02-28-2024 01-18-2024 Episodic Other connective tissue disease (14 sources) Bilateral plantar fasciitis; Translations: [Plantar fascial fibromatosis] Onset: 02-29-2024 01-18-2024 Episodic Other connective tissue disease (14 sources) Bilateral heel pain; Translations: [Pain in right foot] Onset: 02-29-2024 01-18-2024 Episodic Other connective tissue disease (1 source) Plantar fascial fibromatosis; Translations: [Plantar fasciitis, bilateral] Onset: 02-28-2024 Episodic Other connective tissue disease (1 source) Pain in right foot; Translations: [Heel pain, bilateral] Onset: 02-28-2024 Episodic Other connective tissue disease (1 source) Pain in left foot; Translations: [Heel pain, bilateral] Onset: 02-28-2024 Episodic Residual codes; unclassified (1 source) Pain, unspecified; Translations: [Pain] Onset: 12-18-2023 Episodic Results Test Name Value Interpretation Reference Range Facility [facility] 06-16-2024 [facility] Telephone (INTMWS) ANDREINA GEE ([id number]) 1975 F [facility] Date Time Provider Department 06/16/24 JAE MASON INTMUSCOGEE During your visit today, we recorded the following information about you: Jae Mason, RAHUL.FRAME AND SCRAP CRUSHER 06/16/2024 2:39 PM Signed Continue Mounjaro unchanged long-term for now. Allergies As of Date: 06/16/2024 Noted Allergy Reaction BEE POLLEN 06/15/2023 14 - Other: See Comments BAUMAN 06/15/2023 14 - Other: See Comments GRASS POLLEN 06/15/2023 14 - Other: See Comments LATEX 02/15/2024 2 - Rash PENICILLINS 03/02/2006 TREES 06/15/2023 14 - Other: See Comments Date Reviewed: 06/13/2024 Reviewed by: Gaurang Marrufo MA - Fully Assessed Prescriptions as of 06/16/2024 - tirzepatide (MOUNJARO) 10 mg/0.5 mL pen injector Inject 10 mg subcutaneously one time a week. - zolpidem (AMBIEN) 10 mg Take 0.5 tablets by mouth daily at bedtime for 60 days. - sertraline (ZOLOFT) 100 mg tablet Take 2 tablets by mouth once daily. 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] 02/01/2009 Essential hypertension [I10] Alcohol abuse [F10.10] 09/03/2017 Anxiety [F41.9] 03/29/2019 Obesity due to excess calories [E66.09] 05/16/2022 Plantar fasciitis, bilateral [M72.2] 02/29/2024 Equinus deformity of both feet [M21.6X1, M21.6X*02/29/2024 Heel pain, bilateral [M79.671, M79.672] 02/29/2024 Encounter Status:Closed by JAE MASON on 06/16/24 Normal [facility] CBC W Auto Differential pane l (Bld)on 06-13-2024 Basophils (Bld) [#/Vol] 0.03 10*3/uL Normal <0.11 [facility] Comment on above: Order Comment: Speci men Type: BLOOD SPECIMENOrdering Facility: [facility] Address: [address] [place] [address] Performed By: #### 5 7021-8 ####[facility] LABCLIA [id number] [place] [address] [place] Basophils/100 WBC (Bld) 0.3 % Normal [facility] Comment on above: Order Comment: Speci men Type: BLOOD SPECIMENOrdering Facility: [facility] Address: [address] [place] [address] Performed By: #### 5 7021-8 ####[facility] LABCLIA [id number] [place] [address] [place] Differential cell count method Nom (Bld) Auto Normal [facility] Comment on above: Order Comment: Speci men Type: BLOOD SPECIMENOrdering Facility: [facility] Address: [address] [place] [address] Performed By: #### 5 7021-8 ####[facility] LABCLIA [id number] [place] [address] [place] Eosinophils (Bld) [#/Vol] 0.17 10*3/uL Normal <0.46 [facility] Comment on above: Order Comment: Speci men Type: BLOOD SPECIMENOrdering Facility: [facility] Address: [address] [place] [address] Performed By: #### 5 7021-8 ####[facility] LABCLIA [id number] [place] [address] [place] Eosinophils/100 WBC (Bld) 1.8 % Normal [facility] Comment on above: Order Comment: Speci men Type: BLOOD SPECIMENOrdering Facility: [facility] Address: [address] [place] [address] Performed By: #### 5 7021-8 ####[facility] LABCLIA [id number] [place] [address] [place] Erythrocyte distribution width (RBC) [Ratio] 13.2 % Normal 11.5-15.0 [facility] Comment on above: Order Comment: Speci men Type: BLOOD SPECIMENOrdering Facility: [facility] Address: [address] [place] [address] Performed By: #### 5 7021-8 ####[facility] LABCLIA [id number] [place] [address] [place] Hematocrit (Bld) [Volume fraction] 40.9 % Normal 36.0-46.0 [facility] Comment on above: Order Comment: Speci men Type: BLOOD SPECIMENOrdering Facility: [facility] Address: [address] [place] [address] Performed By: #### 5 7021-8 ####[facility] LABCLIA [id number] [place] [address] [place] Hemoglobin (Bld) [Mass/Vol] 13.4 g/dL Normal 11.5-15.5 [facility] Comment on above: Order Comment: Speci men Type: BLOOD SPECIMENOrdering Facility: [facility] Address: [address] [place] [address] Performed By: #### 5 7021-8 ####[facility] LABCLIA [id number] [place] [address] [place] Immature granulocytes (Bld) [#/Vol] 0.03 10*3/uL Normal <0.10 [facility] Comment on above: Order Comment: Speci men Type: BLOOD SPECIMENOrdering Facility: [facility] Address: [address] [place] [address] Performed By: #### 5 7021-8 ####[facility] LABCLIA [id number] [place] [address] [place] Immature granulocytes/100 WBC (Bld) 0.3 % Normal [facility] Comment on above: Order Comment: Speci men Type: BLOOD SPECIMENOrdering Facility: [facility] Address: [address] [place] [address] Performed By: #### 5 7021-8 ####[facility] LABCLIA [id number] [place] [address] [place] Lymphocytes (Bld) [#/Vol] 2.59 10*3/uL Normal 1.00-4.00 [facility] Comment on above: Order Comment: Speci men Type: BLOOD SPECIMENOrdering Facility: [facility] Address: [address] [place] [address] Performed By: #### 5 7021-8 ####[facility] LABCLIA [id number] [place] [address] [place] Lymphocytes/100 WBC (Bld) 27.6 % Normal [facility] Comment on above: Order Comment: Speci men Type: BLOOD SPECIMENOrdering Facility: [facility] Address: [address] [place] [address] Performed By: #### 5 7021-8 ####[facility] [id number] [place] [address] [place] MCH (RBC) [Entitic mass] 28.1 pg Normal 26.0-34.0 [facility] Comment on above: Order Comment: Speci men Type: BLOOD SPECIMENOrdering Facility: [facility] Address: [address] [place] [address] Performed By: #### 5 7021-8 ####[facility] [id number] [place] [address] [place] MCHC (RBC) [Mass/Vol] 32.8 g/dL Normal 30.5-36.0 [facility] Comment on above: Order Comment: Speci men Type: BLOOD SPECIMENOrdering Facility: [facility] Address: [address] [place] [address] Performed By: #### 5 7021-8 ####[facility] [id number] [place] [address] [place] MCV (RBC) [Entitic vol] 85.7 fL Normal 80.0-100.0 [facility] Comment on above: Order Comment: Speci men Type: BLOOD SPECIMENOrdering Facility: [facility] Address: [address] [place] [address] Performed By: #### 5 7021-8 ####[facility] [id number] [place] [address] [place] Monocytes (Bld) [#/Vol] 0.45 10*3/uL Normal <0.87 [facility] Comment on above: Order Comment: Speci men Type: BLOOD SPECIMENOrdering Facility: [facility] Address: [address] [place] [address] Performed By: #### 5 7021-8 ####[facility] LABCLIA [id number] [address] [address] [place] Monocytes/100 WBC (Bld) 4.8 % Normal [facility] Comment on above: Order Comment: Speci men Type: BLOOD SPECIMENOrdering Facility: [facility] Address: [address] [place] [address] Performed By: #### 5 7021-8 ####[facility] LABCLIA [id number] [place] [address] [place] Neutrophils (Bld) [#/Vol] 6.13 10*3/uL Normal 1.45-7.50 [facility] Comment on above: Order Comment: Speci men Type: BLOOD SPECIMENOrdering Facility: [facility] Address: [address] [place] [address] Performed By: #### 5 7021-8 ####[facility] LABCLIA [id number] [place] [address] [place] Neutrophils/100 WBC (Bld) 65.2 % Normal [facility] Comment on above: Order Comment: Speci men Type: BLOOD SPECIMENOrdering Facility: [facility] Address: [address] [place] [address] Performed By: #### 5 7021-8 ####[facility] LABCLIA [id number] [place] [address] [place] Nucleated RBC (Bld) [#/Vol] 10*3/uL Normal <0.01 [facility] Comment on above: Order Comment: Speci men Type: BLOOD SPECIMENOrdering Facility: [facility] Address: [address] [place] [address] Performed By: #### 5 7021-8 ####[facility] LABCLIA [id number] [place] [id number] [place] Nucleated RBC/100 WBC (Bld) [Ratio] 0.0 /100 WBC Normal [facility] Comment on above: Order Comment: Speci men Type: BLOOD SPECIMENOrdering Facility: [facility] Address: [address] [place] [address] Performed By: #### 5 7021-8 ####[facility] LABIA [id number] [place] [address] [place] Platelet mean volume (Bld) [Entitic vol] 10.4 fL Normal 9.0-12.7 [facility] Comment on above: Order Comment: Speci men Type: BLOOD SPECIMENOrdering Facility: [facility] Address: [address] [place] [address] Performed By: #### 5 7021-8 ####[facility] LABIA [id number] [place] [address] [place] Platelets (Bld) [#/Vol] 271 10*3/uL Normal 150-400 [facility] Comment on above: Order Comment: Speci men Type: BLOOD SPECIMENOrdering Facility: [facility] Address: [address] [place] [address] Performed By: #### 5 7021-8 ####[facility] LABIA [id number] [place] [address] [place] RBC (Bld) [#/Vol] 4.77 10*6/uL Normal 3.90-5.20 [facility] Comment on above: Order Comment: Speci men Type: BLOOD SPECIMENOrdering Facility: [facility] Address: [address] [place] [address] Performed By: #### 5 7021-8 ####[facility] LABIA [id number] [place] [address] [place] WBC (Bld) [#/Vol] 9.40 10*3/uL Normal 3.70-11.00 [facility] Comment on above: Order Comment: Speci men Type: BLOOD SPECIMENOrdering Facility: [facility] Address: [address] [place] [address] [place] [address] Performed By: #### 5 7021-8 ####[facility] LABCLFAHAD [id number] [id number] [id number] [place] CNOVon 06-13-2024 CNOV Office Visit (INTMWS ) ANDREINA GEE ([id number]) 1975 F [facility] Date Time Provider Department 06/13/24 3:00 PM JAE MASON INTMWS During your visit today, we recorded the following information about you: Pulse Respiration Blood pressure Weight 70/minute 16/minute 125/70 67.7 kg Jae Mason APRN.FRAME AND SCRAP CRUSHER 06/13/2024 4:53 PM Signed SUBJECTIVE: Hepatitis B Vaccine(1 of 3 - 19+ 3-dose series) Never done Cervical Cancer Screening Never done Colorectal Cancer Screening Never done Mammogram Screening due on 03/23/2021 Lipid Screening due on 07/24/2023 Influenza Vaccine(1) due on 05/25/2024 HPI Andreina Gee is a 49 year old female. PMH significant for ACTIVE PROBLEM LIST Other Specified Disease of White Blood Cells Essential Hypertension Alcohol Abuse Anxiety Obesity Due to Excess Calories Plantar Fasciitis, Bilateral Equinus Deformity of Both Feet Heel Pain, Bilateral Presents today for routine follow-up visit. 66 pounds using Mounjaro. She has been exercising and eating a healthy diet. She feels well with the medication, no adverse effects are noted. HPI excerpted from previous visits: Today notes that phentermine caused her to not to want to eat or sleep, seems like it was too strong/effective so she quit taking it. . Has gained a couple of pounds since discontinuing. She has tried Ozempic before but had GI upset with that. Ozempic made her nauseous / GI upset and decreased oral intake. States Qsymia did not work.Stalled out at 12 pounds of weight loss. She reports exercising 30 minutes Mondays through Sunday, jumps on the trampoline. Also walks every night for 20 to 30 minutes. Does calorie counting. SAD. Today notes that she lost 30 lbs weight lost on phentermine. 5 lbs on this medication so far. Curbing appetite. Notes wearing off effects at the endo of the week. Sticking with diet and exercise. She notes mood is stable on current medication. No voiced SI HI. She has occasional insomnia for which she takes zolpidem. Has been effective without adverse effects noted. Review of Systems Constitutional: Negative. Psychiatric/Behavioral: Positive for sleep disturbance. Negative for dysphoric mood. The patient is not nervous/anxious. Objective BP 125/70 Pulse 70 Resp 16 Wt 67.7 kg (149 lb 4 oz) LMP 01/24/2023 BMI 25.62 kg/m? Physical Exam Vitals and nursing note reviewed. Constitutional: Appearance: Normal appearance. HENT: Head: Normocephalic and atraumatic. Eyes: Conjunctiva/sclera: Conjunctivae normal. Cardiovascular: Rate and Rhythm: Normal rate and regular rhythm. Heart sounds: Normal heart sounds. Pulmonary: Effort: Pulmonary effort is normal. Breath sounds: Normal breath sounds. Abdominal: General: Bowel sounds are normal. Palpations: Abdomen is soft. Musculoskeletal: Right lower leg: No edema. Left lower leg: No edema. Skin: General: Skin is warm and dry. Neurological: General: No focal deficit present. Mental Status: She is alert and oriented to person, place, and time. ALLERGIES Allergen Reactions Bee Pollen Other: See Comments Bauman Other: See Comments Grass Pollen Other: See Comments Latex Rash Penicillins Trees Other: See Comments Medications zolpidem (AMBIEN) 10 mg Take 0.5 tablets by mouth daily at bedtime for 60 days. tirzepatide (MOUNJARO) 10 mg/0.5 mL pen injector Inject 10 mg subcutaneously one time a week. sertraline (ZOLOFT) 100 mg tablet Take 2 tablets by mouth once daily. PAST MEDICAL HISTORY Diagnosis Date Essential hypertension Social History Tobacco Use Smoking status: Former Current packs/day: 0.00 Average packs/day: 1 pack/day for 20.0 years (20.0 ttl pk-yrs) Types: Cigarettes Start date: 09/24/1991 Quit date: 09/24/2011 Years since quittin.7 Smokeless tobacco: Never Tobacco comments: uses E-cigarettes Vaping Use Vaping status: Former Quit date: 10/19/2018 Substance Use Topics Alcohol use: Yes Alcohol/week: 2.0 - 4.0 standard drinks of alcohol Types: 2 - 4 Glasses of Wine (5oz) per week Drug use: No ASSESSMENT/PLAN: 1. Essential hypertension - ICD9: 401.9, ICD10: I10 (primary diagnosis) - Controlled - Continue treatment unchanged - Encouraged sodium restriction, DASH or Mediterranean diet - Recommend regular aerobic exercise - LIPID PANEL, NONFASTING - COMPREHENSIVE METABOLIC PANEL - COMPLETE BLOOD COUNT AND DIFFERENTIAL 2. Primary insomnia - ICD9: 307.42, ICD10: F51.01 Stable, currently controlled, continue to monitor. - ZOLPIDEM 10 MG TABLET 3. Class 2 severe obesity due to excess calories with serious comorbidity and body mass index (BMI) of 36.0 to 36.9 in adult (HCC) - ICD9: 278.01, V85.36, ICD10: E66.01, Z68.36 She has lost more than 60 pounds over the last year. She is feeling well with the medication. BMI now at 25.6. Continue on current (more content not included)... Normal [facility] Comprehensive metabolic 2000 panelon 06-13-2024 Albumin [Mass/Vol] 4.5 g/dL Normal 3.9-4.9 [facility] Comment on above: Order Comment: Speci men Type: BLOOD SPECIMENOrdering Facility: [facility] Address: [address] [place] [address] Performed By: #### L LUIS, 75548-8 ####[facility] LABCLIA [id number] [facility] [id number] [address] [place] ALP [Catalytic activity/Vol] 62 U/L Normal 34-123 [facility] Comment on above: Order Comment: Speci men Type: BLOOD SPECIMENOrdering Facility: [facility] Address: [address] [place] [address] Performed By: #### L LUIS, 09500-0 ####[facility] LABCLIA [id number] [place] [address] [place] ALT [Catalytic activity/Vol] 9 U/L Normal 7-38 [facility] Comment on above: Order Comment: Speci men Type: BLOOD SPECIMENOrdering Facility: [facility] Address: [address] [place] [address] Performed By: #### L IPNF, 12614-0 ####[facility] LABCLIA [id number] [place] [address] [place] Anion gap [Moles/Vol] 11 mmol/L Normal 8-15 [facility] Comment on above: Order Comment: Speci men Type: BLOOD SPECIMENOrdering Facility: [facility] Address: [address] [place] [address] Performed By: #### L IPNF, 28508-3 ####[facility] LABCLIA [id number] [place] [address] [place] AST [Catalytic activity/Vol] 16 U/L Normal 13-35 [facility] Comment on above: Order Comment: Speci men Type: BLOOD SPECIMENOrdering Facility: [facility] Address: [address] [place] [address] Performed By: #### L IPNF, 28851-4 ####[facility] LABCLIA [id number] [place] [address] [place] Bilirubin [Mass/Vol] 0.2 mg/dL Normal 0.2-1.3 [facility] Comment on above: Order Comment: Speci men Type: BLOOD SPECIMENOrdering Facility: [facility] Address: [address] [place] [address] Performed By: #### L IPNF, 24134-0 ####[facility] LABCLIA [id number] [place] [address] [place] Calcium [Mass/Vol] 9.5 mg/dL Normal 8.5-10.2 [facility] Comment on above: Order Comment: Speci men Type: BLOOD SPECIMENOrdering Facility: [facility] Address: [address] [place] [address] Performed By: #### L IPNF, 17212-2 ####[facility] LABCLIA [id number] [place] [address] [place] Chloride [Moles/Vol] 104 mmol/L Normal 98-107 [facility] Comment on above: Order Comment: Speci men Type: BLOOD SPECIMENOrdering Facility: [facility] Address: [address] [place] [address] Performed By: #### L IPNF, 52960-2 ####[facility] LABCLIA [id number] [place] [address] [place] CO2 [Moles/Vol] 26 mmol/L Normal 22-30 [facility] Comment on above: Order Comment: Speci men Type: BLOOD SPECIMENOrdering Facility: [facility] Address: [address] [place] [address] Performed By: #### L IPNF, 71138-5 ####[facility] LABCLIA [id number] [place] [address] [place] Creatinine [Mass/Vol] 0.64 mg/dL Normal 0.58-0.96 [facility] Comment on above: Order Comment: Speci men Type: BLOOD SPECIMENOrdering Facility: [facility] Address: [address] [place] [address] Performed By: #### L IPNF, 99073-8 ####[facility] LABCLIA [id number] [place], [place] [address] [place] Creatinine and Glomerular filtration rate.predicted panel (S/P/Bld) 108 mL/min/1.73m??? Normal >=60 [facility] Comment on above: Order Comment: Speci men Type: BLOOD SPECIMENOrdering Facility: [facility] Address: [address] [place] [address] Result Comment: Brianna mated Glomerular Filtration Rate (eGFR) is calculated using the 2020 CKD-EPI creatinine equation. This equation utilizes serum creatinine, sex, and age as parameters. The creatinine assay has traceable calibration to isotope dilution-mass spectrometry. Refer to KDIGO guidelines for clinical interpretation. In patients with unstable renal function, e.g. those with acute kidney injury, the eGFR may not accurately reflect actual GFR. Performed By: #### L LUIS, 64615-6 ####[facility] LABIA [id number] [place] [address] [place] Glucose [Mass/Vol] 80 mg/dL Normal 74-99 [facility] Comment on above: Order Comment: Wally patel Type: BLOOD SPECIMENOrdering Facility: [facility] Address: [address] [place] [address] Result Comment: The [place] Diabetes Association (ADA) provides guidance for cutoff values for fasting glucose and random glucose. The ADA defines fasting as no caloric intake for at least 8 hours. Fasting plasma glucose results between 100 to 125 [...] Standards of Medical Care in Diabetes 2016, [place] Diabetes Association. Diabetes Care. 2016.39(Suppl 1). Performed By: #### L LUIS, 73219-6 ####[facility] LABIA [id number] [place] [id number] [place] Potassium [Moles/Vol] 4.5 mmol/L Normal 3.7-5.1 [facility] Comment on above: Order Comment: Wally patel Type: BLOOD SPECIMENOrdering Facility: [facility] Address: [address] [place] [address] Performed By: #### L LUIS, 90357-4 ####[facility] LABIA [id number] [place] [address] [place] Protein [Mass/Vol] 7.2 g/dL Normal 6.3-8.0 [facility] Comment on above: Order Comment: Speci men Type: BLOOD SPECIMENOrdering Facility: [facility] Address: [address] [place] [address] Performed By: #### L IPNF, ####[facility] LABCLIA [id number] [place] [address] [place] Sodium [Moles/Vol] 141 mmol/L Normal 136-144 [facility] Comment on above: Order Comment: Speci men Type: BLOOD SPECIMENOrdering Facility: [facility] Address: [address] [place] [address] Performed By: #### L IPNF, 28151-1 ####[facility] LABCLIA [id number] [place] [address] [place] Urea nitrogen [Mass/Vol] 9 mg/dL Normal 7-21 [facility] Comment on above: Order Comment: Speci men Type: BLOOD SPECIMENOrdering Facility: [facility] Address: [address] [place] [address] Performed By: #### L IPNF, ####[facility] LABCLIA [id number] [place] [address] [place] LIPID PANEL, NONFASTINGon Cholesterol [Mass/Vol] 230 mg/dL High <200 [facility] Comment on above: Order Comment: Speci men Type: BLOOD SPECIMENOrdering Facility: [facility] Address: [address] [place] [address] Result Comment: <200 mg/dL, Desirable 200-239 mg/dL, Borderline high >239 mg/dL, High Performed By: #### L IPNF, ####[facility] LABCLIA [id number] [place] [address] [place] HDL CHOLESTEROL, NF 44 mg/dL Normal >39 [facility] Comment on above: Order Comment: Wally patel Type: BLOOD SPECIMENOrdering Facility: [facility] Address: [address] [place] [address] Result Comment: 40-5 9 mg/dL, Acceptable >59 mg/dL, High: Negative risk factor for coronary heart disease <40 mg/dL, Low: Positive risk factor for coronary heart disease Performed By: #### L IPNF, 14009-2 ####[facility] LABCLIA [id number] [address] OF [facility] LDL CHOLESTEROL, NF 156 mg/dL High <100 [facility] Comment on above: Order Comment: Wally jorge Type: BLOOD SPECIMENOrdering Facility: [facility] Address: [address] [place] [address] Result Comment: <100 mg/dL, Optimal 100-129 mg/dL, Near optimal/above optimal 130-159 mg/dL, Borderline high 160-189 mg/dL, High >189 mg/dL, Very high Secondary prevention optimal LDL Cholesterol levels are recommended to be < 70 mg/dL Performed By: #### L IPNF, 21308-8 ####[facility] LABCLIA [id number] [address] [place] LDL/HDL RATIO, NF 3.55 mg/dL High <2.54 [facility] Comment on above: Order Comment: Vanesajo patel Type: BLOOD SPECIMENOrdering Facility: [facility] Address: [address] [place] [address] Result Comment: Refluis arreguince: 1. National Cholesterol Education Program ATP III Guideline At-A-Glance Quick Desk Reference: National Heart, Lung, and Blood [place]. National Institutes of Health. 2001: NIH Publication No. 01-3305. 2. An International Atherosclerosis Society position paper: global recommendations for the management of dyslipidemia: executive summary, Atherosclerosis. 2014: 232(2):410-413. Performed By: #### L IPNF, 89291-4 ####[facility] LABCLIA [id number] [place] [address] [place] NON HDL CHOL, NF 186 mg/dL High <130 [facility] Comment on above: Order Comment: Speci men Type: BLOOD SPECIMENOrdering Facility: [facility] Address: [address] [place] [address] Result Comment: <130 mg/dL, Optimal 130-159 mg/dL, Near optimal/above optimal 160-189 mg/dL, Borderline high 190-219 mg/dL, High >219 mg/dL, Very high Secondary prevention optimal non HDL Cholesterol levels are recommended to be <100 mg/dL Performed By: #### L IPNF, ####[facility] LABCLIA [id number] [place] [address] [place] T CHOL/HDL RATIO NF 5.23 mg/dL High <5.10 [facility] Comment on above: Order Comment: Speci men Type: BLOOD SPECIMENOrdering Facility: [facility] Address: [address] [place] [address] Performed By: #### L IPNF, ####[facility] LABCLIA [id number] [place] [address] [place] TRIGLYCERIDES, NF 151 mg/dL High <150 [facility] Comment on above: Order Comment: Speci men Type: BLOOD SPECIMENOrdering Facility: [facility] Address: [address] [place] [address] Result Comment: <150 mg/dL, Normal 150-199 mg/dL, Borderline high 200-499 mg/dL, High >499 mg/dL, Very high Performed By: #### L IPNF, ####[facility] LABCLIA [id number] [place] [address] [place] VLDL CHOLESTEROL, NF 30 mg/dL High <30 [facility] Comment on above: Order Comment: Speci men Type: BLOOD SPECIMENOrdering Facility: [facility] Address: [address] [place] [address] Performed By: #### L IPNF, ####[facility] FRANKIE [id number] [address] OF [facility] Eric 03-25-2024 [facility] Telephone (FAMWS) ANDREINA GEE ([id number]) 1975 F T Date Time Provider Department 03/25/24 BABATUNDE VASQUEZ During your visit today, we recorded the following information about you: Kate Damian LPN 03/25/2024 3:45 PM Signed Pt's calls to report the Mounjaro 10 mg/0.5 ml rx that was sent to the pharmacy yesterday had dx on it and pharmacy said the discount coupon could not be used on it. reports with the previous rx there was no problem using discount coupon but there wasn't a dx on the rx. is requesting new rx without dx be sent to the pharmacy. [facility] Fierro Rosa, APRN.CNP 03/25/2024 3:48 PM Signed Sent. Dee Dee Cerrato LPN 03/26/2024 10:34 AM Signed Patient Andrei calling to check status of request. Aware rx was sent to pharmacy 03/25/2024. Allergies As of Date: 03/25/2024 Noted Allergy Reaction BEE POLLEN 06/15/2023 14 - Other: See Comments BAUMAN 06/15/2023 14 - Other: See Comments GRASS POLLEN 06/15/2023 14 - Other: See Comments LATEX 02/15/2024 2 - Rash PENICILLINS 03/02/2006 TREES 06/15/2023 14 - Other: See Comments Date Reviewed: 03/10/2024 Reviewed by: Babatunde Vasquez APRN.CANOPY INSPECTOR - Fully Assessed Reason for Visit: Medication Problem [65] Visit Diagnoses:Essential hypertension [I10] Class 2 severe obesity due to excess calories with serious comorbidity and body mass index (BMI) of 36.0 to 36.9 in adult ([facility]LY [facility]) [E66.01, Z68.36] Order(s):tirzepatide (MOUNJARO) 10 mg/0.5 mL pen injectorInject 10 mg subcutaneously one time a week.Disp: 4 mLRfl: 2 Prescriptions as of 03/26/2024 - tirzepatide (MOUNJARO) 10 mg/0.5 mL pen injector Inject 10 mg subcutaneously one time a week. - meloxicam (MOBIC) 15 mg tablet Take 1 tablet by mouth once daily. - sertraline (ZOLOFT) 100 mg tablet Take 2 tablets by mouth once daily. - zolpidem (AMBIEN) 10 mg Take 0.5 tablets by mouth daily at bedtime for 60 days. 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 Medications Discontinued During This Encounter Prescriptions - tirzepatide (MOUNJARO) 10 mg/0.5 mL pen injector (Discontinued) Inject 10 mg subcutaneously one time a week. Start this dose after 4 weekly doses at 5 mg Encounter Status:Closed by BABATUNDE VASQUEZ on 03/25/24 [facility] Eric 03-24-2024 [facility] Telephone (INTMWS) ANDREINA GEE ([id number]) 1975 F [facility] Date Time Provider Department 03/24/24 JENA PETERSON During your visit today, we recorded the following information about you: Aristeo Reyes LPN 03/24/2024 4:32 PM Signed Spouse called and reports Pharmacy requested a PA be done. I called the pharmacy to let them know the PA denied prescription for Mounjaro is not covered on pt's insurance. Instructed pharmacy spouse reports they do no go thru insurance. Pharmacy understands and will flip this to a discount card for pt. Will not be ran thru insurance. [facility] Lewis Beth, LPN 03/26/2024 11:24 AM Signed [facility] calling with denial for PA for Mounjaro injectable. Faxed copy of denial to office and also gave reference number for the denial [id number]. Allergies As of Date: 03/24/2024 Noted Allergy Reaction BEE POLLEN 06/15/2023 14 - Other: See Comments BAUMAN 06/15/2023 14 - Other: See Comments GRASS POLLEN 06/15/2023 14 - Other: See Comments LATEX 02/15/2024 2 - Rash PENICILLINS 03/02/2006 TREES 06/15/2023 14 - Other: See Comments Date Reviewed: 03/10/2024 Reviewed by: Babatunde Vasquez APRN.CANOPY INSPECTOR - Fully Assessed Reason for Visit: medication issue [Other] Prescriptions as of 03/26/2024 - tirzepatide (MOUNJARO) 10 mg/0.5 mL pen injector Inject 10 mg subcutaneously one time a week. - meloxicam (MOBIC) 15 mg tablet Take 1 tablet by mouth once daily. - sertraline (ZOLOFT) 100 mg tablet Take 2 tablets by mouth once daily. - zolpidem (AMBIEN) 10 mg Take 0.5 tablets by mouth daily at bedtime for 60 days. 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] 02/01/2009 Essential hypertension [I10] Alcohol abuse [F10.10] 09/03/2017 Anxiety [F41.9] 03/29/2019 Obesity due to excess calories [E66.09] 05/16/2022 Plantar fasciitis, bilateral [M72.2] 02/29/2024 Equinus deformity of both feet [M21.6X1, M21.6X*02/29/2024 Heel pain, bilateral [M79.671, M79.672] 02/29/2024 Encounter Status:Closed by ARISTEO REYES on 03/24/24 [facility] CNTHERAPYon 03-12-2024 CNTHERAPY OT/PT/Speech Visit ( PTWS) ANDREINA GEE ([id number]) 1975 F CHT Date Time Provider Department 03/12/24 3:00 PM RIGOBERTO CHÁVEZ PTWS Date Time Provider Department [place] 03/12/2024 3:00 PM [id number], COLIN PTWS Thierry Waddell Reason for Visit: Physical Therapy [503] PT Discharge [752] Primary Visit Diagnosis:Plantar fasciitis, bilateral [M72.2] Other Visit Diagnoses:Equinus deformity of both feet [M21.6X1, M21.6X2] Heel pain, bilateral [M79.671, M79.672] Allergies As of Date: 03/12/2024 Noted Allergy Reaction BEE POLLEN 06/15/2023 14 - Other: See Comments BAUMAN 06/15/2023 14 - Other: See Comments GRASS POLLEN 06/15/2023 14 - Other: See Comments LATEX 02/15/2024 2 - Rash PENICILLINS 03/02/2006 TREES 06/15/2023 14 - Other: See Comments Date Reviewed: 03/10/2024 Reviewed by: Babatunde Vasquez APRN.CANOPY INSPECTOR - Fully Assessed Prescriptions as of 06/18/2024 - tirzepatide (MOUNJARO) 10 mg/0.5 mL pen injector Inject 10 mg subcutaneously one time a week. - zolpidem (AMBIEN) 10 mg Take 0.5 tablets by mouth daily at bedtime for 60 days. - sertraline (ZOLOFT) 100 mg tablet Take 2 tablets by mouth once daily. Normal [facility] CNOVon 03-10-2024 CNOV Office Visit (INTMWS ) ANDREINA GEE ([id number]) 1975 F T Date Time Provider Department 03/10/24 2:40 PM BABATUNDE VASQUEZ INTMWS During your visit today, we recorded the following information about you: Pulse Respiration Blood pressure Weight 74/minute 12/minute 112/60 75.8 kg Height 1.626 m Babatunde Vasquez APRN.CANOPY INSPECTOR 03/10/2024 3:56 PM Signed SUBJECTIVE Andreina Gee is a 48 year old female here today for a check up on her medical problems. Chief Complaint Patient presents with: Follow Up: weight loss-moujaro HPI Andreina Gee is a 48 year old female. She is an established patient of Jena Peterson MD. Here today for follow up. Has lost 50 pounds with Mounjaro. No side effects that she has noticed. She has been focusing on diet and exercise too. Eating enough most days, eats less the days after her injection. Some manageable constipation. Working to get weight to 150's. Blood pressures doing well. Behavioral Health Screening PHQ-2 Score: 0 (Lower risk for depression) SARAH-2 Score: 0 (Lower risk for anxiety) Recommendation: no further intervention at this time Her medications were reviewed today and her list is now up to date. Medications Current Outpatient Medications Medication Sig tirzepatide (MOUNJARO) 10 mg/0.5 mL pen injector Inject 10 mg subcutaneously one time a week. Start this dose after 4 weekly doses at 5 mg meloxicam (MOBIC) 15 mg tablet Take 1 tablet by mouth once daily. sertraline (ZOLOFT) 100 mg tablet Take 2 tablets by mouth once daily. zolpidem (AMBIEN) 10 mg Take 0.5 tablets by mouth daily at bedtime for 60 days. No current facility-administered medications for this visit. 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 Respiratory: Negative. Cardiovascular: Negative. OBJECTIVE BP 112/60 Pulse 74 Resp 12 Ht 5' 4 (1.63m) Wt 167 lb (75.8kg) SpO2 99% LMP 01/24/2023 BMI 28.65 kg/(m2). Physical Exam Vitals and nursing note reviewed. Constitutional: General: She is awake. She is not in acute distress. Appearance: Normal appearance. She is well-developed and well-groomed. She is not ill-appearing, toxic-appearing or diaphoretic. HENT: Head: Normocephalic. Right Ear: External ear normal. Left Ear: External ear normal. Nose: Nose normal. Eyes: General: Vision grossly intact. Conjunctiva/sclera: Conjunctivae normal. Pupils: Pupils are equal, round, and reactive to light. Neck: Vascular: No JVD. Trachea: Trachea normal. Cardiovascular: Rate and Rhythm: Normal rate and regular rhythm. Pulses: Normal pulses. Heart sounds: Normal heart sounds. No murmur heard. Pulmonary: Effort: Pulmonary effort is normal. No accessory muscle usage, prolonged expiration or respiratory distress. Breath sounds: Normal breath sounds. Musculoskeletal: Cervical back: Neck supple. Skin: General: Skin is warm and dry. Capillary Refill: Capillary refill takes less than 2 seconds. Neurological: General: No focal deficit present. Mental Status: She is alert and oriented to person, place, and time. Mental status is at baseline. Psychiatric: Attention and Perception: Attention and perception normal. Mood and Affect: Mood and affect normal. Speech: Speech normal. Behavior: Behavior normal. Behavior is cooperative. Thought Content: Thought content normal. Cognition and Memory: Cognition and memory normal. Judgment: Judgment normal. ASSESSMENT/PLAN: 1. Essential hypertension - ICD9: 401.9, ICD10: I10 (primary diagnosis) - Controlled - Continue current medications - Recommend home blood pressure monitoring, to bring results to next visit - Encouraged sodium restriction, DASH or Mediterranean diet - Recommend regular aerobic exercise - TIRZEPATIDE 10 MG/0.5 ML SUBCUTANEOUS PEN INJECTOR 2. Anxiety - ICD9: 300.00, ICD10: F41.9 Stable and controlled. 3. Class 2 severe ob (more content not included)... Normal [facility] THERAPY NTon 02-29-2024 THERAPY NT HNO ID: [id number] Author: RIGOBERTO CHÁVEZ, PT Service: ? Author Type: Physical Therapist Type: Therapy (PT/OT/Speech/Resp) Filed: 02/29/2024 12:06 Note Text: Program_ID:[id number] Access Code: [email or web address] URL: [email or web address]/ Date: 02-29-2024 Prepared By: Rigoberto Chávez Program Notes Exercises - Long Sitting Calf Stretch with Strap - 2 x daily - 5-7 x weekly - 3 sets - reps - Long Sitting Soleus Stretch on Bolster with Strap - 2 x daily - 5-7 x weekly - 3 sets - reps - Standing Dorsiflexion Self-Mobilization on Step - 2 x daily - 5-7 x weekly - 2 sets - 10 reps - Sidelying Hip Abduction - 1-2 x daily - 5-7 x weekly - 2 sets - 8-12 reps - Seated Plantar Surface Stretch - 2 x daily - 5-7 x weekly - 3 sets - reps Normal [facility] CNTHERAPYon 02-28-2024 CNTHERAPY OT/PT/Speech Visit ( PTWS) ANDREINA GEE ([id number]) 1975 F CHT Date Time Provider Department 02/28/24 3:45 PM RIGOBERTO CHÁVEZ PTWS Date Time Provider Department Center 02/28/2024 3:45 PM [id number], COLIN PTWS Thierry Waddell Reason for Visit: PT Eval [747] Primary Visit Diagnosis:Plantar fasciitis, bilateral [M72.2] Other Visit Diagnoses:Equinus deformity of both feet [M21.6X1, M21.6X2] Heel pain, bilateral [M79.671, M79.672] Allergies As of Date: 02/28/2024 Noted Allergy Reaction BEE POLLEN 06/15/2023 14 - Other: See Comments BAUMAN 06/15/2023 14 - Other: See Comments GRASS POLLEN 06/15/2023 14 - Other: See Comments LATEX 02/15/2024 2 - Rash PENICILLINS 03/02/2006 TREES 06/15/2023 14 - Other: See Comments Date Reviewed: 02/15/2024 Reviewed by: Damian Carmichael APRN.CANOPY INSPECTOR - Fully Assessed Prescriptions as of 02/29/2024 - tirzepatide (MOUNJARO) 7.5 mg/0.5 mL pen injector Inject 7.5 mg subcutaneously one time a week. Start this dose after 4 weekly doses at 5 mg - meloxicam (MOBIC) 15 mg tablet Take 1 tablet by mouth once daily. - sertraline (ZOLOFT) 100 mg tablet Take 2 tablets by mouth once daily. - zolpidem (AMBIEN) 10 mg Take 0.5 tablets by mouth daily at bedtime for 60 days. Visually Impaired Teacher: Therapy (PT/OT/Speech/Resp) ID: [id number] 02/29/2024 12:06 PM Author: RIGOBERTO CHÁVEZ Signed by RIGOBERTO CHÁVEZ PT on 02/29/2024 at 12:06 PM Document text: Program_ID:[id number] Access Code: [email or web address] URL: [email or web address].[employer]/ Date: 02-29-2024 Prepared By: Rigoberto Chávez Program Notes Exercises - Long Sitting Calf Stretch with Strap - 2 x daily - 5-7 x weekly - 3 sets - reps - Long Sitting Soleus Stretch on Bolster with Strap - 2 x daily - 5-7 x weekly - 3 sets - reps - Standing Dorsiflexion Self-Mobilization on Step - 2 x daily - 5-7 x weekly - 2 sets - 10 reps - Sidelying Hip Abduction - 1-2 x daily - 5-7 x weekly - 2 sets - 8-12 reps - Seated Plantar Surface Stretch - 2 x daily - 5-7 x weekly - 3 sets - reps -------- Therapy (PT/OT/Speech/Resp) ID: [id number] 02/28/2024 4:35 PM Author: RIGOBERTO CHÁVEZ Signed by RIGOBERTO CHÁVEZ PT on 02/28/2024 at 4:35 PM Document text: Program_ID:[id number] Access Code: [email or web address] URL: [email or web address]://[employer] Technologiescommunity regional medical centerCTX [employer]/ Date: 02-28-2024 Prepared By: Rigoberto Chávez Program Notes Exercises - Long Sitting Calf Stretch with Strap - 2 x daily - 5-7 x weekly - 3 sets - reps - Long Sitting Soleus Stretch on Bolster with Strap - 2 x daily - 5-7 x weekly - 3 sets - reps - Standing Dorsiflexion Self-Mobilization on Step - 2 x daily - 5-7 x weekly - 2 sets - 10 reps - Sidelying Hip Abduction - 1-2 x daily - 5-7 x weekly - 2 sets - 8-12 reps - Seated Plantar Surface Stretch - 2 x daily - 5-7 x weekly - 3 sets - reps -------- Normal [facility] THERAPY NTon 02-28-2024 THERAPY NT HNO ID: [id number] Author: RIGOBERTO CHÁVEZ, PT Service: ? Author Type: Physical Therapist Type: Therapy (PT/OT/Speech/Resp) Filed: 02/28/2024 16:35 Note Text: Program_ID:[id number] Access Code: [email or web address] URL: [email or web address] [email or web address] memorial [email or web address]/ Date: 02-28-2024 Prepared By: Rigoberto Chávez Program Notes Exercises - Long Sitting Calf Stretch with Strap - 2 x daily - 5-7 x weekly - 3 sets - reps - Long Sitting Soleus Stretch on Bolster with Strap - 2 x daily - 5-7 x weekly - 3 sets - reps - Standing Dorsiflexion Self-Mobilization on Step - 2 x daily - 5-7 x weekly - 2 sets - 10 reps - Sidelying Hip Abduction - 1-2 x daily - 5-7 x weekly - 2 sets - 8-12 reps - Seated Plantar Surface Stretch - 2 x daily - 5-7 x weekly - 3 sets - reps Normal [facility] CNPNon 01-30-2024 CNPN Telephone (FAMPWS) ANDREINA GEE ([id number]) 1975 F CHT Date Time Provider Department 01/30/24 JENA PETERSON [facility] During your visit today, we recorded the following information about you: Mady Alicea MA 01/30/2024 9:37 AM Signed Received fax from pharmacy PA needed for Zepbound Completed electronically Left message for patient advising PA started and due for one month f/u needs to be in office so weight can be recorded. VASHTI Michelle Elizabeth, MA 01/30/2024 3:22 PM Signed PA denied and patient left vm as well mychart message VASHTI Michelle Janice, LPN 01/31/2024 10:09 AM Signed Fax rec'd this was denied because it is not a covered benefit.and the med class is excluded. Allergies As of Date: 01/30/2024 Noted Allergy Reaction BEE POLLEN 06/15/2023 14 - Other: See Comments BAUMAN 06/15/2023 14 - Other: See Comments GRASS POLLEN 06/15/2023 14 - Other: See Comments PENICILLINS 03/02/2006 TREES 06/15/2023 14 - Other: See Comments Date Reviewed: 01/18/2024 Reviewed by: Leatha Armstrong DPM - Fully Assessed Reason for Visit: Insurance Authorization [[id number]] Cmt: zepbound Prescriptions as of 01/31/2024 - tirzepatide, weight loss (ZEPBOUND) 2.5 mg/0.5 mL pen injector Inject 2.5 mg subcutaneously one time a week. - tirzepatide, weight loss (ZEPBOUND) 2.5 mg/0.5 mL pen injector Inject 5 mg subcutaneously one time a week. - meloxicam (MOBIC) 15 mg tablet Take 1 tablet by mouth once daily. - sertraline (ZOLOFT) 100 mg tablet Take 2 tablets by mouth once daily. - zolpidem (AMBIEN) 10 mg Take 0.5 tablets by mouth daily at bedtime for 60 days. Problem List As Of Date 01/30/2024 Noted Resolved WBC DISEASE NEC [D72.89] 02/01/2009 Essential hypertension [I10] Alcohol abuse [F10.10] 09/03/2017 Anxiety [F41.9] 03/29/2019 Obesity due to excess calories [E66.09] 05/16/2022 Encounter Status:Closed by MADY ALICEA on 01/30/24 [facility] ANDREINA GEE ([id number]) 1975 F [facility] Date Time Provider Department 01/29/24 JAE MASON INTWS During your visit today, we recorded the following information about you: Sammi Castaneda, BRISSA 01/29/2024 4:27 PM Signed Patient's spouse Julien calling. States the instructions for prescription for Zepbound 2.5 mg, inject 5 mg one time per week was not accepted. Per spouse, patient is agreeable to stay on the 2.5 mg, inject 2.5 mg one time a week until the 5 mg dosing becomes available. Spouse asking if provider could send new script as soon as possible for this prescription so it will be covered by insurance. Script pended for review. Please call patient or spouse with update. Thank you. Babatunde Vasquez APRN.CANOPY INSPECTOR 01/29/2024 4:29 PM Signed I sent this in, please let patient know. Thanks Janiya Wu LPN 01/29/2024 4:59 PM Signed Andrei aware of same. Allergies As of Date: 01/29/2024 Noted Allergy Reaction BEE POLLEN 06/15/2023 14 - Other: See Comments BAUMAN 06/15/2023 14 - Other: See Comments GRASS POLLEN 06/15/2023 14 - Other: See Comments PENICILLINS 03/02/2006 TREES 06/15/2023 14 - Other: See Comments Date Reviewed: 01/18/2024 Reviewed by: Leatha Armstrong DPM - Fully Assessed Reason for Visit: Prescription Update [Other] Visit Diagnosis:Class 2 severe obesity due to excess calories with serious comorbidity and body mass index (BMI) of 36.0 to 36.9 in adult (FORM[facility]) [E66.01, Z68.36] Order(s):tirzepatide, weight loss (ZEPBOUND) 2.5 mg/0.5 mL pen injectorInject 2.5 mg subcutaneously one time a week.Disp: 2 mLRfl: 0 Prescriptions as of 01/30/2024 - tirzepatide, weight loss (ZEPBOUND) 2.5 mg/0.5 mL pen injector Inject 2.5 mg subcutaneously one time a week. - tirzepatide, weight loss (ZEPBOUND) 2.5 mg/0.5 mL pen injector Inject 5 mg subcutaneously one time a week. - meloxicam (MOBIC) 15 mg tablet Take 1 tablet by mouth once daily. - sertraline (ZOLOFT) 100 mg tablet Take 2 tablets by mouth once daily. - zolpidem (AMBIEN) 10 mg Take 0.5 tablets by mouth daily at bedtime for 60 days. Problem List As Of Date 01/29/2024 Noted Resolved WBC DISEASE NEC [D72.89] 02/01/2009 Essential hypertension [I10] Alcohol abuse [F10.10] 09/03/2017 Anxiety [F41.9] 03/29/2019 Obesity due to excess calories [E66.09] 05/16/2022 Prescriptions ordered this encounter Disp Refills Start End TIRZEPATIDE (WEIGHT LOSS) 2.5 MG/0.5* 2 mL 0 01/29/2024 02/28/2024 Route: SUBCUTANEOUS Sig: Inject 2.5 mg subcutaneously one time a week. Encounter Status:Closed by JANIYA WU on 01/29/24 [facility] Additional Injections: L annie ntar fasciaon 01-18-2024 Leatha Armstrong DPM 01/18/2024 8:35 PM Additional Injections: L plantar fascia for plantar fasciitis injection Informed Consent Consent Obtained: Verbal [place] Protocol A moment to CARE was completed. SIGN IN Special Equipment: N/A Patient/Surrogate Stated/Verified: Patient name, Date of , Relevant allergies and Intended procedure TIME OUT Intended patient and procedure match the source document(s). Relevant labs, photos, and/or imaging studies have been reviewed. Correct side/site marked and visible. Medications required for procedure verified. No fire risk assessment and interventions applicable. No implant(s) inserted. 01/18/2024 3:12 PM The procedure site was prepped in the usual sterile fashion. Site: L plantar fascia Medications: 20 mg triamcinolone acetonide 40 mg/mL Anesthetics: 1 mL lidocaine (PF) 20 mg/mL (2 %) Outcome: tolerated well, no immediate complications Post-injection instructions were reviewed with the patient and the patient voiced understanding of these instructions. SIGN OUT No specimen collected. No instruments, equipment or retained foreign bodies applicable. Post-procedure follow-up management communicated and Plan of Care Visit completed when applicable [facility] CNOVon 01-18-2024 CNOV Office Visit (ORTHAL ) ANDREINA GEE ([id number]) 1975 F T Date Time Provider Department 01/18/24 2:00 PM LEATHA ARMSTRONG ORTHAL During your visit today, we recorded the following information about you: eLatha Armstrong DPM 01/18/2024 8:35 PM Signed Department of Orthopedics [facility] Name: Andreina Gee Date of Service: January 18, 2024 CC: New and Pain of the Left Foot and New and Pain of the Right Foot Subjective: This 48 year old female patient presents to clinic for bilateral foot pain. Have been dealing with symptoms of plantar fasciitis x 4 years Tx: Stretches, changed to [employer] sneakers, ice, pain medication, [employer] slides for the house, Power step arch supports. Pain has not improved at all. No pain in the morning. Pain can be at rest if she has been on her feet all day. No numbness, tingling. Positive swelling, redness and warmth. PAIN EVALUATION 01/18/2024 1301 Pain Level: 6 Pain Location: -- bilateral heel Description: Aching;Burning;Pulsating;Raw;S harp;Shooting;Stabbing/Not Incision;Throbbing Duration Amount of Time: 48 Duration Units: Months Frequency: Intermittent Intervention/Comfort measure: Medication;Relaxation;Cold;Edu cation;Massage Comments: She is here for bilateral heel pain. No known injury. Pain increases with activity. ROS: Neuro: Negative for numbness, tingling, burning sensations. Negative for frequent falls and balance incoordination Derm: Negative for open sores, slow healing sores. Negative rashes and itching. Musculoskeletal: Positive for foot pain. Positive localized swelling. Negative for back pain, and muscle pain I review past medical history and medications listed in epic with patient and indicates no change ALLERGIES Allergen Reactions Bee Pollen Other: See Comments Bauman Other: See Comments Grass Pollen Other: See Comments Penicillins Trees Other: See Comments Objective: Pt presents ambulating in Tennis shoes with antalgic gait pattern. General- AAO x 3, NAD, well groomed, pleasant and cooperative. Vasc: Bilaterral Pulses: DP: +2/4 , PT: +2/4 CFT is less than 3 seconds bilateral. Skin temperature is warm to cool proximal to distal bilateral. There is no edema. Neuro: Negative tinel's at the tarsal tunnel bilateral Derm: Skin is of normal turgor and texture and without redness or bruising . Ortho: There is pain on palpation of the bilateral medial calcaneal tubercle, R>>L. Pain central plantar calcaneus bilateral. There is no pain with passive or resisted ROM x 4 directions. Decreased ankle joint dorsiflexion bilateral. Foot is rectus to cavus. XRay Foot 12/18/2023: Bones in good alignment, no cortical irregularities noted, no step-offs noted, no signs of acute fracture identified. No signs of gas in the tissues. Radiologist to review. Assessment: (M72.2) Plantar fasciitis, bilateral (primary encounter diagnosis) (M21.6X1, M21.6X2) Equinus deformity of both feet (M79.671, M79.672) Heel pain, bilateral Plan: Dispensed to patient UCO Educated patient on proper gastroc-stretching. Hold for 30 sec, repeat 3 times each foot. Perform three times a day. Continue with icing the area 15 minutes Recommend Mobic a day for next 2-3 week Pneumatic walking boot R Referral to physical therapy Continue current sneakers Intervention: If sypmtoms persist despite conservative treatment an MRI may be indicated. Follow-up: Return to clinic once you have had at least 3-5 sessions of physical therapy or after 8 weeks (whichever comes first). If your symptoms worsen, return to clinic sooner. Additional Injections: L plantar fascia for plantar fasciitis injection Informed Consent Consent Obtained: Verbal [place] Protocol A moment to CARE was completed. SIGN IN Special Equipment: N/A Patient/Surrogate Stated/Verified: Patient name, Date of , Relevant allergies and Intended procedure TIME OUT Intended patient and procedure match the source document(s). Relevant labs, photos, and/or imaging studies have been reviewed. Correct side/site marked and visible. Medications required for procedure verified. No fire risk assessment and interventions applicable. No implant(s) inserted. 01/18/2024 3:12 PM The procedure site was prepped in the usual sterile fashion. Site: L plantar fascia Medications: 20 mg triamcinolone acetonide 40 mg/mL Anesthetics: 1 mL lidocaine (PF) 20 mg/mL (2 %) Outcome: tolerated well, no immediate complications Post-injection instructions were reviewed with the patient and the patient voiced understanding of these instructions. SIGN OUT No specimen collected. No instruments, equipment or retained foreign bodies applicable. Post-procedure follow-up management communicated and Plan of Care Visit completed when applicable Patient e (more content not included)... [facility] CNOVon 01-14-2024 CNOV Office Visit (PODIWS ) ANDREINA GEE ([id number]) 1975 F [facility] Date Time Provider Department 01/14/24 3:30 PM VANIA PERKINS During your visit today, we recorded the following information about you: Cinthia Gee LPN 01/15/2024 9:50 PM Signed AMB ROOMING INTAKE FLOWSHEET DATA Risk Screening Do you have concerns about personal safety or safety in the home?: No Pain Pain Level: 10 Pain Location: Foot-Left Description: Aching, Burning, Dull, Raw, Sharp, Shooting, Sore, Stabbing, Throbbing Duration Units: Months Frequency: Intermittent Patient presents with: Left Foot - Established Patient, Follow Up, Pain Right Foot - Established Patient, Follow Up, Pain Cinthia Gee LPN] Vania Perkins 01/15/2024 9:50 PM Signed Initial Podiatric Office Visit: Chief Complaint: This 48 year old female who presents with chief complaint:b/l foot pain HPI Patient presents to clinic for evaluation of b/l feet Patient states that about 4 years ago, she noticed that if she would be standing for long periods of time on her foot, she would experience pain She first thought it was associated with weight but she has since lost the weight and she still has pain Most of the pain is located in her heels but does radiate to the ball of her foot. Patient states the abdi most when she is on her foot. She states that when she first wakes up, she feels her foot feels the best Past treatment: Patient went to a windows support engineer in [facility] and was diagnosed with plantar fasciitis. Was given a nigth splint but that did not help. Was not given inserts or recommended stretching Patient has tried over the counter inserts which does provide some relief. PAIN EVALUATION 01/13/2024 1559 01/14/2024 1540 Pain Level: -- 10 Pain Location: Foot-Left -- Description: Aching;Burning;Dull;Raw;Sharp; Shooting;Sore;Stabbing;Throbbi ng -- Duration Units: Months -- Frequency: Intermittent -- Hemoglobin A1C (%) Date Value 06/15/2023 5.4 PCP: Jena Peterson MD PAST MEDICAL HISTORY Diagnosis Date Essential hypertension Current Outpatient Medications Medication Sig sertraline (ZOLOFT) 100 mg tablet Take 2 tablets by mouth once daily. tirzepatide, weight loss (ZEPBOUND) 2.5 mg/0.5 mL pen injector Inject 5 mg subcutaneously one time a week. zolpidem (AMBIEN) 10 mg Take 0.5 tablets by mouth daily at bedtime for 60 days. No current facility-administered medications for this visit. ALLERGIES Allergen Reactions Bee Pollen Other: See Comments Bauman Other: See Comments Grass Pollen Other: See Comments Penicillins Trees Other: See Comments PAST SURGICAL HISTORY Procedure Laterality Date SECTION HX x2 EXTRACTION, ERUPTED TOOTH OR EXPOSED ROOT (ELEVATION AND/OR FORCEPS REMOVAL) TONSILLECTOMY PRIMARY/SECONDARY Tonsillectomy FAMILY HISTORY Problem Relation Age of Onset Hypertension Mother Stroke Mother Heart Mother Hypertension Father Heart Father COPD Father Social History Tobacco Use Smoking status: Former Packs/day: 1.00 Years: 20.00 Additional pack years: 0.00 Total pack years: 20.00 Types: Cigarettes Quit date: 09/24/2011 Years since quittin.3 Smokeless tobacco: Never Tobacco comments: uses E-cigarettes Vaping Use Vaping Use: Former Substance Use Topics Alcohol use: Yes Alcohol/week: 2.0 - 4.0 standard drinks of alcohol Types: 2 - 4 Glasses of Wine (5oz) per week Drug use: No REVIEW OF SYSTEMS GENERAL: Negative for Malaise, significant weight loss, fever RESPIRATORY: Negative for cough, wheezing and shortness of breath CARDIOVASCULAR: Negative for chest pain, leg swelling and palpitations GI: Negative for abdominal discomfort, blood in stools or black stools and change in bowel habits : Negative for dysuria, frequency and incontinence MUSCULOSKELETAL: Negative for joint pain or swelling, back pain, and muscle pain. SKIN: Negative for lesions, rash, and itching. HEMATOLOGY/LYMPHOLOGY Negative for prolonged bleeding, bruising easily, and swollen nodes. ENDOCRINE: Negative for cold or heat intolerance, polyuria, polydipsia and goiter. NEURO: negative Physical Exam: Constitutional: Pt is a well developed 48 year old female who is alert, oriented and cooperative Eyes: Following during examination. No redness or drainage. Respiratory: RR normal and nonlabored. Even breathing. No evidence of distress or shortness of breath. Psychology: Patient is engaged during conversation. Normal affect and mood. Does not appear depressed or anxious during encounter. Vascular: Dorsalis pedis and posterior tibial pulses palpable as b/l Capillary Fill time < 5 seconds to digits 1-5 b/l Skin temperature warm to warm proximal to distal b/l Hair growth present to digits Neurological: intact light touch/epicritic sensation b/l intact protective sen (more content not included)... [facility] XR Foot - bilateral AP and L ateral and obliqueon 12-21-2023 IMPRESSION: Minimal degenerative change. Assistant Sales Center Manager: PSCPrashant Transcribe Date/Time: Dec 21 2023 5:25P Dictated by : ROCIO DOWELL MD This examination was interpreted and the report reviewed and electronically signed by: ROCIO DOWELL MD on Dec 21 2023 5:26PM [facility] DIVISION OF RADIOLOGY * * *Final Report* * * DATE OF EXAM: Dec 18 2023 3:22PM WOX [id number] - XR FOOT 3V AP/LAT/OBL SANKET / PROCEDURE REASON: Pain * * * * Physician Interpretation * * * * EXAMINATION: XR FOOT 3V AP/LAT/OBL SANKET HISTORY: chronic pain in both feet on plantar heels and distal MT's cannot stand for any period of time before she has allot of pain in that area, worse in the last couple of years. no inj Pain . TECHNIQUE: XR FOOT 3V AP/LAT/OBL SANKET Laterality: BILATERAL Number of different views (projections): 3 each M: XB_1 COMPARISON: RESULT: Tiny distal Achilles tendon enthesophytes. Mild right-sided pes cavus. Minimal osteophytes at the first MTP joints and minimal left hallux valgus deformity. Joint spaces appear otherwise maintained. No acute fracture or dislocation. There are no bony erosions. DIVISION OF RADIOLOGY Provider, [facility] - 12/21/2023 * * *Final Report* * * DATE OF EXAM: Dec 18 2023 3:22PM WOX [id number] - XR FOOT 3V AP/LAT/OBL SANKET / PROCEDURE REASON: Pain * * * * Physician Interpretation * * * * EXAMINATION: XR FOOT 3V AP/LAT/OBL SANKET HISTORY: chronic pain in both feet on plantar heels and distal MT's cannot stand for any period of time before she has allot of pain in that area, worse in the last couple of years. no inj Pain . TECHNIQUE: XR FOOT 3V AP/LAT/OBL SANKET Laterality: BILATERAL Number of different views (projections): 3 each M: XB_1 COMPARISON: RESULT: Tiny distal Achilles tendon enthesophytes. Mild right-sided pes cavus. Minimal osteophytes at the first MTP joints and minimal left hallux valgus deformity. Joint spaces appear otherwise maintained. No acute fracture or dislocation. There are no bony erosions. IMPRESSION IMPRESSION: Minimal degenerative change. Assistant Sales Center Manager: ERMA Transcribe Date/Time: Dec 21 2023 5:25P Dictated by : ROCIO DOWELL MD This examination was interpreted and the report reviewed and electronically signed by: ROCIO DOWELL MD on Dec 21 2023 5:26PM EST [facility] XR Foot - bilateral AP and L ateral and obliqueOrdered By: Ccf Provider on 12-21-2023 [facility] XR FOOT 3V AP/LAT/OBL BILon 12-18-2023 XR FOOT 3V AP/LAT/OBL SANKET * * *Final Report* * * DATE OF EXAM: Dec 18 2023 3:22PM WOX [id number] - XR FOOT 3V AP/LAT/OBL SANKET / PROCEDURE REASON: Pain * * * * Physician Interpretation * * * * EXAMINATION: XR FOOT 3V AP/LAT/OBL SANKET HISTORY: chronic pain in both feet on plantar heels and distal MT's cannot stand for any period of time before she has allot of pain in that area, worse in the last couple of years. no inj Pain . TECHNIQUE: XR FOOT 3V AP/LAT/OBL SANKET Laterality: BILATERAL Number of different views (projections): 3 each M: XB_1 COMPARISON: RESULT: Tiny distal Achilles tendon enthesophytes. Mild right-sided pes cavus. Minimal osteophytes at the first MTP joints and minimal left hallux valgus deformity. Joint spaces appear otherwise maintained. No acute fracture or dislocation. There are no bony erosions. IMPRESSION: Minimal degenerative change. Assistant Sales Center Manager: PSCB Transcribe Date/Time: Dec 21 2023 5:25P Dictated by : ROCIO DOWELL MD This examination was interpreted and the report reviewed and electronically signed by: ROCIO DOWELL MD on Dec 21 2023 5:26PM EST [id number] [facility] - bilateral AP and L ateral and obliqueon 12-18-2023 Radiology Study observation (narrative) [facility] Comprehensive metabolic 2000 panelon 06-16-2023 Albumin [Mass/Vol] 4.4 g/dL 3.9 - 4.9 g/dL [facility] ALP [Catalytic activity/Vol] 84 U/L 34 - 123 U/L [facility] ALT [Catalytic activity/Vol] 24 U/L 7 - 38 U/L [facility] Anion gap [Moles/Vol] 11 mmol/L 9 - 18 mmol/L [facility] AST [Catalytic activity/Vol] 23 U/L 13 - 35 U/L [facility] Bilirubin [Mass/Vol] 0.2 mg/dL 0.2 - 1.3 mg/dL [facility] Calcium [Mass/Vol] 9.2 mg/dL 8.5 - 10.2 mg/dL [facility] Chloride [Moles/Vol] 102 mmol/L 97 - 105 mmol/L [facility] CO2 [Moles/Vol] 26 mmol/L 22 - 30 mmol/L [facility] Creatinine [Mass/Vol] 0.74 mg/dL 0.58 - 0.96 mg/dL [facility] Estimated Glomerular Filtration Rate 100 mL/min/1.73m >=60 mL/min/1.73m [facility] Glucose [Mass/Vol] 85 mg/dL 74 - 99 mg/dL [facility] Potassium [Moles/Vol] 4.5 mmol/L 3.7 - 5.1 mmol/L [facility] Protein [Mass/Vol] 7.2 g/dL 6.3 - 8.0 g/dL [facility] Sodium [Moles/Vol] 139 mmol/L 136 - 144 mmol/L [facility] Urea nitrogen [Mass/Vol] 12 mg/dL 7 - 21 mg/dL [facility] TSH BLDon 06-16-2023 TSH Qn 1.050 m[IU]/L 0.270 - 4.200 mIU/L [facility] CBC W Auto Differential pane l (Bld)on 06-15-2023 Basophils (Bld) [#/Vol] 0.04 10*3/uL <0.11 k/uL [facility] Basophils/100 WBC (Bld) 0.3 % [facility] Differential cell count method Nom (Bld) Auto [facility] Eosinophils (Bld) [#/Vol] 0.25 10*3/uL <0.46 k/uL [facility] Eosinophils/100 WBC (Bld) 2.0 % [facility] Erythrocyte distribution width (RBC) [Ratio] 15.6 % High 11.5 - 15.0 % [facility] Hematocrit (Bld) [Volume fraction] 41.0 % 36.0 - 46.0 % [facility] Hemoglobin (Bld) [Mass/Vol] 13.3 g/dL 11.5 - 15.5 g/dL [facility] Immature granulocytes (Bld) [#/Vol] 0.05 10*3/uL <0.10 k/uL [facility] Immature granulocytes/100 WBC (Bld) 0.4 % [facility] Lymphocytes (Bld) [#/Vol] 2.61 10*3/uL 1.00 - 4.00 k/uL [facility] Lymphocytes/100 WBC (Bld) 20.4 % [facility] MCH (RBC) [Entitic mass] 25.8 pg Low 26.0 - 34.0 pg [facility] MCHC (RBC) [Mass/Vol] 32.4 g/dL 30.5 - 36.0 g/dL [facility] MCV (RBC) [Entitic vol] 79.5 fL Low 80.0 - 100.0 fL [facility] Monocytes (Bld) [#/Vol] 0.65 10*3/uL <0.87 k/uL [facility] Monocytes/100 WBC (Bld) 5.1 % [facility] Neutrophils (Bld) [#/Vol] 9.22 10*3/uL High 1.45 - 7.50 k/uL [facility] Neutrophils/100 WBC (Bld) 71.8 % [facility] Nucleated RBC (Bld) [#/Vol] <0.01 k/uL [facility] Nucleated RBC/100 WBC (Bld) [Ratio] 0.0 /100 WBC [facility] Platelet mean volume (Bld) [Entitic vol] 9.6 fL 9.0 - 12.7 fL [facility] Platelets (Bld) [#/Vol] 336 10*3/uL 150 - 400 k/uL [facility] RBC (Bld) [#/Vol] 5.16 10*6/uL 3.90 - 5.2 0 m/uL [facility] WBC (Bld) [#/Vol] 12.82 10*3/uL High 3.70 - 11 .00 k/uL [facility] HbA1c (Bld)on 06-15-2023 Average glucose Estimated from glycated hemoglobin (Bld) [Mass/Vol] 108 mg/dL [facility] HbA1c (Bld) [Mass fraction] 5.4 % 4.3 - 5.6 % [facility] TOX SCREEN ROUT URon 023 Amphetamines Confirm (U) [Mass/Vol] Negative Negative [facility] Barbiturates Urine Negative Negative [facility] Benzodiazepines Urine Negative Negative [facility] Cannabinoids Screen Ql (U) Positive Abnormal Negative [facility] Cocaine Ql (U) Negative Negative [facility] Ethanol (U) [Mass/Vol] <11 mg/dL [facility] Opiates Screen Ql (U) Negative Negative [facility] oxyCODONE cutoff Screen (U) [Mass/Vol] Negative Negative [facility] Phencyclidine Ql (U) Negative Negative [facility] Established Visit (Otolaryng ology)on 04-20-2022 Established Visit (Otolaryngology) Diagnoses/Problems Hoarseness (784.42) (R49.0) Patient Discussion/Summary 1. follow up as needed Welcome to Dr. Alfonso?s clinic. We are here to assist you through your ENT care at [facility]. Dr. Alfonso is an ENT surgeon who specializes in voice, airway and swallowing issues. This means that she specializes in taking care of patients with complex voice, airway and swallowing problems. Dr. Alfonso's office number is [phone]. Please use this number to contact her and her care team regardless of which office you use to access care. This number is the most direct way to communicate with all the members of the care team. Dr. Alfonso?s racing secretary answers the office phone from 9am-4pm Mon-Fri. Call [phone] and push 2. She can help you with scheduling of appointments, general questions and information. You may need to leave a message if she is helping another patient. In this case, someone from the team will call you back the same day if you leave your message before 3pm, or the next business morning. Dr. Alfonso?s nurse and can be reached by calling [phone]. We make every effort to return phone calls the same day. If you are in need of urgent assistance after hours, please call [phone] and ask for ENT construction contractor. Dr. Alfonso works closely with speech therapists as they work together to help solve your issues with speech and swallowing. You may see a speech therapist during your appointment if Dr. Alfonso feels this is needed. If you need to reach speech therapy to talk with a therapist or to schedule an appointment, please call [phone]. Others who may be included in your care are dieticians, social workers, audiologists, neurologists, and physical therapists. Dr. Alfonso will provide these referrals as needed. Please let her know if you would like to request a specific referral. For your convenience, Dr. Alfonso sees patients at different [facility] locations including the [facility], and [facility] at the [facility]. While we try to make your appointments as convenient as possible, occasionally a visit to another location may be necessary to provide the best care for you. Dr. Alfonso makes every effort to run on time for your appointments. Therefore, if you are more than 30 minutes late unrelated to a scan or another appointment such therapy or audiology, your appointment will need to be rescheduled to another day. We appreciate your understanding. We look forward to working with you to meet your healthcare goals. By signing my name below, I, Sirisha Hollingsworth , attest that this documentation has been prepared under the direction and in the presence of Dr. Devi Alfonso.1 All medical record entries made by the Scribe were at my direction and personally dictated by me. I have reviewed the chart and agree that the record accurately reflects my personal performance of the history, physical exam, discussion and plan. 1 . 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 The patient can follow-up on an as needed basis. The patient?s questions were answered. I spent approximately 6 minutes with the patient. Greater than 50% of this time was spent in counseling or coordination of care. This note was prespared by a scribe, under my supervison. Chief Complaint An interactive audio and video telecommunication system which permits real time communications between the patient (at the originating site) and provider (at the distant site) was utilized to provide this telehealth service.1 . Verbal consent was requested and obtained from ANDREINA GEE on this date, 04/20/2022 03:00 PM , for a telehealth visit.1 . 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 PMH: Allergic rhinitis, HTN, anxiety Interval History 02/04/2022: 1. Voice: She has noticed an improvement in her voice. She states that she no longer experiences hoarseness or scratchiness, and her vocal complications have resolved. Very pleased. No swallowing, breathing, laryngospasm, fever, chills, nausea, or vomiting. 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 Normal [employer] Tobacco Screening.on 07-28-2 022 Adult depression screening assessment No MG-Otolarchuy taylor Voice Work Phone: Fall risk assessment a) No falls within the last year -Otolarchuy taylor [facility] Work Phone: Tobacco use status CPHS b) No -Christina taylor Voice Work Phone: Order Reconciliationon 03-20 Order Reconciliation Page 1 Discharge Reconciliation Document Reconciliation Type: Discharge requested on behalf of Benjamin Ty (Resident) done by Benjamin Ty ( (Resident)) Discharge - Reconciliation: 20-Mar-2022 06:16 by: Benjamin Ty ( (Resident)) Home Medications EnteredHOME MEDICATIONS AT DISCHARGE DateReconciliation Comment/ Additional Information Ambien 5 mg oral tablet 1 tab(s) orally once a day (at bedtime) 13-Mar-2022 14:16 Ambien 5 mg oral tablet 1 tab(s) orally once a day (at bedtime) 13-Mar-2022 14:16 Ambien 5 mg oral tablet is continued as Ambien 5 mg oral tablet Claritin 10 mg oral tablet 1 tab(s) orally once a day 13-Mar-2022 14:16 Claritin 10 mg oral tablet 1 tab(s) orally once a day 13-Mar-2022 14:16 Claritin 10 mg oral tablet is continued as Claritin 10 mg oral tablet Flonase 50 mcg/inh nasal spray 1 spray(s) nasal once a day 13-Mar-2022 14:16 Flonase 50 mcg/inh nasal spray 1 spray(s) nasal once a day 13-Mar-2022 14:16 Flonase 50 mcg/inh nasal spray is continued as Flonase 50 mcg/inh nasal spray Multiple Vitamins oral tablet 1 tab(s) orally once a day 13-Mar-2022 14:16 Multiple Vitamins oral tablet 1 tab(s) orally once a day 13-Mar-2022 14:16 Multiple Vitamins oral tablet is continued as Multiple Vitamins oral tablet omeprazole 20 mg oral delayed release tablet 1 tab(s) orally once a day 13-Mar-2022 14:19 omeprazole 20 mg oral delayed release tablet 1 tab(s) orally once a day 13-Mar-2022 14:19 omeprazole 20 mg oral delayed release tablet is continued as omeprazole 20 mg oral delayed release tablet Zoloft 200 milligram(s) orally once a day (in the morning) 13-Mar-2022 14:15 Zoloft 200 milligram(s) orally once a day (in the morning) 13-Mar-2022 14:15 Zoloft is continued as Zoloft Home Medications Added During Discharge Reconciliation traMADol 50 mg oral tablet 1 tab(s) orally every 6 hours as needed for pain, ICD-10: G89.18 All Active Home Medications at time of Discharge Reconciliation: 20-Mar-2022 06:16 Ambien 5 mg oral tablet 1 tab(s) orally once a day (at bedtime) Claritin 10 mg oral tablet 1 tab(s) orally once a day Flonase 50 mcg/inh nasal spray 1 spray(s) nasal once a day Multiple Vitamins oral tablet 1 tab(s) orally once a day omeprazole 20 mg oral delayed release tablet 1 tab(s) orally once a day traMADol 50 mg oral tablet 1 tab(s) orally every 6 hours as needed for pain, ICD-10: G89.18 Zoloft 200 milligram(s) orally once a day (in the morning) Normal [facility] Patient Profile - Preop v3on 03-20-2022 Patient Profile - Preop v3 Patient Profile - Preop: Initial Info: Patient DemographicsName: ANDREINA GEE Date: 1975 Address: [address] [place], [place] [address] [address] Primary Phone [phone] How to be AddressedTonya Spoken Language PreferredEnglish Stated Reason for AdmissionRemove polyps from vocal cord Primary Contact Name and NumberJulien campos [phone] Medications Brought to Hospitalno General Health: Weight in kg91.6 kilogram(s) Weight in cto761.9 pound(s) Weight Methodactual (measured) Scale Typestanding Height in feet5 feet Height in inches3.98 inch(es) Height in cm162.5 centimeter(s) Height Methodstated BMI (kg/m2)34.688 square meter Patient or Family Member Reaction to Anesthesiano previous reaction Blood Avoidance/Restrictionsnone Previous Transfusion Reactionnot applicable Health Mgmt: Symptoms/Conditions Managed at Homegastrointestinal; behavioral health; hematologic Behavioral Health Symptoms/Conditionsanxiety Gastrointestinal Symptoms/Conditionsreflux/hear tburn Hematologic Symptoms/Conditionsanemia Barriers to Managing Healthnone Relationship/Environ: Lives Withspouse Living Arrangementshouse Resource/Environmental Concernsnone Anticipated [facility] Anticipated at Transitionnone Tobacco Use: Tobacco Useno Pre-op Checklist: Arrival [id number] Arrival Time09:07 NPOyes Last Food [id number] 20:00 Last Clear Fluid [id number] 07:00 ID Band On Patientpatient ID (name), allergy, falls risk Consent Signedpending Additional Information: Information Review: Allergies, Home Meds and Significant Events have been Reviewed and Verified with Patient/Familyyes Allergy, Intolerance, Adverse Event: Allergies: penicillin: Drug, Anaphylaxis, Active Latex: Latex, Rash, Active Significant Events: 20-Mar-2022 x 2: Past Surgical History, Active 20-Mar-2022 Tonsillectomy: Past Surgical History, Active Electronic Signatures: Amarilys Webb (BRISSA) (Signed 20-Mar-2022 09:33) Authored: Initial Info, General Health, Health Mgmt, Relationship/Environ, Tobacco Use, Pre-op Checklist, Additional Information Last Updated: 20-Mar-2022 09:33 by Amarilys Webb (RN) Normal [facility] CBCon 03-13-2022 Erythrocyte distribution width (RBC) [Ratio] 14.0 % Normal 11.5 - 14.5 [facility] Comment on above: Performed By: #### C BC #### [address] [id number] Hematocrit (Bld) [Volume fraction] 40.1 % Normal 36.0 - 46.0 [facility] Comment on above: Performed By: #### C BC #### [address] [id number] Hemoglobin (Bld) [Mass/Vol] 13.3 g/dL Normal 12.0 - 16.0 [facility] Comment on above: Performed By: #### C BC #### [facility] [address] [facility], [place] [id number] MCHC (RBC) [Mass/Vol] 33.2 g/dL Normal 32.0 - 36.0 [facility] Comment on above: Performed By: #### C BC #### [facility] [address] [facility], [place] [id number] MCV (RBC) [Entitic vol] 82 fL Normal 80 - 100 [facility] Comment on above: Performed By: #### C BC #### [facility] [address] [facility], [place] [phone] Platelets (Bld) [#/Vol] 338 10*3/uL Normal 150 - 450 [facility] Comment on above: Performed By: #### C BC #### [facility] [address] [facility], [place] [phone] RBC 4.92 x10E12/L Normal 4.00 - 5.20 [facility] Comment on above: Performed By: #### C BC #### [facility] [address] [facility], [place] [phone] WBC (Bld) [#/Vol] 12.7 10*3/uL High 4.4 - 11.3 [facility] Comment on above: Performed By: #### C BC #### [facility] [address] [facility], [place] [phone] Established Visit (Otolaryng ology)on 01-23-2022 Established Visit (Otolaryngology) Diagnoses/Problems 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 You will be scheduled for the OR for treatment of the laryngocele. We discussed the risks, benefits, and alternatives of intervention to include but not be limited to, bleeding and infection, damage to surrounding structures including teeth, gums, lips, tongue, surround muscles, nerves, blood vessels, as well as scarring. We further discussed the possibility of change in voice with persistent or worsened hoarseness, swallowing difficulty, breathing difficulty, laser fire/laser burn, taste change that may be long lasting, medical complications, and risks of anesthesia. Welcome to Dr. Alfonso?s clinic. We are here to assist you through your ENT care at [facility]. Dr. Alfonso is an ENT surgeon who specializes in voice, airway and swallowing issues. This means that she specializes in taking care of patients with complex voice, airway and swallowing problems. Dr. Alfonso's office number is [phone]. Please use this number to contact her and her care team regardless of which office you use to access care. This number is the most direct way to communicate with all the members of the care team. Dr. Alfonso?s racing secretary answers the office phone from 9am-4pm Sun-Sun. Call [phone] and push 2. She can help you with scheduling of appointments, general questions and information. You may need to leave a message if she is helping another patient. In this case, someone from the team will call you back the same day if you leave your message before 3pm, or the next business morning. Dr. Aflonso?s nurse and can be reached by calling [phone]. We make every effort to return phone calls the same day. If you are in need of urgent assistance after hours, please call [phone] and ask for ENT construction contractor. Dr. Alfonso works closely with speech therapists as they work together to help solve your issues with speech and swallowing. You may see a speech therapist during your appointment if Dr. Alfonso feels this is needed. If you need to reach speech therapy to talk with a therapist or to schedule an appointment, please call [phone]. Others who may be included in your care are dieticians, social workers, audiologists, neurologists, and physical therapists. Dr. Alfonso will provide these referrals as needed. Please let her know if you would like to request a specific referral. For your convenience, Dr. Alfonso sees patients at different [facility] locations including the [facility], and [facility] at the main [facility]. While we try to make your appointments as convenient as possible, occasionally a visit to another location may be necessary to provide the best care for you. Dr. Alfonso makes every effort to run on time for your appointments. Therefore, if you are more than 30 minutes late unrelated to a scan or another appointment such therapy or audiology, your appointment will need to be rescheduled to another day. We appreciate your understanding. We look forward to working with you to meet your healthcare goals. By signing my name below, I, Chet Galarzaibe, attest that this documentation has been prepared under the direction and in the presence of Dr. Devi Alfonso MD. All medical record entries made by the Scribe were at my direction and personally dictated by me. I have reviewed the chart and agree that the record accurately reflects my personal performance of the history, physical exam, discussion and plan. 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 Today's examination shows a persistent left vocal cord nodule in the mid cord. The laryngoceles are on the mid cord as well. Exacerbating factors include: high voice demand Treatment options discussed includin. Going to the OR with laser resection of the nodule followed by voice rest for one week. She will also work with speech therapy on voice therapy. We discussed risks, benefits, and alternatives of the procedure. She understands and informed consent was obtained. 2. speech therapy will also be needed perioperatively The patient?s questions were answered. Chief Complaint Voice History of Present IllnessANDREINA GEE is a 46 year female referred to me today by Dr. Wellington for worsening hoarseness over the last 3-6 months. Her hoarseness has been on going intermittently for several years. PMH: Allergic rhinitis,, HTN, anxiety Interval History (): 1. Voice: She has noticed an improvement in her voice. She is using a microphone consistently No swallowing, breathing, laryngospasm, fever, chills, nausea or vomiting. ROS performed. All (more content not included)... Normal [employer] Tobacco Screening.on 022 Fall risk assessment a) No falls within the last year [facility] Work Phone: Tobacco use status CPHS b) 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 You need speech therapy as part of your treatment. We will help you to schedule your speech appointment after your visit or you can call Speech Therapy Scheduling at [phone]. Please follow up pending the outcome of speech therapy. 2. Follow up in [address] Alfonso?s clinic. We are here to assist you through your ENT care at [facility]. Dr. Alfonso is an ENT surgeon who specializes in voice, airway and swallowing issues. This means that she specializes in taking care of patients with complex voice, airway and swallowing problems. Dr. Alfonso's office number is [phone]. Please use this number to contact her and her care team regardless of which office you use to access care. This number is the most direct way to communicate with all the members of the care team. Dr. Alfonso?s racing secretary answers the office phone from 9am-4pm Mon-Fri. Call [phone] and push 2. She can help you with scheduling of appointments, general questions and information. You may need to leave a message if she is helping another patient. In this case, someone from the team will call you back the same day if you leave your message before 3pm, or the next business morning. Dr. Alfonso?s nurse and can be reached by calling [phone]. We make every effort to return phone calls the same day. If you are in need of urgent assistance after hours, please call [phone] and ask for ENT construction contractor. Dr. Alfonso works closely with speech therapists as they work together to help solve your issues with speech and swallowing. You may see a speech therapist during your appointment if Dr. Alfonso feels this is needed. If you need to reach speech therapy to talk with a therapist or to schedule an appointment, please call [phone]. Others who may be included in your care are dieticians, social workers, audiologists, neurologists, and physical therapists. Dr. Alfonso will provide these referrals as needed. Please let her know if you would like to request a specific referral. For your convenience, Dr. Alfonso sees patients at different [facility] locations including the [facility], and [facility] at the main [facility]. While we try to make your appointments as convenient as possible, occasionally a visit to another location may be necessary to provide the best care for you. Dr. Alfonso makes every effort to run on time for your appointments. Therefore, if you are more than 30 minutes late unrelated to a scan or another appointment such therapy or audiology, your appointment will need to be rescheduled to another day. We appreciate your understanding. We look forward to working with you to meet your healthcare goals. By signing my name below, I, Emy Galarza, attest that this documentation has been prepared under the direction and in the presence of Dr. Devi Alfonso MD. All medical record entries made by the Emy were at my direction and personally dictated by me. I have reviewed the chart and agree that the record accurately reflects my personal performance of the history, physical exam, discussion and plan. 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 She was assured that the appearance of her lesion doesn't appear to be concerning for a malignant neoplasm. If there is no improvement with speech therapy we will consider surgical resection. At this time, we will start with conservative management. Exacerbating factors include: high voice demand Treatment options discussed includin. Due to her inappropriate Flonase use, she has a right-sided epistaxis. She was educated on the proper techniques of administering her Flonase and adding sinus rinses to improve the moisture in her nose. 2. Working with speech therapy on voice/volume modulation by using an amplifier, modified voice rest at work for at least 3 months, and offloading the voice. 3. Follow up after speech therapy in 6 weeks. The patient?s questions were answered. Chief Complaint Voice History of Present IllnessANDREINA GEE is a 46 year female referred to me today by Dr. Wellington for worsening hoarseness over the last 3-6 months. Her hoarseness has been on going intermittently for several years. She has worsening hoarseness with (more content not included)... Normal [facility] Initial Visit (Otolaryngology) No report was sent Normal [facility] CLINICAL RESEARCH SPECIALIST (Voice Evaluation)on CLINICAL RESEARCH SPECIALIST (Voice Evaluation) Therapy Diagnosis Assessed Lesion of vocal cord (478.5) (J38.3) Hoarseness (784.42) (R49.0) Plan of Care Frequency: every other week Duration: 4+ visits long term care phlebotomist goals: Improve overall vocal health to foster increased participation levels at home, work and in the community environment. Short term goals: Patient will increase vocal wellness and decrease phono trauma in adherence with clinician prescribed vocal hygiene and wellness program per patient report 80% of his/her day. Patient will increase ability to produce voice without tension within 5 minute conversational task x 80% accuracy as judged by clinician observation and/or patient report. Patient will demonstrate independent use of voice techniques x 80% accuracy. Patient will increase the balance of the respiratory/laryngeal musculature x 80% accuracy. Recommendations For Therapeutic Interventions: speech/voice exercises and vocal hygiene program Patient/family understands and agrees with goals/plan. Potential for improvement: good Factors affecting prognosis: none Discussed plan of care with: patient, caregiver/family and physician Discussed risks/benefits with patient/caregiver. Patient/caregiver agreeable with plan of care. Plan of care was developed with input and agreement by the patient. Assessment Voice assessment: Patient presents with dysphonia 2/2 a diagnosis of a unilateral vocal cord lesions and bilateral laryngoceles. Patient appears to be a candidate for surgical management following therapy which will target vocal wellness. Voice quality based on the GRBAS scale: 0=absent; 1=mild; 2=moderate; 3=severe Grade: 2 Roughness: 2 Breathiness: 1 Asthenia: 0 Strain: 1 Contributing Factors: habitual behaviors that misuse/abuse the voice and abnormal vibratory mechanisms due to physical changes NOMS Score: moderate: level 4 Treatment recommendations: treatment indicated (see goals below) Insurance Insurance reviewed Visit number: 1 Onset Date: 2021 Subjective Living Environment: home - patient lives with spouse, 3 teenagers, 3 dogs. Patient arrival: accompanied by spouse Voice evaluation: Reason for Referral: ANDREINA GEE is a 46 year female referred to Dr. Alfonso [facility] by Dr. Wellington for worsening hoarseness over the last 3-6 months. Her hoarseness has been on going intermittently for several years. She has worsening hoarseness with allergy symptoms. Additionally, she has high professional voice demands and admits to using her voice loudly both at work and home. She was seen by an ENT who noted vocal cord nodules left > right. The patient has a history of high voice demand with public speaking and due to COVID-19 she has been taking more meetings via Zoom. She doesn't have a headset with outgoing volume control. Today, her voice is stable compared to her intermittent aphonia. Additionally, she is clearing her throat due to a sensation of phlegm. She is not snoring at night. She uses Flonase twice a day for sinus symptoms. She is not performing sinus rinses. The patient has a history of a tonsillectomy and septoplasty. There have been no changes in her hearing. PMH: allergic rhinitis, HTN, anxiety Social: Tobacco - former, + exposure to second hand smoke; ETOH - rare Referred by: Dr. Alfonso Voice Use Inventory: Voice misuse/abuse: yes excessive talking hyperphonia throat clear Exposure to noise: no Exposure to respiratory irritants: no Consistent use of singing voice: no Occupation relies on speaking voice: yes Patient self assessment: Daily water intake: yes Daily caffeine intake: yes Alcohol intake: yes Smoking history: yes Reflux history: no Objective PERCEPTUAL VOICE FEATURES Intonation: WFL Loudness: increased Nasal resonance: WFL Additional vocal characteristics noted included: Hard glottal attacks Throat clears FLEXIBLE LARYNGOSCOPY WITH STROBOSCOPY Glottic closure: hourglass Vocal fold mobility: normal; left falling out before the right Vibratory amplitude: reduced bilaterally Mucosal wave: symmetric Periodicity: periodic Secretions: no pooling Mucosal edge: irregular (L > R) Supraglottic compression: AP > FVC (L > R) Vascularity: bilateral vocal cord edema Pharyngeal contraction: normal ADDITIONAL OBSERVATIONS right sided epistaxis (Dr. Alfonso educated patient in proper Flonase use) Treatment Total time in clinic is 45 minutes. Treatment/Instructions/Informa tion Provided: Instructed patient this date in: cough/throat clear reduction techniques (effortful swallow, RTB, water gargle/swallow) seltzer gargle technique to safely remove mucus vocal wellness strategies to reduce cough/throat clear triggers and phono trauma Additionally, recommended patient consider purchasing a personal amplifier with headset microphone. Several brands were introduced and ordering information was provided. Introduced CTT training as we (more content not included)... Normal [employer] Tobacco Screening.on 022 Fall risk assessment a) No falls within the last year [facility] Work Phone: Tobacco use status CP b) No -Otolaryn [facility] 4100 Work Phone: [facility]STIC BILon 020 [facility] SANKET * * *Final Report* * * DATE OF EXAM: Mar 23 2020 1:41PM [facility] 0620 - [facility] SANKET / PROCEDURE REASON: Abnormal screening mammogram * * * * Physician Interpretation * * * * RESULT: #[id number] - [facility] SANKET #[id number] - [facility] US BREAST [facility] LT BILATERAL DIGITAL DIAGNOSTIC MAMMOGRAM WITH CAD: 03/23/2020 HISTORY: 6 month followup left // bilateral diagnostic // abnormal mammogram Abnormal Screening Mammogram. RESULT: TECHNIQUE: The study was acquired using full field digital technology and interpreted from soft copy. Current study was also evaluated with a Computer Aided Detection (CAD). Comparison is made to exams dated: 09/09/2019 mammogram, 09/09/2019 mammogram, 03/04/2019 mammogram, 03/04/2019 mammogram - [facility], and 02/11/2019 mammogram - [facility]. The tissue of both breasts is heterogeneously dense. This may lower the sensitivity of mammography. There is a new 7 mm reniform focal asymmetry in the left breast at 11 o'clock middle depth. No other significant masses, calcifications, or other findings are seen in either breast. IMPRESSION: BENIGN FINDING The new 7 mm reniform focal asymmetry in the left breast resembles a lymph node and is benign. There is no mammographic evidence of malignancy. LIMITED ULTRASOUND OF LEFT BREAST: 03/23/2020 RESULT: Comparison is made to exams dated: 09/09/2019 mammogram, 09/09/2019 mammogram, 03/04/2019 mammogram, 03/04/2019 mammogram - [facility], and 02/11/2019 mammogram - [facility]. Color flow and real-time ultrasound of the left breast 11 o'clock region were performed. Enriquez scale images of the real-time examination were reviewed. There is a benign 0.6 cm x 0.2 cm x 0.5 cm oval lesion with a circumscribed margin in the left breast at 11 o'clock middle depth 5 cm from the nipple. This oval lesion is hypoechoic. This abnormality is not significantly changed. IMPRESSION: BENIGN FINDING There is no sonographic evidence of malignancy. The 0.6 cm x 0.2 cm x 0.5 cm oval lesion in the left breast is consistent with a lymph node and is benign. Return to annual mammogram screening schedule is recommended. Eliecer guerra/hiren:03/23/2020 14:03:26 Multiple national specialty organizations have released breast cancer screening guidelines for women at average risk for developing breast cancer - guidelines that are based on both evidence and opinion, yet differ on when to start and how often to screen for breast cancer. With representation from Breast Imaging, Internal Medicine, Women's Health, Family Medicine, and Medical/Surgical Oncology, the [facility] has carefully reviewed the data and reached the following consensus: 1) All women should engage in shared decision-making with their providers to decide when to start and how often to screen; 2) All women should have the opportunity to start screening mammography at age 40; 3) For women ages 45-55, we recommend annual screening mammograms; 4) For women ages 55 and over, we support both the transition from an annual to a biennial interval if this aligns more with patient's values and preferences, or continuation with annual screening; 5) All women should discuss with their providers when to stop screening mammograms. Fire Investigation Lieutenant(s): Padmaja Rodríguez, RT(R)(M), [facility]; Zaida Hill, [facility] OVERALL STUDY BIRADS: 2 Benign finding Assistant Sales Center Manager: Hiren Transcribe Date/Time: Mar 23 2020 11:52A Dictated by: ELIECER CATALAN MD This examination was interpreted and the report reviewed and electronically signed by: ELIECER CATALAN MD on Mar 23 2020 2:03PM EST [id number] Normal [facility] startuply BREAST Mapbar LTon 03-23 startuply BREAST Mapbar LT * * *Final Report* * * DATE OF EXAM: Mar 23 2020 1:57PM [facility] 0593 - [facility] / PROCEDURE REASON: Abnormal screening mammogram * * * * Physician Interpretation * * * * #[id number] - [facility] SANKET #[id number] - [facility] BILATERAL DIGITAL DIAGNOSTIC MAMMOGRAM WITH CAD: 03/23/2020 HISTORY: 6 month followup left // bilateral diagnostic // abnormal mammogram Abnormal Screening Mammogram. RESULT: TECHNIQUE: The study was acquired using full field digital technology and interpreted from soft copy. Current study was also evaluated with a Computer Aided Detection (CAD). Comparison is made to exams dated: 09/09/2019 mammogram, 09/09/2019 mammogram, 03/04/2019 mammogram, 03/04/2019 mammogram - [facility], and 02/11/2019 mammogram - [facility]. The tissue of both breasts is heterogeneously dense. This may lower the sensitivity of mammography. There is a new 7 mm reniform focal asymmetry in the left breast at 11 o'clock middle depth. No other significant masses, calcifications, or other findings are seen in either breast. IMPRESSION: BENIGN FINDING The new 7 mm reniform focal asymmetry in the left breast resembles a lymph node and is benign. There is no mammographic evidence of malignancy. LIMITED ULTRASOUND OF LEFT BREAST: 03/23/2020 RESULT: Comparison is made to exams dated: 09/09/2019 mammogram, 09/09/2019 mammogram, 03/04/2019 mammogram, 03/04/2019 mammogram - [facility], and 02/11/2019 mammogram - [facility]. Color flow and real-time ultrasound of the left breast 11 o'clock region were performed. Enriquez scale images of the real-time examination were reviewed. There is a benign 0.6 cm x 0.2 cm x 0.5 cm oval lesion with a circumscribed margin in the left breast at 11 o'clock middle depth 5 cm from the nipple. This oval lesion is hypoechoic. This abnormality is not significantly changed. IMPRESSION: BENIGN FINDING There is no sonographic evidence of malignancy. The 0.6 cm x 0.2 cm x 0.5 cm oval lesion in the left breast is consistent with a lymph node and is benign. Return to annual mammogram screening schedule is recommended. Eliecer guerra/hiren:03/23/2020 14:03:26 Multiple national specialty organizations have released breast cancer screening guidelines for women at average risk for developing breast cancer - guidelines that are based on both evidence and opinion, yet differ on when to start and how often to screen for breast cancer. With representation from Breast Imaging, Internal Medicine, Women's Health, Family Medicine, and Medical/Surgical Oncology, the [facility] has carefully reviewed the data and reached the following consensus: 1) All women should engage in shared decision-making with their providers to decide when to start and how often to screen; 2) All women should have the opportunity to start screening mammography at age 40; 3) For women ages 45-55, we recommend annual screening mammograms; 4) For women ages 55 and over, we support both the transition from an annual to a biennial interval if this aligns more with patient's values and preferences, or continuation with annual screening; 5) All women should discuss with their providers when to stop screening mammograms. Fire Investigation Lieutenant(s): Padmaja Rodríguez, RT(R)(M), [facility]; Zaida Hill, [facility] OVERALL STUDY BIRADS: 2 Benign finding Assistant Sales Center Manager: Hiren Transcribe Date/Time: Mar 23 2020 11:52A Dictated by : ELIECER CATALAN MD This examination was interpreted and the report reviewed and electronically signed by: ELIECER CATALAN MD on Mar 23 2020 2:03PM EST [id number] Normal [facility] PROGRESSon 03-23-2020 PROGRESS HNO ID: [id number] Author: Garth Goss (Tech) Service: ? Author Type: Cash Applications Clerk Type: Progress Notes Filed: 03/23/2020 3:30 PM Note Text: Radiology Service Progress Note PATIENT NAME: Andreina Gee DATE OF SERVICE: March 23, 2020 TIME: 3:30 PM PATIENT IDENTITY VERIFICATION COMPLETED USING TWO (2) IDENTIFIERS: Name and Date of confirmed by patient verbally. FALL SCREENING: Has the patient had 2 falls in the last year or 1 fall with injury or currently using an Ambulatory Assistive Device (Walker, Cane, Wheelchair, Crutches, etc.)? No PATIENT GENDER DATA: Female. status: : No status: NO. PATIENT RELEVANT IMPLANT DATA REVIEWED: Not Applicable RADIOLOGY DEPARTMENT: Ultrasound PERIPHERAL IV DATA: Not applicable SIGNED BY: Garth Goss March 23, 2020 3:30 PM [facility] PROGRESS HNO ID: [id number] Author: Garth Ambrose (Tech) Service: ? Author Type: Cash Applications Clerk Type: Progress Notes Filed: 03/23/2020 2:35 PM Note Text: Radiology Service Progress Note PATIENT NAME: Andreina Gee DATE OF SERVICE: March 23, 2020 TIME: 2:35 PM PATIENT IDENTITY VERIFICATION COMPLETED USING TWO (2) IDENTIFIERS: Name and Date of confirmed by patient verbally. FALL SCREENING: Has the patient had 2 falls in the last year or 1 fall with injury or currently using an Ambulatory Assistive Device (Walker, Cane, Wheelchair, Crutches, etc.)? No PATIENT GENDER DATA: Female. status: : No status: NO. PATIENT RELEVANT IMPLANT DATA REVIEWED: Not Applicable RADIOLOGY DEPARTMENT: Mammography PERIPHERAL IV DATA: Not applicable SIGNED BY: Garth Ambrose March 23, 2020 2:35 PM [facility] JOSE by IFAon 11-28-2019 JOSE Pattern Negative Normal [facility] Comment on above: Performed By: #### C MP, CRP, RF, TSH, WSR, ANAIFS ####[place] [id number] [place], [place] [phone] JOSE Titer Negative Normal Negative [facility] Comment on above: Result Comment: Norm al range : negative at <1:80 serum dilution. Performed By: #### C MP, CRP, RF, TSH, WSR, ANAIFS ####[place] [id number] [place], [place] [phone] Nuclear Ab IF (S) [Titer] Negative Normal Negative [facility] Comment on above: Result Comment: Norm al range : negative at <1:80 serum dilution. Approximately 6% of patients with connective tissue diseases with low positive EIA values are negative by IFA. Recommend follow-up with specific antinuclear antibodies if clinically indicated. Performed By: #### C MP, CRP, RF, TSH, WSR, ANAIFS ####[facility] [place], [place] [phone] C-Reactive Proteinon 020 CRP [Mass/Vol] 0.3 mg/dL Normal <0.9 [facility] Comment on above: Performed By: #### C MP, CRP, RF, TSH, WSR, ANAIFS ####[place] [id number] [place], [place] [phone] CNOVon 11-28-2019 CNOV Office Visit (INTMWS ) ANDREINA GEE ([id number]) 1975 F Date Time Provider Department 11/28/19 10:00 AM [facility] INTM[facility] During your visit today, we recorded the following information about you: Pulse Respiration Blood pressure Weight 72/minute 16/minute 96/70 72.1 kg Arya Naik APRN.CNP 11/28/2019 12:46 PM Signed This Team Access Model visit is a same day encounter. It required patient-provider interaction for the medical decision making as documented below. CC: Patient presents with: Edema: hands and feet HPI Andreina Gee is a 44 year old female who presents today for complaints of swelling hands with stiffness x4 days. Patient indicates she woke with hand swelling and stiffness ~4 days ago. No fever, chills, erythema or warmth. Denies any injury or trauma. She does type a lot for work. Indicates she hasn't been able to hold her coffee first thing in the morning and takes several hours for stiffness to improve so that she can make a fist. Numbness/tingling from forearms to fingers. No glove paresthesias. Shoulder stiffness several days prior to symptoms, tho does experience chronic shoulder pain. Reports stiffness in the knees x1 day along with pain and stiffness in the feet- worse in the toes. No edema, redness or recent injury. Attempted ibuprofen no relief. Aleve 3 out of 5 days- no improvement. No changes in medications, foods or increased salt intake. No personal or family hx of autoimmune dx or RA. REVIEW OF SYSTEMS General: no fevers, no chills, no recurrent infections, no change in appetite, no change in energy and no significant changes in weight Respiratory: no cough, no wheezing, no shortness of breath Cardiovascular: no chest pain, no chest pressure, no palpitations and no pedal edema Musculoskeletal: joint pain or swelling See HPI PAST MEDICAL HISTORY Diagnosis Date - Essential hypertension PAST SURGICAL HISTORY Procedure Laterality Date - SECTION HX x2 - EXTRACTION, ERUPTED TOOTH OR EXPOSED ROOT (ELEVATION AND/OR FORCEPS REMOVAL) - REMOVAL OF TONSILS,<12 Y/O Tonsillectomy ALLERGIES Penicillins MEDICATIONS loratadine (CLARITIN ORAL) Take by mouth. fluticasone propionate (FLONASE NASAL) Use in the nose. zolpidem (AMBIEN) 10 mg tab Take 0.5 tablets by mouth at bedtime as needed for up to 14 days. sertraline (ZOLOFT) 100 mg tablet Take 1 tablet by mouth once daily. traZODone (DESYREL) 50 mg tablet Take 1 tablet by mouth daily at bedtime. disulfiram (ANTABUSE) 250 mg tablet Take 1 tablet by mouth once daily. albuterol HFA (VENTOLIN HFA) 90 mcg/actuation inhaler Inhale 2 Puffs as instructed every 4 hours as needed for Wheezing/Shortness of Breath. ergocalciferol, vitamin D2, (DRISDOL) 50,000 unit capsule Take 1 capsule by mouth twice a week. TO BE TAKEN ORALLY DIRECTED. Take 1 tablet by mouth twice weekly [id number], then decrease to 1 tablet weekly. amLODIPine (NORVASC) 2.5 mg tablet take 1 tablet by mouth once daily FAMILY HISTORY Problem Relation Age of Onset - Hypertension Mother - Stroke Mother - Heart Mother - Hypertension Father - Heart Father - COPD Father Social History Tobacco Use - Smoking status: Former Smoker Packs/day: 1.00 Years: 20.00 Pack years: 20.00 Last attempt to quit: 09/24/2011 Years since quittin.1 - Smokeless tobacco: Never Used - Tobacco comment: uses E-cigarettes Substance Use Topics - Alcohol use: Yes Alcohol/week: 5.0 - 10.0 standard drinks Types: 2 - 4 Glasses of Wine (5oz) per week - Drug use: No PHYSICAL EXAM BP 96/70 (BP Site: Left Arm, BP Position: Sitting, BP Cuff Size: Regular Adult) Pulse 72 Resp 16 Wt 72.1 kg (159 lb) BMI 27.29 kg/m? General Appearance: well appearing, in no acute distress, alert Pysch: mood and affect broad and appropriate Skin: Skin color, texture, turgor normal for age; Head: normocephalic, atraumatic Lungs: lungs clear to auscultation. No wheezing, rhonchi, rales Heart: RRR without murmur, gallop, or rubs. No ectopy Bilateral Upper Extremities: +edema fingers and hand. +ROM Strength 5/5 bilaterally with equal hand grasps. Pulses +2. Cap refill <3 seconds. No erythema. Generalized tenderness with palpation. Bilateral Knees: no deformities or effusion. Skin intact. No edema or erythema. Full ROM Bilateral lower extremities: no edema. No deformities. Pulses +2. Generalized tenderness to the toes DTAP,TDAP,TD(1 - Tdap) due on 1986 PAP TESTING due on 1996 HPV TESTING due on 2005 MAMMOGRAM due on 02/12/2020 ANNUAL PCP TEAM CHRONIC DISEASE VISIT due on 03/29/2020 BP CONTROLLED (<130/80) due on 11/04/2020 TWO PNEUMOVAX 5 YEARS APART PRIOR TO AGE 65(2) due on 04/24/2021 INFLUENZA Completed HIV SCREENING Completed ADULT PREVNAR-13 Completed ASSESSMENT/PLAN: 1. Arthralgia of multiple joints - ICD9: 719.49, ICD10: M25.50 (primary diagnosis) - C-REACTIVE PROTEIN (CRP) - SED RATE WESTERGREN - JOSE BY IFA SCREEN - RHEUMATOID FACTOR BL - METHYLPREDNISOLONE 4 MG TABLETS IN A DOSE PACK 2. Swelling of both hands - ICD9: 729.81, ICD10: M79.89 - Osteoarthritis vs RA? Labs as ordered. - Consider rheum referral vs imaging studies pending laboratory results - COMP METABOLIC PANEL - C-REACTIVE PROTEIN (CRP) - SED RATE WESTERGREN - JOSE BY IFA SCREEN - RHEUMATOID FACTOR BL - METHYLPREDNISOLONE 4 MG TABLETS IN A DOSE PACK - TSH BLD Arya Naik APRN.CANOPY INSPECTOR Prescription instructions reviewed with patient as applicable. Potential red flag symptoms discussed with the patient. Reviewed appropriate action plan to take if red flag symptoms occur. Patient agreeable to treatment plan. Referring Provider: JENA PETERSON [[id number]] Allergies As of Date: 11/28/2019 Noted Allergy Reaction PENICILLINS 03/02/2006 Date Reviewed: 11/28/2019 Reviewed by: Katya Link LPN - Fully Assessed Reason for Visit: Edema [39] Cmt: hands and feet Primary Visit Diagnosis:Arthralgia of multiple joints [M25.50] Other Visit Diagnosis:Swelling of both hands [M79.89] Order(s):COMP METABOLIC PANEL [SQCMP] Order #: [id number] FUTURE C-REACTIVE PROTEIN (CRP) [SQCRP] Order #: [id number] FUTURE SED RATE WESTERGREN [SQWSR] Order #: [id number] FUTURE JOSE BY IFA SCREEN [SQANAIFS] Order #: [id number] FUTURE RHEUMATOID FACTOR BL [SQRF] Order #: [id number] FUTURE methylPREDNISolone (MEDROL, ALYSSIA,) 4 mg Dose-PackFollow dosing instructions, take with food.Disp: 1 PackageRfl: 0 TSH BLD [SQTSH] Order #: [id number] FUTURE Prescriptions as of 11/28/2019 Sig: METHYLPREDNISOLONE 4 MG TABLE* Follow dosing instructions, t* CLARITIN ORAL Take by mouth. FLONASE NASAL Use in the nose. ZOLPIDEM 10 MG TABLET Take 0.5 tablets by mouth at * SERTRALINE 100 MG TABLET Take 1 tablet by mouth once d* Patient not taking: Reported on 11/04/2019 TRAZODONE 50 MG TABLET Take 1 tablet by mouth daily * Patient not taking: Reported on 11/04/2019 DISULFIRAM 250 MG TABLET Take 1 tablet by mouth once d* Patient not taking: Reported on 11/04/2019 ALBUTEROL SULFATE HFA 90 MCG/* Inhale 2 Puffs as instructed * Patient not taking: Reported on 11/04/2019 ERGOCALCIFEROL (VITAMIN D2) 1* Take 1 capsule by mouth twice* Patient not taking: Reported on 11/04/2019 AMLODIPINE 2.5 MG TABLET take 1 tablet by mouth once d* Patient not taking: Reported on 11/04/2019 Problem List As Of Date 11/28/2019 Noted Resolved WBC DISEASE NEC [D72.89] 02/01/2009 Essential hypertension [I10] Alcohol abuse [F10.10] 09/03/2017 Anxiety [F41.9] 03/29/2019 Prescriptions ordered this encounter Disp Refills Start End METHYLPREDNISOLONE 4 MG TABLETS IN A* 1 Pa* 0 11/28/2019 12/04/2019 Sig: Follow dosing instructions, take with food. Encounter Status:Closed by ARYA NAIK CNP on 11/28/19 Normal [facility] Comp Metabolic Panelon 11-27 Albumin [Mass/Vol] 4.6 g/dL Normal 3.9-4.9 [facility] Comment on above: Performed By: #### C MP, CRP, RF, TSH, WSR, ANAIFS ####[facility] [place], [place] [phone] ALP [Catalytic activity/Vol] 63 U/L Normal 34-123 [facility] Comment on above: Performed By: #### C MP, CRP, RF, TSH, WSR, ANAIFS ####[place] [address] [place], [place] [phone] ALT [Catalytic activity/Vol] 14 U/L Normal 7-38 [facility] Comment on above: Performed By: #### C MP, CRP, RF, TSH, WSR, ANAIFS ####[place] [address] [place], [place] [phone] Anion gap [Moles/Vol] 14 mmol/L Normal 9-18 [facility] Comment on above: Performed By: #### C MP, CRP, RF, TSH, WSR, ANAIFS ####[address] [phone] AST [Catalytic activity/Vol] 20 U/L Normal 13-35 [facility] Comment on above: Performed By: #### C MP, CRP, RF, TSH, WSR, ANAIFS ####[address] [phone] Bilirubin [Mass/Vol] 0.2 mg/dL Normal 0.2-1.3 [facility] Comment on above: Performed By: #### C MP, CRP, RF, TSH, WSR, ANAIFS ####[address] [phone] Calcium [Mass/Vol] 9.6 mg/dL Normal 8.5-10.2 [facility] Comment on above: Performed By: #### C MP, CRP, RF, TSH, WSR, ANAIFS ####[place] [address] [place], [place] [phone] Chloride [Moles/Vol] 101 mmol/L Normal 97-105 [facility] Comment on above: Performed By: #### C MP, CRP, RF, TSH, WSR, ANAIFS ####[place] [address] [place], [place] [phone] CO2 [Moles/Vol] 25 mmol/L Normal 22-30 [facility] Comment on above: Performed By: #### C MP, CRP, RF, TSH, WSR, ANAIFS ####[facility] [address] [phone] Creatinine [Mass/Vol] 0.62 mg/dL Normal 0.58-0.96 [facility] Comment on above: Performed By: #### C MP, CRP, RF, TSH, WSR, ANAIFS ####[facility] [place] [phone] eGFR- Amer. >60 Normal [facility] Comment on above: Performed By: #### C MP, CRP, RF, TSH, WSR, ANAIFS ####[place] [address] [place] [phone] GFR/1.73 sq M predicted among non-blacks MDRD (S/P/Bld) [Vol rate/Area] mL/min/{1.73_m2} Normal [facility] Comment on above: Result Comment: eGFR (Estimated GFR) Units of [...] accurately reflect actual GFR. Performed By: #### C MP, CRP, RF, TSH, WSR, ANAIFS ####[place] [address] [place] [phone] Glucose [Mass/Vol] 81 mg/dL Normal 74-99 [facility] Comment on above: Result Comment: The [place] [employer] (ADA) provides guidance for cutoff values for fasting glucose and random glucose. The ADA defines fasting as no caloric intake for at least 8 hours. Fasting plasma glucose results between 100 to 125 [...] Standards of Medical Care in Diabetes 2016, [place] [employer]. Diabetes Care. 2016.39(Suppl 1). Performed By: #### C MP, CRP, RF, TSH, WSR, ANAIFS ####[address] [phone] Potassium [Moles/Vol] 4.0 mmol/L Normal 3.7-5.1 [facility] Comment on above: Performed By: #### C MP, CRP, RF, TSH, WSR, ANAIFS ####[place] [phone] Protein [Mass/Vol] 7.3 g/dL Normal 6.3-8.0 [facility] Comment on above: Performed By: #### C MP, CRP, RF, TSH, WSR, ANAIFS ####[place] [phone] Sodium [Moles/Vol] 140 mmol/L Normal 136-144 [facility] Comment on above: Performed By: #### C MP, CRP, RF, TSH, WSR, ANAIFS ####[place] [phone] Urea nitrogen [Mass/Vol] 9 mg/dL Normal 7-21 [facility] Comment on above: Performed By: #### C MP, CRP, RF, TSH, WSR, ANAIFS ####[place] [phone] OBSOLETEon 11-28-2019 OBSOLETE Refill (INTMWS) ANDREINA GEE ([id number]) 1975 F Date Time Provider Department 11/28/19 JENA PETERSON During your visit today, we recorded the following information about you: Tess Street LPN 11/29/2019 11:27 AM Signed Call from patient requesting refill. Pending Prescriptions Disp Refills ZOLPIDEM 10 MG TABLET 15 tablet 1 Sig: Take 0.5 tablets by mouth at bedtime as needed for up to 14 days. MAVERICK Class: C-IV SHAYAN: No Patient last seen 11/28/19 Tess Naik APRN.KAI 12/01/2019 10:16 AM Signed The following approved medication requests have been transmitted electronically. Signed Prescriptions Disp Refills zolpidem (AMBIEN) 10 mg 15 tablet 1 Sig: Take 0.5 tablets by mouth at bedtime as needed for up to 60 days. MAVERICK Class: C-IV SHAYAN: No Authorizing Provider: ARYA NAIK (KAI) Arya Naik APRN.[facility] PDMP website currently unavailable. 12/01/2019 by Arya Naik APRN.KAI Allergies As of Date: 11/28/2019 Noted Allergy Reaction PENICILLINS 03/02/2006 Date Reviewed: 11/28/2019 Reviewed by: Katya Link LPN - Fully Assessed Reason for Visit: Refill Request [94] Visit Diagnosis:Insomnia, unspecified type [G47.00] Order(s):zolpidem (AMBIEN) 10 mgTake 0.5 tablets by mouth at bedtime as needed for up to 60 days.Disp: 15 tabletRfl: 1 Prescriptions as of 11/28/2019 Sig: ZOLPIDEM 10 MG TABLET Take 0.5 tablets by mouth at * METHYLPREDNISOLONE 4 MG TABLE* Follow dosing instructions, t* CLARITIN ORAL Take by mouth. FLONASE NASAL Use in the nose. SERTRALINE 100 MG TABLET Take 1 tablet by mouth once d* Patient not taking: Reported on 11/04/2019 TRAZODONE 50 MG TABLET Take 1 tablet by mouth daily * Patient not taking: Reported on 11/04/2019 DISULFIRAM 250 MG TABLET Take 1 tablet by mouth once d* Patient not taking: Reported on 11/04/2019 ALBUTEROL SULFATE HFA 90 MCG/* Inhale 2 Puffs as instructed * Patient not taking: Reported on 11/04/2019 ERGOCALCIFEROL (VITAMIN D2) 1* Take 1 capsule by mouth twice* Patient not taking: Reported on 11/04/2019 AMLODIPINE 2.5 MG TABLET take 1 tablet by mouth once d* Patient not taking: Reported on 11/04/2019 Problem List As Of Date 11/28/2019 Noted Resolved WBC DISEASE NEC [D72.89] 02/01/2009 Essential hypertension [I10] Alcohol abuse [F10.10] 09/03/2017 Anxiety [F41.9] 03/29/2019 Prescriptions ordered this encounter Disp Refills Start End ZOLPIDEM 10 MG TABLET 15 t* 1 12/01/2019 01/30/2020 Route: ORAL Sig: Take 0.5 tablets by mouth at bedtime as needed for up to 60 days. Medications Discontinued During This Encounter zolpidem (AMBIEN) 10 mg tab 15 t* 1 03/29/2019 12/01/2019 Class: Print RX Route: ORAL Sig: Take 0.5 tablets by mouth at bedtime as needed for up to 14 days. Disc: Reason for discontinue is not on file. Encounter Status:Closed by ARYA NAIK CNP on 12/01/19 [facility] PROGRESSon 11-28-2019 PROGRESS HNO ID: [id number] Author: Arya Naik Service: ? Author Type: Nurse Practitioner Type: Progress Notes Filed: 11/28/2019 12:46 PM Note Text: This Team Access Model visit is a same day encounter. It required patient-provider interaction for the medical decision making as documented below. CC: Patient presents with: Edema: hands and feet HPI Andreina Gee is a 44 year old female who presents today for complaints of swelling hands with stiffness x4 days. Patient indicates she woke with hand swelling and stiffness ~4 days ago. No fever, chills, erythema or warmth. Denies any injury or trauma. She does type a lot for work. Indicates she hasn't been able to hold her coffee first thing in the morning and takes several hours for stiffness to improve so that she can make a fist. Numbness/tingling from forearms to fingers. No glove paresthesias. Shoulder stiffness several days prior to symptoms, marielos does experience chronic shoulder pain. Reports stiffness in the knees x1 day along with pain and stiffness in the feet- worse in the toes. No edema, redness or recent injury. Attempted ibuprofen no relief. Aleve 3 out of 5 days- no improvement. No changes in medications, foods or increased salt intake. No personal or family hx of autoimmune dx or RA. REVIEW OF SYSTEMS General: no fevers, no chills, no recurrent infections, no change in appetite, no change in energy and no significant changes in weight Respiratory: no cough, no wheezing, no shortness of breath Cardiovascular: no chest pain, no chest pressure, no palpitations and no pedal edema Musculoskeletal: joint pain or swelling See HPI PAST MEDICAL HISTORY Diagnosis Date - Essential hypertension PAST SURGICAL HISTORY Procedure Laterality Date - SECTION HX x2 - EXTRACTION, ERUPTED TOOTH OR EXPOSED ROOT (ELEVATION AND/OR FORCEPS REMOVAL) - REMOVAL OF TONSILS,<12 Y/O Tonsillectomy ALLERGIES Penicillins MEDICATIONS loratadine (CLARITIN ORAL) Take by mouth. fluticasone propionate (FLONASE NASAL) Use in the nose. zolpidem (AMBIEN) 10 mg tab Take 0.5 tablets by mouth at bedtime as needed for up to 14 days. sertraline (ZOLOFT) 100 mg tablet Take 1 tablet by mouth once daily. traZODone (DESYREL) 50 mg tablet Take 1 tablet by mouth daily at bedtime. disulfiram (ANTABUSE) 250 mg tablet Take 1 tablet by mouth once daily. albuterol HFA (VENTOLIN HFA) 90 mcg/actuation inhaler Inhale 2 Puffs as instructed every 4 hours as needed for Wheezing/Shortness of Breath. ergocalciferol, vitamin D2, (DRISDOL) 50,000 unit capsule Take 1 capsule by mouth twice a week. TO BE TAKEN ORALLY DIRECTED. Take 1 tablet by mouth twice weekly [id number], then decrease to 1 tablet weekly. amLODIPine (NORVASC) 2.5 mg tablet take 1 tablet by mouth once daily FAMILY HISTORY Problem Relation Age of Onset - Hypertension Mother - Stroke Mother - Heart Mother - Hypertension Father - Heart Father - COPD Father Social History Tobacco Use - Smoking status: Former Smoker Packs/day: 1.00 Years: 20.00 Pack years: 20.00 Last attempt to quit: 09/24/2011 Years since quittin.1 - Smokeless tobacco: Never Used - Tobacco comment: uses E-cigarettes Substance Use Topics - Alcohol use: Yes Alcohol/week: 5.0 - 10.0 standard drinks Types: 2 - 4 Glasses of Wine (5oz) per week - Drug use: No PHYSICAL EXAM BP 96/70 (BP Site: Left Arm, BP Position: Sitting, BP Cuff Size: Regular Adult) Pulse 72 Resp 16 Wt 72.1 kg (159 lb) BMI 27.29 kg/m? General Appearance: well appearing, in no acute distress, alert Pysch: mood and affect broad and appropriate Skin: Skin color, texture, turgor normal for age; Head: normocephalic, atraumatic Lungs: lungs clear to auscultation. No wheezing, rhonchi, rales Heart: RRR without murmur, gallop, or rubs. No ectopy Bilateral Upper Extremities: +edema fingers and hand. +ROM Strength 5/5 bilaterally with equal hand grasps. Pulses +2. Cap refill <3 seconds. No erythema. Generalized tenderness with palpation. Bilateral Knees: no deformities or effusion. Skin intact. No edema or erythema. Full ROM Bilateral lower extremities: no edema. No deformities. Pulses +2. Generalized tenderness to the toes DTAP,TDAP,TD(1 - Tdap) due on 1986 PAP TESTING due on 1996 HPV TESTING due on 2005 MAMMOGRAM due on 02/12/2020 ANNUAL PCP TEAM CHRONIC DISEASE VISIT due on 03/29/2020 BP CONTROLLED (<130/80) due on 11/04/2020 TWO PNEUMOVAX 5 YEARS APART PRIOR TO AGE 65(2) due on 04/24/2021 INFLUENZA Completed HIV SCREENING Completed ADULT PREVNAR-13 Completed ASSESSMENT/PLAN: 1. Arthralgia of multiple joints - ICD9: 719.49, ICD10: M25.50 (primary diagnosis) - C-REACTIVE PROTEIN (CRP) - SED RATE WESTERGREN - JOSE BY IFA SCREEN - RHEUMATOID FACTOR BL - METHYLPREDNISOLONE 4 MG TABLETS IN A DOSE PACK 2. Swelling of both hands - ICD9: 729.81, ICD10: M79.89 - Osteoarthritis vs RA? Labs as ordered. - Consider rheum referral vs imaging studies pending laboratory results - COMP METABOLIC PANEL - C-REACTIVE PROTEIN (CRP) - SED RATE WESTERGREN - JOSE BY IFA SCREEN - RHEUMATOID FACTOR BL - METHYLPREDNISOLONE 4 MG TABLETS IN A DOSE PACK - TSH BLD Arya Naik APRN.[employer] INSPECTOR Prescription instructions reviewed with patient as applicable. Potential red flag symptoms discussed with the patient. Reviewed appropriate action plan to take if red flag symptoms occur. Patient agreeable to treatment plan. Normal [facility] Rheumatoid Factoron 11-28-19 20 Rheumatoid Factor <10 Normal <16 [facility] [place] Comment on above: Performed By: #### C MP, CRP, RF, TSH, WSR, ANAIFS ####[place] [id number] [place], [place] [phone] Sed Rate Westergrenon 2019 Sed Rate Westergren 12 mm/hr Normal 0-20 [facility] Comment on above: Performed By: #### C MP, CRP, RF, TSH, WSR, ANAIFS ####[place] [id number] [place], [place] [phone] TSHon 11-28-2019 TSH Qn 1.270 uU/mL Normal 0.270-4.200 [facility] Comment on above: Result Comment: If t he patient is , TSH reference range varies by gestational period: First Trimester (weeks 9-12): 0.180-2.990 mcIU/mL Second Trimester: 0.110-3.980 mcIU/mL Third Trimester: 0.480-4.710 mcIU/mL Tom Anthony et al. A Practical Approach for the Verifications and Determination of Site- and Trimester-Specific Reference Intervals for Thyroid Function tests in . Thyroid, 2019:29:3:412-420. Donis Smith, et al. 2017 Guidelines of the [place] Thy[employer] for the Diagnosis and Management of Thyroid Disease during and the . Thyroid, 2017:27:3:315-389. Performed By: #### C MP, CRP, RF, TSH, WSR, ANAIFS ####[id number] [place], [place] [phone] PROGRESSon 11-05-2019 PROGRESS HNO ID: [id number] Author: Janene Clinton LPN Service: ? Author Type: ? Type: Progress Notes Filed: 11/05/2019 8:54 AM Note Text: [id number] DATE OF PHOTOS: November 04, 2019 TAKEN WITH LENS: 3-7ft / 105mm x6 FACE/EYES POSES:AP/OP/LP DIAGNOSIS: FACIAL: BLEPHAROPLASTY RELEASE: PATIENT SIGNED PHOTO RELEASE FOR CLINICAL USE AND SURGERY Janene Clinton LPN Normal [facility] CNOVon 11-04-2019 CNOV Office Visit (PLASST ) ANDREINA GEE ([id number]) 1975 F Date Time Provider Department 11/04/19 1:20 PM SHAUNNA BOSTON During your visit today, we recorded the following information about you: Temperature Pulse Respiration Blood pressure 98.4 degrees 88/minute 18/minute 113/69 Weight Height 71.7 kg 1.626 m Shaunna Boston MD 11/04/2019 11:46 PM Signed BLEPHAROPLASTY Patient Evaluation and Operative Planning CC: ....Excess skin of the eyelids.......... HPI: Andreina is a 44 year old female here today for opinions regarding and upper and lower bleph. She reports that she looks tired all of the time. She reports a history of allergies causing frequent red eyes. 1. Lower eyelids 2. 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 vaped until a..year ago, smoked......1... Ppd, for....19.....years []Smoker. Less than 1 pk per day []Smoker. 1 pk per day []Smoker. 1-2 pk per day []Smoker. 2-3 pk per day Aspirin Intake: yes [] no [x] Eye Drops: yes [] no [x] Glasses: yes [x] no [] (need for []far-myopia [x]near correction) Contacts: yes [] no [x] Objective: There were no vitals taken for this visit. PAST MEDICAL HISTORY Diagnosis Date - Essential hypertension PAST SURGICAL HISTORY Procedure Laterality Date - SECTION HX x2 - EXTRACTION ERUPTED TOOTH/EXR - REMOVAL OF TONSILS,<12 Y/O Tonsillectomy Current Outpatient Medications Medication Sig Dispense Refill - zolpidem (AMBIEN) 10 mg tab Take 0.5 tablets by mouth at bedtime as needed for up to 14 days. 15 tablet 1 - sertraline (ZOLOFT) 100 mg tablet Take 1 tablet by mouth once daily. 30 tablet 3 - traZODone (DESYREL) 50 mg tablet Take 1 tablet by mouth daily at bedtime. 60 tablet 2 - disulfiram (ANTABUSE) 250 mg tablet Take 1 tablet by mouth once daily. 30 tablet 0 - albuterol HFA (VENTOLIN HFA) 90 mcg/actuation inhaler Inhale 2 Puffs as instructed every 4 hours as needed for Wheezing/Shortness of Breath. 1 Inhaler 0 - ergocalciferol, vitamin D2, (DRISDOL) 50,000 unit capsule Take 1 capsule by mouth twice a week. TO BE TAKEN ORALLY DIRECTED. Take 1 tablet by mouth twice weekly [id number], then decrease to 1 tablet weekly. 8 capsule 5 - amLODIPine (NORVASC) 2.5 mg tablet take 1 tablet by mouth once daily 90 tablet 3 No current facility-administered medications for this visit. ALLERGIES Allergen Reactions - Penicillins There is no height or weight on file to calculate BMI. Estimated body surface area is 1.8 meters squared as calculated from the following: Height as of 03/29/19: 162.6 cm (5' 4 ). Weight as of 03/29/19: 71.7 kg (158 lb). Bleeding problems: yes [] no [x] Hypertension: yes [] no [x]- off medication since weight loss and quit drinking Heart disease: yes [] no [x] Ocular symptoms: yes [] no [x] Glaucoma: yes [] no [x] Thyroid disease: yes [] no [x] History of Facial Fractures: yes [] no [x] Patient's [facility] ......... Telephone number: ............ Date of Last Exam: .......07/2019...... Findings: ............ (visual field cut off) Exam: Visual Acuity Right / Left Uncorrected ...... / ........ Corrected ..... / ........ Conjunctival/ Tear Production: Irritation/redness yes [] no [x] / yes [] no [x] Malgorzata II yes [] no [] .......mm / yes [] no [] .......mm (normal >15 mm at 5 minutes; less than 4 severe) Other Orbit: PERRLA EOMI Max hypoplasia/Neg vector yes [] no [x] / yes [] no [x] (vertical line from maximal corneal projection to the orbitale (infraorbital rim)) Enophthalmos yes [] no [x] / yes [] no [x] Exopthalmos yes [] no [x] / yes [] no [x] Brow: Frontalis function yes [x] no [] / yes [x] no [] Brow ptosis yes [] no [x] .......mm / yes [] no [x] ........mm (Brow 1 cm above sup rim for female and at for male) Shape: []straight [x]curved []soft arch []high arch [] S shape []upward Asymmetry: yes [x] no []- right is higher than the left Compensation: yes [] no [x] Upper Eyelids: Ptosis ....0... mm / ....0... mm Skin Redundancy ....3. mm / ...3.... mm Skin hangs past lid margin yes [] no [x] / yes [] no [x] Supratarsal fold decrease ...7-8.. mm / ..7-8... mm Pseudoherniated fat (0-4+) 0[x] 1[] 2[] 3[] 4[] / 0[x] 1[] 2[] 3[] 4[] Prelevator medial yes [] no [x] / yes [] no [x] Medial yes [] no [x] / yes [] no [x] Prolapse lacrimal gland yes [x] no [] / yes [x] no [] Canthal tilt [x]neutral []lateral up []lateral down / []neutral []lateral up []lateral down Levator function yes [x] no [] ..17 mm / yes [] no [] ...18.... mm (Downward gaze with brow fixed in up gaze level: Poor 0-5 fair 6-11 Good >11) Palpebral Fissure Height ....9... mm / ...9.... mm (At axis of the globe 9-12 is normal) Marginal Reflex Distance 1 ...4.. mm / ..4... mm (Mid corneal light reflex to upper lid margin; normal is 4-5 mm) [place]'s feet rhytids yes [x] no [] / yes [x] no [] with function of obicularis not crows feet if static Lower Eyelids: Skin redundancy estimate .....1.. mm / .....1.. mm Orbicularis hypertrophy yes [] no [x] / yes [] no [] Pseudoherniated fat (0-4+) 0[] 1[x] 2[] 3[] 4[] / 0[] 1[x] 2[] 3[] 4[] Medial yes [x]- mild no [] / yes [x] mild no [] Lateral yes [x] no [] / yes [] no [x] Snap test ....<1... sec / ..<1..... Sec Distraction test ....4... mm / ....4... mm (6 mm or less of lid distraction can be adequately treated with can- thopexy techniques, whereas those with distraction greater than 6 mm require cantholysis and canthoplasty) Sclerar show .....0.. mm / ....0... mm Marginal Reflex Distance 2 .....5.5.. mm / .....5.. mm (Mid corneal light reflex to lower lid margin; normal is 4-5 mm) Hyperpigmentation yes [x] no [] / yes [x] no [] Ectropion yes [] no [x] / yes [] no [x] Entropion yes [] no [x] / yes [] no [x] Tear Trough Deformity yes [x] no [] / yes [x] no []L>R Palpebromalar groove yes [x] no [] / yes [x] no [] Nasojugal groove yes [x] mild no [] / yes [x] mild no [] Festoon yes [] no [x] / yes [] no [x] Difference of tear trough and nasojugal groove Tear trough deformities are located between the palpebral and orbital parts of the orbicularis oculi, and the location of the nasojugal groove corresponds to the inferior border of the orbicularis oculi. Blue dashed line, tear trough deformity; red dashed line, nasojugal groove; OF, orbital fat; OS, orbital septum; SOOF, sub orbicularis oculi fat; PO, palpebral part of the orbicularis oculi muscle; LLSAN, levator labii superioris alaeque nasi muscle; MFP, malar fat pad; OOM, orbicularis oculi muscle (Dandre, Definitions of groove and hollowness of the infraorbital region and clinical treatment using soft-tissue filler). Assessment: []Blepharoptosis []Dermatochalasis []Blepharochalasis []Brow ptosis []Enophthalmos []Exophthalmos []Ectropion []Entropion []Maxillary hypoplasia Plan: Surgical Plan for Uppers and Brow 1. Brow lift Endoscopic: yes [] no [] / yes [] no [] Open: yes [] no [] / yes [] no [] (If not done, pt aware will be unmasked with ptosis repair) 2. Ptosis procedure yes [] no [] / yes [] no [] 3. Excise skin yes [] no [] / yes [] no [] 4. Excise orbicularis yes [] no [] / yes [] no [] 5. Exc. fat ant. to orbicularis yes [] no [] / yes [] no [] 6. Plication lacrimal gland yes [] no [] / yes [] no [] 7. Lateral canthopexy yes [] no [] / yes [] no [] (Above Whitnall's ligament for neg vector and below for enophthalmos) Surgical Plan for Lowers 1. Excise skin yes [] no [] / yes [] no [] 2. Excise orbicularis yes [] no [] / yes [] no [] 3. Ex fat ant. to orbicularis yes [] no [] / yes [] no [] 4. Transconj Approach yes [] no [] 5. Redrape SOOF yes [] no [] / yes [] no [] 6. Canthopexy yes [] no [] / yes [] no [] 7. Cantholysis and canthoplasty yes [] no [] / yes [] no [] Planned procedure: []Bilateral upper []lower lid blepharoplasty []brow lift. The patient understands the procedure in detail, the personnel required to perform the procedure, the alternatives to the procedure, and the risks. Consent has been signed. Will need clearance by aircraft machinist/educational psychologist with []Malgorzata Test and formal []Visual Field Cut Offs Follow up at the time of surgery The patient is seen and examined by Dr. Boston and the following reflects his service. Scribed by [x] Senait Farley CNP []Sherrie Squires CNP []Resident []COAL GRADER/PA/Nurse []myself Pre Op Meds to consider: []Tobradex Ophthalmic Solution 1 drop OU DID one day pre-op, DOS and 5 days post op []Bactroban Ointment to Nasal Mucosa QD start 3 days pre-op in at risk (health care and MRSA history) Post Op Meds: []Tobradex []NSAID []ATB x 3 days []Nausea []Fish Oil []Arnica and Bromelein Treatment of Chemosis: []Tobradex []FML ((fluorometholone ophthalmic suspension, [facility]) 0.1%) []QID x 2 d []TID x 2 d []BID x 2 d []HS x 2 d []If severe consider 0.25% or Medro dose pack []Temporary Tarsorrahapy []Tegaderm to close the eye []Naphcon A BID []Excision if persistent past 2 weeks or very severe I agree with the Chief Complaint, ROS, and Past Histories independently gathered by the clinical support services tech and the remaining scribed note accurately describes my personal service to the patient. 30 Minutes total visit spent face to face with patient. Greater than 50% of the time was spent for counseling and coordination of care, discussing treatment options and recommendations. Shaunna Boston MD PhD November 04, 2019 11:45 PM Senait Farley APRN.KAI 11/04/2019 2:09 PM Signed Will need clearance by aircraft machinist/educational psychologist with Malgorzata Test and formal Visual Field Cut Offs Referring Provider: JEREMIE DE LA PAZ [[id number]] Allergies As of Date: 11/04/2019 Noted Allergy Reaction PENICILLINS 03/02/2006 Date Reviewed: 11/04/2019 Reviewed by: Shaunna Boston - Fully Assessed Reason for Visit: Consult [173] Primary Visit Diagnosis:Dermatochalasis of upper and lower eyelids of both eyes [H02.831, H02.834, H02.832, H02.835] Prescriptions as of 11/04/2019 Sig: CLARITIN ORAL Take by mouth. FLONASE NASAL Use in the nose. ZOLPIDEM 10 MG TABLET Take 0.5 tablets by mouth at * SERTRALINE 100 MG TABLET Take 1 tablet by mouth once d* Patient not taking: Reported on 11/04/2019 TRAZODONE 50 MG TABLET Take 1 tablet by mouth daily * Patient not taking: Reported on 11/04/2019 DISULFIRAM 250 MG TABLET Take 1 tablet by mouth once d* Patient not taking: Reported on 11/04/2019 ALBUTEROL SULFATE HFA 90 MCG/* Inhale 2 Puffs as instructed * Patient not taking: Reported on 11/04/2019 ERGOCALCIFEROL (VITAMIN D2) 1* Take 1 capsule by mouth twice* Patient not taking: Reported on 11/04/2019 AMLODIPINE 2.5 MG TABLET take 1 tablet by mouth once d* Patient not taking: Reported on 11/04/2019 Problem List As Of Date 11/04/2019 Noted Resolved 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 Author Type: Physician Type: Progress Notes Filed: 11/04/2019 11:46 PM Note Text: BLEPHAROPLASTY Patient Evaluation and Operative Planning CC: ....Excess skin of the eyelids.......... HPI: Andreina is a 44 year old female here today for opinions regarding and upper and lower bleph. She reports that she looks tired all of the time. She reports a history of allergies causing frequent red eyes. 1. Lower eyelids 2. 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 vaped until a..year ago, smoked......1... Ppd, for....19.....years []Smoker. Less than 1 pk per day []Smoker. 1 pk per day []Smoker. 1-2 pk per day []Smoker. 2-3 pk per day Aspirin Intake: yes [] no [x] Eye Drops: yes [] no [x] Glasses: yes [x] no [] (need for []far-myopia [x]near correction) Contacts: yes [] no [x] Objective: There were no vitals taken for this visit. PAST MEDICAL HISTORY Diagnosis Date - Essential hypertension PAST SURGICAL HISTORY Procedure Laterality Date - SECTION HX x2 - EXTRACTION ERUPTED TOOTH/EXR - REMOVAL OF TONSILS,<12 Y/O Tonsillectomy Current Outpatient Medications Medication Sig Dispense Refill - zolpidem (AMBIEN) 10 mg tab Take 0.5 tablets by mouth at bedtime as needed for up to 14 days. 15 tablet 1 - sertraline (ZOLOFT) 100 mg tablet Take 1 tablet by mouth once daily. 30 tablet 3 - traZODone (DESYREL) 50 mg tablet Take 1 tablet by mouth daily at bedtime. 60 tablet 2 - disulfiram (ANTABUSE) 250 mg tablet Take 1 tablet by mouth once daily. 30 tablet 0 - albuterol HFA (VENTOLIN HFA) 90 mcg/actuation inhaler Inhale 2 Puffs as instructed every 4 hours as needed for Wheezing/Shortness of Breath. 1 Inhaler 0 - ergocalciferol, vitamin D2, (DRISDOL) 50,000 unit capsule Take 1 capsule by mouth twice a week. TO BE TAKEN ORALLY DIRECTED. Take 1 tablet by mouth twice weekly [id number], then decrease to 1 tablet weekly. 8 capsule 5 - amLODIPine (NORVASC) 2.5 mg tablet take 1 tablet by mouth once daily 90 tablet 3 No current facility-administered medications for this visit. ALLERGIES Allergen Reactions - Penicillins There is no height or weight on file to calculate BMI. Estimated body surface area is 1.8 meters squared as calculated from the following: Height as of 03/29/19: 162.6 cm (5' 4 ). Weight as of 03/29/19: 71.7 kg (158 lb). Bleeding problems: yes [] no [x] Hypertension: yes [] no [x]- off medication since weight loss and quit drinking Heart disease: yes [] no [x] Ocular symptoms: yes [] no [x] Glaucoma: yes [] no [x] Thyroid disease: yes [] no [x] History of Facial Fractures: yes [] no [x] Patient's Community Aide:.[facility] ......... Telephone number: ............ Date of Last Exam: .......07/2019...... Findings: ............ (visual field cut off) Exam: Visual Acuity Right / Left Uncorrected ...... / ........ Corrected ..... / ........ Conjunctival/ Tear Production: Irritation/redness yes [] no [x] / yes [] no [x] Malgorzata II yes [] no [] .......mm / yes [] no [] .......mm (normal >15 mm at 5 minutes; less than 4 severe) Other Orbit: PERRLA EOMI Max hypoplasia/Neg vector yes [] no [x] / yes [] no [x] (vertical line from maximal corneal projection to the orbitale (infraorbital rim)) Enophthalmos yes [] no [x] / yes [] no [x] Exopthalmos yes [] no [x] / yes [] no [x] Brow: Frontalis function yes [x] no [] / yes [x] no [] Brow ptosis yes [] no [x] .......mm / yes [] no [x] ........mm (Brow 1 cm above sup rim for female and at for male) Shape: []straight [x]curved []soft arch []high arch [] S shape []upward Asymmetry: yes [x] no []- right is higher than the left Compensation: yes [] no [x] Upper Eyelids: Ptosis ....0... mm / ....0... mm Skin Redundancy ....3. mm / ...3.... mm Skin hangs past lid margin yes [] no [x] / yes [] no [x] Supratarsal fold decrease ...7-8.. mm / ..7-8... mm Pseudoherniated fat (0-4+) 0[x] 1[] 2[] 3[] 4[] / 0[x] 1[] 2[] 3[] 4[] Prelevator medial yes [] no [x] / yes [] no [x] Medial yes [] no [x] / yes [] no [x] Prolapse lacrimal gland yes [x] no [] / yes [x] no [] Canthal tilt [x]neutral []lateral up []lateral down / []neutral []lateral up []lateral down Levator function yes [x] no [] ..17 mm / yes [] no [] ...18.... mm (Downward gaze with brow fixed in up gaze level: Poor 0-5 fair 6-11 Good >11) Palpebral Fissure Height ....9... mm / ...9.... mm (At axis of the globe 9-12 is normal) Marginal Reflex Distance 1 ...4.. mm / ..4... mm (Mid corneal light reflex to upper lid margin; normal is 4-5 mm) [place]'s feet rhytids yes [x] no [] / yes [x] no [] with function of obicularis not crows feet if static Lower Eyelids: Skin redundancy estimate .....1.. mm / .....1.. mm Orbicularis hypertrophy yes [] no [x] / yes [] no [] Pseudoherniated fat (0-4+) 0[] 1[x] 2[] 3[] 4[] / 0[] 1[x] 2[] 3[] 4[] Medial yes [x]- mild no [] / yes [x] mild no [] Lateral yes [x] no [] / yes [] no [x] Snap test ....<1... sec / ..<1..... Sec Distraction test ....4... mm / ....4... mm (6 mm or less of lid distraction can be adequately treated with can- thopexy techniques, whereas those with distraction greater than 6 mm require cantholysis and canthoplasty) Sclerar show .....0.. mm / ....0... mm Marginal Reflex Distance 2 .....5.5.. mm / .....5.. mm (Mid corneal light reflex to lower lid margin; normal is 4-5 mm) Hyperpigmentation yes [x] no [] / yes [x] no [] Ectropion yes [] no [x] / yes [] no [x] Entropion yes [] no [x] / yes [] no [x] Tear Trough Deformity yes [x] no [] / yes [x] no []L>R Palpebromalar groove yes [x] no [] / yes [x] no [] Nasojugal groove yes [x] mild no [] / yes [x] mild no [] Festoon yes [] no [x] / yes [] no [x] Difference of tear trough and nasojugal groove Tear trough deformities are located between the palpebral and orbital parts of the orbicularis oculi, and the location of the nasojugal groove corresponds to the inferior border of the orbicularis oculi. Blue dashed line, tear trough deformity; red dashed line, nasojugal groove; OF, orbital fat; OS, orbital septum; SOOF, sub orbicularis oculi fat; PO, palpebral part of the orbicularis oculi muscle; LLSAN, levator labii superioris alaeque nasi muscle; MFP, malar fat pad; OOM, orbicularis oculi muscle (Dandre, Definitions of groove and hollowness of the infraorbital region and clinical treatment using soft-tissue filler). Assessment: []Blepharoptosis []Dermatochalasis []Blepharochalasis []Brow ptosis []Enophthalmos []Exophthalmos []Ectropion []Entropion []Maxillary hypoplasia Plan: Surgical Plan for Uppers and Brow 1. Brow lift Endoscopic: yes [] no [] / yes [] no [] Open: yes [] no [] / yes [] no [] (If not done, pt aware will be unmasked with ptosis repair) 2. Ptosis procedure yes [] no [] / yes [] no [] 3. Excise skin yes [] no [] / yes [] no [] 4. Excise orbicularis yes [] no [] / yes [] no [] 5. Exc. fat ant. to orbicularis yes [] no [] / yes [] no [] 6. Plication lacrimal gland yes [] no [] / yes [] no [] 7. Lateral canthopexy yes [] no [] / yes [] no [] (Above Whitnall's ligament for neg vector and below for enophthalmos) Surgical Plan for Lowers 1. Excise skin yes [] no [] / yes [] no [] 2. Excise orbicularis yes [] no [] / yes [] no [] 3. Ex fat ant. to orbicularis yes [] no [] / yes [] no [] 4. Transconj Approach yes [] no [] 5. Redrape SOOF yes [] no [] / yes [] no [] 6. Canthopexy yes [] no [] / yes [] no [] 7. Cantholysis and canthoplasty yes [] no [] / yes [] no [] Planned procedure: []Bilateral upper []lower lid blepharoplasty []brow lift. The patient understands the procedure in detail, the personnel required to perform the procedure, the alternatives to the procedure, and the risks. Consent has been signed. Will need clearance by aircraft machinist/educational psychologist with []Malgorzata Test and formal []Visual Field Cut Offs Follow up at the time of surgery The patient is seen and examined by Dr. Boston and the following reflects his service. Scribed by [x] Senait Farley CNP []Sherrie Squires CNP []Resident []COAL GRADER/PA/Nurse []myself Pre Op Meds to consider: []Tobradex Ophthalmic Solution 1 drop OU DID one day pre-op, DOS and 5 days post op []Bactroban Ointment to Nasal Mucosa QD start 3 days pre-op in at risk (health care and MRSA history) Post Op Meds: []Tobradex []NSAID []ATB x 3 days []Nausea []Fish Oil []Arnica and Bromelein Treatment of Chemosis: []Tobradex []FML ((fluorometholone ophthalmic suspension, [facility]) 0.1%) []QID x 2 d []TID x 2 d []BID x 2 d []HS x 2 d []If severe consider 0.25% or Medro dose pack []Temporary Tarsorrahapy []Tegaderm to close the eye []Naphcon A BID []Excision if persistent past 2 weeks or very severe I agree with the Chief Complaint, ROS, and Past Histories independently gathered by the clinical support services tech and the remaining scribed note accurately describes my personal service to the patient. 30 Minutes total visit spent face to face with patient. Greater than 50% of the time was spent for counseling and coordination of care, discussing treatment options and recommendations. Shaunna Boston MD PhD November 04, 2019 11:45 PM [facility] CNCOon 09-09-2019 CNCO HNO ID: [id number] Author: Mammography Coordinator Service: ? Author Type: Physician Type: Letter Filed: 09/10/2019 11:34 PM Note Text: September 09, 2019 PID: [id number] Andreina Gee [address] [place] [address] Dear Ms. Gee, Your recent breast imaging examination performed on 09/09/2019 showed an area that we believe is probably benign (not cancer). A six month follow-up is recommended to ensure your breast health. Please call [phone] to make an appointment for these tests if you have not already done so. You must have an order/prescription from your physician when calling to schedule your appointment. If your order/prescription is not electronic, you must bring the hard copy with you on the day of your exam to avoid delays. Your mammogram demonstrates that you have dense breast tissue, which could hide abnormalities. Dense breast tissue, in and of itself, is a relatively common condition. Therefore, this information is not provided to cause undue concern; rather, it is to raise your awareness and promote discussion with your health care provider regarding the presence of dense breast tissue in addition to other risk factors. Early detection of cancer is very important. We also understand recommendations regarding breast cancer screening are controversial. Please discuss with your primary care provider which strategy is best for you and whether a mammogram is right for you. Your imaging studies and report will be kept on file at [facility] as part of your permanent medical record and are available for your continuing care. Thank you for allowing us to help in meeting your health care needs. Sincerely, Dr. Catalan Interpreting Radiologist [facility] (# mo Follow-up) Normal [facility] DIAGNOSTIC LTon 09-09-20 19 [facility] DIAGNOSTIC LT * * *Final Report* * * DATE OF EXAM: Sep 09 2019 3:44PM [facility] 0621 - [facility] DIAGNOSTIC LT / PROCEDURE REASON: Abnormal mammogram of left breast * * * * Physician Interpretation * * * * RESULT: #[id number] - [facility] DIAGNOSTIC LT UNILATERAL LEFT DIGITAL DIAGNOSTIC MAMMOGRAM WITH CAD: 09/09/2019 HISTORY: Diagnostic Mammogram Of Left Breast /Short term follow up left breast-Abnormal Mammogram. RESULT: TECHNIQUE: The study was acquired using full field digital technology and interpreted from soft copy. Current study was also evaluated with a Computer Aided Detection (CAD). Comparison is made to exams dated: 03/04/2019 mammogram, 03/04/2019 mammogram - [facility], and 02/11/2019 mammogram - [facility]. The tissue of left breast is heterogeneously dense. This may lower the sensitivity of mammography. The previously identified lesion is seen best with tomogram and ultrasound done today. No significant masses, calcifications, or other findings are seen in the breast. IMPRESSION: BENIGN FINDING The previously identified lesion is seen best with tomogram and ultrasound done today. There is no mammographic evidence of malignancy. A follow-up mammogram in 6 months is recommended to demonstrate stability. Eliecer Catalan M.D. mari/hiren:09/09/2019 16:14:18 copy to: ARYA NAIK, ph: [phone] Fire Investigation Lieutenant(s): Thi Amezcua RT(R)(M), [facility] Mammogram BI-RADS: 2 Benign finding Multiple national specialty organizations have released breast cancer screening guidelines for women at average risk for developing breast cancer - guidelines that are based on both evidence and opinion, yet differ on when to start and how often to screen for breast cancer. With representation from Breast Imaging, Internal Medicine, Women's Health, Family Medicine, and Medical/Surgical Oncology, the [facility] has carefully reviewed the data and reached the following consensus: 1) All women should engage in shared decision-making with their providers to decide when to start and how often to screen; 2) All women should have the opportunity to start screening mammography at age 40; 3) For women ages 45-55, we recommend annual screening mammograms; 4) For women ages 55 and over, we support both the transition from an annual to a biennial interval if this aligns more with patient's values and preferences, or continuation with annual screening; 5) All women should discuss with their providers when to stop screening mammograms. Assistant Sales Center Manager: Hiren Transcribe Date/Time: Sep 09 2019 3:27P Dictated by: ELIECER CATALAN MD This examination was interpreted and the report reviewed and electronically signed by: ELIECER CATALAN MD on Sep 09 2019 4:14PM EST [id number] [facility]ISA ONLY SAME DAY LT -N Bon 09-09-2019 [facility] ONLY SAME DAY LT -NB * * *Final Report* * * DATE OF EXAM: Sep 09 2019 3:47PM [id number] - [facility] ONLY SAME DAY LT -NB / PROCEDURE REASON: Diagnostic Left Mammogram 6 month follow up * * * * Physician Interpretation * * * * RESULT: #[id number] - [facility] ONLY SAME DAY LT -NB UNILATERAL LEFT DIGITAL DIAGNOSTIC MAMMOGRAM TOMOSYNTHESIS WITH CAD: 09/09/2019 HISTORY: Diagnostic Left Mammogram 6 Month Follow Up/ Left Abnormal Mammogram. RESULT: TECHNIQUE: The study was acquired using full field digital technology and interpreted from soft copy. Digital Breast Tomosynthesis (DBT) images were obtained and used to assist in the interpretation of this examination. Current study was also evaluated with a Computer Aided Detection (CAD). Comparison is made to exams dated: 03/04/2019 mammogram, 03/04/2019 mammogram - [facility], and 02/11/2019 mammogram - [facility]. The tissue of left breast is heterogeneously dense. This may lower the sensitivity of mammography. There is a 7 mm oval focal asymmetry in the left breast at 11 o'clock middle depth. This is not significantly changed. No other significant masses or calcifications are seen in the breast. IMPRESSION: PROBABLY BENIGN - SHORT TERM INTERVAL FOLLOW-UP RECOMMENDED The 7 mm oval focal asymmetry in the left breast resembles a lymph node and is probably benign. A follow-up mammogram and an ultrasound in 6 months is recommended to demonstrate stability. Eliecer guerra/hiren:09/09/2019 16:11:45 copy to: ARYA NAIK, ph: [phone] Fire Investigation Lieutenant(s): RT Gabriel(R)(M), [facility] letter sent: # Mo FU Mammogram BI-RADS: 3 Probably benign finding - short term interval follow-up recommended Multiple national specialty organizations have released breast cancer screening guidelines for women at average risk for developing breast cancer - guidelines that are based on both evidence and opinion, yet differ on when to start and how often to screen for breast cancer. With representation from Breast Imaging, Internal Medicine, Women's Health, Family Medicine, and Medical/Surgical Oncology, the [facility] has carefully reviewed the data and reached the following consensus: 1) All women should engage in shared decision-making with their providers to decide when to start and how often to screen; 2) All women should have the opportunity to start screening mammography at age 40; 3) For women ages 45-55, we recommend annual screening mammograms; 4) For women ages 55 and over, we support both the transition from an annual to a biennial interval if this aligns more with patient's values and preferences, or continuation with annual screening; 5) All women should discuss with their providers when to stop screening mammograms. Assistant Sales Center Manager: Hiren Transcribe Date/Time: Sep 09 2019 3:45P Dictated by: ELIECER CATALAN MD This examination was interpreted and the report reviewed and electronically signed by: ELIECER CATALAN MD on Sep 09 2019 4:11PM EST [id number] [facility] BREAST LTD LTon 09-09 [facility] LT * * *Final Report* * * DATE OF EXAM: Sep 09 2019 3:59PM [id number] - [facility] LT / PROCEDURE REASON: Abnormal mammogram of left breast * * * * Physician Interpretation * * * * #[id number] - [facility] BREAST Mapbar LT LIMITED ULTRASOUND OF LEFT BREAST: 09/09/2019 HISTORY: Abnormal Mammogram Of Left Breast. RESULT: No prior exams were available for comparison. Color flow and real-time ultrasound of the left breast 11 o'clock region were performed. Enriquez scale images of the real-time examination were reviewed. There is 0.5 cm x 0.3 cm x 0.7 cm lobulated lesion in the left breast at 11 o'clock posterior depth 5 cm from the nipple. This lobulated lesion is hypoechoic. This abnormality is not significantly changed. IMPRESSION: PROBABLY BENIGN - SHORT TERM INTERVAL FOLLOW-UP RECOMMENDED The 0.5 cm x 0.3 cm x 0.7 cm lobulated lesion in the left breast resembles a lymph node and is probably benign. A follow-up mammogram and an ultrasound in 6 months is recommended to demonstrate stability. Eliecer guerra/hiren:09/09/2019 16:12:59 Fire Investigation Lieutenant(s): Maribell Pascual [facility] Ultrasound BI-RADS: 3 Probably benign finding - short term interval follow-up recommended Multiple national specialty organizations have released breast cancer screening guidelines for women at average risk for developing breast cancer - guidelines that are based on both evidence and opinion, yet differ on when to start and how often to screen for breast cancer. With representation from Breast Imaging, Internal Medicine, Women's Health, Family Medicine, and Medical/Surgical Oncology, the [facility] has carefully reviewed the data and reached the following consensus: 1) All women should engage in shared decision-making with their providers to decide when to start and how often to screen; 2) All women should have the opportunity to start screening mammography at age 40; 3) For women ages 45-55, we recommend annual screening mammograms; 4) For women ages 55 and over, we support both the transition from an annual to a biennial interval if this aligns more with patient's values and preferences, or continuation with annual screening; 5) All women should discuss with their providers when to stop screening mammograms. Assistant Sales Center Manager: Hiren Transcribe Date/Time: Sep 09 2019 3:59P Dictated by : ELIECER CATALAN MD This examination was interpreted and the report reviewed and electronically signed by: ELIECER CATALAN MD on Sep 09 2019 4:12PM EST [id number] [facility] PROGRESSon 09-09-2019 PROGRESS HNO ID: [id number] Author: Garth Rios (Tech) Service: ? Author Type: Cash Applications Clerk Type: Progress Notes Filed: 09/09/2019 3:58 PM Note Text: Radiology Service Progress Note PATIENT NAME: Andreina Gee DATE OF SERVICE: September 09, 2019 TIME: 3:57 PM PATIENT IDENTITY VERIFICATION COMPLETED USING TWO (2) IDENTIFIERS: Name and Date of confirmed by patient verbally. PATIENT GENDER DATA: Female. status: : No status: NO. PATIENT RELEVANT IMPLANT DATA REVIEWED: Not Applicable RADIOLOGY DEPARTMENT: Mammography left diagnostic PERIPHERAL IV DATA: Not applicable SIGNED BY: Garth Rios September 09, 2019 3:57 PM [facility] Basic Metabolicon 10-23-2018 Anion gap molar conc 9 mmol/L Normal 0-15 [facility] Comment on above: Performed By: #### C BCDIF, UA, PT, GBCHEM, GBTSH, HCGQT, MG, HIV12, RPR #### [facility] [address] [place] [address] Calcium mass conc 8.8 mg/dL Normal 8.4-10.2 [facility] Comment on above: Performed By: #### C BCDIF, UA, PT, GBCHEM, GBTSH, HCGQT, MG, HIV12, RPR #### [facility] [address] [place], [place] [id number] Chloride molar conc 103 mmol/L Normal 98-107 [facility] Comment on above: Performed By: #### C BCDIF, UA, PT, GBCHEM, GBTSH, HCGQT, MG, HIV12, RPR #### [facility] [address] [place] [address] CO2 molar conc 33 mmol/L High 22-30 [facility] Comment on above: Performed By: #### C BCDIF, UA, PT, GBCHEM, GBTSH, HCGQT, MG, HIV12, RPR #### [facility] [address] [place] [id number] Creatinine mass conc 0.61 mg/dL Normal 0.52-1.04 [facility] Comment on above: Performed By: #### C BCDIF, UA, PT, GBCHEM, GBTSH, HCGQT, MG, HIV12, RPR #### [facility] [address] [place] [id number] eGFR Amer >60 Normal >60 [facility] Comment on above: Result Comment: MDRD calculation used for eGFR results. Performed By: #### C BCDIF, UA, PT, GBCHEM, GBTSH, HCGQT, MG, HIV12, RPR #### [facility] [address] [place] [id number] eGFR non Am >60 Normal >60 [facility] Comment on above: Performed By: #### C BCDIF, UA, PT, GBCHEM, GBTSH, HCGQT, MG, HIV12, RPR #### [facility] [address] [place] [id number] Glucose mass conc 102 mg/dL Normal 74-106 [facility] Comment on above: Performed By: #### C BCDIF, UA, PT, GBCHEM, GBTSH, HCGQT, MG, HIV12, RPR #### [facility] [address] [place], [place] [id number] Potassium molar conc 3.9 mmol/L Normal 3.5-5.1 [facility] Comment on above: Performed By: #### C BCDIF, UA, PT, GBCHEM, GBTSH, HCGQT, MG, HIV12, RPR #### [facility] [address] [place], [place] [id number] Sodium molar conc 141 mmol/L Normal 137-145 [facility] Comment on above: Performed By: #### C BCDIF, UA, PT, GBCHEM, GBTSH, HCGQT, MG, HIV12, RPR #### [facility] [address] [place], [place] [id number] Urea nitrogen mass conc 8 mg/dL Normal 7-17 [facility] Comment on above: Performed By: #### C BCDIF, UA, PT, GBCHEM, GBTSH, HCGQT, MG, HIV12, RPR #### [facility] [address] [place], [place] [id number] RPRon 10-22-2018 Reagin Ab RPR Ql (S) Nonreactive Normal Nonreactive [facility] Comment on above: Performed By: #### C BCDIF, UA, PT, GBCHEM, GBTSH, HCGQT, MG, HIV12, RPR #### [facility] [address] [place], [place] [id number] Basic Metabolicon 10-21-2018 Anion gap molar conc 8 mmol/L Normal 0-15 [facility] Comment on above: Performed By: #### B MP #### [facility] [address] [place] [address] Calcium mass conc 8.6 mg/dL Normal 8.4-10.2 [facility] Comment on above: Performed By: #### B MP #### [facility] [address] [place] [address] Chloride molar conc 99 mmol/L Normal 98-107 [facility] Comment on above: Performed By: #### B MP #### [facility] [address] [place] [address] CO2 molar conc 35 mmol/L High 22-30 [facility] Comment on above: Performed By: #### B MP #### [facility] [address] [place] [address] Creatinine mass conc 0.63 mg/dL Normal 0.52-1.04 [facility] Comment on above: Performed By: #### B MP #### [facility] [address] [place] [address] eGFR Amer >60 Normal >60 [facility] Comment on above: Result Comment: MDRD calculation used for eGFR results. Performed By: #### B MP #### [facility] [address] [place] [address] eGFR non Am >60 Normal >60 [facility] Comment on above: Performed By: #### B MP #### [facility] [address] [place] [address] Glucose mass conc 100 mg/dL Normal 74-106 [facility] Comment on above: Performed By: #### B MP #### [facility] [address] [place] [address] Potassium molar conc 3.6 mmol/L Normal 3.5-5.1 [facility] Comment on above: Performed By: #### B MP #### [facility] [address] [place] [address] Sodium molar conc 138 mmol/L Normal 137-145 [facility] Comment on above: Performed By: #### B MP #### [facility] [address] [place] [address] Urea nitrogen mass conc 8 mg/dL Normal 7-17 [facility] Comment on above: Performed By: #### B MP #### [facility] [address] [place] [address] CBCDIFon 10-20-2018 Abs Baso 0.04 k/uL Normal 0-0.2 [facility] Comment on above: Performed By: #### C BCDIF, UA, PT, GBCHEM, GBTSH, HCGQT, MG, HIV12, RPR #### [facility] [address] [place] [address] Abs Smith 0.61 k/uL Normal 0-0.8 [facility] Comment on above: Performed By: #### C BCDIF, UA, PT, GBCHEM, GBTSH, HCGQT, MG, HIV12, RPR #### [facility] [address] [place] [address] Abs Neut 7.86 k/uL High 1.8-7.7 [facility] Comment on above: Performed By: #### C BCDIF, UA, PT, GBCHEM, GBTSH, HCGQT, MG, HIV12, RPR #### [facility] [address] [place], [place] [id number] Basophils/100 WBC (Bld) 0.3 % Normal 0-1 [facility] Comment on above: Performed By: #### C BCDIF, UA, PT, GBCHEM, GBTSH, HCGQT, MG, HIV12, RPR #### [facility] [address] [place] [address] Eosinophils #/vol (Bld) 0.93 10*3/uL High 0-0.4 [facility] Comment on above: Performed By: #### C BCDIF, UA, PT, GBCHEM, GBTSH, HCGQT, MG, HIV12, RPR #### [facility] [address] [place], [place] [id number] Eosinophils/100 WBC (Bld) 7.9 % High 0-4 [facility] Comment on above: Performed By: #### C BCDIF, UA, PT, GBCHEM, GBTSH, HCGQT, MG, HIV12, RPR #### [facility] [facility] Clinical Lab [address] [place] [id number] Erythrocyte distribution width Ratio (RBC) 12.9 % Normal 11.5-14.5 [facility] Comment on above: Performed By: #### C BCDIF, UA, PT, GBCHEM, GBTSH, HCGQT, MG, HIV12, RPR #### [facility] Clinical Lab [address] [place], [place] [id number] Hematocrit Volume Fraction (Bld) 44.6 % Normal 36.0-46.0 [facility] Comment on above: Performed By: #### C BCDIF, UA, PT, GBCHEM, GBTSH, HCGQT, MG, HIV12, RPR #### [facility] Clinical Lab [address] [place] [id number] Hemoglobin mass conc (Bld) 15.1 g/dL Normal 12.0-16.0 [facility] Comment on above: Performed By: #### C BCDIF, UA, PT, GBCHEM, GBTSH, HCGQT, MG, HIV12, RPR #### [facility] Clinical Lab [address] [place], [place] [id number] Immature Gran 0.30 % Normal 0-1.9 [facility] Comment on above: Performed By: #### C BCDIF, UA, PT, GBCHEM, GBTSH, HCGQT, MG, HIV12, RPR #### [facility] Clinical Lab [address] [place], [place] [id number] Lymphocytes #/vol (Bld) 2.31 10*3/uL Normal 1.0-4.0 [facility] Comment on above: Performed By: #### C BCDIF, UA, PT, GBCHEM, GBTSH, HCGQT, MG, HIV12, RPR #### [facility] [address] [place] [address] Lymphocytes/100 WBC (Bld) 19.6 % Low 22-44 [facility] Comment on above: Performed By: #### C BCDIF, UA, PT, GBCHEM, GBTSH, HCGQT, MG, HIV12, RPR #### [facility] Lab [address] [place] [address] MCH Entitic mass (RBC) 33.9 pG Normal 26-34 [facility] Comment on above: Performed By: #### C BCDIF, UA, PT, GBCHEM, GBTSH, HCGQT, MG, HIV12, RPR #### [facility] Lab [address] [place] [address] MCHC mass conc (RBC) 33.9 g/dL Normal 31-37 [facility] Comment on above: Performed By: #### C BCDIF, UA, PT, GBCHEM, GBTSH, HCGQT, MG, HIV12, RPR #### [facility] Lab [address] [place] [address] MCV Entitic volume (RBC) 100.0 fL Normal 80-100 [facility] Comment on above: Performed By: #### C BCDIF, UA, PT, GBCHEM, GBTSH, HCGQT, MG, HIV12, RPR #### [facility] Lab [address] [place] [address] Monocytes/100 WBC (Bld) 5.2 % Normal 4-12 [facility] Comment on above: Performed By: #### C BCDIF, UA, PT, GBCHEM, GBTSH, HCGQT, MG, HIV12, RPR #### [facility] Lab [address] [place] [address] Neutrophils/100 WBC (Bld) 66.7 % Normal 40-70 [facility] Comment on above: Performed By: #### C BCDIF, UA, PT, GBCHEM, GBTSH, HCGQT, MG, HIV12, RPR #### [facility] Clinical Lab [address] [place], [place] 9[address]8224 NRBCs 0 /100 WBC Normal 0-0.9 [facility] Comment on above: Performed By: #### C BCDIF, UA, PT, GBCHEM, GBTSH, HCGQT, MG, HIV12, RPR #### [facility] Clinical Lab [address] [place], [place] [id number] Platelets #/vol (Bld) 222 10*3/uL Normal 150-450 [facility] Comment on above: Performed By: #### C BCDIF, UA, PT, GBCHEM, GBTSH, HCGQT, MG, HIV12, RPR #### [facility] Clinical Lab [address] [place], [place] [id number] RBC #/vol (Bld) 4.46 10*6/uL Normal 4.00-5.20 [facility] Comment on above: Performed By: #### C BCDIF, UA, PT, GBCHEM, GBTSH, HCGQT, MG, HIV12, RPR #### [facility] Clinical Lab [address] [place], [place] [id number] WBC #/vol (Bld) 11.79 10*3/uL High 4.5-11.0 [facility] Comment on above: Performed By: #### C BCDIF, UA, PT, GBCHEM, GBTSH, HCGQT, MG, HIV12, RPR #### [facility] Clinical Lab [address] [place], [place] [id number] [facility] Profstan 2018 Albumin mass conc 3.8 g/dL Normal 3.5-5.0 [facility] Comment on above: Performed By: #### C BCDIF, UA, PT, GBCHEM, GBTSH, HCGQT, MG, HIV12, RPR #### [facility] Lab [address] [place] [address] Alkaline Phos 75 U/L Normal 38-125 [facility] Comment on above: Performed By: #### C BCDIF, UA, PT, GBCHEM, GBTSH, HCGQT, MG, HIV12, RPR #### [facility] Lab [address] [place] [address] ALT enzyme act/vol 62 U/L High 9-52 [facility] Comment on above: Performed By: #### C BCDIF, UA, PT, GBCHEM, GBTSH, HCGQT, MG, HIV12, RPR #### [facility] Clinical Lab [address] [place] [address] Amylase enzyme act/vol 39 U/L Normal 30-110 [facility] Comment on above: Performed By: #### C BCDIF, UA, PT, GBCHEM, GBTSH, HCGQT, MG, HIV12, RPR #### [facility] Clinical Lab [address] [place], [place] [id number] Anion gap molar conc 11 mmol/L Normal 0-15 [facility] Comment on above: Performed By: #### C BCDIF, UA, PT, GBCHEM, GBTSH, HCGQT, MG, HIV12, RPR #### [facility] Lab [address] [place] [address] AST enzyme act/vol 78 U/L High 17-59 [facility] Comment on above: Performed By: #### C BCDIF, UA, PT, GBCHEM, GBTSH, HCGQT, MG, HIV12, RPR #### [facility] Lab [address] [place], [place] [id number] Bilirubin Ql (U) 0.5 mg/dL Normal 0.2-1.3 [facility] Comment on above: Performed By: #### C BCDIF, UA, PT, GBCHEM, GBTSH, HCGQT, MG, HIV12, RPR #### [facility] Lab [address] [place] [address] Calcium mass conc 8.9 mg/dL Normal 8.4-10.2 [facility] Comment on above: Performed By: #### C BCDIF, UA, PT, GBCHEM, GBTSH, HCGQT, MG, HIV12, RPR #### [facility] Clinical Lab [address] [place] [address] Chloride molar conc 98 mmol/L Normal 98-107 [facility] Comment on above: Performed By: #### C BCDIF, UA, PT, GBCHEM, GBTSH, HCGQT, MG, HIV12, RPR #### [facility] Lab [address] [place] [address] Cholesterol mass conc 201 mg/dL High 100-199 [facility] Comment on above: Performed By: #### C BCDIF, UA, PT, GBCHEM, GBTSH, HCGQT, MG, HIV12, RPR #### [facility] Lab [address] [place] [address] CO2 molar conc 33 mmol/L High 22-30 [facility] Comment on above: Performed By: #### C BCDIF, UA, PT, GBCHEM, GBTSH, HCGQT, MG, HIV12, RPR #### [facility] Lab [address] [place] [address] Creatinine mass conc 0.61 mg/dL Normal 0.52-1.04 [facility] Comment on above: Performed By: #### C BCDIF, UA, PT, GBCHEM, GBTSH, HCGQT, MG, HIV12, RPR #### [facility] [address] [place] [address] eGFR Amer >60 Normal >60 [facility] Comment on above: Result Comment: MDRD calculation used for eGFR results. Performed By: #### C BCDIF, UA, PT, GBCHEM, GBTSH, HCGQT, MG, HIV12, RPR #### [facility] [address] [place] [address] eGFR non Am >60 Normal >60 [facility] Comment on above: Performed By: #### C BCDIF, UA, PT, GBCHEM, GBTSH, HCGQT, MG, HIV12, RPR #### [facility] [address] [place] [address] Gamma glutamyl transferase enzyme act/vol 128 U/L High 12-43 [facility] Comment on above: Performed By: #### C BCDIF, UA, PT, GBCHEM, GBTSH, HCGQT, MG, HIV12, RPR #### [facility] [address] [place] [address] Glucose mass conc 97 mg/dL Normal 74-106 [facility] Comment on above: Performed By: #### C BCDIF, UA, PT, GBCHEM, GBTSH, HCGQT, MG, HIV12, RPR #### [facility] [address] [place] [address] LDH 481 U/L Normal 318-618 [facility] Comment on above: Performed By: #### C BCDIF, UA, PT, GBCHEM, GBTSH, HCGQT, MG, HIV12, RPR #### [facility] [address] [place] [address] Phosphate mass conc 3.1 mg/dL Normal 2.5-4.5 [facility] Comment on above: Performed By: #### C BCDIF, UA, PT, GBCHEM, GBTSH, HCGQT, MG, HIV12, RPR #### [facility] [address] [place] [address] Protein mass conc 6.8 g/dL Normal 6.2-8.2 [facility] Comment on above: Performed By: #### C BCDIF, UA, PT, GBCHEM, GBTSH, HCGQT, MG, HIV12, RPR #### [facility] [address] [place] [address] Sodium molar conc 139 mmol/L Normal 137-145 [facility] Comment on above: Performed By: #### C BCDIF, UA, PT, GBCHEM, GBTSH, HCGQT, MG, HIV12, RPR #### [facility] [address] [place] [address] Triglyceride mass conc 267 mg/dL High 35-150 [facility] Comment on above: Performed By: #### C BCDIF, UA, PT, GBCHEM, GBTSH, HCGQT, MG, HIV12, RPR #### [facility] [address] [place], [place] 1289224 Urate mass conc 4.9 mg/dL Normal 2.5-6.2 [facility] Comment on above: Performed By: #### C BCDIF, UA, PT, GBCHEM, GBTSH, HCGQT, MG, HIV12, RPR #### [facility] [address] [place], [place] 0925[address] Urea nitrogen mass conc 8 mg/dL Normal 7-17 [facility] Comment on above: Performed By: #### C BCDIF, UA, PT, GBCHEM, GBTSH, HCGQT, MG, HIV12, RPR #### [facility] [address] [place], [place] 3259324 Potassium molar conc 3.2 mmol/L Low 3.5-5.1 [facility] Comment on above: Performed By: #### C BCDIF, UA, PT, GBCHEM, GBTSH, HCGQT, MG, HIV12, RPR #### [facility] [address] [place], [place] [id number] Glefernandokarolina TSHon 10-20-2018 Thyrotropin Qn 2.740 uU/mL Normal 0.465-4.680 [facility] Comment on above: Performed By: #### C BCDIF, UA, PT, GBCHEM, GBTSH, HCGQT, MG, HIV12, RPR #### [facility] [address] [place] [address] HCG, Serum Quanton 9 HCG, Serum Quant <2.4 Normal [facility] Comment on above: Result Comment: Wojciech titative HCG Interpretation Gestational Age HCG Range 4 Weeks 4700-716035 5 Weeks 3660-014367 6 Weeks 56317-697181 7 Weeks 20308-134896 8 Weeks 53663-411074 9 Weeks 47125-707440 10 Weeks 03210-469432 11 Weeks 6180-428774 12 Weeks 6740-768137 2nd Trimester [id number] 3rd Trimester 2320-16736 Non females or males: <6.0 Biotin (Vitamin B7) is known to potentially cause an interfering NEGATIVE bias with this assay. If this result does not correlate clinically with your patient's presentation, it is suggested that Biotin use be discontinued for 2 days prior to re-testing. Performed By: #### C BCDIF, UA, PT, GBCHEM, GBTSH, HCGQT, MG, HIV12, RPR #### [facility] Lab [address] [place] [address] HIV 1,2 Antibody EIAon 10-20 HIV 1,2 Antibody EIA Nonreactive Normal Nonreactive [facility] Comment on above: Performed By: #### C BCDIF, UA, PT, GBCHEM, GBTSH, HCGQT, MG, HIV12, RPR #### [facility] Lab [address] [place] [address] Magnesiumon 10-20-2018 Magnesium mass conc 2.1 mg/dL Normal 1.3-2.3 [facility] Comment on above: Performed By: #### C BCDIF, UA, PT, GBCHEM, GBTSH, HCGQT, MG, HIV12, RPR #### [facility] [address] [place] [address] Protimeon 10-20-2018 Prothrombin time (PT) Coag time (PPP) 12.3 s Normal 11.8-14.1 [facility] Comment on above: Performed By: #### C BCDIF, UA, PT, GBCHEM, GBTSH, HCGQT, MG, HIV12, RPR #### [facility] Lab [address] [place], [place] [id number] Prothrombin time (PT) Coag time (PPP) 0.9 s Normal 0.6-1.1 [facility] Comment on above: Result Comment: The PT/INR can be used to monitor the therapeutic effect of oral anticoagulants, such as warfarin. The recommended therapeutic range is an INR of 2.0 to 3.0 for most applications, including treatment and prevention of venous thrombosis, treatment of pulmonary embolism, prevention of strokes/TIA in patients with atrial fibrillation, prevention and treatment of thrombosis in patients with a lupus anticoagulant and prevention of systemic embolization in patients with heart valve disorders. There are certain conditions where clinicians may decide to use a lower or higher therapeutic range eg. 1.5 to 1.9 for secondary prevention of idiopathic venous thromboembolism and an INR 2.5 to 3.5 for older generation mechanical heart valves. Ansell, et al. Chest 2004: 126:204S to 233S. Performed By: #### C BCDIF, UA, PT, GBCHEM, GBTSH, HCGQT, MG, HIV12, RPR #### [facility] Lab [address] [place] [address] Urinalysison 10-20-2018 Bilirubin mass conc Negative Normal Negative [facility] Comment on above: Performed By: #### C BCDIF, UA, PT, GBCHEM, GBTSH, HCGQT, MG, HIV12, RPR #### [facility] [address] [place] [address] Clarity Nom (U) Clear Normal Clear [facility] Comment on above: Performed By: #### C BCDIF, UA, PT, GBCHEM, GBTSH, HCGQT, MG, HIV12, RPR #### [facility] [address] [place] [address] Color Nom (U) Yellow Normal Yellow [facility] Comment on above: Performed By: #### C BCDIF, UA, PT, GBCHEM, GBTSH, HCGQT, MG, HIV12, RPR #### [facility] Lab [address] [place] [address] Comments MICROSCOPIC ANALYSIS NOT DONE ON URINES WITH NEGATIVE BIOCHEMICAL TESTS Normal [facility] Comment on above: Performed By: #### C BCDIF, UA, PT, GBCHEM, GBTSH, HCGQT, MG, HIV12, RPR #### [facility] Lab [address] [place] [address] Glucose mass conc Negative Normal Negative [facility] Comment on above: Performed By: #### C BCDIF, UA, PT, GBCHEM, GBTSH, HCGQT, MG, HIV12, RPR #### [facility] Lab [address] [place] [address] Hemoglobin/Blood Negative Normal Negative [facility] Comment on above: Performed By: #### C BCDIF, UA, PT, GBCHEM, GBTSH, HCGQT, MG, HIV12, RPR #### [facility] Lab [address] [place] [address] Ketone Negative Normal Negative [facility] Comment on above: Performed By: #### C BCDIF, UA, PT, GBCHEM, GBTSH, HCGQT, MG, HIV12, RPR #### [facility] [address] [place] [address] Leukest Negative Normal Negative [facility] Comment on above: Performed By: #### C BCDIF, UA, PT, GBCHEM, GBTSH, HCGQT, MG, HIV12, RPR #### [facility] [address] [place] [address] Nitrite Ql (U) Negative Normal Negative [facility] Comment on above: Performed By: #### C BCDIF, UA, PT, GBCHEM, GBTSH, HCGQT, MG, HIV12, RPR #### [facility] Lab [address] [place] [address] pH (U) 6.0 [pH] Normal 5-7 [facility] Comment on above: Performed By: #### C BCDIF, UA, PT, GBCHEM, GBTSH, HCGQT, MG, HIV12, RPR #### [facility] Lab [address] [place] [address] Protein mass conc (U) Negative Normal Negative [facility] Comment on above: Performed By: #### C BCDIF, UA, PT, GBCHEM, GBTSH, HCGQT, MG, HIV12, RPR #### [facility] [address] [place] [address] Urine Spec [place] 1.013 Normal 1.005-1.030 [facility] Comment on above: Performed By: #### C BCDIF, UA, PT, GBCHEM, GBTSH, HCGQT, MG, HIV12, RPR #### [facility] Clinical Lab [address] [place] [address] Urobilinogen Qn (U) <2.0 Normal 0.0-1.0 [facility] Comment on above: Performed By: #### C BCDIF, UA, PT, GBCHEM, GBTSH, HCGQT, MG, HIV12, RPR #### [facility] [address] [place] [address] CNOVon 08-21-2018 CNOV Office Visit (INTMWS) ANDREINA NULL ([id number]) 1975 [facility] Time Provider [email or web address]/28/18 11:20 AM ARYA NAIK (KAI) INTMWS During your visit today, we recorded the following information about you: Temperature Pulse Respiration Blood pressure 97.5 degrees 99/minute 16/minute 132/84 Weight 77.1 kgArya Naik APRN.CNP 08/21/2018 12:10 PM SignedHPI/CC: Andreina Gee is an 43 year old female who presents for followup ofdepression and anxiety treatment. Increased Zoloft from 25mg to 50mg ~4 weeksago. Patient reports she hasn't noticed much of a difference. 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 Denies SI/HISymptoms have occurred daily.Panic hx: NoSleep Problems: Yes averages 5 hours of sleep per night. Routine putting kidsto bed then TV and bed.Appetite: No changesSupport system: , kids, parents.3 kids at home, 2 of which are in counseling. Patient reports that she is ableto have counseling time of her own during these sessions and finds themhelpful.Positive health behaviors: Nothing specific- mostly focuses on the kids andwork. Does like to take walks with her depending on weather.Ongoing sinus complaints, Reports recurrent sinus infections over the last 2months. Prescribed 2 different antibiotics, on flonase, cough syrup andsteroids without much realief. Told the last time she saw UC she neededreferral to ENT if symptoms persist. Associated symptoms include fatigue,maxillary sinus pain and pressure, stuffy nose, mild PND, non-productive coughand intermittent headaches. Previously received allergy shots as a child, triedZyrtec/Claritin without improvement. Allergic to most plants, trees and grass.Continues use of Flonase, [place] pot and humidifier.ROS as above, otherwise non-contributory.Reviewed PMHx, PSHx, social Hx, medications and allergies.PHYSICAL EXAMINATION:BP 132/84 Pulse 99 Temp 36.4 ?C (97.5 ?F) (Temporal Artery) Resp 16 Wt 77.1 kg (170 lb) SpO2 97% BMI 29.18 kg/m?Appearance: well dressed well groomed, cooperative and pleasantBehavior: good eye contactSpeech: fluent and coherentMood: appropriateAffect: appropriatePerceptions: noneThought process: goal directedThought Content: normalIntelligence level: normalInsight: goodJudgment: goodHead: NormocephalicEyes: normal, conjunctiva/corneas normalEars: R TM - clear with good landmarks, L TM - clear with good landmarksNose: clear rhinorrhea, mucosa erythematous and swollen, sinus tenderness overmaxillary sinuses bilateralOropharynx: moist without lesions, teeth in good repairNeck: suppleLungs: Lungs clear to auscultation. No wheezing, rhonchi, ralesHeart: RRR without murmur, gallop, or rubs. No ectopyASSESSMENT/PLAN:1. Anxiety and depression - ICD9: 300.00, 311, ICD10: F41.9, F32.9 (primarydiagnosis)- Unchanged, increase Zoloft dosing as instructed to 100mg daily- Follow up in 6 weeks, sooner for new or worsening symptoms2. Chronic sinusitis of both maxillary sinuses - ICD9: 473.0, ICD10: J32.0- The patient should also be given OTC decongestants prn, OTC cough and coldmeds as needed, behind the counter Pseudoephedrine, Cough syrup with codeine-Rx given, warm salt water gargles, throat lozenges and/or OTC throat spray asneeded and nasal saline gtts and suction prn- Supportive care with plenty of fluids, rest, and analgesia prn.- CONSULT TO ENTPrescription instructions reviewed with patient as applicable. Potential redflag symptoms discussed with the patient. Reviewed appropriate action plan totake if red flag symptoms occur. Patient agreeable to treatment plan.Srini Scott APRN.CNP 08/21/2018 11:50 AM SignedIncrease Zoloft to a goal of 100mg. Start by taking 1.5 tabs (50mg) daily for1-2 weeks then increase to full 2 tabs for a total of 100mg. Follow up in 6weeks.Referring Provider: JENA PETERSON [[id number]]Allergies As of Date: 08/21/2018 Noted Allergy ReactionPENICILLINS 03/02/2006Date Reviewed: 08/21/2018Reviewed by: Bibi Willett Ma - Fully AssessedReason for Visit: Recheck [92] Cmt: Medication follow upPrimary Visit Diagnosis:Anxiety and depression [F41.9, F32.9] Other Visit Diagnosis:Chronic sinusitis of both maxillary sinuses [J32.0]Order(s):sertraline (ZOLOFT) 50 mg tabletTake 2 tablets by mouth once daily.Disp: 90 tabletRfl: 1 CONSULT TO ENT [0242] Order #: [id number]: 1Prescriptions as of 08/21/2018 Sig: SERTRALINE 50 MG TABLET Take 2 tablets by mouth once * ERGOCALCIFEROL (VITAMIN D2) 5* Take 1 capsule by mouth twice* AMILORIDE 5 MG-HYDROCHLOROTHI* Take 0.5 tablets by mouth onc* AMLODIPINE 2.5 MG TABLET take 1 tablet by mouth once d* ZOLPIDEM 10 MG TABLET Take 0.5 tablets by mouth at *Problem List As Of Date 08/21/2018 Noted Resolved 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 Start by taking 1.5 tabs (50mg) daily for 1-2 weeks then increase to full 2 tabs for a total of 100mg. Follow up in 6 weeks.Prescriptions ordered this encounter Disp Refills Start End SERTRALINE 50 MG TABLET 90 t* 1 08/21/2018 Route: ORAL Sig: Take 2 tablets by mouth once daily.Medications Discontinued During This Encounter sertraline (ZOLOFT) 50 mg tablet 30 t* 3 07/24/2018 08/21/2018 Route: ORAL Sig: Take 1 tablet by mouth once daily. Disc: Reason for discontinue is not on file.Disposition: Return in about 6 weeks (around 10/02/2018).Follow-up and Disposition History RecordedEncounter Number: [id number] Status:Closed by ARYA NAIK CNP on 08/21/18 Normal [facility] 08-21-2018 Protein mass conc HNO ID: [id number] thor: Aray [place]) nAika: (none)Author Type: Nurse PractitionerType: Progress NotesFiled: 08/21/2018 12:10 PMNote Text:HPI/CC: Andreina Gee is an 43 year old female who presents for followupof depression and anxiety treatment. Increased Zoloft from 25mg to 50mg ~4weeks ago. 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 Denies SI/HISymptoms have occurred daily.Panic hx: NoSleep Problems: Yes averages 5 hours of sleep per night. Routine puttingkids to bed then TV and bed.Appetite: No changesSupport system: , kids, parents.3 kids at home, 2 of which are in counseling. Patient reports that she isable to have counseling time of her own during these sessions and findsthem helpful.Positive health behaviors: Nothing specific- mostly focuses on the [employer] work. Does like to take walks with her depending on weather.Ongoing sinus complaints, Reports recurrent sinus infections over the last2 months. Prescribed 2 different antibiotics, on flonase, cough syrup andsteroids without much realief. Told the last time she saw UC she neededreferral to ENT if symptoms persist. Associated symptoms include fatigue,maxillary sinus pain and pressure, stuffy nose, mild PND, non-productivecough and intermittent headaches. Previously received allergy shots as achild, tried Zyrtec/Claritin without improvement. Allergic to most plants,trees and grass. Continues use of Flonase, [place] pot and humidifier.ROS as above, otherwise non-contributory.Reviewed PMHx, PSHx, social Hx, medications and allergies.PHYSICAL EXAMINATION:BP 132/84 Pulse 99 Temp 36.4 ?C (97.5 ?F) (Temporal Artery) Resp16 Wt 77.1 kg (170 lb) SpO2 97% BMI 29.18 kg/m?Appearance: well dressed well groomed, cooperative and pleasantBehavior: good eye contactSpeech: fluent and coherentMood: appropriateAffect: appropriatePerceptions: noneThought process: goal directedThought Content: normalIntelligence level: normalInsight: goodJudgment: goodHead: NormocephalicEyes: normal, conjunctiva/corneas normalEars: R TM - clear with good landmarks, L TM - clear with good landmarksNose: clear rhinorrhea, mucosa erythematous and swollen, sinus tendernessover maxillary sinuses bilateralOropharynx: moist without lesions, teeth in good repairNeck: suppleLungs: Lungs clear to auscultation. No wheezing, rhonchi, ralesHeart: RRR without murmur, gallop, or rubs. No ectopyASSESSMENT/PLAN:1. Anxiety and depression - ICD9: 300.00, 311, ICD10: F41.9, F32.9(primary diagnosis)- Unchanged, increase Zoloft dosing as instructed to 100mg daily- Follow up in 6 weeks, sooner for new or worsening symptoms2. Chronic sinusitis of both maxillary sinuses - ICD9: 473.0, ICD10: J32.0- The patient should also be given OTC decongestants prn, OTC cough andcold meds as needed, behind the counter Pseudoephedrine, Cough syrup withcodeine- Rx given, warm salt water gargles, throat lozenges and/or OTCthroat spray as needed and nasal saline gtts and suction prn- Supportive care with plenty of fluids, rest, and analgesia prn.- CONSULT TO ENTPrescription instructions reviewed with patient as applicable. Potentialred flag symptoms discussed with the patient. Reviewed appropriate actionplan to take if red flag symptoms occur. Patient agreeable to treatmentplan.Arya Naik APRN.CANOPY INSPECTOR [facility] CNOVon 08-04-2018 CNOV Office Visit ([facility]) ANDREINA NULL ([id number]) 1975 FDate Time Provider Inbddwrjgz48/11/18 12:15 PM KATHY VALERO (COAL GRADER) [facility] During your visit today, we recorded the following information about you: Temperature Pulse Respiration Blood pressure 98.8 degrees 94/minute 16/minute 118/88 Weight 76.7 kgKathy Valero APRN.CNP 08/04/2018 12:41 PM SignedEach of us has four paired cavities (spaces) in our head that are connected tothe nose by narrow channels. These cavities, known as sinuses, produce a thinmucus that drains out of the channels of the nose.Normally, sinuses are filled with air. But when sinuses become blocked andfilled with fluid, bacteria can grow and cause an infection (sinusitis).Conditions that cause sinus blockage include the common cold, allergic rhinitis(swelling of the lining of the nose due to allergies), nasal polyps (smallgrowths in the lining of the nose), or deviated septum (a shift in the nasalcavity). Allergies such as hay fever can also cause swelling and poor drainageof the sinuses.If you have symptoms that involve the sinuses, it may be difficult to tell ifyou have sinusitis, a cold, or a nasal allergy. This article will describe thesymptoms, diagnosis, and treatment of sinusitis, and how to distinguishsinusitis from a cold or nasal allergy.What is sinusitis?Sinusitis is an inflammation, or swelling, of the tissue lining the sinuses.There are two types of sinusitis:Acute sinusitis: a sudden onset of cold symptoms such as runny nose, stuffynose, and facial pain that does not go away after 7-10 days. It responds wellto antibiotics and decongestants.Chronic sinusitis: characterized by nasal congestion, drainage, facialpain/pressure, and decreased sense of smell for at least 12 weeks.Who gets sinusitis?About 37 million Americans suffer from at least one episode of sinusitis eachyear. People who have the following conditions have a higher risk of sinusitis:Nasal mucus membrane swelling, as from a common coldBlockage of drainage ductsStructure differences that narrow the drainage ductsConditions that result in an increased risk of infectionIn children, common environmental factors that contribute to sinusitis includeallergies, illness from other children at day care or school, pacifiers, bottledrinking while lying on the back, and smoke in the environment.In adults, the contributing factors are most frequently infections, allergies,and smoking.What are the signs and symptoms of acute sinusitis?The primary symptoms of acute sinusitis include:Facial pain/pressureNasal stuffinessNasal dischargeLoss of smellCough/congestionAdditiona l symptoms may include:FeverBad breathFatigueDental painAcute sinusitis can last four weeks or more. This condition may be diagnosedwhen a person has two or more symptoms and/or the presence of thick, green, oryellow nasal discharge.What are the signs and symptoms of chronic sinusitis?People with chronic sinusitis may have the following symptoms for 12 weeks ormore:Facial congestion/fullnessA nasal obstruction/blockagePus in the nasal cavityFeverNasal discharge/discolored postnasal drainageAdditional symptoms may include:HeadachesBad breathFatigueDental painThick nasal dischargeHow is sinusitis treated?Acute sinusitis. If you have a simple sinusitis infection, your health careprovider may recommend treatment with decongestants like Sudafed and steaminhalations alone, as most sinusitis is viral. Antibiotics are generally neededfor more seriously ill patients.If antibiotics are administered, they are given for 10 to 14 days. Withtreatment, the symptoms usually disappear and antibiotics are no longerrequired. Oral and topical decongestants may be prescribed to alleviate thesymptoms. Use of prescription intranasal steroid sprays might be effective incontrolling symptoms. However, non-prescription drops or sprays should not beused beyond their recommended period--usually four to five days--or they mayactually increase congestion.Chronic sinusitis. Warm moist air may alleviate sinus congestion. Using avaporizer or inhaling steam from a martinez of boiling water (removed from heat) mayalso help. Warm compresses are useful to relieve pain in the nose and sinuses.Saline nose drops are also safe for home use. Nonprescription drops or spraysmight be effective in controlling symptoms; however, they should not be usedbeyond their recommended period of time. Nasal steroid sprays that shrinkswollen membranes of the nose are beneficial. Antibiotics may also beprescribed.Avoidance of triggers is important. Allergies should be controlled andirritants, such as smoke, should be avoided.Kathy Valero APRN.CANOPY INSPECTOR 08/04/2018 1:17 PM SignedSubjectiveHPIPatient presents with:Sinus pain, cough, headaches, fatigue x 5 weeks.Seen 07/18 in UC, tx for Sinusitis, tx with Doxycycline but no improvement.Review of SystemsConstitutional: Positive for malaise/fatigue. Negative for chills and fever.HENT: Positive for congestion and sinus pain. Negative for ear pain and sorethroat.Eyes: Positive for redness. Negative for discharge.Respiratory: Positive for cough. Negative for hemoptysis, sputum production,shortness of breath and wheezing.Gastrointestinal: Negative for abdominal pain, diarrhea, nausea and vomiting.Skin: Negative for rash.Neurological: Positive for headaches.PAST MEDICAL HISTORYDiagnosis Date- Essential hypertensionPAST SURGICAL HISTORYProcedure Laterality Date- SECTION HX x2- EXTRACTION ERUPTED TOOTH/EXR- REMOVAL OF TONSILS,<12 Y/O TonsillectomyALLERGIES PenicillinsMEDICATIONSergocalc iferol, vitamin D2, (DRISDOL) 50,000 unit capsule Take 1 capsule bymouth twice a week. TO BE TAKEN ORALLY DIRECTED. Take 1 tablet by mouthtwice weekly [id number], then decrease to 1 tablet weekly.aMILoride-hydrochloroth iazide (MODURETIC 5-50) 5-50 mg tab Take 0.5 tablets bymouth once daily.sertraline (ZOLOFT) 50 mg tablet Take 1 tablet by mouth once daily.amLODIPine (NORVASC) 2.5 mg tablet take 1 tablet by mouth once dailyzolpidem (AMBIEN) 10 mg tab Take 0.5 tablets by mouth at bedtime as needed.cefdinir (OMNICEF) 300 mg capsule Take 1 capsule by mouth twice daily for 10days.predniSONE (DELTASONE) 20 mg tablet Take 2 tablets by mouth once daily for 5days. Take daily with food.Brompheniramine-Pseudoeph -DM (BROMFED DM) 2-30-10 mg/5 mL syrup Take 10 mL bymouth four times daily as needed for up to 7 days.FAMILY HISTORYProblem Relation Age of Onset- Hypertension Mother- Stroke Mother- Heart Mother- Hypertension Father- Heart Father- COPD FatherSocial HistorySubstance Use Topics- Smoking status: Former Smoker Packs/day: 1.00 Years: 20.00 Quit date: 09/24/2011- Smokeless tobacco: Never Used Comment: uses E-cigarettes- Alcohol use 3.0 - 6.0 oz/week 2 - 4 Glasses of Wine (5oz) per weekObjectivePhysical ExamConstitutional: She is well-developed, well-nourished, and in no distress.HENT:Head: Normocephalic.Right Ear: Tympanic membrane, external ear and ear canal normal.Left Ear: Tympanic membrane, external ear and ear canal normal.Nose: Mucosal edema present. Right sinus exhibits maxillary sinus tenderness.Right sinus exhibits no frontal sinus tenderness. Left sinus exhibits maxillarysinus tenderness. Left sinus exhibits no frontal sinus tenderness.Mouth/Throat: Posterior oropharyngeal erythema (PND) present.Eyes: Right conjunctiva is injected. Left conjunctiva is injected.Neck: Normal range of motion. Neck supple.Cardiovascular: Normal rate, regular rhythm and normal heart sounds.Pulmonary/Chest: Effort normal and breath sounds normal. No respiratorydistress. She has no wheezes.Abdominal: Soft. She exhibits no distension. There is no tenderness.Lymphadenopathy: She has no cervical adenopathy.Skin: Skin is warm and dry. No rash noted.Nursing note and vitals reviewed.ASSESSMENT/PLAN:1. Acute sinusitis, recurrence not specified, unspecified location - ICD9:461.9, ICD10: J01.90 (primary diagnosis)- Will begin treatment with as per antibiotic as written, see orders- The patient should also be given OTC decongestants prn, OTC cough and coldmeds as needed, warm salt water gargles, throat lozenges and/or OTC throatspray as needed and nasal saline gtts and suction prn for the first 5-7 days oftreatment.- Supportive care with plenty of fluids, rest, and analgesia prn.- Follow up in 3-5 days if symptoms persist or worsen.2. Cough - ICD9: 786.2, ICD10: V79-Ldurbdcvch-Djknfab-Q/u with pcp in 3-5 days or sooner if symptoms are not improving or worseningPrescription instructions reviewed with patient as applicable. Patient advisedif symptoms do not improve or if symptoms worsen sooner, to contact theirprimary care physician. Potential red flag symptoms discussed with thepatient. Reviewed appropriate action plan to take if red flag symptoms occur.Patient agreeable to treatment plan.Kathy Valero APRN.CNPReferring Provider: SELF [[id number]]Allergies As of Date: 08/04/2018 Noted Allergy ReactionPENICILLINS 03/02/2006Date Reviewed: 08/04/2018Reviewed by: Kathy Latham (Agustin) Anjum - Fully AssessedReason for Visit: Recheck [92] Cmt: from visit 07/19/18Reason For Visit History RecordedPrimary Visit Diagnosis:Acute sinusitis, recurrence not specified, unspecified location [J01.90] Other Visit Diagnosis:Cough [R05]Order(s):cefdinir (OMNICEF) 300 mg capsuleTake 1 capsule by mouth twice daily for 10 days.Disp: 20 capsuleRfl: 0 predniSONE (DELTASONE) 20 mg tabletTake 2 tablets by mouth once daily for 5 days. Take daily with food.Disp: 10 tabletRfl: 0 Nkkqdtxgqvgfxwp-Rpyrndtvz-FI (BROMFED DM) 2-30-10 mg/5 mL syrupTake 10 mL by mouth four times daily as needed for up to 7 days.Disp: 240 mLRfl: 0Prescriptions as of 08/04/2018 Sig: ERGOCALCIFEROL (VITAMIN D2) [...] BROMPHENIRAMINE-PSEUDOEPHEDRI* Take 10 mL by mouth four time*Problem List As Of Date 08/04/2018 Noted Resolved [...] and irritants, such as smoke, should be avoided.Prescriptions ordered this encounter Disp Refills Start End CEFDINIR 300 MG CAPSULE 20 c* 0 08/04/2018 08/14/2018 Route: ORAL Sig: Take 1 capsule by mouth twice daily for 10 days. PREDNISONE 20 MG TABLET 10 t* 0 08/04/2018 08/09/2018 Route: ORAL Sig: Take 2 tablets by mouth once daily for 5 days. Take daily with food. BROMPHENIRAMINE-PSEUDOEPHEDRIN E-DM 2* 240 * 0 08/04/2018 08/11/2018 Route: ORAL Sig: Take 10 mL by mouth four times daily as needed for up to 7 days.Disposition: Return if symptoms worsen or fail to improve.Follow-up and Disposition History RecordedEncounter Number: [id number] Status:Closed by KATHY VALERO on 08/04/18 [facility] PROGRESSon 08-04-2018 Protein mass conc HNO ID: [id number] thor: Kathy Latham (Entry Level Account Representative) AnjumService: (none)Author Type: Nurse PractitionerType: Progress NotesFiled: 08/04/2018 1:17 PMNote Text:SubjectiveHPIPatient presents with:Sinus pain, cough, headaches, fatigue x 5 weeks.Seen 07/18 in UC, tx for Sinusitis, tx with Doxycycline but noimprovement.Review of SystemsConstitutional: Positive for malaise/fatigue. Negative for chills andfever.HENT: Positive for congestion and sinus pain. Negative for ear pain andsore throat.Eyes: Positive for redness. Negative for discharge.Respiratory: Positive for cough. Negative for hemoptysis, sputumproduction, shortness of breath and wheezing.Gastrointestinal: Negative for abdominal pain, diarrhea, nausea andvomiting.Skin: Negative for rash.Neurological: Positive for headaches.PAST MEDICAL HISTORYDiagnosis Date- Essential hypertensionPAST SURGICAL HISTORYProcedure Laterality Date- SECTION HX x2- EXTRACTION ERUPTED TOOTH/EXR- REMOVAL OF TONSILS,<12 Y/O TonsillectomyALLERGIES PenicillinsMEDICATIONSergocalc iferol, vitamin D2, (DRISDOL) 50,000 unit capsule Take 1 capsuleby mouth twice a week. TO BE TAKEN ORALLY DIRECTED. Take 1 tablet bymouth twice weekly [id number], then decrease to 1 tablet weekly.aMILoride-hydrochloroth iazide (MODURETIC 5-50) 5-50 mg tab Take 0.5tablets by mouth once daily.sertraline (ZOLOFT) 50 mg tablet Take 1 tablet by mouth once daily.amLODIPine (NORVASC) 2.5 mg tablet take 1 tablet by mouth once dailyzolpidem (AMBIEN) 10 mg tab Take 0.5 tablets by mouth at bedtime asneeded.cefdinir (OMNICEF) 300 mg capsule Take 1 capsule by mouth twice daily for10 days.predniSONE (DELTASONE) 20 mg tablet Take 2 tablets by mouth once daily for5 days. Take daily with food.Brompheniramine-Pseudoeph -DM (BROMFED DM) 2-30-10 mg/5 mL syrup Take 10 mLby mouth four times daily as needed for up to 7 days.FAMILY HISTORYProblem Relation Age of Onset- Hypertension Mother- Stroke Mother- Heart Mother- Hypertension Father- Heart Father- COPD FatherSocial HistorySubstance Use Topics- Smoking status: Former Smoker Packs/day: 1.00 Years: 20.00 Quit date: 09/24/2011- Smokeless tobacco: Never Used Comment: uses E-cigarettes- Alcohol use 3.0 - 6.0 oz/week 2 - 4 Glasses of Wine (5oz) per weekObjectivePhysical ExamConstitutional: She is well-developed, well-nourished, and in no distress.HENT:Head: Normocephalic.Right Ear: Tympanic membrane, external ear and ear canal normal.Left Ear: Tympanic membrane, external ear and ear canal normal.Nose: Mucosal edema present. Right sinus exhibits maxillary sinustenderness. Right sinus exhibits no frontal sinus tenderness. Left sinusexhibits maxillary sinus tenderness. Left sinus exhibits no frontal sinustenderness.Mouth/Throat: Posterior oropharyngeal erythema (PND) present.Eyes: Right conjunctiva is injected. Left conjunctiva is injected.Neck: Normal range of motion. Neck supple.Cardiovascular: Normal rate, regular rhythm and normal heart sounds.Pulmonary/Chest: Effort normal and breath sounds normal. No respiratorydistress. She has no wheezes.Abdominal: Soft. She exhibits no distension. There is no tenderness.Lymphadenopathy: She has no cervical adenopathy.Skin: Skin is warm and dry. No rash noted.Nursing note and vitals reviewed.ASSESSMENT/PLAN:1. Acute sinusitis, recurrence not specified, unspecified location - ICD9:461.9, ICD10: J01.90 (primary diagnosis)- Will begin treatment with as per antibiotic as written, see orders- The patient should also be given OTC decongestants prn, OTC cough andcold meds as needed, warm salt water gargles, throat lozenges and/or OTCthroat spray as needed and nasal saline gtts and suction prn for the first5-7 days of treatment.- Supportive care with plenty of fluids, rest, and analgesia prn.- Follow up in 3-5 days if symptoms persist or worsen.2. Cough - ICD9: 786.2, ICD10: W92-Vyrmycogvg-Imfqqup-K/u with pcp in 3-5 days or sooner if symptoms are not improving orworseningPrescription instructions reviewed with patient as applicable. Patientadvised if symptoms do not improve or if symptoms worsen sooner, tocontact their primary care physician. Potential red flag symptomsdiscussed with the patient. Reviewed appropriate action plan to take ifred flag symptoms occur. Patient agreeable to treatment plan.Kathy Valero, [employer]ARD ROCK MINER.CANOPY INSPECTOR Normal [facility] CBC and Differentialon 07-24 Abs Baso 0.06 k/uL Normal <0.11 [facility] Comment on above: Performed By: #### C BCDIF, CMP, LIPB, TSH, VITD ####[facility] [place] [phone] Abs Smith 0.55 k/uL Normal <0.87 [facility] Comment on above: Performed By: #### C BCDIF, CMP, LIPB, TSH, VITD ####[place] [address] [place] [phone] Abs Neut 7.98 k/uL High 1.45-7.50 [facility] Comment on above: Performed By: #### C BCDIF, CMP, LIPB, TSH, VITD ####[place] [address] [place] [phone] Absolute nRBC <0.01 Normal <0.01 [facility] Comment on above: Performed By: #### C BCDIF, CMP, LIPB, TSH, VITD ####[place] [address] [place] [phone] Basophils/100 WBC Auto (Bld) 0.6 % Normal [facility] Comment on above: Performed By: #### C BCDIF, CMP, LIPB, TSH, VITD ####[place] [id number] [place] [phone] DTYPE Auto Diff Normal [facility] Comment on above: Performed By: #### C BCDIF, CMP, LIPB, TSH, VITD ####[place] [id number] [phone] Eosinophils Auto #/vol (Bld) 0.22 10*3/uL Normal <0.46 [facility] Comment on above: Performed By: #### C BCDIF, CMP, LIPB, TSH, VITD ####[place] [address] [place] [phone] Eosinophils/100 WBC Auto (Bld) 2.0 % Normal [facility] Comment on above: Performed By: #### C BCDIF, CMP, LIPB, TSH, VITD ####[place] [address] [place] [phone] Erythrocyte distribution width Auto Ratio (RBC) 12.1 % Normal 11.5-15.0 [facility] Comment on above: Performed By: #### C BCDIF, CMP, LIPB, TSH, VITD ####[place] [address] [place] [phone] Hematocrit Auto Volume Fraction (Bld) 46.9 % High 36.0-46.0 [facility] Comment on above: Performed By: #### C BCDIF, CMP, LIPB, TSH, VITD ####[place] [address] [place] [phone] Hemoglobin mass conc (Bld) 16.1 g/dL High 11.5-15.5 [facility] Comment on above: Performed By: #### C BCDIF, CMP, LIPB, TSH, VITD ####[place] [address] [place] [phone] Lymphocytes Auto #/vol (Bld) 1.99 10*3/uL Normal 1.00-4.00 [facility] Comment on above: Performed By: #### C BCDIF, CMP, LIPB, TSH, VITD ####[place] [address] [place] [phone] Lymphocytes/100 WBC Auto (Bld) 18.4 % Normal [facility] Comment on above: Performed By: #### C BCDIF, CMP, LIPB, TSH, VITD ####[place] [id number] AveCCar[place], [place] [phone] MCH Auto Entitic mass (RBC) 34.0 pG Normal 26.0-34.0 [facility] Comment on above: Performed By: #### C BCDIF, CMP, LIPB, TSH, VITD ####[place] [address], [place] [phone] MCHC Auto mass conc (RBC) 34.3 g/dL Normal 30.5-36.0 [facility] Comment on above: Performed By: #### C BCDIF, CMP, LIPB, TSH, VITD ####[place] [address] [place] [phone] MCV Auto Entitic volume (RBC) 98.9 fL Normal 80.0-100.0 [facility] Comment on above: Performed By: #### C BCDIF, CMP, LIPB, TSH, VITD ####[place] [address] [place] [phone] Monocytes/100 WBC Auto (Bld) 5.1 % Normal [facility] Comment on above: Performed By: #### C BCDIF, CMP, LIPB, TSH, VITD ####[place] [address] [place] [phone] Neutrophils/100 WBC Auto (Bld) 73.9 % Normal [facility] Comment on above: Performed By: #### C BCDIF, CMP, LIPB, TSH, VITD ####[place] [address] [place] [phone] NRBCs 0.0 /100 WBC Normal 0 [facility] Comment on above: Performed By: #### C BCDIF, CMP, LIPB, TSH, VITD ####[place] [address] [place] [phone] Platelet mean volume Auto Entitic volume (Bld) 9.8 fL Normal 9.0-12.7 [facility] Comment on above: Performed By: #### C BCDIF, CMP, LIPB, TSH, VITD ####[address] [phone] Platelets Auto #/vol (Bld) 259 10*3/uL Normal 150-400 [facility] Comment on above: Performed By: #### C BCDIF, CMP, LIPB, TSH, VITD ####[address] [phone] RBC Auto #/vol (Bld) 4.74 10*6/uL Normal 3.90-5.20 [facility] Comment on above: Performed By: #### C BCDIF, CMP, LIPB, TSH, VITD ####[address] [phone] WBC Auto #/vol (Bld) 10.80 10*3/uL Normal 3.70-11.00 [facility] Comment on above: Performed By: #### C BCDIF, CMP, LIPB, TSH, VITD ####[address] [phone] CNOVon 07-24-2018 CNOV Office Visit (INTMWS) ANDREINA BRIGHT ([id number]) 1975 [facility] Time Provider Jpirixbasj68/31/18 9:40 AM JENA PETERSON INTTejasWS During your visit today, we recorded the following information about you: Pulse Respiration Blood pressure Weight 105/minute 12/minute 130/70 76.7 kg Height 1.626 Lorenzo PETERSON MD 07/24/2018 7:54 PM SignedReason for VisitPatient presents with:Established Patient: follow up-medication anxietyAndreina Gee is a 43 year old female who presents here today for AboveComplaints.Health MaintenanceBP CONTROLLED (<130/80)DTAP,TDAP,TD(1 - Tdap)ADULT PREVNAR-13PAP EVERY 5 YEARSHPV EVERY 5 YEARSMAMMOGRAMINFLUENZA(1)HPIH er BP today is very good on the Amiloride and HCTZ, and the amlodipine.She has a very stressful Job and the setraline 25 mg is not helping. Shethinks it may have helped her some bit.Had a uri for 6 weeks, finally she was put on abx and is doing good. Beenfeeling tired, gained weight and is not feeling good over allNo problem-specific Assessment AND Plan notes found for this encounter.PAST MEDICAL HISTORYDiagnosis Date- Essential hypertensionPAST SURGICAL HISTORYProcedure Laterality Date- SECTION HX x2- EXTRACTION ERUPTED TOOTH/EXR- REMOVAL OF TONSILS,<12 Y/O TonsillectomyFAMILY HISTORYProblem Relation Age of Onset- Hypertension Mother- Stroke Mother- Heart Mother- Hypertension Father- Heart Father- COPD FatherSocial HistorySubstance Use Topics- Smoking status: Former Smoker Packs/day: 1.00 Years: 20.00 Quit date: 09/24/2011- Smokeless tobacco: Never Used Comment: uses E-cigarettes- Alcohol use 3.0 - 6.0 oz/week 2 - 4 Glasses of Wine (5oz) per weekPast medical history, appointments, medications, allergies reviewed.Pertinent Lab/Diagnostic Studies are reviewed and discussed todayCurrent Outpatient Prescriptions:- doxycycline hyclate (VIBRAMYCIN) 100 mg capsule- amLODIPine (NORVASC) 2.5 mg tablet- aMILoride-hydrochlorothiazide (MODURETIC 5-50) 5-50 mg tab- sertraline (ZOLOFT) 25 mg tablet- zolpidem (AMBIEN) 10 mg tabReview of SystemsCONSTITUTIONAL: No fevers, chills night sweats, unintended weight lossCARDIOVASCULAR: No chest pain, dyspnea, palpitations, orthopnea, PND, ankleedema.PULM: No dyspnea, unexplained cough.GI: No dysphagia/odynophagia, problematic reflux, constipation, diarrhea,changes in stool habits, hematochezia, melena.: No new urinary complaints, including dysuria, gross hematuria or pyuria.NEURO: No new balance problems, peripheral weakness/paresthesias or numbnessof concern.Physical ExamBP 130/70 (BP Site: Left Arm, BP Position: Sitting, BP Cuff Size: RegularAdult) Pulse 105 Resp 12 Ht 162.6 cm (5' 4 ) Wt 76.7 kg (169 lb) SpO2 96% BMI 29.01 kg/m?General appearance: Well appearing, alert, in no acute distress, well nourished.Skin: Skin color, texture, turgor normal, no suspicious rashes or lesionsHead: Normocephalic, no masses, lesions, tenderness or abnormalitiesEyes: Anicteric sclera. Pupils are equally round and reactive to light.Extraocular movements are intact.Lungs: Lungs clear to auscultation. No wheezing, rhonchi, ralesHeart: RRR without murmur, gallop, or rubs.Extremities: No deformities, edema, skin discoloration, clubbing or cyanosis.Good capillary refill.ASSESSMENT/PLAN:1. Anxiety and depression - ICD9: 300.00, 311, ICD10: F41.9, F32.9 (primarydiagnosis)- SERTRALINE 50 MG TABLET2. Essential hypertension - ICD9: 401.9, ICD10: I10- good control- Recommended regular aerobic exercise.- Recommend home blood pressure monitoring, to bring results in on next visit- Goal of BP <130/80- AMILORIDE 5 MG-HYDROCHLOROTHIAZIDE 50 MG TABLET- LIPID PANEL BASIC- CBC + DIFF- COMP METABOLIC PANEL3. Breast cancer screening by mammogram - ICD9: V76.12, ICD10: Z12.31- Follow up for annual exam in one year.- ROLANDO SCREENING4. Vitamin D deficiency - ICD9: 268.9, ICD10: E55.9- VITAMIN D 25 HYDROXY5. Other fatigue - ICD9: 780.79, ICD10: R53.83- TSH BLDCLaila RODAS Provider: JENA PETERSON [[id number]]Allergies As of Date: 07/24/2018 Noted Allergy ReactionPENICILLINS 03/02/2006Date Reviewed: 07/24/2018Reviewed by: Fatmata Amanda LPN - Fully AssessedReason for Visit: Established Patient [175] Cmt: follow up-medication anxietyPrimary Visit Diagnosis:Anxiety and depression [F41.9, F32.9] Other Visit Diagnoses:Essential hypertension [I10] Breast cancer screening by mammogram [Z12.31] Vitamin D deficiency [E55.9] Other fatigue [R53.83]Order(s):ROLANDO SCREENING [[id number]] Order #: [id number] FUTURE aMILoride-hydrochlorothiazide (MODURETIC 5-50) 5-50 mg tabTake 0.5 tablets by mouth once daily.Disp: 30 tabletRfl: 3 sertraline (ZOLOFT) 50 mg tabletTake 1 tablet by mouth once daily.Disp: 30 tabletRfl: 3 LIPID PANEL BASIC [SQLIPB] Order #: [id number] FUTURE CBC + DIFF [SQCBCDIF] Order #: [id number] FUTURE COMP METABOLIC PANEL [SQCMP] Order #: [id number] FUTURE VITAMIN D 25 HYDROXY [SQVITD] Order #: [id number] FUTURE TSH BLD [SQTSH] Order #: [id number] FUTUREPrescriptions as of 07/24/2018 Sig: AMILORIDE 5 MG-HYDROCHLOROTHI* Take 0.5 tablets by mouth onc* SERTRALINE 50 MG TABLET Take 1 tablet by mouth once d* DOXYCYCLINE HYCLATE 100 MG CA* Take 1 capsule by mouth twice* AMLODIPINE 2.5 MG TABLET take 1 tablet by mouth once d* ZOLPIDEM 10 MG TABLET Take 0.5 tablets by mouth at *Problem List As Of Date 07/24/2018 Noted Resolved WBC DISEASE NEC [D72.89] INVALID FOR* Essential hypertension [I10] Alcohol abuse [F10.10] INVALID FOR*Prescriptions ordered this encounter Disp Refills Start End AMILORIDE 5 MG-HYDROCHLOROTHIAZIDE 5* 30 t* 3 07/24/2018 Route: ORAL Sig: Take 0.5 tablets by mouth once daily. SERTRALINE 50 MG TABLET 30 t* 3 07/24/2018 Route: ORAL Sig: Take 1 tablet by mouth once daily.Medications Discontinued During This Encounter sertraline (ZOLOFT) 25 mg tablet 30 t* 5 01/15/2018 07/24/2018 Sig: take 1 tablet by mouth once daily Disc: Reason for discontinue is not on file. aMILoride-hydrochlorothiazide (MODUR* 30 t* 3 06/05/2018 07/24/2018 Sig: take 1/2 tablet by mouth once daily Disc: Reason for discontinue is not on file. Status:Closed by JENA PETERSON MD on 07/24/18 Normal [facility] Comp Metabolic Panelon 07-24 Albumin mass conc 4.5 g/dL Normal 3.9-4.9 [facility] [place] Comment on above: Performed By: #### C BCDIF, CMP, LIPB, TSH, VITD ####[place] [address] [address] [place] [phone] ALP enzyme act/vol 71 U/L Normal 34-123 [facility] Comment on above: Performed By: #### C BCDIF, CMP, LIPB, TSH, VITD ####[place] [address] [address] [place] [phone] ALT enzyme act/vol 66 U/L High 7-38 [facility] Comment on above: Performed By: #### C BCDIF, CMP, LIPB, TSH, VITD ####[place] [address] [address] [phone] Anion gap 3 molar conc 20 mmol/L High 9-18 [facility] Comment on above: Performed By: #### C BCDIF, CMP, LIPB, TSH, VITD ####[place] [id number] [place] [phone] AST enzyme act/vol 115 U/L High 13-35 [facility] Comment on above: Performed By: #### C BCDIF, CMP, LIPB, TSH, VITD ####[place] [address] [address] [place] [phone] Bilirubin mass conc 0.6 mg/dL Normal 0.2-1.3 [facility] Comment on above: Performed By: #### C BCDIF, CMP, LIPB, TSH, VITD ####[facility] [place] [phone] Calcium mass conc 9.2 mg/dL Normal 8.5-10.2 [facility] [place] Comment on above: Performed By: #### C BCDIF, CMP, LIPB, TSH, VITD ####[place] [address] [address] [place] [phone] Chloride molar conc 96 mmol/L Low 97-105 [facility] Comment on above: Performed By: #### C BCDIF, CMP, LIPB, TSH, VITD ####[place] [address] [address] [place] [phone] CO2 molar conc 24 mmol/L Normal 22-30 [facility] Comment on above: Performed By: #### C BCDIF, CMP, LIPB, TSH, VITD ####[place] [address] [address] [place] [phone] Creatinine mass conc 0.64 mg/dL Normal 0.58-0.96 [facility] Comment on above: Performed By: #### C BCDIF, CMP, LIPB, TSH, VITD ####[place] [address] [address] [place] [phone] eGFR- Amer. >60 Normal [facility] Comment on above: Performed By: #### C BCDIF, CMP, LIPB, TSH, VITD ####[place] [address] [address] [place] [phone] GFR/1.73 sq M predicted among non-blacks MDRD vol rate/area (S/P/Bld) mL/min/{1.73_m2} Normal [facility] Comment on above: Result Comment: eGFR (Estimated GFR) Units of measure: mL/min/1.73 meters squaredeGFR is derived from the reexpressed MDRD Study equation using the following parameters: serum creatinine, age, gender and race. The creatinine assay has been calibrated to be traceable to IDMS.An eGFR <60 mL/min/1.73m2 for >3 months is consistent with chronic kidney disease. Refer to KDOQI guidelines for clinical interpretation.In patients with unstable renal function, e.g. those with acute kidney injury, the eGFR may not accurately reflect actual GFR. Performed By: #### C BCDIF, CMP, LIPB, TSH, VITD ####[facility] [address], [place] [phone] Glucose mass conc 104 mg/dL High 74-99 [facility] [place] Comment on above: Result Comment: The [place] Diabetes Association (ADA) provides guidance for cutoff values for fasting glucose and random glucose. The ADA defines fasting as no caloric intake for at least 8 hours. Fasting plasma glucose results between 100 to 125 mg/dL indicate increased risk for diabetes (prediabetes).Fasting plasma glucose results greater than or equal to 126 mg/dL meet the criteria for diagnosis of diabetes. In the absence of unequivocal hyperglycemia, results should be confirmed by repeat testing. In a patient with classic symptoms of hyperglycemia or hyperglycemic crisis, random plasma glucose results greater than or equal to 200 mg/dL meet the criteria for diagnosis of diabetes.Reference: Standards of Medical Care in Diabetes 2016, [place] [employer]. Diabetes Care. 2016.39(Suppl 1). Performed By: #### C BCDIF, CMP, LIPB, TSH, VITD ####[facility] [address] [place], [place] [phone] Potassium molar conc 3.7 mmol/L Normal 3.7-5.1 [facility] Comment on above: Performed By: #### C BCDIF, CMP, LIPB, TSH, VITD ####[facility] [address]CCar[address], [place] [phone] Protein mass conc 7.8 g/dL Normal 6.3-8.0 [facility] [place] Comment on above: Performed By: #### C BCDIF, CMP, LIPB, TSH, VITD ####[facility] [address] AveCC[address]bon, [place] [phone] Sodium molar conc 140 mmol/L Normal 136-144 [facility] [place] Comment on above: Performed By: #### C BCDIF, CMP, LIPB, TSH, VITD ####[place] [id number], [place] [phone] Urea nitrogen mass conc 12 mg/dL Normal 7-21 [facility] Comment on above: Performed By: #### C BCDIF, CMP, LIPB, TSH, VITD ####[address] [phone] Lipid Panel, Basic 07-24-2 018 Cholesterol in HDL mass conc 60 mg/dL Normal >39 [facility] Comment on above: Result Comment: 40-5 9 mg/dL, Acceptable>59 mg/dL, High: Negative risk factor for coronary heart disease<40 mg/dL, Low: Positive risk factor for coronary heart disease Performed By: #### C BCDIF, CMP, LIPB, TSH, VITD ####[address] [phone] Cholesterol in LDL mass conc 136 mg/dL High <100 [facility] Comment on above: Result Comment: <100 mg/dL, Optimal 100-129 mg/dL, Near optimal/above optimal 130-159 mg/dL, Borderline high 160-189 mg/dL, High>189 mg/dL, Very highSecondary prevention optimal LDL Cholesterol levels are recommended to be < 70 mg/dL Performed By: #### C BCDIF, CMP, LIPB, TSH, VITD ####[place] [id number], [place] [phone] Cholesterol mass conc 227 mg/dL High <200 [facility] Comment on above: Result Comment: <200 mg/dL, Desirable 200-239 mg/dL, Borderline high>239 mg/dL, High Performed By: #### C BCDIF, CMP, LIPB, TSH, VITD ####[place] [id number], [place] [phone] Fasting Time 15 hrs Normal [facility] Comment on above: Performed By: #### C BCDIF, CMP, LIPB, TSH, VITD ####[address] [place] [phone] LDL:HDL Ratio 2.27 Normal <2.54 [facility] Comment on above: Result Comment: Refe brenden:1. National Cholesterol Education Program ATP III Guideline At-A-Glance Quick Desk Reference: National Heart, Lung, and Blood [place]. National Institutes of Health. 2001: NIH Publication No. 01-3305.2. An International Atherosclerosis Society position paper: global recommendations for the management of dyslipidemia: executive summary, Atherosclerosis. 2014: 232(2):410-413. Performed By: #### C BCDIF, CMP, LIPB, TSH, VITD ####[address] [place] [phone] Non HDL Cholesterol 167 mg/dL High <130 [facility] Comment on above: Result Comment: <130 mg/dL, Optimal 130-159 mg/dL, Near optimal/above optimal 160-189 mg/dL, Borderline high 190-219 mg/dL, High>219 mg/dL, Very highSecondary prevention optimal non HDL Cholesterol levels are recommended to be < 100 mg/dL Performed By: #### C BCDIF, CMP, LIPB, TSH, VITD ####[address] [place] [phone] TC:HDL Ratio 3.78 Normal <5.10 [facility] Comment on above: Performed By: #### C BCDIF, CMP, LIPB, TSH, VITD ####[place] [address] [address] [place] [phone] Triglyceride mass conc 153 mg/dL High <150 [facility] Comment on above: Result Comment: <150 mg/dL, Normal 150-199 mg/dL, Borderline high 200-499 mg/dL, High>499 mg/dL, Very high Performed By: #### C BCDIF, CMP, LIPB, TSH, VITD ####[place] [address] [place], [place] [phone] VLDL Cholesterol 31 mg/dL High <30 [facility]ju[facility] Comment on above: Performed By: #### C BCDIF, CMP, LIPB, TSH, VITD ####[facility] [address] [place], [place] [phone] PROGRESSon 07-24-2018 Protein mass conc HNO ID: [id number] thor: Jena Worthington: (none)Author Type: PhysicianType: Progress NotesFiled: 07/24/2018 7:54 PMNote Text:Reason for VisitPatient presents with:Established Patient: follow up-medication anxietyAndreina Gee is a 43 year old female who presents here today for AboveComplaints.Health MaintenanceBP CONTROLLED (<130/80)DTAP,TDAP,TD(1 - Tdap)ADULT PREVNAR-13PAP EVERY 5 YEARSHPV EVERY 5 YEARSMAMMOGRAMINFLUENZA(1)HPIH er BP today is very good on the Amiloride and HCTZ, and the amlodipine.She has a very stressful Job and the setraline 25 mg is not helping. Shethinks it may have helped her some bit.Had a uri for 6 weeks, finally she was put on abx and is doing good. Beenfeeling tired, gained weight and is not feeling good over allNo problem-specific Assessment AND Plan notes found for this encounter.PAST MEDICAL HISTORYDiagnosis Date- Essential hypertensionPAST SURGICAL HISTORYProcedure Laterality Date- SECTION HX x2- EXTRACTION ERUPTED TOOTH/EXR- REMOVAL OF TONSILS,<12 Y/O TonsillectomyFAMILY HISTORYProblem Relation Age of Onset- Hypertension Mother- Stroke Mother- Heart Mother- Hypertension Father- Heart Father- COPD FatherSocial HistorySubstance Use Topics- Smoking status: Former Smoker Packs/day: 1.00 Years: 20.00 Quit date: 09/24/2011- Smokeless tobacco: Never Used Comment: uses E-cigarettes- Alcohol use 3.0 - 6.0 oz/week 2 - 4 Glasses of Wine (5oz) per weekPast medical history, appointments, medications, allergies reviewed.Pertinent Lab/Diagnostic Studies are reviewed and discussed todayCurrent Outpatient Prescriptions:- doxycycline hyclate (VIBRAMYCIN) 100 mg capsule- amLODIPine (NORVASC) 2.5 mg tablet- aMILoride-hydrochlorothiazide (MODURETIC 5-50) 5-50 mg tab- sertraline (ZOLOFT) 25 mg tablet- zolpidem (AMBIEN) 10 mg tabReview of SystemsCONSTITUTIONAL: No fevers, chills night sweats, unintended weight lossCARDIOVASCULAR: No chest pain, dyspnea, palpitations, orthopnea, PND,ankle edema.PULM: No dyspnea, unexplained cough.GI: No dysphagia/odynophagia, problematic reflux, constipation, diarrhea,changes in stool habits, hematochezia, melena.: No new urinary complaints, including dysuria, gross hematuria orpyuria.NEURO: No new balance problems, peripheral weakness/paresthesias ornumbness of concern.Physical ExamBP 130/70 (BP Site: Left Arm, BP Position: Sitting, BP Cuff Size: RegularAdult) Pulse 105 Resp 12 Ht 162.6 cm (5' 4 ) Wt 76.7 kg (169lb) SpO2 96% BMI 29.01 kg/m?General appearance: Well appearing, alert, in no acute distress, wellnourished.Skin: Skin color, texture, turgor normal, no suspicious rashes or lesionsHead: Normocephalic, no masses, lesions, tenderness or abnormalitiesEyes: Anicteric sclera. Pupils are equally round and reactive to light.Extraocular movements are intact.Lungs: Lungs clear to auscultation. No wheezing, rhonchi, ralesHeart: RRR without murmur, gallop, or rubs.Extremities: No deformities, edema, skin discoloration, clubbing orcyanosis. Good capillary refill.ASSESSMENT/PLAN:1. Anxiety and depression - ICD9: 300.00, 311, ICD10: F41.9, F32.9(primary diagnosis)- SERTRALINE 50 MG TABLET2. Essential hypertension - ICD9: 401.9, ICD10: I10- good control- Recommended regular aerobic exercise.- Recommend home blood pressure monitoring, to bring results in on nextvisit- Goal of BP <130/80- AMILORIDE 5 MG-HYDROCHLOROTHIAZIDE 50 MG TABLET- LIPID PANEL BASIC- CBC + DIFF- COMP METABOLIC PANEL3. Breast cancer screening by mammogram - ICD9: V76.12, ICD10: Z12.31- Follow up for annual exam in one year.- ROLANDO SCREENING4. Vitamin D deficiency - ICD9: 268.9, ICD10: E55.9- VITAMIN D 25 HYDROXY5. Other fatigue - ICD9: 780.79, ICD10: R53.83- TSH MARCI PETERSON MD Normal [facility] TSHon 07-24-2018 Thyrotropin Qn 0.871 uU/mL Normal 0.400-5.500 [facility] Comment on above: Result Comment: If t he patient is , TSH reference range varies by gestational period:First Trimester 0.100-2.500 uU/mLSecond Trimester 0.200-3.000 uU/mLThird Trimester 0.300-3.000 uU/mLReferences: 1. Hernandez L, Adi M, Donis EK, et al. Management of Thyroid Dysfunction during and : An Endocrine Society Clinical Practice Guideline. J Clin Endocrinol Metab, 2012:97:1754-4105. 2. Blaise ALDRIDGE. Overview of thyroid disease in . UpToDate. 2016. Accessed on March 10, 2016. Performed By: #### C BCDIF, CMP, LIPB, TSH, VITD ####[facility] [place], [place] [phone] Vitamin D 25 Hydroxyon 07-24 Vitamin D 25 Hydroxy 26.3 ng/mL Low 31.0-80.0 [facility] Comment on above: Result Comment: Clas sification of 25 [place] Vitamin D status:Insufficiency/Moderate Deficiency: < or = 30 ng/mLSufficiency/Optimal Levels: 31 to 80 ng/mLToxicity: > 100 ng/mLTest performed by chemiluminescent immunoassay. Performed By: #### C BCDIF, CMP, LIPB, TSH, VITD ####[facility] [place], [place] [phone] CNOVon 07-19-2018 CNOV Office Visit ([facility]) RODOLFO ANDREINA BRIGHT ([id number]) 1975 FDate Time Provider Rdyygowcpz00/26/18 4:45 PM LEXIE YANCEY (KAI) [facility] During your visit today, we recorded the following information about you: Temperature Pulse Respiration Blood pressure 97.9 degrees 93/minute 16/minute 152/92 Weight 78 kgLexie Yancey APRN.CNP 07/19/2018 5:01 PM SignedSubjectiveThe history is provided by the patient and the spouse.Andreina Gee is a 43 year old female who presents with cold symptoms x 2weeks. She has been taking advil cold and sinus, using netti pot and takingairborne. She feels her symptoms are worsening. Sick contacts include a sonwith URI symptoms.Review of SystemsConstitutional: Positive for malaise/fatigue. Negative for fever.HENT: Positive for congestion, sinus pain and sore throat (intermittent).Negative for ear pain.Respiratory: Positive for cough.Gastrointestinal: Negative for nausea and vomiting.Neurological: Positive for headaches (intermittent). BP 152/92 Pulse 93 Temp 36.6 ?C (97.9 ?F) (Left Tympanic) Resp 16 Wt 78 kg (172 lb) SpO2 98% BMI 29.52 kg/m?PAST MEDICAL HISTORYDiagnosis Date- Essential hypertensionPAST SURGICAL HISTORYProcedure Laterality Date- SECTION HX x2- EXTRACTION ERUPTED TOOTH/EXR- REMOVAL OF TONSILS,<12 Y/O TonsillectomyALLERGIES PenicillinsMEDICATIONSamLODIPi ne (NORVASC) 2.5 mg tablet take 1 tablet by mouth once dailyaMILoride-hydrochlorothia zide (MODURETIC 5-50) 5-50 mg tab take 1/2 tablet bymouth once dailysertraline (ZOLOFT) 25 mg tablet take 1 tablet by mouth once dailyzolpidem (AMBIEN) 10 mg tab Take 0.5 tablets by mouth at bedtime as needed.azithromycin (ZITHROMAX) 250 mg tablet Take 2 tablets today then one tabletdaily for 4 days.FAMILY HISTORYProblem Relation Age of Onset- Hypertension Mother- Stroke Mother- Heart Mother- Hypertension Father- Heart Father- COPD FatherSocial HistorySubstance Use Topics- Smoking status: Former Smoker Packs/day: 1.00 Years: 20.00 Quit date: 09/24/2011- Smokeless tobacco: Never Used Comment: uses E-cigarettes- Alcohol use 3.0 - 6.0 oz/week 2 - 4 Glasses of Wine (5oz) per weekObjectivePhysical ExamConstitutional: She is well-developed, well-nourished, and in no distress.HENT:Right Ear: Tympanic membrane, external ear and ear canal normal.Left Ear: Tympanic membrane, external ear and ear canal normal.Nose: Sinus tenderness present. No rhinorrhea. Right sinus exhibits frontalsinus tenderness. Left sinus exhibits frontal sinus tenderness.Mouth/Throat: Uvula is midline, oropharynx is clear and moist and mucousmembranes are normal. No posterior oropharyngeal edema or posteriororopharyngeal erythema.Eyes: Right conjunctiva is injected. Left conjunctiva is injected.Neck: Neck supple.Cardiovascular: Normal rate, regular rhythm and normal heart sounds.Pulmonary/Chest: Effort normal and breath sounds normal. No respiratorydistress. She has no wheezes. She has no rales.Lymphadenopathy: She has no cervical adenopathy.Neurological: She is alert.Skin: Skin is warm and dry. No rash noted.Nursing note and vitals reviewed. ASSESSMENT/PLAN:1. Bacterial sinusitis - ICD9: 473.9, 041.9, ICD10: J32.9, B96.89- Will begin treatment with Doxycycline- The patient should also be given Mucinex for the first 5-7 days of treatment.- Supportive care with plenty of fluids, rest, and analgesia prn.- DOXYCYCLINE HYCLATE 100 MG CAPSULE- Follow-up with your PCP in 3-5 days if symptoms have not improved or soonerif symptoms worsen- Discussed red flags and need for immediate medical evaluation if any occur.- Discussed supportive care treatment with fluids, rest and analgesia.- Discussed expected course of illnessUma Pompa APRN.CNP 07/19/2018 4:55 PM SignedASSESSMENT/PLAN:1. Bacterial sinusitis - ICD9: 473.9, 041.9, ICD10: J32.9, B96.89- Will begin treatment with Doxycycline- The patient should also be given Mucinex for the first 5-7 days of treatment.- Supportive care with plenty of fluids, rest, and analgesia prn.- DOXYCYCLINE HYCLATE 100 MG CAPSULE- Follow-up with your PCP in 3-5 days if symptoms have not improved or soonerif symptoms worsen- Discussed red flags and need for immediate medical evaluation if any occur.- Discussed supportive care treatment with fluids, rest and analgesia.- Discussed expected course of illnessFarnazgiovanni Rodriguezbob-STEVEN CordovaAcute SinusitisEach of us has four paired cavities (spaces) in our head that are connected tothe nose by narrow channels. These cavities, known as sinuses, produce thinmucus that drains out of the channels of the nose. This drainage helps keep thenose clean and free of particles and bacteria.Normally, sinuses are filled with air. But when sinuses become blocked andfilled with fluid, bacteria can grow and cause an infection (bacterialsinusitis).Condition s that cause sinus blockage include:? the common cold? allergic rhinitis (swelling of the lining of the nose due to allergies)? nasal polyps (small growths in the lining of the nose), or? a deviated septum (the wall between the left and right nostril is crooked).Allergies, such as hay fever, can also cause swelling and poor drainage of thesinuses.One confusing factor to consider is that many people with ?sinus headaches? areactually suffering from migraines. In fact, in large clinical studies, up to90% of people who reported sinus headaches were diagnosed with migrainesinstead. Migraines can cause headaches in combination with facial pressure overthe sinuses, a runny nose, and nasal congestion. If you have symptoms thatinvolve the sinuses, it may be difficult to tell if you have sinusitis, a cold,nasal allergy, or even a migraine. This article will describe the symptoms,diagnosis, and treatment of sinusitis, and how to tell the difference betweensinusitis, cold, migraines, and nasal allergy.What is sinusitis?Sinusitis is an inflammation, or swelling, of the tissue lining the sinuses.There are two types of sinusitis:? Acute bacterial sinusitis: a sudden onset of cold symptoms such as runnynose, stuffy nose, and facial pain that does not go away after 10 days, orsymptoms that seem to begin improving but return worse than the initialsymptoms. It responds well to antibiotics and decongestants.? Chronic sinusitis: a condition defined by nasal congestion, drainage, facialpain/pressure, and decreased sense of smell for at least 12 weeks.Who gets sinusitis?Every year, approximately 1 billion Americans have at least one episode ofviral sinusitis. About 37 million will develop a bacterial sinusitis. Peoplewho have the following conditions have a higher risk of sinusitis:? Nasal mucus membrane swelling, as from a common cold or allergies? Blockage of drainage ducts, leading to trapping of mucus? Structure differences that narrow the drainage ducts? Conditions that result in an increased risk of infection? Polyps (growths)In children, common factors in the environment that contribute to sinusitisinclude allergies, illness from other children at day care or school, and smokein the environment.In adults, the contributing factors are most frequently viral infections,allergies, and smoking.What are the signs and symptoms of acute sinusitis?The primary symptoms of acute sinusitis include:? Facial pain/pressure/tenderness? Nasal stuffiness? Nasal discharge (thick yellow or green discharge from nose), especially if itis long-lasting. These also may be present with viral illness.? Loss of smell and taste? Cough/congestionAdditional symptoms may include:? Fever of 102? or higher? Ear pain? Headache? Bad breath? Fatigue? Ache in upper jaw and teethHow is sinusitis diagnosed?To diagnose sinusitis, your doctor will discuss your symptoms and examine yournose for swelling and drainage. Your personal history is most important indiagnosing sinusitis.A physical exam of the ears, nose, and throat is performed to look for signs ofobstruction (blockage) or infection.Some patients may have conditions that may need to be referred to a specialist,such as an ear, nose, and throat (ENT) physician.How is sinusitis treated?Acute sinusitis. If you have a simple sinusitis infection, your health careprovider may recommend treatment with iojp-pqg-lcvenqm medications for cold andallergy, nasal saline irrigation, and drinking fluids (as most sinusitis isviral). Use of prescription intranasal steroid sprays might be added to helpcontrol symptoms. However, non-prescription drops or sprays should not be usedbeyond 5 days -- or they may actually increase congestion.If symptoms do not improve after at least 10 days, if the symptoms seem to begetting worse, or if medications for cold or allergy do not improve symptoms, abacterial infection may be causing the sinusitis. In this case, antibiotics aregiven for 7 days in adults and 10 days in children. Antibiotics should improvesymptoms within 48 hours.Chronic sinusitis. Treating chronic sinusitis begins with controlling theunderlying condition, which is most often allergies. Standard treatmentsinclude intranasal steroid sprays, topical antihistamine sprays, orantihistamine pills, and leukotriene antagonists such as montelukast. Often youwill be encouraged to rinse the nose with saline irrigations. Sometimesmedications may be added to these irrigations.If sinusitis is not controlled, the next step is a visit with an Ear, Nose andThroat Specialist.Will I need to make lifestyle changes?If you have indoor allergies, avoiding triggers -- such as animal dander anddust mites ? is recommended in addition to medications.Smoking is never recommended, but if you do smoke, strongly consider a programto help you stop smoking, as this may be the main reason you have sinusinfections. No special diet is required, but drinking extra fluids helps tothin nasal secretions.What are the symptoms of the common cold?An upper respiratory infection (the common cold) is usually caused by a virusthat infects the nose and throat. Most upper respiratory infections are notbacterial and do not respond to antibiotics. A cold may cause swelling in thesinuses, preventing the outflow of mucus.Cold symptoms include nasal congestion, runny nose, post-nasal drip(hxhp-li-njui release of nasal fluid into the back of the throat), headache,achiness, and fatigue. Cough and fever may also go along with these symptoms.Cold symptoms usually build, peak, and slowly disappear. No treatment isnecessary for a cold, but some medications can ease symptoms. For example,decongestants may decrease drainage and open the nasal passages. Analgesics(pain relievers) may help with fever and headache. Cough medication may help,as well. Colds will typically last from a few days to about a week.What is the harm in getting an antibiotic for a common cold?Viral infections like the common cold are not cured by antibiotics. Taking anantibiotic for a viral infection unnecessarily puts you at risk for sideeffects related to the antibiotic. In addition, the overuse of antibioticsleads to antibiotic resistance,which may make future infections more difficult to treat. Finally, the use ofinappropriate medication increases health care costs unnecessarily.What are the symptoms of nasal allergy?Symptoms of nasal allergy include:? Sneezing? Itchy nose? Clear, watery nasal discharge? Nasal blockage? Feeling fatiguedHow is nasal allergy treated?Usually medications are prescribed to relieve symptoms. These may includeantihistamines, with or without decongestants, or steroid nasal sprays. Othernasal sprays, which deliver antihistamines or cromolyn sodium, are sometimeshelpful. If allergy symptoms are chronic (long-term), allergy testing andallergy shots (immunotherapy) may be helpful.How can I tell if I have a sinus infection, cold, or nasal allergy?Although the symptoms of sinusitis and nasal allergy may occur with a commoncold, in general, cold-related symptoms disappear within 1 week.The point at which a normal cold ends and a sinus condition begins is notalways easy to know. If you are fighting off a cold and develop symptoms of asinus infection or nasal allergy, see your health care provider. You will beasked to describe your symptoms and medical history.?How do I know if my sinus condition requires the care of an ear, nose, andthroat specialist?Most routine sinus conditions are easily cared for by primary care physicians.If, however, you are bothered by ongoing abnormal symptoms, recurringinfections, or have abnormal X-ray findings or complications, a referral to aspecialist is appropriate.References? Maylin Adame al., IDSA Clinical Practice Guideline for Acute BacterialRhinosinusitis in Children and Adults. Clinical Infectious Diseases;2012;54(8):3048-1767. ? Haim Vazquez, Sinusitis: Allergies, antibiotics, aspirin, asthma. [facility] Journal of Medicine 2006; 73(7): 671-678? [place] [employer]ious [employer]. Sinusitis (SinusInfection) Accessed 08/03/2015.? [employer], [employer]hma, and Immunology. Sinusitis Ddpyuchq15/10/2015.? [employer], [employer] AND Immun[employer]. Sinus Information Nzecqkjv76/10/2015.? Perez Fine, Prevalence of migraine in patients with a history ofself-reported or physician-diagnosed sinus headache. Arch Physician Office Secretary Med, 2003.164(16):1769-.? Copyright 5480-4168 [facility]. All rights reserved.Referring Provider: SELF [200]Allergies As of Date: 07/19/2018 Noted Allergy ReactionPENICILLINS 03/02/2006Date Reviewed: 07/19/2018Reviewed by: Lexie [facility]au[facility]) Bc - Fully AssessedReason for Visit: URI [115]Primary Visit Diagnosis:Bacterial sinusitis [J32.9, B96.89]Order(s):doxycycline hyclate (VIBRAMYCIN) 100 mg capsuleTake 1 capsule by mouth twice daily for 10 days.Disp: 20 capsuleRfl: 0Prescriptions as of 07/19/2018 Sig: AMLODIPINE 2.5 MG TABLET take 1 tablet by mouth once d* AMILORIDE 5 MG-HYDROCHLOROTHI* take 1/2 tablet by mouth once* SERTRALINE 25 MG TABLET take 1 tablet by mouth once d* ZOLPIDEM 10 MG TABLET Take 0.5 tablets by mouth at * DOXYCYCLINE HYCLATE 100 MG CA* Take 1 capsule by mouth twice*Problem List As Of Date 07/19/2018 Noted Resolved [...] Discussed expected course of illness Lexie Yancey APRN.[employer] Acute Sinusitis Each of us has four [...] health care provider may recommend treatment with zjgk-sfa-ncmhvcj medications for cold and allergy, nasal saline [...] include nasal congestion, runny nose, post-nasal drip (fvue-gn-cuwk release of nasal fluid into the back [...] in Children and Adults. Clinical Infectious Diseases; 2012;54(8):5493-6698. ? Haim Vazquez, Sinusitis: Allergies, antibiotics, aspirin, asthma. [facility] Journal of Medicine 2006; 73(7): 671-678 ? [place] [employer] and [employer]ious [employer]. Sinusitis (Sinus Infection) Accessed 08/03/2015. ? [place] of [employer]ergy, Asthma, and Immunology. Sinusitis Accessed 08/03/2015. ? [place], [employer] AND Immun[employer]. Sinus Information Accessed 08/03/2015. ? Maggi Fine., Prevalence of migraine in patients with a history of self-reported or physician-diagnosed sinus headache. Arch Physician Office Secretary Med, 2004. 164(16):1769-72. ? Copyright 9185-9424 [facility]. All rights reserved.Prescriptions ordered this encounter Disp Refills Start End DOXYCYCLINE HYCLATE 100 MG CAPSULE 20 c* 0 07/19/2018 07/29/2018 Route: ORAL Sig: Take 1 capsule by mouth twice daily for 10 days.Medications Discontinued During This Encounter azithromycin (ZITHROMAX) 250 mg tabl* 6 ta* 0 11/17/2017 07/19/2018 Sig: Take 2 tablets today then one tablet daily for 4 days. Disc: Reason for discontinue is not on file. Status:Closed by LEXIE YANCEY on 07/19/18 [facility] PROGRESSon 07-19-2018 Protein mass conc HNO ID: [id number] thor: Lexie ([facility]) Munira: (none)Author Type: Nurse PractitionerType: Progress NotesFiled: 07/19/2018 5:01 PMNote Text:SubjectiveThe history is provided by the patient and the spouse.Andreina Gee is a 43 year old female who presents with cold symptoms x 2weeks. She has been taking advil cold and sinus, using netti pot andtaking airborne. She feels her symptoms are worsening. Sick contactsinclude a son with URI symptoms.Review of SystemsConstitutional: Positive for malaise/fatigue. Negative for fever.HENT: Positive for congestion, sinus pain and sore throat (intermittent).Negative for ear pain.Respiratory: Positive for cough.Gastrointestinal: Negative for nausea and vomiting.Neurological: Positive for headaches (intermittent). BP 152/92 Pulse 93 Temp 36.6 ?C (97.9 ?F) (Left Tympanic) Resp16 Wt 78 kg (172 lb) SpO2 98% BMI 29.52 kg/m?PAST MEDICAL HISTORYDiagnosis Date- Essential hypertensionPAST SURGICAL HISTORYProcedure Laterality Date- SECTION HX x2- EXTRACTION ERUPTED TOOTH/EXR- REMOVAL OF TONSILS,<12 Y/O TonsillectomyALLERGIES PenicillinsMEDICATIONSamLODIPi ne (NORVASC) 2.5 mg tablet take 1 tablet by mouth once dailyaMILoride-hydrochlorothia zide (MODURETIC 5-50) 5-50 mg tab take 1/2 tabletby mouth once dailysertraline (ZOLOFT) 25 mg tablet take 1 tablet by mouth once dailyzolpidem (AMBIEN) 10 mg tab Take 0.5 tablets by mouth at bedtime asneeded.azithromycin (ZITHROMAX) 250 mg tablet Take 2 tablets today then onetablet daily for 4 days.FAMILY HISTORYProblem Relation Age of Onset- Hypertension Mother- Stroke Mother- Heart Mother- Hypertension Father- Heart Father- COPD FatherSocial HistorySubstance Use Topics- Smoking status: Former Smoker Packs/day: 1.00 Years: 20.00 Quit date: 09/24/2011- Smokeless tobacco: Never Used Comment: uses E-cigarettes- Alcohol use 3.0 - 6.0 oz/week 2 - 4 Glasses of Wine (5oz) per weekObjectivePhysical ExamConstitutional: She is well-developed, well-nourished, and in no distress.HENT:Right Ear: Tympanic membrane, external ear and ear canal normal.Left Ear: Tympanic membrane, external ear and ear canal normal.Nose: Sinus tenderness present. No rhinorrhea. Right sinus exhibitsfrontal sinus tenderness. Left sinus exhibits frontal sinus tenderness.Mouth/Throat: Uvula is midline, oropharynx is clear and moist and mucousmembranes are normal. No posterior oropharyngeal edema or posteriororopharyngeal erythema.Eyes: Right conjunctiva is injected. Left conjunctiva is injected.Neck: Neck supple.Cardiovascular: Normal rate, regular rhythm and normal heart sounds.Pulmonary/Chest: Effort normal and breath sounds normal. No respiratorydistress. She has no wheezes. She has no rales.Lymphadenopathy: She has no cervical adenopathy.Neurological: She is alert.Skin: Skin is warm and dry. No rash noted.Nursing note and vitals reviewed. ASSESSMENT/PLAN:1. Bacterial sinusitis - ICD9: 473.9, 041.9, ICD10: J32.9, B96.89- Will begin treatment with Doxycycline- The patient should also be given Mucinex for the first 5-7 days oftreatment.- Supportive care with plenty of fluids, rest, and analgesia prn.- DOXYCYCLINE HYCLATE 100 MG CAPSULE- Follow-up with your PCP in 3-5 days if symptoms have not improved orsooner if symptoms worsen- Discussed red flags and need for immediate medical evaluation if anyoccur.- Discussed supportive care treatment with fluids, rest and analgesia.- Discussed expected course of illnessLexie Yancey APRN.[facility] Cassie 07-09-[address] [facility] Patient Outreach (FAMPST) ANDREINA BRIGHT ([id number]) 1975 FDate Time Provider Lpjynpnxyc94/16/18 JENA PETERSON CHANDANMITCHELBenji During your visit today, we recorded the following information about you:Allergies As of Date: 07/09/2018 Noted Allergy ReactionPENICILLINS 03/02/2006Date Reviewed: 11/17/2017Reviewed by: Lexie Menchaca) RAHUL Yancey.KAI - Fully AssessedVisit Diagnosis:Medication management [Z79.899]Order(s):LIPID PANEL BASIC [SQLIPB] Order #: [id number] FUTUREPrescriptions as of 07/09/2018 Sig: AMLODIPINE 2.5 MG TABLET take 1 tablet by mouth once d*X AMILORIDE 5 MG-HYDROCHLOROTHI* take 1/2 tablet by mouth once*X SERTRALINE 25 MG TABLET take 1 tablet by mouth once d*X AZITHROMYCIN 250 MG TABLET Take 2 tablets today then one* ZOLPIDEM 10 MG TABLET Take 0.5 tablets by mouth at *Problem List As Of Date 07/09/2018 Noted Resolved WBC DISEASE NEC [D72.89] INVALID FOR* Essential hypertension [I10] Alcohol abuse [F10.10] INVALID FOR* Status:Closed by [employer], PRODUSER on 08/09/18 [facility] Group A Strep by PCRon 11-17 GAS Specimen Source Throat Swab [facility] Comment on above: Performed By: #### G ASPCR ####[facility] [address], [place] [id number] Group A Strep PCR Negative Normal [facility] [place] Comment on above: Result Comment: This test was developed and its performance characteristics determined by [facility]'s [facility] [place] ([facility]).It has not been cleared or approved by the FDA. [facility] is regulated under CLIA as qualified to perform high-complexity testing. This test is used for clinical purposes. It should not be regarded as investigational or for research. Performed By: #### G ASP ####[facility] [id number], [place] [id number] PROGRESSon 11-17-2017 Protein mass conc HNO ID: [id number] thor: Lexie [facility]auKen[facility] Hospital) Munira: (none)Author Type: Nurse PractitionerType: Progress NotesFiled: 11/17/2017 2:32 PMNote Text:SubjectiveHPI Andreina Gee is a 42 year old female who presents with sore throat,and a fever. Her son was diagnosed with strep 3 days ago. He was treatedwith amoxicillin and doing much better. She rates her sore throat pain a3/10.Review of SystemsConstitutional: Positive for fever.HENT: Positive for congestion and sore throat.Respiratory: Positive for cough.Cardiovascular: Negative.Gastrointestinal: Negative for nausea and vomiting.Musculoskeletal: Negative. Negative for myalgias.Skin: Positive for rash (chest).Neurological: Positive for headaches. BP 130/84 Pulse 72 Temp 36.9 ?C (98.4 ?F) (Tympanic) Resp 18 Wt78.7 kg (173 lb 9.6 oz) BMI 29.8 kg/m2PAST MEDICAL HISTORYDiagnosis Date- Essential hypertensionPAST SURGICAL HISTORYProcedure Laterality Date- SECTION HX x2- EXTRACTION ERUPTED TOOTH/EXR- REMOVAL OF TONSILS,<12 Y/O TonsillectomyALLERGIES PenicillinsMEDICATIONSaMILorid e-hydrochlorothiazide (MODURETIC 5-50) 5-50 mg tab Take 0.5tablets by mouth once daily.sertraline (ZOLOFT) 25 mg tablet Take 1 tablet by mouth once daily.zolpidem (AMBIEN) 10 mg tab Take 0.5 tablets by mouth at bedtime asneeded.amLODIPine (NORVASC) 2.5 mg tablet Take 1 tablet by mouth once daily.fluticasone (FLONASE) 50 mcg/actuation nasal spray Use 2 Sprays in eachnostril once daily. Rinse mouth after use. For nasal drainagecetirizine (ZYRTEC) 10 mg tablet Take 1 tablet by mouth once daily. Fornasal drainagedextromethorphan (DELSYM) 30 mg/5 mL liquid Take 10 mL by mouth twicedaily. For coughcodeine-guaiFENesin (ROBITUSSIN AC) 10-100 mg/5 mL syrup Take 5-10 mL bymouth four times daily as needed for Cough for up to 7 days. May causedrowsiness.FAMILY HISTORYProblem Relation Age of Onset- Hypertension Mother- Stroke Mother- Heart Mother- Hypertension Father- Heart Father- COPD FatherSocial HistorySubstance Use Topics- Smoking status: Former Smoker Packs/day: 1.00 Years: 20.00 Quit date: 09/24/2011- Smokeless tobacco: Never Used Comment: uses E-cigarettes- Alcohol use 3.0 - 6.0 oz/week 2 - 4 Glasses of Wine (5oz) per weekObjectivePhysical ExamConstitutional: She is well-developed, well-nourished, and in no distress.HENT:Head: Normocephalic.Right Ear: Tympanic membrane, external ear and ear canal normal.Left Ear: Tympanic membrane, external ear and ear canal normal.Nose: Nose normal. No rhinorrhea.Mouth/Throat: Uvula is midline and mucous membranes are normal. Mucousmembranes are not pale and not dry. Posterior oropharyngeal edema andposterior oropharyngeal erythema present. No oropharyngeal exudate.Eyes: Conjunctivae are normal. Right eye exhibits no discharge. Left eyeexhibits no discharge.Neck: Neck supple.Cardiovascular: Normal rate, regular rhythm and normal heart sounds.Pulmonary/Chest: Effort normal and breath sounds normal.Lymphadenopathy: She has cervical adenopathy.Neurological: She is alert.Skin: Skin is warm and dry. Rash (slight rash across upper chest) noted.Nursing note and vitals reviewed. ASSESSMENT/PLAN:1. Exposure to strep throat - ICD9: V01.89, ICD10: Z20.818 (primarydiagnosis)- AZITHROMYCIN 250 MG TABLET- will treat due to close exposure withhousehold family member.2. Sore throat - ICD9: 462, ICD10: J02.9- suspect strep- Rapid Strep negative in the office today and Throat culture pending- Discussed supportive care treatment with fluids, rest and analgesia.- The patient may also use warm salt water gargles, throat lozengesand/or OTC throat spray as needed.- Contagious dz precautions discussed- including considered contagiousuntil on antibiotics for 24 hours- Call back if drooling, increased temperature, symptoms of dehydrationand/or still sick in one week- RAPID STREP TEST B/O- GROUP A STREPTOCOCCUS BY PCR- request call if negative, may stopantibiotic.- Follow-up with your PCP in 3-5 days if symptoms have not improved orsooner if symptoms worsen- Discussed red flags and need for immediate medical evaluation if anyoccur.- Discussed supportive care treatment with fluids, rest and analgesia.- Discussed expected course of illnessLexie Yancey CNP [facility] PROGRESSon 10-30-2017 Protein mass conc HNO ID: [id number] Author: Joy Whitley [facility] Service: (none) Author Type: (none) Type: Progress Notes Filed: 10/30/2017 9:29 AM Note Text: bp ok last visit. [facility] CNPTOUTREACHon 10-25-2017 CNPTOUTREA Patient Outreach (INTMWS) ANDREINA NULL ([id number]) 1975 FDate Time Provider Department10/25/17 JOY WHITLEY ([facility]) INTMWS During your visit today, we recorded the following information about you:Joy Whitley Cma 10/30/2017 9:29 AM SignedNeeds f/up for htn next available with PCP or NPMiluciano Whitley 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] INVALID FOR* Essential hypertension [I10] Alcohol abuse [F10.10] INVALID FOR* Status:Closed by JOY WHITLEY CMA on 10/30/17 [facility] PROGRESSon 10-25-2017 Protein mass conc HNO ID: [id number] Author: Joy Whitley Cma Service: (none) Author Type: (none) Type: Progress Notes Filed: 10/30/2017 9:29 AM Note Text: Needs f/up for htn next available with PCP or COAL GRADER [facility] Protein mass conc HNO ID: [id number] thor: Joy Whitley CmaService: (none)Author Type: (none)Type: Progress NotesFiled: 10/25/2017 8:59 AMNote Text:Came in and BP was normal.Last 14 BPLast 14 Encounter BP Readings: Date: BP: 10/23/2017 120/82 10/16/2017 140/100 09/03/2017 134/84 06/15/2017 122/70 05/15/2017 122/86 05/14/2017 124/80 05/09/2017 126/84 09/12/2016 136/86 04/24/2016 122/70 12/17/2015 130/102 12/13/2015 140/92 08/28/2014 130/80 12/02/2013 116/74 10/29/2007 116/86 [facility] CNOVon 10-23-2017 CNOV Office Visit (INTMWS) ANDREINA BRIGHT ([id number]) 1975 FDate Time Provider Department10/23/17 11:00 AM JAE MASON ([facility]) INTMWS During your visit today, we recorded the following information about you: Temperature Pulse Respiration Blood pressure 96.2 degrees 88/minute 16/minute 120/82 Weight 77.1 kgTerri LYN Mason, [employer] SCRAP CRUSHER 10/23/2017 11:55 AM SignedOUTPATIENT VISIT DATE October 23, 2017OUTPATIENT VISIT TYPEESTABLFORMERLY [facility]:SHAZIA CORONEL COMPLAINT:Patient presents with:CoughHistory of Present Illness:Andreina Gee is a 42 year old female who was last seen 10/16/2017 in urgentcare.She has been seen in the past forACTIVE PROBLEM LISTOther Specified Disease of White Blood CellsEssential HypertensionAlcohol AbuseShe presented to urgent care with report of 4 days of malaise fatigue coughfever nausea nasal congestion. Viral etiology, flu like symptoms. Supportivecare advised. Provided with cough syrup, prednisone. She reports today thatmalaise, fatigue, fever, and nausea are resolved. Continues with nasalcongestion, frequent cough, and shortness of breath on exertion withactivities.She did feel somewhat improved with prior treatment. Able to eat,drink, complete daily activities The ROS is otherwise negative.The patient's pmh, medications, allergies, and past visits are reviewed.PHYSICAL EXAM:BP 120/82 (BP Site: Right Arm, BP Position: Sitting, BP Cuff Size: RegularAdult) Pulse 88 Temp (!) 35.7 ?C (96.2 ?F) Resp 16 Wt 77.1 kg (170 lb) SpO2 96% BMI 29.18 kg/v4Ctfuxml appearance: alert, cooperative, pleasantHead: NormocephalicEyes: conjunctiva/corneas normalEars: R TM - clear with good landmarks, L TM - clear with good landmarksNose: mucosa erythematous and swollenOropharynx: moist without lesionsNeck: supple and no adenopathyHeart: regular rate and rhythm, without murmurLungs: clear to auscultation, without rales or wheeze, good air exchangePAST MEDICAL HISTORYDiagnosis Date- Essential hypertensionPAST SURGICAL HISTORYProcedure Laterality Date- SECTION HX x2- EXTRACTION ERUPTED TOOTH/EXR- REMOVAL OF TONSILS,ANDlt;12 Y/O TonsillectomyFAMILY HISTORYProblem Relation Age of Onset- Hypertension Mother- Stroke Mother- Heart Mother- Hypertension Father- Heart Father- COPD FatherSocial HistorySubstance Use Topics- Smoking status: Former Smoker Packs/day: 1.00 Years: 20.00 Quit date: 09/24/2011- Smokeless tobacco: Never Used Comment: uses E-cigarettes- Alcohol use 3.0 - 6.0 oz/week 2 - 4 Glasses of Wine (5oz) per weekALLERGIES:ALLERGIESAllerge n Reactions- PenicillinsMEDICATIONSazithrom ycin (ZITHROMAX Z-ALYSSIA) 250 mg tablet Take 2 tablets day one, then, 1tablet daily until gone. Take with foodfluticasone (FLONASE) 50 mcg/actuation nasal spray Use 2 Sprays in each nostrilonce daily. Rinse mouth after use. For nasal drainagecetirizine (ZYRTEC) 10 mg tablet Take 1 tablet by mouth once daily. For nasaldrainagedextromethorphan (DELSYM) 30 mg/5 mL liquid Take 10 mL by mouth twice daily.For coughcodeine-guaiFENesin (ROBITUSSIN AC) 10-100 mg/5 mL syrup Take 5-10 mL by mouthfour times daily as needed for Cough for up to 7 days. May cause drowsiness.Brompheniramine-Pse udoeph-DM (BROMFED DM) 2-30-10 mg/5 mL syrup Take 10 mL bymouth four times daily as needed for up to 7 days.aMILoride-hydrochlorothia zide (MODURETIC 5-50) 5-50 mg tab Take 0.5 tablets bymouth once daily.sertraline (ZOLOFT) 25 mg tablet Take 1 tablet by mouth once daily.zolpidem (AMBIEN) 10 mg tab Take 0.5 tablets by mouth at bedtime as needed.amLODIPine (NORVASC) 2.5 mg tablet Take 1 tablet by mouth once daily.OARRS website checked and validated. All prescriptions have been APPROPRIATELYfilled. No suspicious activity was identified.- 10/23/2017 by HARISH Dutta personally interviewed, confirmed and edited the above information ifobtained by others.TESTING:Glucose (mg/dL)12/17/2015 92 Potassium (mmol/L)12/17/2015 4.6 Sodium (mmol/L)12/17/2015 139 Chloride (mmol/L)12/17/2015 99 CO2 (mmol/L)12/17/2015 Creatinine (mg/dL)12/17/2015 0.66 BUN (mg/dL)12/17/2015 13 Anion Gap (mmol/L)12/17/2015 13 Calcium (mg/dL)12/17/2015 10.0 Glucose (mg/dL)12/17/2015 92 Potassium (mmol/L)12/17/2015 4.6 Sodium (mmol/L)12/17/2015 139 Chloride (mmol/L)12/17/2015 99 CO2 (mmol/L)12/17/2015 Creatinine (mg/dL)12/17/2015 0.66 BUN (mg/dL)12/17/2015 13 Anion Gap (mmol/L)12/17/2015 Calcium (mg/dL)12/17/2015 10.0 Protein, Total (g/dL)12/17/2015 7.7 Albumin (g/dL)Date 12/17/2015 4.5 Bilirubin, Total (mg/dL)Date 12/17/2015 0.5 Alkaline Phosphatase (U/L)Date 12/17/2015 70 AST (U/L)Date 12/17/2015 32 ALT (U/L)Date 12/17/2015 29 Hemoglobin (g/dL)Date 12/17/2015 15.3 Hematocrit (%)Date 12/17/2015 44.4 WBC (k/uL)Date 12/17/2015 13.98 No results found for: CHOL, HDL, LDL, TGNo results found for: SLE6SWhjymkpm Fraction: No results foundIMPRESSION:Ms. Gee is a 42 year old woman who presents with symptoms consistent withbronchitis.After my examination and review of data, I make the following recommendations.PLAN AND RECOMMENDATIONS:1. Bronchitis - ICD9: 490, ICD10: J40 (primary diagnosis)- AZITHROMYCIN 250 MG TABLET- FLUTICASONE 50 MCG/ACTUATION NASAL SPRAY,SUSPENSION- CETIRIZINE 10 MG TABLET- DEXTROMETHORPHAN POLISTIREX ER 30 MG/5 ML ORAL SUSP EXT.RELEASE 12HR- CODEINE 10 MG-GUAIFENESIN 100 MG/5 ML ORAL LIQUID2. Cough - ICD9: 786.2, ICD10: R05- DEXTROMETHORPHAN POLISTIREX ER 30 MG/5 ML ORAL SUSP EXT.RELEASE 12HR- CODEINE 10 MG-GUAIFENESIN 100 MG/5 ML ORAL LIQUIDCall or return to clinic if not feeling improved.Advised to go to ER if develops chest pain, shortness of breath, or severeworsening of symptoms.Discussed risks, benefits, alternatives, and potential side effects ofmedications.Ms. Gee expressed understanding and agreed with the plan.Jae Mason, CNSReferring Provider: SELF [[id number]]Allergies As of Date: 10/23/2017 Noted Allergy ReactionPENICILLINS 03/02/2006Date Reviewed: 10/23/2017Reviewed by: Lakshmi Chaves LPN - Fully AssessedReason for Visit: Cough [28]Primary Visit Diagnosis:Bronchitis [J40] Other Visit Diagnosis:Cough [R05]Order(s):azithromycin (ZITHROMAX Z-ALYSSIA) 250 mg tabletTake 2 tablets [...] 7 days. 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 May cause drowsiness.Medications Discontinued During This Encounter hydroCHLOROthiazide (HYDRODIURIL, ES* [...] Reason for discontinue is not on file. Status:Closed by JAE PRECIADO on 10/23/17 [facility] PROGRESSon 10-23-2017 Protein mass conc HNO ID: [id number] thor: Jae (Lyn) LYN MasonService: (none)Author Type: Nurse SpecialistType: Progress NotesFiled: 10/23/2017 11:55 AMNote Text:OUTPATIENT VISIT DATE October 23, 2017OUTPATIENT VISIT TYPEEST[facility] PH[facility]ICIAN:SAJAN CORONELPRMONROE COMPLAINT:Patient presents with:CoughHistory of Present Illness:Andreina Gee is a 42 year old female [facility]She has been seen in the past forACTIVE PROBLEM LISTOther Specified Disease of White Blood CellsEssential HypertensionAlcohol AbuseShe presented to urgent care with report of 4 days of malaise fatiguecough fever nausea nasal congestion. Viral etiology, flu like symptoms.Supportive care advised. Provided with cough syrup, prednisone. Shereports today that malaise, fatigue, fever, and nausea are resolved.Continues with nasal congestion, frequent cough, and shortness of breathon exertion with activities.She did feel somewhat improved with priortreatment. Able to eat, drink, complete daily activities The ROS isotherwise negative.The patient's pmh, medications, allergies, and past visits are reviewed.PHYSICAL EXAM:BP 120/82 (BP Site: Right Arm, BP Position: Sitting, BP Cuff Size: RegularAdult) Pulse 88 Temp (!) 35.7 ?C (96.2 ?F) Resp 16 Wt 77.1 kg (170lb) SpO2 96% BMI 29.18 kg/d8Kpcwgbr appearance: alert, cooperative, pleasantHead: NormocephalicEyes: conjunctiva/corneas normalEars: R TM - clear with good landmarks, L TM - clear with good landmarksNose: mucosa erythematous and swollenOropharynx: moist without lesionsNeck: supple and no adenopathyHeart: regular rate and rhythm, without murmurLungs: clear to auscultation, without rales or wheeze, good air exchangePAST MEDICAL HISTORYDiagnosis Date- Essential hypertensionPAST SURGICAL HISTORYProcedure Laterality Date- SECTION HX x2- EXTRACTION ERUPTED TOOTH/EXR- REMOVAL OF TONSILS,<12 Y/O TonsillectomyFAMILY HISTORYProblem Relation Age of Onset- Hypertension Mother- Stroke Mother- Heart Mother- Hypertension Father- Heart Father- COPD FatherSocial HistorySubstance Use Topics- Smoking status: Former Smoker Packs/day: 1.00 Years: 20.00 Quit date: 09/24/2011- Smokeless tobacco: Never Used Comment: uses E-cigarettes- Alcohol use 3.0 - 6.0 oz/week 2 - 4 Glasses of Wine (5oz) per weekALLERGIES:ALLERGIESAllerge n Reactions- PenicillinsMEDICATIONSazithrom ycin (ZITHROMAX Z-ALYSSIA) 250 mg tablet Take 2 tablets day one, then,1 tablet daily until gone. Take with foodfluticasone (FLONASE) 50 mcg/actuation nasal spray Use 2 Sprays in eachnostril once daily. Rinse mouth after use. For nasal drainagecetirizine (ZYRTEC) 10 mg tablet Take 1 tablet by mouth once daily. Fornasal drainagedextromethorphan (DELSYM) 30 mg/5 mL liquid Take 10 mL by mouth twicedaily. For coughcodeine-guaiFENesin (ROBITUSSIN AC) 10-100 mg/5 mL syrup Take 5-10 mL bymouth four times daily as needed for Cough for up to 7 days. May causedrowsiness.Brompheniramin f-Lfmzgztpx-SL (BROMFED DM) 2-30-10 mg/5 mL syrup Take 10 mLby mouth four times daily as needed for up to 7 days.aMILoride-hydrochlorothia zide (MODURETIC 5-50) 5-50 mg tab Take 0.5tablets by mouth once daily.sertraline (ZOLOFT) 25 mg tablet Take 1 tablet by mouth once daily.zolpidem (AMBIEN) 10 mg tab Take 0.5 tablets by mouth at bedtime asneeded.amLODIPine (NORVASC) 2.5 mg tablet Take 1 tablet by mouth once daily.OAS website checked and validated. All prescriptions have beenAPPROPRIATELY filled. No suspicious activity was identified.- 10/23/2017HARISH Vanegas personally interviewed, confirmed and edited the above information ifobtained by others.TESTING:Glucose (mg/dL)Date 12/17/2015 92 Potassium (mmol/L)Date 12/17/2015 4.6 Sodium (mmol/L)Date 12/17/2015 139 Chloride (mmol/L)Date Value12/17/2015 99 CO2 (mmol/L)Date Value12/17/2015 27 Creatinine (mg/dL)Date Value12/17/2015 0.66 BUN (mg/dL)Date Value12/17/2015 13 Anion Gap (mmol/L)12/17/2015 13 Calcium (mg/dL)12/17/2015 10.0 Glucose (mg/dL)12/17/2015 92 Potassium (mmol/L)12/17/2015 4.6 Sodium (mmol/L)12/17/2015 139 Chloride (mmol/L)12/17/2015 99 CO2 (mmol/L)12/17/2015 27 Creatinine (mg/dL)12/17/2015 0.66 BUN (mg/dL)12/17/2015 13 Anion Gap (mmol/L)12/17/2015 13 Calcium (mg/dL)12/17/2015 10.0 Protein, Total (g/dL)12/17/2015 7.7 Albumin (g/dL)12/17/2015 4.5 Bilirubin, Total (mg/dL)12/17/2015 0.5 Alkaline Phosphatase (U/L)12/17/2015 70 AST (U/L)12/17/2015 32 ALT (U/L)12/17/2015 29 Hemoglobin (g/dL)12/17/2015 15.3 Hematocrit (%)12/17/2015 44.4 WBC (k/uL)12/17/2015 13.98 No results found for: CHOL, HDL, LDL, TGNo results found for: HSO2NWplvppui Fraction: No results foundIMPRESSION:Ms. Gee is a 42 year old woman who presents with symptoms consistentwith bronchitis.After my examination and review of data, I make the followingrecommendations.PLAN AND RECOMMENDATIONS:1. Bronchitis - ICD9: 490, ICD10: J40 (primary diagnosis)- AZITHROMYCIN 250 MG TABLET- FLUTICASONE 50 MCG/ACTUATION NASAL SPRAY,SUSPENSION- CETIRIZINE 10 MG TABLET- DEXTROMETHORPHAN POLISTIREX ER 30 MG/5 ML ORAL SUSP EXT.RELEASE 12HR- CODEINE 10 MG-GUAIFENESIN 100 MG/5 ML ORAL LIQUID2. Cough - ICD9: 786.2, ICD10: R05- DEXTROMETHORPHAN POLISTIREX ER 30 MG/5 ML ORAL SUSP EXT.RELEASE 12HR- CODEINE 10 MG-GUAIFENESIN 100 MG/5 ML ORAL LIQUIDCall or return to clinic if not feeling improved.Advised to go to ER if develops chest pain, shortness of breath, or severeworsening of symptoms.Discussed risks, benefits, alternatives, and potential side effects ofmedications.Ms. Gee expressed understanding and agreed with the plan.LYN Dutta [facility] CNPTOUTREACHodieter 10-22-2017 CNPTOUTREA Patient Outreach (FAMPWS) ANDREINA BRIGHT ([id number]) 1975 FDate Time Provider Department10/22/17 JOY WHITLEY) FAMPWS During your visit today, we recorded the following information about you:Joy Whitley Cma 10/25/2017 8:59 AM Signed PHMA TEAMLET DOCUMENTATIONProvider Action/FYI:PSR Action/FYI:Teamlet has identified patient by name and date of .Team: n/a? Last Office Visit:06/15/2017? Next Office Visit: Visit date not found? Last BP/Labs:Blood Pressure:Last 3 Encounter BP Readings: Date: BP: 10/16/2017 140/100 09/03/2017 134/84 06/15/2017 122/70Lipids:No results found for: CHOLNo results found for: HDLNo results found for: LDLNo results found for: TGHGB A1C:No results found for: MCD4GVVJ:No results found for: TSH)Care Gap: HTN - Last BP NOT under 140/90Plan:? Type of appointment needed: Follow-up HTN in next available with Provider PCPor COAL GRADER? Consultation Appointments: No patient outreach needed at this time? Rolando, pap ANDamp; HPV dueLabs, HM and Immunization:Health Maintenance Due:TETANUS due on 1986ADULT PREVNAR-13 due on 1994PAP EVERY 5 YEARS due on 2005HPV EVERY 5 YEARS due on 2005MAMMOGRAM due on 05/03/2017 - order pendingINFLUENZA(1) due on 05/25/2017Joy Whitley [facility] 10/25/2017 8:59 AM SignedLeft detailed message about making a f/up appointment.Joy Sang [facility] 10/25/2017 8:59 AM SignedCame in and BP was normal.Last 14 BPLast 14 Encounter BP Readings: Date: BP: 10/23/2017 120/82 10/16/2017 140/100 09/03/2017 134/84 06/15/2017 122/70 05/15/2017 122/86 05/14/2017 124/80 05/09/2017 126/84 09/12/2016 136/86 04/24/2016 122/70 12/17/2015 130/102 12/13/2015 140/92 08/28/2014 130/80 12/02/2013 116/74 10/29/2007 116/86Allergies As of Date: 10/22/2017 Noted Allergy ReactionPENICILLINS 03/02/2006Date Reviewed: 10/16/2017Reviewed by: Vanna Buck LPN - Fully AssessedReason for Visit: PHMA/Care Gap Outreach [[id number]]Primary Visit Diagnosis:History of mammography, screening [Z92.89]Prescriptions as of 10/22/2017 Sig: BROMPHENIRAMINE-PSEUDOEPHEDRI* Take 10 mL by mouth four time* AMILORIDE 5 MG-HYDROCHLOROTHI* Take 0.5 tablets by mouth onc* SERTRALINE 25 MG TABLET Take 1 tablet by mouth once d* ZOLPIDEM 10 MG TABLET Take 0.5 tablets by mouth at * AMLODIPINE 2.5 MG TABLET Take 1 tablet by mouth once d*X HYDROCHLOROTHIAZIDE 25 MG TAB* Take 1 tablet by mouth once d*X HYDROXYZINE HCL 25 MG TABLET Take 1 tablet by mouth every *Problem List As Of Date 10/22/2017 Noted Resolved WBC DISEASE NEC [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 [facility] Protein mass conc HNO ID: [id number] thor: Joy Whitley CmaService: (none)Author Type: (none)Type: Progress NotesFiled: 10/25/2017 8:59 AMNote Text: PHMA TEAMLET DOCUMENTATIONProvider Action/FYI:PSR Action/FYI:Teamlet has identified patient by name and date of .Team: n/a? Last Office Visit:06/15/2017? Next Office Visit: Visit date not found? Last BP/Labs:Blood Pressure:Last 3 Encounter BP Readings: Date: BP: 10/16/2017 140/100 09/03/2017 134/84 06/15/2017 122/70Lipids:No results found for: CHOLNo results found for: HDLNo results found for: LDLNo results found for: TGHGB A1C:No results found for: ONY1KLKW:No results found for: TSH)Care Gap: HTN - Last BP NOT under 140/90Plan:? Type of appointment needed: Follow-up HTN in next available withProvider PCP or COAL GRADER? Consultation Appointments: No patient outreach needed at this time? Rolando, pap AND HPV dueLabs, HM and Immunization:Health Maintenance Due:TETANUS due on 1986ADULT PREVNAR-13 due on 1994PAP EVERY 5 YEARS due on 2005HPV EVERY 5 YEARS due on 2005MAMMOGRAM due on 05/03/2017 - order pendingINFLUENZA(1) due on 05/25/2017Miranda Hunterdon Supervisor [employer] [facility] CNOVon 10-16-2017 CNOV Office Visit (UCWSTR) RODOLFO BRIGHTANDREINA Sherry ([id number]) 1975 FDate Time Provider Department10/16/17 5:00 PM KATHY VALERO (COAL GRADER) WSTR During your visit today, we recorded the following information about you: Temperature Pulse Respiration Blood pressure 98.4 degrees 91/minute 18/minute 140/100 Weight 77.6 kgKathy Valero CNP, CANOPY INSPECTOR 10/16/2017 6:13 PM SignedHPIPatient presents with:Cough: nasal ANDamp; chest congestion, fatique ANDamp; felt warm, Sx started X 4daysStates hx of asthma, bronchitis, pneumonia, and former smoker.Denies getting flu vaccine this season.OTC cold/sinus medication with minimal relief.Review of SystemsConstitutional: Positive for chills, fever and malaise/fatigue.HENT: Positive for congestion. Negative for ear pain and sore throat.Eyes: Negative for discharge and redness.Respiratory: Positive for cough. Negative for hemoptysis, sputum production,shortness of breath and wheezing.Gastrointestinal: Positive for nausea. Negative for abdominal pain, diarrheaand vomiting.Musculoskeletal: Positive for myalgias.Skin: Negative for rash.Neurological: Negative for headaches.All other systems reviewed and are negative.PAST MEDICAL HISTORYDiagnosis Date- Essential hypertensionPAST SURGICAL HISTORYProcedure Laterality Date- SECTION HX x2- EXTRACTION ERUPTED TOOTH/EXR- REMOVAL OF TONSILS,ANDlt;12 Y/O TonsillectomyALLERGIES PenicillinsMEDICATIONSaMILorid e-hydrochlorothiazide (MODURETIC 5-50) 5-50 mg tab Take 0.5 tablets bymouth once daily.sertraline (ZOLOFT) 25 mg tablet Take 1 tablet by mouth once daily.zolpidem (AMBIEN) 10 mg tab Take 0.5 tablets by mouth at bedtime as needed.amLODIPine (NORVASC) 2.5 mg tablet Take 1 tablet by mouth once daily.hydroCHLOROthiazide (HYDRODIURIL, ESIDRIX) 25 mg tablet Take 1 tablet by mouthonce daily.hydrOXYzine HCl (ATARAX) 25 mg tablet Take 1 tablet by mouth every 8 hours asneeded for Itching/Rash.FAMILY HISTORYProblem Relation Age of Onset- Hypertension Mother- Stroke Mother- Heart Mother- Hypertension Father- Heart Father- COPD FatherSocial HistorySubstance Use Topics- Smoking status: Former Smoker Packs/day: 1.00 Years: 20.00 Quit date: 09/24/2011- Smokeless tobacco: Never Used Comment: uses E-cigarettes- Alcohol use 3.0 - 6.0 oz/week 2 - 4 Glasses of Wine (5oz) per weekPhysical ExamConstitutional: She is well-developed, well-nourished, and in no distress.HENT:Head: Normocephalic.Right Ear: External ear and ear canal normal. A middle ear effusion (clear) ispresent.Left Ear: External ear and ear canal normal. A middle ear effusion (clear) ispresent.Nose: Rhinorrhea present. Right sinus exhibits no maxillary sinus tendernessand no frontal sinus tenderness. Left sinus exhibits no maxillary sinustenderness and no frontal sinus tenderness.Mouth/Throat: Posterior oropharyngeal erythema (PND) present.Eyes: Conjunctivae are normal.Neck: Normal range of motion. Neck supple.Cardiovascular: Normal rate, regular rhythm and normal heart sounds.Pulmonary/Chest: Effort normal and breath sounds normal. No respiratorydistress. She has no wheezes.Abdominal: Soft. She exhibits no distension. There is no tenderness.Lymphadenopathy: She has no cervical adenopathy.Skin: Skin is warm and dry. No rash noted.Nursing note and vitals reviewed.ASSESSMENT/PLAN:1. Flu-like symptoms - ICD9: 780.99, ICD10: R68.89-ANDgt;48hrs onset-reviewed viral etiology-supportive care, rest, fluids, analgesics PRN-F/u with pcp in 3-5 days or sooner if symptoms are not improving or worseningPrescription instructions reviewed with patient as applicable. Patient advisedif symptoms do not improve or if symptoms worsen sooner, to contact theirprimary care physician. Potential red flag symptoms discussed with thepatient. Reviewed appropriate action plan to take if red flag symptoms occur.Patient agreeable to treatment plan.Javad Montoya CNP, KAI 10/16/2017 5:42 PM SignedEXPRESS CARE PATIENT INFOINFLUENZA INTRODUCTIONInfluenza (commonly called the flu) is a highly contagious illness that canoccur in children or adults of any age. It occurs more often in the wintermonths because people spend more time in close contact with one another. Theflu is spread easily from tbzstf-of-eujrsx by coughing, sneezing, or touchingsurfaces.Every year, complications of the flu require more than 200,000 people in [facility] to be hospitalized. Serious illness is more likely in the veryyoung, older adults, women, and people who have certain healthproblems such as asthma or other forms of lung disease.There have been several widespread flu outbreaks (called pandemics), which ledto the deaths of many people worldwide. These outbreaks occurred when newstrains of influenza viruses formed (often from pigs or birds) and humansbecame infected because they had no immunity to these viruses.FLU SYMPTOMSSymptoms of seasonal flu can vary from person to person, but usually include:? Fever (temperature higher than 100?F or 37.8?C)? Headache and muscle aches? Fatigue? Cough and sore throat may also be presentPeople with the flu usually have a fever for two to five days. This isdifferent than fever caused by other upper respiratory viruses, which usuallyresolve after 24 to 48 hours.Some people have cold-like symptoms (runny nose, sore throat) during the fluwhile others have fever and muscle aches. Flu symptoms usually improve over twoto five days, although the illness may last for a week or more. Weakness andfatigue may persist for several weeksFlu complications ? Complications of influenza occur in some people; pneumoniais the most common complication. Pneumonia is a serious infection of the lungs,and is more likely to occur in people over the age of 65, people who live inlong term care facilities (nursing homes), and those with other illnesses suchas diabetes or conditions affecting the heart or lungs.FLU DIAGNOSISInfluenza is usually diagnosed based on symptoms (fever, cough and muscleaches). Lab testing for influenza is performed in certain cases, such as duringa new influenza outbreak in a community.FLU TREATMENTWhen to seek help ? Most people with the flu recover within one to two weekswithout treatment. However, serious complications of the flu can occur. Callyour doctor or nurse immediately if:? You feel short of breath or have trouble breathing? You have pain or pressure in your chest or stomach? You have signs of being dehydrated, such as dizziness when standing or notpassing urine? You feel confused? You cannot stop vomiting or you cannot drink enough fluidsThere are several groups of people who are at increased risk for flucomplications. These include women, young children (ANDlt;5 years ofage, and especially ANDlt;2 years of age), people ?65 years of age, and peoplewith certain diseases such as chronic lung disease (such as asthma), heartdisease, diabetes, immunosuppressing conditions (such as HIV infection ortransplantation), and some other diseases. If you or your child has flusymptoms and is at increased risk of flu complications, you should call yourhealthcare provider.Treat symptoms ? Treating the symptoms of influenza can help you to feelbetter, but will not make the flu go away faster.? Rest until the flu is fully resolved, especially if the illness has beensevere? Fluids ? Drink enough fluids so that you do not become dehydrated. One way tojudge if you are drinking enough is to look at the color of your urine.Normally, urine should be light yellow to nearly colorless. If you are drinkingenough, you should pass urine every three to five hours.? Acetaminophen (such as Tylenol? and other brands) can relieve fever,headache, and muscle aches. Aspirin, and medicines that include aspirin (eg,bismuth subsalicylate; PeptoBismol), are not recommended for children under 18because aspirin can lead to a serious disease called Vidal syndrome.? Cough medicines are not usually helpful; cough usually resolves withouttreatment. We do not recommend cough or cold medicine for children under agesix years.Antiviral treatment ? Antiviral medicines can be used to treat or preventinfluenza. When used as a treatment, the medicine does not eliminate flusymptoms, although it can reduce the severity and duration of symptoms by aboutone day. Not every person with influenza needs an antiviral medicine; thedecision is based upon your risk of developing complications of influenza.Antiviral treatment is most effective for seasonal influenza when it is takenwithin the first 48 hours of flu symptoms.Side effects ? Zanamivir and oseltamivir can cause mild side effects, includingnausea and vomiting; zanamivir, which is inhaled, can cause difficultybreathing in some cases. Most people are able to continue the medicine despitethe side effects.Antibiotics ? Antibiotics are NOT useful for treating viral illnesses such asinfluenza. Antibiotics should only used if there is a bacterial complication ofthe flu such as bacterial pneumonia, ear infection, or sinusitis. Antibioticscan cause side effects and lead to development of antibiotic resistance.Referring Provider: SELF [200]Allergies As of Date: 10/16/2017 Noted Allergy ReactionPENICILLINS 03/02/2006Date Reviewed: 10/16/2017Reviewed by: Vanna Buck LPN - Fully AssessedReason for Visit: Cough [28] Cmt: nasal AND chest congestion, fatique AND felt warm, Sx started X 4 daysPrimary Visit Diagnosis:Flu-like symptoms [R68.89]Order(s):predniSONE (DELTASONE) 20 mg tabletTake 2 tablets by mouth once daily for 5 days. Take daily with food.Disp: 10 tabletRfl: 0 Joveoudsjjsufas-Wfsvwokmp-TV (BROMFED DM) 2-30-10 mg/5 mL syrupTake 10 mL by mouth four times daily as needed for up to 7 days.Disp: 240 mLRfl: 0Prescriptions as of 10/16/2017 Sig: AMILORIDE 5 MG-HYDROCHLOROTHI* [...] TABLET Take 1 tablet by mouth every *Medication notes this encounter HYDROCHLOROTHIAZIDE 25 MG TABLET >> Vanna Buck TOOL ROOM ATTENDANT 10/16/2017 5:09 PM >> VANNA BUCK NHI e Oct 16, 2017 5:09 PM No longer taking HYDROXYZINE HCL 25 MG TABLET >> Vanna Buck TOOL ROOM ATTENDANT 10/16/2017 5:09 PM >> VANNA BUCK LPN e Oct 16, 2017 5:09 PM No longer takingProblem List As Of Date 10/16/2017 Noted Resolved [...] another. The flu is spread easily from kliywz-nz-ohamtr by coughing, sneezing, or touching surfaces. Every [...] age of 65, people who live in assisted care facilities (nursing homes), and those with [...] do not become dehydrated. One way to art model if you are drinking enough is to [...] effects and lead to development of antibiotic resistance.Prescriptions ordered this encounter Disp Refills Start End PREDNISONE 20 MG TABLET 10 t* 0 10/16/2017 10/21/2017 Route: ORAL Sig: Take 2 tablets by mouth once daily for 5 days. Take daily with food. BROMPHENIRAMINE-PSEUDOEPHEDRIN E-DM 2* 240 * 0 10/16/2017 10/23/2017 Route: ORAL Sig: Take 10 mL by mouth four times daily as needed for up to 7 days.Disposition: Return if symptoms worsen or fail to improve.Follow-up and Disposition History RecordedLetter Arnel Valero CNP [facility] [facility] [address]Jpnl: [phone]/23/2018Andreina Gee[address] [facility] [id number] Whom it May Concern:This is to certify that Andreina Gee was seen at our office for medicalcare. Andreina may return to work on 10/18/2017.If you have any questions please feel free to call.Sincerely:Kathy Valero CNPEncounter Number: [id number] Status:Closed by KATHY VALERO on 10/16/17 [facility] PROGRESSon 10-16-2017 Protein mass conc HNO ID: [id number] thor: Kathy Latham (Entry Level Account Representative) Michelle Valerovice: (none)Author Type: Nurse PractitionerType: Progress NotesFiled: 10/16/2017 6:13 PMNote Text:HPIPatient presents with:Cough: nasal AND chest congestion, fatique AND felt warm, Sx started X 4 daysStates hx of asthma, bronchitis, pneumonia, and former smoker.Denies getting flu vaccine this season.OTC cold/sinus medication with minimal relief.Review of SystemsConstitutional: Positive for chills, fever and malaise/fatigue.HENT: Positive for congestion. Negative for ear pain and sore throat.Eyes: Negative for discharge and redness.Respiratory: Positive for cough. Negative for hemoptysis, sputumproduction, shortness of breath and wheezing.Gastrointestinal: Positive for nausea. Negative for abdominal pain,diarrhea and vomiting.Musculoskeletal: Positive for myalgias.Skin: Negative for rash.Neurological: Negative for headaches.All other systems reviewed and are negative.PAST MEDICAL HISTORYDiagnosis Date- Essential hypertensionPAST SURGICAL HISTORYProcedure Laterality Date- SECTION HX x2- EXTRACTION ERUPTED TOOTH/EXR- REMOVAL OF TONSILS,<12 Y/O TonsillectomyALLERGIES PenicillinsMEDICATIONSaMILorid e-hydrochlorothiazide (MODURETIC 5-50) 5-50 mg tab Take 0.5tablets by mouth once daily.sertraline (ZOLOFT) 25 mg tablet Take 1 tablet by mouth once daily.zolpidem (AMBIEN) 10 mg tab Take 0.5 tablets by mouth at bedtime asneeded.amLODIPine (NORVASC) 2.5 mg tablet Take 1 tablet by mouth once daily.hydroCHLOROthiazide (HYDRODIURIL, ESIDRIX) 25 mg tablet Take 1 tablet bymouth once daily.hydrOXYzine HCl (ATARAX) 25 mg tablet Take 1 tablet by mouth every 8 hoursas needed for Itching/Rash.FAMILY HISTORYProblem Relation Age of Onset- Hypertension Mother- Stroke Mother- Heart Mother- Hypertension Father- Heart Father- COPD FatherSocial HistorySubstance Use Topics- Smoking status: Former Smoker Packs/day: 1.00 Years: 20.00 Quit date: 09/24/2011- Smokeless tobacco: Never Used Comment: uses E-cigarettes- Alcohol use 3.0 - 6.0 oz/week 2 - 4 Glasses of Wine (5oz) per weekPhysical ExamConstitutional: She is well-developed, well-nourished, and in no distress.HENT:Head: Normocephalic.Right Ear: External ear and ear canal normal. A middle ear effusion(clear) is present.Left Ear: External ear and ear canal normal. A middle ear effusion (clear)is present.Nose: Rhinorrhea present. Right sinus exhibits no maxillary sinustenderness and no frontal sinus tenderness. Left sinus exhibits nomaxillary sinus tenderness and no frontal sinus tenderness.Mouth/Throat: Posterior oropharyngeal erythema (PND) present.Eyes: Conjunctivae are normal.Neck: Normal range of motion. Neck supple.Cardiovascular: Normal rate, regular rhythm and normal heart sounds.Pulmonary/Chest: Effort normal and breath sounds normal. No respiratorydistress. She has no wheezes.Abdominal: Soft. She exhibits no distension. There is no tenderness.Lymphadenopathy: She has no cervical adenopathy.Skin: Skin is warm and dry. No rash noted.Nursing note and vitals reviewed.ASSESSMENT/PLAN:1. Flu-like symptoms - ICD9: 780.99, ICD10: R68.89->48hrs onset-reviewed viral etiology-supportive care, rest, fluids, analgesics PRN-F/u with pcp in 3-5 days or sooner if symptoms are not improving orworseningPrescription instructions reviewed with patient as applicable. Patientadvised if symptoms do not improve or if symptoms worsen sooner, tocontact their primary care physician. Potential red flag symptomsdiscussed with the patient. Reviewed appropriate action plan to take ifred flag symptoms occur. Patient agreeable to treatment plan.Kathy Valero CNP [facility] CNOVon 09-03-2017 CNOV Office Visit (INTMWS) ANDREINA NULL ([id number]) 1975 FDate Time Provider Lpbzbzidvt57/11/17 10:40 AM JENA PETERSON During your visit today, we recorded the following information about you: Pulse Respiration Blood pressure Weight 91/minute 12/minute 134/84 78.5 kg Height Last Period 1.626 m 08/06/17JENA PETERSON MD 09/03/2017 6:16 PM SignedReason for VisitPatient presents with:Established Patient: er follow up- shantel Gee is a 42 year old female who presents here today for AboveComplaints..Health MaintenanceTETANUSADULT PREVNAR-13PAP EVERY 5 YEARSHPV EVERY 5 YEARSMAMMOGRAMINFLUENZA(1)HPIR eviewed her ER notes, she had a very bad day, was hypokalemia, and had beendrinking more alcohol than she normally does. Around 6 to 8 glasses of wine todestress and the patient began to have episodes where she could not move for afew seconds each time she did hear every thing that was said but she could notmove. For a span of half of minute at a time and then she would get better. Sheis constantly sleep deprived, this is going on for the past many year, shespends most of her time working, never able to wind down at night time.She has not been very compliant recently with her office visits and had not hada bmp checked in a whileNo problem-specific Assessment ANDamp; Plan notes found for this encounter.PAST MEDICAL HISTORYDiagnosis Date- Essential hypertensionPAST SURGICAL HISTORYProcedure Laterality Date- SECTION HX x2- EXTRACTION ERUPTED TOOTH/EXR- REMOVAL OF TONSILS,ANDlt;12 Y/O TonsillectomyFAMILY HISTORYProblem Relation Age of Onset- Hypertension Mother- Stroke Mother- Heart Mother- Hypertension Father- Heart Father- COPD FatherSocial HistorySubstance Use Topics- Smoking status: Former Smoker Packs/day: 1.00 Years: 20.00 Quit date: 09/24/2011- Smokeless tobacco: Never Used Comment: uses E-cigarettes- Alcohol use 3.0 - 6.0 oz/week 2 - 4 Glasses of Wine (5oz) per weekPast medical history, appointments, medications, allergies reviewed.Pertinent Lab/Diagnostic Studies are reviewed and discussed todayCurrent Outpatient Prescriptions:- amLODIPine (NORVASC) 2.5 mg tablet- hydroCHLOROthiazide (HYDRODIURIL, ESIDRIX) 25 mg tablet- hydrOXYzine HCl (ATARAX) 25 mg tabletReview of SystemsCONSTITUTIONAL: No fevers, chills night sweats, unintended weight lossCARDIOVASCULAR: No chest pain, dyspnea, palpitations, orthopnea, PND, ankleedema.PULM: No dyspnea, unexplained cough.GI: No dysphagia/odynophagia, problematic reflux, constipation, diarrhea,changes in stool habits, hematochezia, melena.: No new urinary complaints, including dysuria, gross hematuria or pyuria.NEURO: No new balance problems, peripheral weakness/paresthesias or numbnessof concern.Physical ExamBP 134/84 (BP Site: Left Arm, BP Position: Sitting, BP Cuff Size: RegularAdult) Pulse 91 Resp 12 Ht 162.6 cm (5' 4ANDquot;) Wt 78.5 kg (173 lb) LMP 08/06/2017 SpO2 98% BMI 29.7 kg/v5Bjbhaeg appearance: Well appearing, alert, in no acute distress, well nourished.Skin: Skin color, texture, turgor normal, no suspicious rashes or lesionsHead: Normocephalic, no masses, lesions, tenderness or abnormalitiesEyes: Anicteric sclera. Pupils are equally round and reactive to light.Extraocular movements are intact.Lungs: Lungs clear to auscultation. No wheezing, rhonchi, ralesHeart: RRR without murmur, gallop, or rubs.Extremities: No deformities, edema, skin discoloration, clubbing or cyanosis.Good capillary refill.ASSESSMENT/PLAN:1. Hypokalemia - ICD9: 276.8, ICD10: E87.6 (primary diagnosis)Discussed that what ever she had could be related to metabolic encephalopathy ,transient from her alcohol , and sleep deprivation,While in the 5 hours at er, the alcohol could have been metabolized in body andshe got better.2. Essential hypertension - ICD9: 401.9, ICD10: R75Lupvb amiloride as her potassium was low.- Recommended regular aerobic exercise.- Recommend home blood pressure monitoring, to bring results in on next visit- Goal of BP ANDlt;130/80- BASIC METABOLIC PNL- AMILORIDE 5 MG-HYDROCHLOROTHIAZIDE 50 MG TABLET3. Insomnia, unspecified type - ICD9: 780.52, ICD10: G47.00Starting this for her to sleep- ZOLPIDEM 10 MG TABLET4. Anxiety - ICD9: 300.00, ICD10: F41.95. Alcohol abuse - ICD9: 305.00, ICD10: F10.10Discussed not to drink more than 4 drinks at any time to try to limit to dailyone drinkSpent more than 40 mins with the patient and her , reassured her,reviewed hospital records and asked her to keep the neurologist apt.JENA PETERSON, MDReferring Provider: SELF [200]Allergies As of Date: 09/03/2017 Noted Allergy ReactionPENICILLINS 03/02/2006Date Reviewed: 06/15/2017Reviewed by: Jaxson Alfaro - Fully AssessedReason for Visit: Established Patient [175] Cmt: er follow up- sundayPr Visit Diagnosis:Hypokalemia [E87.6] Other Visit Diagnoses:Essential hypertension [I10] Insomnia, unspecified type [G47.00] Anxiety [F41.9] Alcohol abuse [F10.10]Order(s):BASIC METABOLIC PNL [SQBMP] Order #: [id number] FUTURE aMILoride-hydrochlorothiazide (MODURETIC 5-50) 5-50 mg tabTake 0.5 tablets by mouth once daily.Disp: 30 tabletRfl: 3 sertraline (ZOLOFT) 25 mg tabletTake 1 tablet by mouth once daily.Disp: 30 tabletRfl: 3 zolpidem (AMBIEN) 10 mg tabTake 0.5 tablets by mouth at bedtime as needed.Disp: 45 tabletRfl: 1Prescriptions as of 09/03/2017 Sig: AMLODIPINE 2.5 MG TABLET Take 1 tablet by mouth once d* HYDROCHLOROTHIAZIDE 25 MG TAB* Take 1 tablet by mouth once d* AMILORIDE 5 MG-HYDROCHLOROTHI* Take 0.5 tablets by mouth onc* SERTRALINE 25 MG TABLET Take 1 tablet by mouth once d* ZOLPIDEM 10 MG TABLET Take 0.5 tablets by mouth at * HYDROXYZINE HCL 25 MG TABLET Take 1 tablet by mouth every *Problem List As Of Date 09/03/2017 Noted Resolved WBC DISEASE NEC [D72.89] INVALID FOR* Essential hypertension [I10] Alcohol abuse [F10.10] INVALID FOR*Prescriptions ordered this encounter Disp Refills Start End AMILORIDE 5 MG-HYDROCHLOROTHIAZIDE 5* 30 t* 3 09/03/2017 Route: ORAL Sig: Take 0.5 tablets by mouth once daily. SERTRALINE 25 MG TABLET 30 t* 3 09/03/2017 Route: ORAL Sig: Take 1 tablet by mouth once daily. ZOLPIDEM 10 MG TABLET 45 t* 1 09/03/2017 Class: Print RX Route: ORAL Sig: Take 0.5 tablets by mouth at bedtime as needed.Letter Text [facility] [place] [address] [id number]/11/2017Tavo Gee [facility]# [id number] [facility] [id number] WHOM IT MAY CONCERN:This is to certify that Ms. Andreina Gee has been under my care for illnessand was unable to work from August, through Sep 07, 2017.Sincerely yours,JENA PETERSON MDEncounter Number: [id number] Status:Closed by JENA PETERSON MD on 09/03/17 [facility] PROGRESSon 09-03-2017 Protein mass conc HNO ID: [id number] thor: Jena Worthington: (none)Author Type: PhysicianType: Progress NotesFiled: 09/03/2017 6:16 PMNote Text:Reason for VisitPatient presents with:Established Patient: er follow up- sundayAndreina Gee is a 42 year old female who presents here today for AboveComplaints..Health MaintenanceTETANUSADULT PREVNAR-13PAP EVERY 5 YEARSHPV EVERY 5 YEARSMAMMOGRAMINFLUENZA(1)HPIR eviewed her ER notes, she had a very bad day, was hypokalemia, and hadbeen drinking more alcohol than she normally does. Around 6 to 8 glassesof wine to destress and the patient began to have episodes where she couldnot move for a few seconds each time she did hear every thing that wassaid but she could not move. For a span of half of minute at a time andthen she would get better. She is constantly sleep deprived, this is goingon for the past many year, she spends most of her time working, never ableto wind down at night time.She has not been very compliant recently with her office visits and hadnot had a bmp checked in a whileNo problem-specific Assessment AND Plan notes found for this encounter.PAST MEDICAL HISTORYDiagnosis Date- Essential hypertensionPAST SURGICAL HISTORYProcedure Laterality Date- SECTION HX x2- EXTRACTION ERUPTED TOOTH/EXR- REMOVAL OF TONSILS,<12 Y/O TonsillectomyFAMILY HISTORYProblem Relation Age of Onset- Hypertension Mother- Stroke Mother- Heart Mother- Hypertension Father- Heart Father- COPD FatherSocial HistorySubstance Use Topics- Smoking status: Former Smoker Packs/day: 1.00 Years: 20.00 Quit date: 09/24/2011- Smokeless tobacco: Never Used Comment: uses E-cigarettes- Alcohol use 3.0 - 6.0 oz/week 2 - 4 Glasses of Wine (5oz) per weekPast medical history, appointments, medications, allergies reviewed.Pertinent Lab/Diagnostic Studies are reviewed and discussed todayCurrent Outpatient Prescriptions:- amLODIPine (NORVASC) 2.5 mg tablet- hydroCHLOROthiazide (HYDRODIURIL, ESIDRIX) 25 mg tablet- hydrOXYzine HCl (ATARAX) 25 mg tabletReview of SystemsCONSTITUTIONAL: No fevers, chills night sweats, unintended weight lossCARDIOVASCULAR: No chest pain, dyspnea, palpitations, orthopnea, PND,ankle edema.PULM: No dyspnea, unexplained cough.GI: No dysphagia/odynophagia, problematic reflux, constipation, diarrhea,changes in stool habits, hematochezia, melena.: No new urinary complaints, including dysuria, gross hematuria orpyuria.NEURO: No new balance problems, peripheral weakness/paresthesias ornumbness of concern.Physical ExamBP 134/84 (BP Site: Left Arm, BP Position: Sitting, BP Cuff Size: RegularAdult) Pulse 91 Resp 12 Ht 162.6 cm (5' 4 ) Wt 78.5 kg (173 lb) LMP 08/06/2017 SpO2 98% BMI 29.7 kg/u8Dqhnaxb appearance: Well appearing, alert, in no acute distress, wellnourished.Skin: Skin color, texture, turgor normal, no suspicious rashes or lesionsHead: Normocephalic, no masses, lesions, tenderness or abnormalitiesEyes: Anicteric sclera. Pupils are equally round and reactive to light.Extraocular movements are intact.Lungs: Lungs clear to auscultation. No wheezing, rhonchi, ralesHeart: RRR without murmur, gallop, or rubs.Extremities: No deformities, edema, skin discoloration, clubbing orcyanosis. Good capillary refill.ASSESSMENT/PLAN:1. Hypokalemia - ICD9: 276.8, ICD10: E87.6 (primary diagnosis)Discussed that what ever she had could be related to metabolicencephalopathy , transient from her alcohol , and sleep deprivation,While in the 5 hours at er, the alcohol could have been metabolized inbody and she got better.2. Essential hypertension - ICD9: 401.9, ICD10: H95Ayppq amiloride as her potassium was low.- Recommended regular aerobic exercise.- Recommend home blood pressure monitoring, to bring results in on nextvisit- Goal of BP <130/80- BASIC METABOLIC PNL- AMILORIDE 5 MG-HYDROCHLOROTHIAZIDE 50 MG TABLET3. Insomnia, unspecified type - ICD9: 780.52, ICD10: G47.00Starting this for her to sleep- ZOLPIDEM 10 MG TABLET4. Anxiety - ICD9: 300.00, ICD10: F41.95. Alcohol abuse - ICD9: 305.00, ICD10: F10.10Discussed not to drink more than 4 drinks at any time to try to limit todaily one drinkSpent more than 40 mins with the patient and her , reassured her,reviewed hospital records and asked her to keep the neurologist apt.JENA PETERSON MD [facility] Vital Signs Date Time Vital Sign Value Performing Clinician Facility 06-13-2024 14:59-0400 Body mass index (BMI) [Ratio] 25.62 kg/m2 Jae Mason APRN.[employer] AND [employer]CRAP CRUSHER Work Phone: [facility] 06-13-2024 14:59-0400 Body weight 67.7 kg Jae Mason APRN.[employer]CR[employer] CRUSHER Work Phone: [facility] 06-13-2024 14:59-0400 Diastolic blood pressure 70 mm[Hg] Jae Mason [employer]ER.[employer] CRUSHER Work Phone: [facility] 06-13-2024 14:59-0400 Heart rate 70 /min Jae Mason [employer]ER.[employer]CR[employer] CRUSHER Work Phone: [facility] 06-13-2024 14:59-0400 Respiratory rate 16 /min Aje Mason [employer]ER.[employer] AND S[employer] CRUSHER Work Phone: [facility] 06-13-2024 14:59-0400 Systolic blood pressure 125 mm[Hg] Jae Mason [employer] MINER.[employer] AND SCR[employer] CRUSHER Work Phone: [facility] 03-10-2024 14:34-0400 Body height 162.6 cm Babatunde Ander [employer] INSPECTOR Work Phone: [facility] 03-10-2024 14:34-0400 Body mass index (BMI) [Ratio] 28.67 kg/m2 Babatunde Ander [employer] INSPECTOR Work Phone: [facility] 03-10-2024 14:34-0400 Body weight 75.75 kg Babatunde Ander [employer] INSPECTOR Work Phone: [facility] 03-10-2024 14:34-0400 Diastolic blood pressure 60 mm[Hg] Babatunde Ander [employer] INSPECTOR Work Phone: [facility] 03-10-2024 14:34-0400 Heart rate 74 /min Babatunde Ander [employer] INSPECTOR Work Phone: [facility] 03-10-2024 14:34-0400 Respiratory rate 12 /min Babatunde Ander [employer] INSPECTOR Work Phone: [facility] 03-10-2024 14:34-0400 SaO2% (BldA) [Mass fraction] 99 % Babatunde Ander [employer] INSPECTOR Work Phone: [facility] 03-10-2024 14:34-0400 Systolic blood pressure 112 mm[Hg] Babatunde Ander [employer] INSPECTOR Work Phone: [facility] 06-15-2023 14:04-0400 Body weight 97.52 kg Jae Mason [employer] S[employer] CRUSHER Work Phone: [facility] 06-15-2023 14:04-0400 Diastolic blood pressure 83 mm[Hg] Jae Mason [employer] CRUSHER Work Phone: [facility] 06-15-2023 14:04-0400 Heart rate 78 /min Jae Mason [employer] CRUSHER Work Phone: [facility] 06-15-2023 14:04-0400 Respiratory rate 16 /min Jae Mason [employer] AND SCR[employer] CRUSHER Work Phone: [facility] 06-15-2023 14:04-0400 Systolic blood pressure 123 mm[Hg] Jae Mason [employer] CRUSHER Work Phone: [facility] 05-13-2023 12:38-0400 Body temperature 97.39 [degF] Andreina Moon [employer] INSPECTOR Work Phone: [facility] 05-13-2023 12:38-0400 Body weight 97.07 kg Andreina Moon [employer] INSPECTOR Work Phone: [facility] 05-13-2023 12:38-0400 Diastolic blood pressure 70 mm[Hg] Andreina Moon [employer] INSPECTOR Work Phone: [facility] 05-13-2023 12:38-0400 Heart rate 80 /min Andreina Moon [employer] INSPECTOR Work Phone: [facility] 05-13-2023 12:38-0400 Respiratory rate 16 /min Andreina Moon [employer] INSPECTOR Work Phone: [facility] 05-13-2023 12:38-0400 Systolic blood pressure 112 mm[Hg] Andreina Moon [employer] INSPECTOR Work Phone: [facility] 05-03-2023 13:08-0400 Body temperature 96.91 [degF] Jae Mason [employer] CRUSHER Work Phone: [facility] 05-03-2023 13:08-0400 Body weight 97.07 kg Jae Mason [employer]CR[employer] CRUSHER Work Phone: [facility] 05-03-2023 13:08-0400 Diastolic blood pressure 82 mm[Hg] Jae Mason [employer]CR[employer] CRUSHER Work Phone: [facility] 05-03-2023 13:08-0400 Heart rate 81 /min Jae Mason [employer] AND SCR[employer] CRUSHER Work Phone: [facility] 05-03-2023 13:08-0400 Respiratory rate 16 /min Jae Mason [employer] AND SCR[employer] CRUSHER Work Phone: [facility] 05-03-2023 13:08-0400 SaO2% (BldA) [Mass fraction] 96 % Jae Mason [employer] SCR[employer] CRUSHER Work Phone: [facility] 05-03-2023 13:08-0400 Systolic blood pressure 132 mm[Hg] Jae Mason [employer] AND SCR[employer] CRUSHER Work Phone: [facility] 03-14-2023 10:46-0400 Body height 162.6 cm Shaunna Boston MD Work Phone: [facility] 03-14-2023 10:46-0400 Body weight 96.16 kg Shaunna Boston MD Work Phone: [facility] 08-18-2022 11:58-0500 Body height 162.6 cm Jena Peterson MD Work Phone: [facility] 08-18-2022 11:58-0500 Body temperature 98.4 [degF] Jena Peterson MD Work Phone: [facility] 08-18-2022 11:58-0500 Body weight 92.99 kg Jena Peterson MD Work Phone: [facility] 08-18-2022 11:58-0500 Diastolic blood pressure 60 mm[Hg] Jena Peterson MD Work Phone: [facility] 08-18-2022 11:58-0500 Heart rate 81 /min Jena Peterson MD Work Phone: [facility] 08-18-2022 11:58-0500 Respiratory rate 12 /min Jena Peterson MD Work Phone: [facility] 08-18-2022 11:58-0500 SaO2% (BldA) [Mass fraction] 97 % Jena Peterson MD Work Phone: [facility] 08-18-2022 11:58-0500 Systolic blood pressure 114 mm[Hg] Jena Peterson MD Work Phone: [facility] 05-16-2022 14:32-0400 Body weight 88.45 kg Jena Peterson MD Work Phone: [facility] 04-05-2022 09:57-0400 Body weight 93.44 kg Jena Peterson MD Work Phone: [facility] 01-23-2022 15:18-0400 Body height 162.56 cm Jena Peterson Work Phone: [facility] [address] Work Phone: 01-23-2022 15:18-0400 Body mass index (BMI) [Ratio] 35.02 kg/m2 Jena Peterson Work Phone: [facility] [address] Work Phone: 01-23-2022 15:18-0400 Body surface area Derived from formula 1.97 m2 Jena Peterson [facility] [address] Work Phone: 01-23-2022 15:18-0400 Body temperature 97.4 [degF] Jena Peterson Work Phone: [facility] [address] Work Phone: 01-23-2022 15:18-0400 Body weight 92.53 kg Jena Peterson Work Phone: [facility] [address] Work Phone: 12-21-2021 13:59-0400 Body temperature 97.5 [degF] Leon Guy MD Work Phone: [facility] 12-21-2021 13:59-0400 Body weight 88.91 kg Leon Guy MD Work Phone: [facility] 12-21-2021 13:59-0400 Diastolic blood pressure 74 mm[Hg] Leon Guy MD Work Phone: [facility] 12-21-2021 13:59-0400 Heart rate 84 /min Leon Guy MD Work Phone: [facility] 12-21-2021 13:59-0400 Respiratory rate 20 /min Leon Guy MD Work Phone: [facility] 12-21-2021 13:59-0400 Systolic blood pressure 118 mm[Hg] Leon Guy MD Work Phone: [facility] 12-12-2021 08:58-0400 Body height 162.56 cm Jena Peterson Work Phone: [facility] [address] Work Phone: 12-12-2021 08:58-0400 Body mass index (BMI) [Ratio] 34.68 kg/m2 Jena Peterson Work Phone: [facility] [address] Work Phone: 12-12-2021 08:58-0400 Body surface area Derived from formula 1.96 m2 Jena Peterson [facility] [address] Work Phone: 12-12-2021 08:58-0400 Body temperature 97.3 [degF] Jena Peterson [facility] [address] Work Phone: 12-12-2021 08:58-0400 Body weight 91.65 kg Jenara Haim Amatojaun [facility] [address] Work Phone: 12-12-2021 08:58-0400 Respiratory rate 18 /min Jena Haim Peterson [facility] Phone: [facility] [address] Work Phone: Encounters Encounter Date Encounter Type Care Provider Facility Start: 06-16-2024 End: 06-16-2024 Telephone encounter Jae Mason APRN.[employer] CRUSHER Work Phone: [facility] Start: 06-13-2024 End: 06-13-2024 ambulatory JENA PETERSON Facility:[facility] Start: 06-13-2024 End: 06-13-2024 Office outpatient visit 25 minutes Jae Mason APRN.[employer]CR[employer] CRUSHER Work Phone: [facility] Comment on above: Essential hypertensi on (Primary Dx); Primary insomnia; Class 2 severe obesity due to excess calories with serious comorbidity and body mass index (BMI) of 36.0 to 36.9 in adult (HCC); Anxiety; Cervical cancer screening; Screening for lipid disorders Start: 06-11-2024 End: 06-11-2024 ambulatory Jae Mason APRN.[employer] AND SCR[employer] CRUSHER Work Phone: [facility] Comment on above: Medication increase Start: 03-30-2024 Refill Babatunde Vasquez [employer] INSPECTOR Work Phone: [facility] Comment on above: Refill Request Start: 03-25-2024 Telephone encounter Babatunde garcia [employer] INSPECTOR Work Phone: [facility] Comment on above: Medication Problem Start: 03-24-2024 Telephone encounter Jena zamorano MD Work Phone: [facility] Comment on above: medication issue Start: 03-12-2024 End: 03-12-2024 Orders Only Leatha Armstrong DPM Work Phone: Orthopaedics Comment on above: Plantar fasciitis, b ilateral (Primary Dx); Equinus deformity of both feet; Heel pain, bilateral Start: 03-10-2024 End: 03-10-2024 [facility] Facility:[facility] Start: 03-10-2024 End: 03-10-2024 Patient encounter procedure Babatunde Vasquez APRN.CANOPY INSPECTOR Work Phone: [facility] Comment on above: Essential hypertensi on (Primary Dx); Anxiety; Class 2 severe obesity due to excess calories with serious comorbidity and body mass index (BMI) of 36.0 to 36.9 in adult (HCC); Screening for lipid disorders; Encounter for therapeutic drug monitoring Start: 02-28-2024 End: 02-28-2024 ambulatory Rigoberto Chávez PT Work Phone: [facility] Comment on above: Plantar fasciitis, b ilateral (Primary Dx); Equinus deformity of both feet; Heel pain, bilateral Start: 02-25-2024 Telemedicine consultation with patient Jae Mason [employer]USHER Work Phone: Telemedicine Start: 02-15-2024 End: 02-15-2024 [facility] Facility:[facility] Start: 02-15-2024 End: 02-15-2024 Telemedicine consultation with patient Damian Carmichael RAHUL.CANOPY INSPECTOR Work Phone: Telemedicine Comment on above: Positive self-admini stered antigen test for COVID-19 (Primary Dx) Start: 02-11-2024 ambulatory Jae Mason APRN.FRAME AND SCRAP CRUSHER Work Phone: [facility] [place] Comment on above: Continued conversati on Start: 02-09-2024 ambulatory Jae Mason HARD ROCK MINER.FRAME AND SCRAP CRUSHER Work Phone: [facility] [place] Comment on above: Zepbound increase Start: 01-30-2024 Telephone encounter Jena zamornao MD Work Phone: Family [facility] [place] Comment on above: Insurance Authorizat ion (zepbound) Start: 01-29-2024 Telephone encounter Jae coffman HARD ROCK MINER.FRAME AND SCRAP CRUSHER Work Phone: [facility] [place] Comment on above: Prescription Update Start: 01-25-2024 ambulatory Jae Mason APRN.FRAME AND SCRAP CRUSHER Work Phone: [facility] [place] Comment on above: Zepbound assistance needed Start: 01-18-2024 End: 01-18-2024 ambulatory JENA PETERSON Facility:[facility] Start: 01-18-2024 End: 01-18-2024 Patient encounter procedure Leatha Armstrong DPM Work Phone: Orthopaedics Comment on above: Plantar fasciitis, b ilateral (Primary Dx); Equinus deformity of both feet; Heel pain, bilateral Start: 01-14-2024 End: 01-14-2024 ambulatory VANIA PERKINS Facility:[facility] Start: 01-14-2024 End: 01-14-2024 Patient encounter procedure Vania Perkins Work Phone: Podiatry Comment on above: Plantar fasciitis (P rimary Dx) Start: 01-05-2024 Refill Babatunde Ander HARD ROCK MINER.CANOPY INSPECTOR Work Phone: [facility] Medicine [place] Comment on above: Refill Request Start: 12-31-2023 End: 12-31-2023 ambulatory Jae Mason HARD ROCK MINER.FRAME AND SCRAP CRUSHER Work Phone: [facility] Medicine [place] Comment on above: Class 2 severe obesi ty due to excess calories with serious comorbidity and body mass index (BMI) of 36.0 to 36.9 in adult (HCC) (Primary Dx) Start: 12-31-2023 End: 12-31-2023 Telemedicine consultation with patient Jae Mason APRN.FRAME AND SCRAP CRUSHER Work Phone: [facility] Start: 12-28-2023 Refill Babatunde Ander HARD ROCK MINER.CANOPY INSPECTOR Work Phone: [facility] Medicine [place] Comment on above: Refill Request Start: 12-27-2023 ambulatory Jae Mason HARD ROCK MINER.FRAME AND SCRAP CRUSHER Work Phone: Internal Medicine [place] Comment on above: Continued conversati on Start: 12-25-2023 ambulatory Jae Mason HARD ROCK MINER.FRAME AND SCRAP CRUSHER Work Phone: [facility] Medicine [place] Comment on above: Zepbound Start: 12-18-2023 End: 12-18-2023 ambulatory [facility] Facility:[facility] Start: 12-18-2023 End: 12-18-2023 Subsequent hospital visit by physician [facility] [place] Work Phone: Radiology Comment on above: Pain [R52] Start: 12-17-2023 Orders Only Leatha Eckertsherry sanchez DPM Work Phone: Appointment Center Comment on above: Pain (Primary Dx) Start: 12-03-2023 End: 12-03-2023 ambulatory Jae Mason HARD ROCK MINER.FRAME AND SCRAP CRUSHER Work Phone: [facility] [place] Comment on above: Class 2 severe obesi ty due to excess calories with serious comorbidity and body mass index (BMI) of 36.0 to 36.9 in adult (HCC) (Primary Dx) Start: 12-03-2023 End: 12-03-2023 Telemedicine consultation with patient Jae Mason APRN.FRAME AND SCRAP CRUSHER Work Phone: [facility] Start: 12-02-2023 Refill Babatunde Ander HARD ROCK MINER.CANOPY INSPECTOR Work Phone: Internal Medicine [place] Comment on above: Refill Request Start: 11-14-2023 ambulatory Jena Peterson Tejas Draper Work Phone: Internal Medicine [facility] Start: 09-11-2023 End: 09-11-2023 ambulatory [facility] Facility:[facility] Start: 08-05-2023 Refill Babatunde Ander [employer]ARD ROCK MINER.CANOPY INSPECTOR Work Phone: [facility] [place] Comment on above: Refill Request Start: 07-10-2023 ambulatory Jae Annes HARD ROCK MINER.FRAME AND SCRAP CRUSHER Work Phone: [facility] [place] Comment on above: Phentermine Start: 06-15-2023 End: 06-15-2023 Office outpatient visit 25 minutes Jae Marlon HARD ROCK MINER.FRAME AND SCRAP CRUSHER Work Phone: [facility] [place] Comment on above: Class 2 severe obesi ty due to excess calories with serious comorbidity and body mass index (BMI) of 37.0 to 37.9 in adult (HCC) (Primary Dx) Start: 05-26-2023 Refill Leon flores MD Work Phone: [facility] Medicine [place] Comment on above: Refill Request Start: 05-13-2023 End: 05-13-2023 Patient encounter procedure Andreina Mustafa HARD ROCK MINER.CANOPY INSPECTOR Work Phone: [facility] Comment on above: Bacterial sinusitis (Primary Dx); Problem of left ear Start: 05-03-2023 ambulatory Jena Draper Work Phone: Internal Medicine [place] Comment on above: Head Congestion Start: 05-03-2023 End: 05-03-2023 Office outpatient visit 15 minutes Jae Mason HARD ROCK MINER.FRAME AND SCRAP CRUSHER Work Phone: Internal Medicine [place] Comment on above: Acute non-recurrent maxillary sinusitis (Primary Dx) Start: 04-17-2023 Refill Elizabeth Kendall HARD ROCK MINER .CANOPY INSPECTOR Work Phone: Internal Medicine [place] Comment on above: Refill Request Start: 04-03-2023 Refill Elizabeth Argueta HARD ROCK MINER .CANOPY INSPECTOR Work Phone: [facility] [place] Comment on above: Refill Request Start: 03-14-2023 End: 03-14-2023 Patient encounter procedure Shaunna Boston MD Work Phone: Plastic Surgery Comment on above: Class 1 obesity due to excess calories without serious comorbidity with body mass index (BMI) of 34.0 to 34.9 in adult (Primary Dx) Start: 01-21-2023 Refill Elizabeth Older HARD ROCK MINER .CANOPY INSPECTOR Work Phone: [facility] [place] Comment on above: Refill Request Start: 01-14-2023 Refill Elizabeth Argueta HARD ROCK MINER .CANOPY INSPECTOR Work Phone: [facility] [place] Comment on above: Refill Request Start: 12-25-2022 Refill Rocio Keane DO Work Phone: NURSE HUMAN RESOURCES BENEFITS ASSISTANT Comment on above: Refill Request Start: 12-23-2022 Refill Rocio Keane DO Work Phone: NURSE HUMAN RESOURCES BENEFITS ASSISTANT Comment on above: Refill Request Start: 12-23-2022 Refill Rocio Keane DO Work Phone: NURSE HUMAN RESOURCES BENEFITS ASSISTANT Comment on above: Refill Request Start: 11-29-2022 ambulatory Jena Draper Work Phone: [facility] [place] Start: 11-25-2022 ambulatory Lata Wren RN NURSE O N CALL Comment on above: Medication Problem Start: 11-24-2022 Refill Elizabeth Older HARD ROCK MINER .CANOPY INSPECTOR Work Phone: [facility] [place] Comment on above: Refill Request Start: 11-24-2022 Refill Elizabeth Older HARD ROCK MINER .CANOPY INSPECTOR Work Phone: [facility] [place] Comment on above: Refill Request Start: 11-09-2022 ambulatory Jena Draper Work Phone: [facility] [place] Comment on above: Qsymia Start: 10-18-2022 End: 10-18-2022 ambulatory Jena Peterson MD Work Phone: [facility] [place] Comment on above: Class 2 severe obesi ty with serious comorbidity and body mass index (BMI) of 35.0 to 35.9 in adult, unspecified obesity type (HCC) (Primary Dx) Start: 10-18-2022 End: 10-18-2022 Telemedicine consultation with patient Jena Peterson MD Work Phone: [facility] Start: 09-15-2022 [facility] Start: 08-18-2022 End: 08-18-2022 Patient encounter procedure Jena Peterson MD Work Phone: Internal Medicine [place] Comment on above: Class 2 obesity with out serious comorbidity with body mass index (BMI) of 35.0 to 35.9 in adult, unspecified obesity type (Primary Dx); Essential hypertension; Class 2 severe obesity due to excess calories with serious comorbidity and body mass index (BMI) of 37.0 to 37.9 in adult (HCC); Anxiety; Trochanteric bursitis, left hip Start: 08-04-2022 End: 08-04-2022 Patient encounter procedure Leon Guy MD Work Phone: Internal Medicine [place] Comment on above: Trochanteric bursiti s of left hip (Primary Dx); Need for influenza vaccination Start: 07-29-2022 Refill Elizabeth Older HARD ROCK MINER .CANOPY INSPECTOR Work Phone: [facility] Medicine [place] Comment on above: Refill Request Start: 07-14-2022 Refill Jnea Draper Work Phone: [facility] [place] Comment on above: Refill Request Start: 06-29-2022 Refill Elizabeth Older HARD ROCK MINER .CANOPY INSPECTOR Work Phone: [facility] [place] Comment on above: Refill Request Start: 05-25-2022 Refill Jena Draper Work Phone: [facility] [place] Comment on above: Refill Request Start: 05-22-2022 Refill Eilzabeth Older HARD ROCK MINER .CANOPY INSPECTOR Work Phone: Internal Medicine [place] Comment on above: Refill Request Start: 05-22-2022 Refill Elizabeth Older HARD ROCK MINER .CANOPY INSPECTOR Work Phone: [facility] [place] Comment on above: Refill Request Start: 05-16-2022 End: 05-16-2022 ambulatory Jena Peterson MD Work Phone: [facility] Medicine [place] Comment on above: Class 2 severe obesi ty due to excess calories with serious comorbidity and body mass index (BMI) of 37.0 to 37.9 in adult (HCC) (Primary Dx) Start: 05-16-2022 End: 05-16-2022 Telemedicine consultation with patient Jena Peterson MD Work Phone: [facility] Start: 04-20-2022 Office outpatient vi sit 10 minutes Jena Peterson Work Phone: VT-Qmkvvezmnlhagt-Azbcr an Voice Work Phone: Start: 04-20-2022 Refill Leon flores MD Work Phone: Internal Medicine [place] Comment on above: Refill Request Start: 04-05-2022 End: 04-05-2022 ambulatory Jena Peterson MD Work Phone: [facility] [place] Comment on above: Class 2 drug-induced obesity with serious comorbidity and body mass index (BMI) of 36.0 to 36.9 in adult (Primary Dx); Menopausal symptom; Abnormal weight gain; Essential hypertension Start: 04-05-2022 End: 04-05-2022 Telemedicine consultation with patient Jena Peterson MD Work Phone: [facility] Start: 03-25-2022 ambulatory Maricel Chen RN NU RSE HUMAN RESOURCES BENEFITS ASSISTANT Comment on above: medication renewal Start: 03-24-2022 Refill Jena Draper Work Phone: [facility] [place] Comment on above: Refill Request Start: 03-24-2022 Refill Elizabeth Older HARD ROCK MINER .CANOPY INSPECTOR Work Phone: Internal Medicine [place] Comment on above: Refill Request Start: 02-07-2022 End: 02-07-2022 ambulatory Tristen Sullivan MD Work Phone: Family Medicine Comment on above: Chronic bronchitis w ith acute exacerbation (HCC) (Primary Dx) Start: 02-07-2022 End: 02-07-2022 Telemedicine consultation with patient Tristen Sullivan MD Work Phone: [place] Start: 01-23-2022 Patient encounter procedure Jena Peterson Work Phone: CX-Wnrxsedyebrkmr-Kgpns in [facility] [address] Work Phone: Start: 01-21-2022 Refill Elizabeth Older HARD ROCK MINER .CANOPY INSPECTOR Work Phone: Internal Medicine [place] Comment on above: Refill Request Start: 01-20-2022 Refill Elizabeth Older HARD ROCK MINER .CANOPY INSPECTOR Work Phone: Internal Medicine [place] Comment on above: Refill Request Start: 01-20-2022 Refill Elizabeth Older HARD ROCK MINER .CANOPY INSPECTOR Work Phone: [facility] Medicine [place] Comment on above: Refill Request Start: 01-10-2022 Patient encounter procedure [facility] Peterson [facility] [place] Work Phone: Start: 12-27-2021 Patient encounter procedure Jena Peterson Work Phone: [facility] [facility] [address] [place] Work Phone: Start: 12-21-2021 ambulatory Jena Draper Work Phone: [facility] [place] Start: 12-21-2021 End: 12-21-2021 Patient encounter procedure Leon Guy MD Work Phone: Internal Medicine [place] Comment on above: Lateral epicondyliti s of right elbow (Primary Dx); Screening for colon cancer Start: 12-12-2021 Office consultation new/estab patient 60 min Jena Peterson Work Phone: QQ-Atgqwcwazihplu-Dgdgd in [facility] [address] Work Phone: Start: 12-12-2021 Patient encounter procedure Jena Peterson Work Phone: ZY-Drwsvwbbsbwjap-Yladq an Voice Work Phone: Start: 08-01-2021 Telephone encounter Jena zamorano MD Work Phone: Internal Medicine [place] Comment on above: Appointment Start: 10-20-2018 End: 10-25-2018 Patient encounter procedure NACHO [facility] Start: 08-21-2018 End: 08-22-2018 Patient encounter procedure ARYA (KAI) GUMARO [facility] Start: 08-04-2018 End: 08-06-2018 Patient encounter procedure JENA PETERSON [facility] Start: 07-24-2018 End: 07-24-2018 Patient encounter procedure JENA PETERSON [facility] Start: 07-24-2018 End: 07-25-2018 Patient encounter procedure JENA PETERSON [facility] Start: 07-19-2018 End: 07-22-2018 Patient encounter procedure JENA PETERSON [facility] Start: 11-17-2017 End: 11-22-2017 Patient encounter procedure JENA PETERSON [facility] Start: 10-23-2017 End: 10-24-2017 Patient encounter procedure JAE (FRAME AND SCRAP CRUSHER) MARLON [facility] Start: 10-16-2017 End: 10-16-2017 Patient encounter procedure KATHY Latham (COAL GRADER) WILFREDO [facility] Start: 09-03-2017 End: 09-03-2017 Patient encounter procedure JENA PETERSON [facility] Procedures Date Procedure Procedure Detail Performing Clinician Start: 06-13-2024 Lipid 1996 panel - S esther or Plasma Jae Marlon HARD ROCK MINER.FRAME AND SCRAP CRUSHER Work Phone: Start: 03-10-2024 Adult depression scr eening assessment Xr [place] Work Phone: Start: 01-18-2024 Injection 1 tendon sheath/ligament aponeurosis Leatha Armstrong DPM Work Phone: Start: 12-18-2023 Radex foot complete minimum 3 views Leatha Armstrong DPM Work Phone: Start: 08-04-2022 INFLUENZA VACCINE QUADRIVALENT 6 MO - 64 YRS IM Leon Guy MD Work Phone: Start: 04-03-2022 Adult depression scr eening assessment Jena Peterson MD Work Phone: Start: 03-12-2021 Adult depression scr eening assessment Leon Guy MD Work Phone: Start: 02-11-2019 Mammography Leon Worthington MD Work Phone: Start: 07-24-2018 Lipid 1996 panel - S esther or Plasma Jae Mason HARD ROCK MINER.FRAME AND SCRAP CRUSHER Work Phone: Plan of Treatment Date Care Activity Detail Author Start: 06-13-2029 Lipid panel Lipid Screening [facility] Start: 03-29-2029 Urine microalbumin profile [facility] Comment on above: Postponed from 03/30 (Postponed To Appropriate Date) Start: 06-13-2027 Diabetes Screening Diabetes Screenin g [facility] Start: 06-15-2026 Diabetes Screening Diabetes Screenin g [facility] Start: 06-13-2025 BP Controlled (<130/80) BP Controlle d (<130/80) [facility] Start: 03-10-2025 Annual PCP Team Mock Up Assembler kendra Disease Visit Annual PCP Team Chronic Disease Visit [facility] Start: 03-10-2025 BP Controlled (<130/80) BP Controlle d (<130/80) [facility] Start: 03-10-2025 Depression Screening Depression Scre ening [facility] Start: 10-03-2024 End: 10-03-2024 Patient encounter procedure 10/03/2024 2:20 PM EST Office Visit [facility] [address] [place] [address] Jena Peterson MD [address] [place] [address] 3-6 month follow up [facility] [place] Comment on above: 3-6 month follow up Start: 07-29-2024 End: 07-29-2024 Patient encounter procedure 07/29/2024 10:30 AM EST Office Visit OB/Gynecology [address] [place] [address] Caron Smith APRN.CANOPY INSPECTOR [address] [place] [address] Annual OB/Gynecology Comment on above: Annual Start: 06-13-2024 End: 09-12-2024 CBC W Auto Differential panel - Blood [facility] Comment on above: Expected: 06/13/2024 , Expires: 09/12/2024 Start: 06-13-2024 End: 09-12-2024 Comprehensive metabolic 2000 panel - Serum or Plasma [facility] Comment on above: Expected: 06/13/2024 , Expires: 09/12/2024 Start: 06-13-2024 End: 09-12-2024 LIPID PANEL, NONFASTING [facility] Work Phone: Comment on above: Expected: 06/13/2024 , Expires: 09/12/2024 Start: 06-04-2024 End: 06-04-2024 Patient encounter procedure 06/04/2024 2:00 PM EDT Office Visit OB/Gynecology [address] [place] [id number] Mari Schaffer MD [address] [place], [place] [id number] discuss Menopause concerns OB/Gynecology Comment on above: discuss Menopause co scer Start: 05-25-2024 Covid-19 Vaccine ( season) Covid-19 Vaccine () [facility] Start: 05-25-2024 Influenza vaccination Influenza Vacc ine (#1) [facility] Start: 05-13-2024 BP CONTROLLED (<130/80) BP CONTROLLE D (<130/80) [facility] Start: 03-12-2024 End: 03-12-2024 ambulatory 03/12/2024 3:00 PM EDT OT/PT/Speech Visit [facility] [address] [place] [id number] Rigoberto Chávez, PT [address] [place] [address] M72.2 (ICD-10-CM) - Plantar fasciitis, bilateral [facility] Comment on above: M72.2 (ICD-10-CM) - Plantar fasciitis, bilateral Start: 03-10-2024 End: 06-09-2024 CBC W Auto Differential panel - Blood COMPLETE BLOOD COUNT AND DIFFERENTIAL Lab Routine Encounter for therapeutic drug monitoring Expected: 03/10/2024, Expires: 06/09/2024 [facility] Comment on above: Expected: 03/10/2024 , Expires: 06/09/2024 Start: 03-10-2024 End: 06-09-2024 Comprehensive metabolic 2000 panel - Serum or Plasma COMPREHENSIVE METABOLIC PANEL Lab Routine Encounter for therapeutic drug monitoring Expected: 03/10/2024, Expires: 06/09/2024 [facility] Comment on above: Expected: 03/10/2024 , Expires: 06/09/2024 Start: 03-10-2024 End: 06-09-2024 LIPID PANEL, NONFASTING LIPID PANEL, NONFASTING Lab Routine Screening for lipid disorders Expected: 03/10/2024, Expires: 06/09/2024 [facility] Work Phone: Comment on above: Expected: 03/10/2024 , Expires: 06/09/2024 Start: 03-05-2024 End: 03-05-2024 ambulatory 03/05/2024 3:00 PM EDT OT/PT/Speech Visit [facility] [address] [facility] [place] [place] [address] Rigoberto Chávez, PT [address] [place] [address] M72.2 (ICD-10-CM) - Plantar fasciitis, bilateral [facility] Comment on above: M72.2 (ICD-10-CM) - Plantar fasciitis, bilateral Start: 03-04-2024 End: 03-04-2024 Patient encounter procedure 03/04/2024 3:00 PM EDT Office Visit [facility] [place] [address] [place] [address] Jae Mason, RAHUL.FRAME AND SCRAP CRUSHER [address] [place] [address] Follow up weight loss. Rescheduled after COVID. [facility] [place] Comment on above: Follow up weight los s. Rescheduled after COVID. Start: 02-28-2024 End: 02-28-2024 ambulatory 02/28/2024 3:45 PM EDT OT/PT/Speech Visit [facility] [address] [facility] [place] [address] Rigoberto Chávez, PT [address] [place], [place] [address] Foot pain [facility] Comment on above: Foot pain Start: 02-21-2024 End: 02-21-2024 Patient encounter procedure 02/21/2024 3:00 PM EDT Office Visit [facility] [place] [address] [place] [address] Jae Mason, HARD ROCK MINER.FRAME AND SCRAP CRUSHER [address] [place] [address] Weight follow up [facility] [place] Comment on above: Weight follow up Start: 01-30-2024 End: 01-30-2024 ambulatory 01/30/2024 9:00 AM EDT OT/PT/Speech Visit [facility] [address] [place] [address] Ricky Stewart, PT [address] [place] [address] Plantar fascitis therapy [facility] Comment on above: Plantar fascitis the raperick Start: 01-18-2024 End: 01-18-2024 Patient encounter procedure 01/18/2024 2:00 PM EDT Office Visit Orthopaedics [address] [place], [place] [id number] Leatha Armstrong, DPTejas [address] [place] [address] Follow up on Bilat foot pain Orthopaedics Comment on above: Follow up on Bilat f oot pain Start: 10-18-2023 ANNUAL PCP TEAM IT SYSTEMS ENGINEER KENDRA DISEASE VISIT ANNUAL PCP TEAM CHRONIC DISEASE VISIT [facility] Start: 09-24-2023 Behavioral Health Screening Behavioral Health Screening [facility] Start: 09-24-2023 Depression Assessment Depression Ass essment [facility] Start: 08-18-2023 ANNUAL PCP TEAM IT SYSTEMS ENGINEER KENDRA DISEASE VISIT ANNUAL PCP TEAM CHRONIC DISEASE VISIT [facility] Start: 08-18-2023 BP CONTROLLED (<130/80) BP CONTROLLE D (<130/80) [facility] Start: 08-04-2023 ANNUAL PCP TEAM IT SYSTEMS ENGINEER KENDRA DISEASE VISIT ANNUAL PCP TEAM CHRONIC DISEASE VISIT [facility] Start: 07-24-2023 Lipid 1996 panel - Serum or Plasma Lipid Screening [facility] Start: 07-24-2023 Lipid panel Lipid Screening [facility] Start: 07-24-2023 LIPID SCREEN LIPID SCREEN [facility] Start: 05-25-2023 Covid-19 Vaccine ( season) Covid-19 Vaccine ( season) [facility] Start: 05-25-2023 Influenza vaccination [facility] Start: 05-16-2023 ANNUAL PCP TEAM IT SYSTEMS ENGINEER KENDRA DISEASE VISIT ANNUAL PCP TEAM CHRONIC DISEASE VISIT [facility] Start: 04-05-2023 ANNUAL PCP TEAM IT SYSTEMS ENGINEER KENDRA DISEASE VISIT ANNUAL PCP TEAM CHRONIC DISEASE VISIT [facility] Start: 04-03-2023 Adult depression screening assessment DEPRESSION SCREENING [facility] Start: 02-07-2023 ANNUAL PCP TEAM IT SYSTEMS ENGINEER KENDRA DISEASE VISIT ANNUAL PCP TEAM CHRONIC DISEASE VISIT [facility] Start: 12-21-2022 ANNUAL PCP TEAM IT SYSTEMS ENGINEER KENDRA DISEASE VISIT ANNUAL PCP TEAM CHRONIC DISEASE VISIT [facility] Start: 12-21-2022 BP CONTROLLED (<130/80) BP CONTROLLE D (<130/80) [facility] Start: 11-27-2022 DIABETES SCREEN DIABETES SCREEN [facility] Start: 09-24-2022 DEPRESSION ASSESSMENT DEPRESSION ASS ESSMENT [facility] Start: 07-28-2022 COVID-19 VACCINE (4 - Booster for Pfizer series) COVID-19 VACCINE (4 - Booster for Pfizer series) [facility] Start: 07-28-2022 COVID-19 VACCINE (4 - Pfizer series) COVID-19 VACCINE (4 - Pfizer series) [facility] Start: 05-25-2022 Influenza vaccination INFLUENZA (#1) [facility] Start: 04-05-2022 End: 06-05-2022 CBC W Auto Differential panel - Blood CBC + DIFF Lab Routine Essential hypertension Expected: 04/05/2022, Expires: 06/05/2022 [facility] Work Phone: Comment on above: Expected: 04/05/2022 , Expires: 06/05/2022 Start: 04-05-2022 End: 06-05-2022 Comprehensive metabolic 2000 panel - Serum or Plasma COMP METABOLIC PANEL Lab Routine Essential hypertension Expected: 04/05/2022, Expires: 06/05/2022 [facility] Work Phone: Comment on above: Expected: 04/05/2022 , Expires: 06/05/2022 Start: 04-05-2022 End: 06-05-2022 Hemoglobin A1c in Blood HGB A1C Lab Routine Class 2 drug-induced obesity with serious comorbidity and body mass index (BMI) of 36.0 to 36.9 in adult Expected: 04/05/2022, Expires: 06/05/2022 [facility] Work Phone: Comment on above: Expected: 04/05/2022 , Expires: 06/05/2022 Start: 04-05-2022 End: 06-05-2022 Thyrotropin [Units/volume] in Serum or Plasma TSH BLD Lab Routine Class 2 drug-induced obesity with serious comorbidity and body mass index (BMI) of 36.0 to 36.9 in adult Expected: 04/05/2022, Expires: 06/05/2022 [facility] Work Phone: Comment on above: Expected: 04/05/2022 , Expires: 06/05/2022 Start: 03-14-2022 BP CONTROLLED (<130/80) BP CONTROLLE D (<130/80) [facility] Start: 03-12-2022 Adult depression screening assessment DEPRESSION SCREENING [facility] Start: 02-21-2022 MICHEAL, Provider : Blanca Stroud, Status: Chun, Time: 9:00 AM VIRFUVGALLIT[facility], Provider: Blanca Stroud, Status: Pen, Time: 9:00 AM YK-Znbnbfmyeuejzj-Lihs man Voice Work Phone: Start: 02-13-2022 [facility], Provider: Devi Alfonso, Status: Pen, Time: 11:00 AM [facility], Provider: Devi Alfonso, Status: Pen, Time: 11:00 AM LC-Jvsmjidwbxngzz-Yyld man Voice Work Phone: Start: 01-23-2022 [facility], Provider: Devi Alfonso, Status: Chun, Time: 2:45 PM FUV, Provider: Devi Alfonso, Status: Chun, Time: 2:45 PM [facility] Work Phone: Start: 01-10-2022 MICHEAL, Provider : Blanca tSroud, Status: Chun, Time: 2:30 PM VIRFUVHOME, Provider: Blanca Stroud, Status: Pen, Time: 2:30 PM [facility] Work Phone: Start: 12-27-2021 VIRFATMATA, Provider : Blanca Stroud, Status: Pen, Time: 2:30 PM VIRFUSONYAE, Provider: Blanca Stroud, Status: Pen, Time: 2:30 PM [facility] Work Phone: Start: 09-24-2021 DEPRESSION ASSESSMENT DEPRESSION ASS ESSMENT [facility] Start: 04-24-2021 TWO PNEUMOVAX 5 YEAR S APART PRIOR TO AGE 65 (#2) TWO PNEUMOVAX 5 YEARS APART PRIOR TO AGE 65 (#2) [facility] Start: 03-23-2021 Screening for malign ant neoplasm of breast Mammogram Screening [facility] Start: 2020 COLOGUARD (FIT-DNA) COLOGUARD (FIT-D NA) [facility] Start: 2020 Colonoscopy COLONOSCOPY [facility] Start: 2020 COLORECTAL CANCER SCREENING COLORECTAL CANCER SCREENING [facility] Start: [address] COLONOGRAPHY [facility] Start: 2020 FECAL OCCULT BLOOD FECAL OCCULT BLOO D [facility] Start: 2020 Screening for malign ant neoplasm of colon [facility] Start: [address] [facility] Start: 02-12-2020 Mammography [facility] Start: 2005 HPV TESTING HPV TESTING [facility] Start: 2005 Screening for malign ant neoplasm of cervix HPV Testing [facility] Start: 1996 PAP TESTING PAP TESTING [facility] Start: 1996 Screening for malign ant neoplasm of cervix [facility] Start: 1994 Hepatitis B Vaccine (1 of 3 - 19+ 3-dose series) Hepatitis B Vaccine (1 of 3 - 19+ 3-dose series) [facility] Start: 1975 HEPATITIS B (1 of 3 - 3-dose series) HEPATITIS B (1 of 3 - 3-dose series) [facility] Start: 1975 Hepatitis B Vaccine (1 of 3 - 3-dose series) Hepatitis B Vaccine (1 of 3 - 3-dose series) [facility] COLOGUARD COLOGUARD Lab Ro utine Screening for colon cancer Ordered: 12/21/2021 [facility] Work Phone: Comment on above: Ordered: 12/21/2021 End: 12-29-2023 ROLANDO SCREENING ROLANDO SCREENING Radiology Routine Encounter for screening mammogram for breast cancer 1 Occurrences starting 11/29/2022 until 12/29/2023 [facility] Work Phone: Comment on above: 1 Occurrences starti ng 11/29/2022 until 12/29/2023 End: 12-13-2024 MG Breast Screening ROLANDO SCREENING Radiology Routine Encounter for screening mammogram for breast cancer 1 Occurrences starting 11/14/2023 until 12/13/2024 [facility] Work Phone: Comment on above: 1 Occurrences starti ng 11/14/2023 until 12/13/2024 End: 01-20-2023 Screening mammography bi 2-view breast inc cad ROLANDO SCREENING Radiology Routine Encounter for screening mammogram for breast cancer 1 Occurrences starting 12/21/2021 until 01/20/2023 [facility] Work Phone: Comment on above: 1 Occurrences starti ng 12/21/2021 until 01/20/2023 End: 01-15-2025 XR Foot - bilateral AP and Lateral and oblique XR FOOT GENERAL 3V AP/LAT/OBL BILATERAL Radiology Routine Pain 1 Occurrences starting 12/17/2023 until 01/15/2025 [facility] Work Phone: Comment on above: 1 Occurrences starti ng 12/17/2023 until 01/15/2025 [facility] Immunizations Immunization Date Immunization Notes Care Provider Jose sánchez 06-16-2023 COVID-19 vaccine, ag e 12+ yr, 2022- season (PFIZER-BIONTFastCustomer) Babatunde Vasquez APRN.CANOPY INSPECTOR Work Phone: [facility] 06-16-2023 Influenza, injectabl e, Madin Agnes Canine Kidney, preservative free, quadrivalent Babatunde Vasquez HARD ROCK MINER.CANOPY INSPECTOR Work Phone: [facility] 06-16-2023 influenza virus vacc ine, unspecified formulation Jena Peterson MD Work Phone: [facility] 08-04-2022 influenza, injectabl e, quadrivalent, contains preservative Leon Guy MD Work Phone: [facility] 08-04-2022 influenza virus vacc ine, unspecified formulation Jae Mason HARD ROCK MINER.FRAME AND SCRAP CRUSHER Work Phone: [facility] 06-02-2022 COVID-19 booster vaccine, age 12+ yr, bivalent (PFIZER-BIONTECH) Leon Guy MD Work Phone: [facility] Work Phone: 06-02-2022 COVID-19 booster vaccine, age 5 yr - 11 yr, bivalent (PFIZER-BIONTECH) Elizabeth Argueta HARD ROCK MINER.CANOPY INSPECTOR Work Phone: [facility] 08-19-2021 COVID-19 original vaccine, age 12+ yr, monovalent (PFIZER-BIONTECH - PURPLE TOP) Babatunde Vasquez HARD ROCK MINER.CANOPY INSPECTOR Work Phone: [facility] 05-09-2021 influenza, injectabl e, quadrivalent, preservative free Leon Guy MD Work Phone: [facility] Work Phone: 05-09-2021 influenza, seasonal, injectable, preservative free Leon Guy MD Work Phone: [facility] Work Phone: 12-31-2020 COVID-19 vaccine, ag e 12+ yr (PFIZER-BIONTECH - PURPLE TOP) Leon Guy MD Work Phone: [facility] Work Phone: 12-09-2020 COVID-19 vaccine, ag e 12+ yr (PFIZER-BIONTECH - PURPLE TOP) Leon Guy MD Work Phone: [facility] 06-25-2020 influenza, injectabl e, quadrivalent, preservative free Leon Guy MD Work Phone: [facility] Work Phone: 07-27-2019 Influenza, injectabl e, Madin [place] Canine Kidney, preservative free, quadrivalent Leon Guy MD Work Phone: [facility] Work Phone: 03-29-2019 tetanus and diphther ia toxoids, adsorbed, preservative free, for adult use (5 Lf of tetanus toxoid and 2 Lf of diphtheria toxoid) Leon Guy MD Work Phone: [facility] Work Phone: 03-29-2019 tetanus toxoid, redu david diphtheria toxoid, and acellular pertussis vaccine, adsorbed Leon Guy MD Work Phone: [facility] Work Phone: 04-24-2016 pneumococcal polysaccharide vaccine, 23 valent Leon Guy MD Work Phone: [facility] Work Phone: 08-28-2014 influenza, seasonal, injectable Leon Guy MD Work Phone: [facility] Payers Date Payer Category Payer Private Health Insurance [facility] CHOICE PLUS [id number] 2023-Present [phone] [address] [place] [address] HMO [id number] 2023 Unknown [id number] 2019 Unknown 2019 Unknown ANTHEM BLUE CARD EPO OOS [id number] 2019-Present [address] [place] [address] EPO [id number] Social History Date Type Detail Facility Start: 04-24-2016 End: 03-14-2023 Non-smoker Non-smoker [facility] Start: 04-24-2016 End: 08-18-2022 Tobacco smoking status NHIS Ex-smoker [facility] Work Phone: Start: 09-24-1991 End: 09-24-2011 History of tobacco use Current smoker [facility] Work Phone: Start: 04-24-2016 End: 08-18-2022 Tobacco use and exposure Smokeless tobacco non-user [facility] Work Phone: Start: 12-21-2021 End: 06-15-2023 Alcohol intake Current drinker of alcohol (finding) [facility] Start: 03-12-2021 End: 10-18-2022 History SDOH Alcohol Frequency 1 [facility] Start: 03-12-2021 End: 10-18-2022 History SDOH Social Connections Phone 2 [facility] Start: 03-12-2021 End: 10-18-2022 History SDOH Social Connections Living 3 [facility] Start: 03-12-2021 End: 10-18-2022 History SDOH Stress 5 [facility] Start: 03-12-2021 Education 21 [facility] Start: 12-13-2015 End: 08-18-2022 Tobacco Comment uses E-cigarettes [facility] Start: 1975 Sex Assigned At Female [facility] Start: 10-30-2021 End: 08-18-2022 Exposure to SARS-CoV-2 (event) Not sure [facility] Start: 09-24-1991 End: 09-24-2011 History of tobacco use Cigarette Smoker [facility] Work Phone: Start: 10-18-2022 History SDOH Alcohol Std Drinks 0 [facility] Start: 10-18-2022 End: 03-14-2023 Social connection and isolation panel [facility] Do you belong to any clubs or organizations such as catholic groups, unions, fraternal or athletic groups, or school groups? No [facility] Are you now , , , , never or living with a partner? [facility] How often to you hav e a drink containing alcohol? Never [facility] How many standard dr inks containing alcohol do you have on a typical day? Patient does not drink [facility] Do you feel stress - tense, restless, nervous, or anxious, or unable to sleep at night because your mind is troubled all the time - these days [OSQ] Very much [facility] (I/We) worried wheth er (my/our) food would run out before (I/we) got money to buy more. Never true [facility] Start: 03-12-2021 Gender identity Identifies as female gender (finding) [facility] Start: 03-12-2021 Sexual orientation Heterosexual (finding) [facility] Clinical Notes 08-01-2021 to 06-18-2024 Telephone Encounter - Jae Mason APRN.CNS - 06/16/2024 2:35 PM EDTTelephone Encounter - Jae Mason APRN.CNS - 06/16/2024 2:35 PM EDTBroJae langford APRN.CNS - 06/13/2024 3:00 PM EDT Note Date & Type Note Facility 06-18-2024 Note HNO ID: [id number] Author: RIGOBERTO CHÁVEZ PT Service: ? Author Type: Physical Therapist Type: Progress Notes Filed: 06/18/2024 12:56 Note Text: 06/18/2024 [facility] PHYSICAL THERAPY DISCONTINUANCE OF CARE Plan of Care Period: Start of Care Date: 02/28/24 Last Visit Date: 03/12/2024 Therapy Program: The following is a summary of the interventions provided for this episode of care; Therapeutic exercise, Manual therapy, and Self-residential management Assessment: Based on most recent visit, patient was progressing slower than expected toward functional goals based on pain levels, documented subjective information on progress, and appointment compliance. Unable to formally assess goal achievement, as patient has not returned to therapy or scheduled additional follow-up appointments. Reason for Discontinuation of Care: Patient has not returned to therapy or scheduled additional follow-up appointments. Rigoberto Chávez, PT [facility] 06-16-2024 Telephone encounter Note Continue Mounjaro unchanged long-term for now. [facility] 06-16-2024 Miscellaneous Notes Continue Mounjaro unchanged long-term for now. documented in this encounter [facility] 06-13-2024 History of Present illness Narrative SUBJECTIVE: Hepatitis B Vaccine(1 of 3 - 19+ 3-dose series) Never done Cervical Cancer Screening Never done Colorectal Cancer Screening Never done Mammogram Screening due on 03/23/2021 Lipid Screening due on 07/24/2023 Influenza Vaccine(1) due on 05/25/2024 HPI Andreina Gee is a 49 year old female. PMH significant for ACTIVE PROBLEM LIST Other Specified Disease of White Blood Cells Essential Hypertension Alcohol Abuse Anxiety Obesity Due to Excess Calories Plantar Fasciitis, Bilateral Equinus Deformity of Both Feet Heel Pain, Bilateral Presents today for routine follow-up visit. 66 pounds using Mounjaro. She has been exercising and eating a healthy diet. She feels well with the medication, no adverse effects are noted. HPI excerpted from previous visits: Today notes that phentermine caused her to not to want to eat or sleep, seems like it was too strong/effective so she quit taking it. . Has gained a couple of pounds since discontinuing. She has tried Ozempic before but had GI upset with that. Ozempic made her nauseous / GI upset and decreased oral intake. States Qsymia did not work.Stalled out at 12 pounds of weight loss. She reports exercising 30 minutes Mondays through Sunday, jumps on the trampoline. Also walks every night for 20 to 30 minutes. Does calorie counting. SAD. Today notes that she lost 30 lbs weight lost on phentermine. 5 lbs on this medication so far. Curbing appetite. Notes wearing off effects at the endo of the week. Sticking with diet and exercise. She notes mood is stable on current medication. No voiced SI HI. She has occasional insomnia for which she takes zolpidem. Has been effective without adverse effects noted. Review of Systems Constitutional: Negative. Psychiatric/Behavioral: Positive for sleep disturbance. Negative for dysphoric mood. The patient is not nervous/anxious. Objective BP 125/70 Pulse 70 Resp 16 Wt 67.7 kg (149 lb 4 oz) LMP 01/24/2023 BMI 25.62 kg/m Physical Exam Vitals and nursing note reviewed. Constitutional: Appearance: Normal appearance. HENT: Head: Normocephalic and atraumatic. Eyes: Conjunctiva/sclera: Conjunctivae normal. Cardiovascular: Rate and Rhythm: Normal rate and regular rhythm. Heart sounds: Normal heart sounds. Pulmonary: Effort: Pulmonary effort is normal. Breath sounds: Normal breath sounds. Abdominal: General: Bowel sounds are normal. Palpations: Abdomen is soft. Musculoskeletal: Right lower leg: No edema. Left lower leg: No edema. Skin: General: Skin is warm and dry. Neurological: General: No focal deficit present. Mental Status: She is alert and oriented to person, place, and time. ALLERGIES Allergen Reactions Bee Pollen Other: See Comments Bauman Other: See Comments Grass Pollen Other: See Comments Latex Rash Penicillins Trees Other: See Comments Medications zolpidem (AMBIEN) 10 mg Take 0.5 tablets by mouth daily at bedtime for 60 days. tirzepatide (MOUNJARO) 10 mg/0.5 mL pen injector Inject 10 mg subcutaneously one time a week. sertraline (ZOLOFT) 100 mg tablet Take 2 tablets by mouth once daily. PAST MEDICAL HISTORY Diagnosis Date Essential hypertension Social History Tobacco Use Smoking status: Former Current packs/day: 0.00 Average packs/day: 1 pack/day for 20.0 years (20.0 ttl pk-yrs) Types: Cigarettes Start date: 09/24/1991 Quit date: 09/24/2011 Years since quittin.7 Smokeless tobacco: Never Tobacco comments: uses E-cigarettes Vaping Use Vaping status: Former Quit date: 10/19/2018 Substance Use Topics Alcohol use: Yes Alcohol/week: 2.0 - 4.0 standard drinks of alcohol Types: 2 - 4 Glasses of Wine (5oz) per week Drug use: No ASSESSMENT/PLAN: 1. Essential hypertension - ICD9: 401.9, ICD10: I10 (primary diagnosis) - Controlled - Continue treatment unchanged - Encouraged sodium restriction, DASH or Mediterranean diet - Recommend regular aerobic exercise - LIPID PANEL, NONFASTING - COMPREHENSIVE METABOLIC PANEL - COMPLETE BLOOD COUNT AND DIFFERENTIAL 2. Primary insomnia - ICD9: 307.42, ICD10: F51.01 Stable, currently controlled, continue to monitor. - ZOLPIDEM 10 MG TABLET 3. Class 2 severe obesity due to excess calories with serious comorbidity and body mass index (BMI) of 36.0 to 36.9 in adult (HCC) - ICD9: 278.01, V85.36, ICD10: E66.01, Z68.36 She has lost more than 60 pounds over the last year. She is feeling well with the medication. BMI now at 25.6. Continue on current dosing unchanged for now. Will check with pharmacist regarding maintenance dosing. - TIRZEPATIDE 10 MG/0.5 ML SUBCUTANEOUS PEN INJECTOR - COMPREHENSIVE METABOLIC PANEL - COMPLETE BLOOD COUNT AND DIFFERENTIAL 4. Anxiety - ICD9: 300.00, ICD10: F41.9 Stable, currently controlled, continue to monitor. - SERTRALINE 100 MG TABLET 5. Cervical cancer screening - ICD9: V76.2, ICD10: Z12.4 - Encouraged monthly BSE - CONSULT TO TRAFFIC CONTROLLER CABLE 6. Screening for lipid disorders - ICD9: V77.91, ICD10: Z13.220 3-6 mo follow up MD Jae Coronel APRN.FRAME AND SCRAP CRUSHER Medical Decision Making: Problems: Moderate: 1+ chronic illnesses with change Data: Unique test(s) ordered: 3+ Risk: Moderate: Drug management Medical Decision Making Level: 4 - Moderate documented in this encounter [facility] 06-13-2024 Note HNO ID: [id number] Author: JAE MASON APRN.FRAME AND SCRAP CRUSHER Service: ? Author Type: Nurse Specialist Type: Progress Notes Filed: 06/13/2024 16:53 Note Text: SUBJECTIVE: Hepatitis B Vaccine(1 of 3 - 19+ 3-dose series) Never done Cervical Cancer Screening Never done Colorectal Cancer Screening Never done Mammogram Screening due on 03/23/2021 Lipid Screening due on 07/24/2023 Influenza Vaccine(1) due on 05/25/2024 SUSANNA Gee is a 49 year old female. PMH significant for ACTIVE PROBLEM LIST Other Specified Disease of White Blood Cells Essential Hypertension Alcohol Abuse Anxiety Obesity Due to Excess Calories Plantar Fasciitis, Bilateral Equinus Deformity of Both Feet Heel Pain, Bilateral Presents today for routine follow-up visit. 66 pounds using Mounjaro. She has been exercising and eating a healthy diet. She feels well with the medication, no adverse effects are noted. HPI excerpted from previous visits: Today notes that phentermine caused her to not to want to eat or sleep, seems like it was too strong/effective so she quit taking it. . Has gained a couple of pounds since discontinuing. She has tried Ozempic before but had GI upset with that. Ozempic made her nauseous / GI upset and decreased oral intake. States Qsymia did not work.Stalled out at 12 pounds of weight loss. She reports exercising 30 minutes Mondays through Sunday, jumps on the trampoline. Also walks every night for 20 to 30 minutes. Does calorie counting. SAD. Today notes that she lost 30 lbs weight lost on phentermine. 5 lbs on this medication so far. Curbing appetite. Notes wearing off effects at the endo of the week. Sticking with diet and exercise. She notes mood is stable on current medication. No voiced SI HI. She has occasional insomnia for which she takes zolpidem. Has been effective without adverse effects noted. Review of Systems Constitutional: Negative. Psychiatric/Behavioral: Positive for sleep disturbance. Negative for dysphoric mood. The patient is not nervous/anxious. Objective BP 125/70 Pulse 70 Resp 16 Wt 67.7 kg (149 lb 4 oz) LMP 01/24/2023 BMI 25.62 kg/m? Physical Exam Vitals and nursing note reviewed. Constitutional: Appearance: Normal appearance. HENT: Head: Normocephalic and atraumatic. Eyes: Conjunctiva/sclera: Conjunctivae normal. Cardiovascular: Rate and Rhythm: Normal rate and regular rhythm. Heart sounds: Normal heart sounds. Pulmonary: Effort: Pulmonary effort is normal. Breath sounds: Normal breath sounds. Abdominal: General: Bowel sounds are normal. Palpations: Abdomen is soft. Musculoskeletal: Right lower leg: No edema. Left lower leg: No edema. Skin: General: Skin is warm and dry. Neurological: General: No focal deficit present. Mental Status: She is alert and oriented to person, place, and time. ALLERGIES Allergen Reactions Bee Pollen Other: See Comments Bauman Other: See Comments Grass Pollen Other: See Comments Latex Rash Penicillins Trees Other: See Comments Medications zolpidem (AMBIEN) 10 mg Take 0.5 tablets by mouth daily at bedtime for 60 days. tirzepatide (MOUNJARO) 10 mg/0.5 mL pen injector Inject 10 mg subcutaneously one time a week. sertraline (ZOLOFT) 100 mg tablet Take 2 tablets by mouth once daily. PAST MEDICAL HISTORY Diagnosis Date Essential hypertension Social History Tobacco Use Smoking status: Former Current packs/day: 0.00 Average packs/day: 1 pack/day for 20.0 years (20.0 ttl pk-yrs) Types: Cigarettes Start date: 09/24/1991 Quit date: 09/24/2011 Years since quittin.7 Smokeless tobacco: Never Tobacco comments: uses E-cigarettes Vaping Use Vaping status: Former Quit date: 10/19/2018 Substance Use Topics Alcohol use: Yes Alcohol/week: 2.0 - 4.0 standard drinks of alcohol Types: 2 - 4 Glasses of Wine (5oz) per week Drug use: No ASSESSMENT/PLAN: 1. Essential hypertension - ICD9: 401.9, ICD10: I10 (primary diagnosis) - Controlled - Continue treatment unchanged - Encouraged sodium restriction, DASH or Mediterranean diet - Recommend regular aerobic exercise - LIPID PANEL, NONFASTING - COMPREHENSIVE METABOLIC PANEL - COMPLETE BLOOD COUNT AND DIFFERENTIAL 2. Primary insomnia - ICD9: 307.42, ICD10: F51.01 Stable, currently controlled, continue to monitor. - ZOLPIDEM 10 MG TABLET 3. Class 2 severe obesity due to excess calories with serious comorbidity and body mass index (BMI) of 36.0 to 36.9 in adult (HCC) - ICD9: 278.01, V85.36, ICD10: E66.01, Z68.36 She has lost more than 60 pounds over the last year. She is feeling well with the medication. BMI now at 25.6. Continue on current dosing unchanged for now. Will check with pharmacist regarding maintenance dosing. - TIRZEPATIDE 10 MG/0.5 ML SUBCUTANEOUS PEN INJECTOR - COMPREHENSIVE METABOLIC PANEL - COMPLETE BLOOD COUNT AND DIFFERENTIAL 4. Anxiety - ICD9: 300.00, ICD10: F41.9 Stabl (more content not included)... [facility] 04-02-2024 Telephone encounter Note PDMP website checked and validated. All prescriptions have been APPROPRIATELY filled. No suspicious activity was identified. 04/02/2024 by Elizabeth Argueta APRN.CNP [facility] 04-02-2024 Miscellaneous Notes PDMP website checked and validated. All prescriptions have been APPROPRIATELY filled. No suspicious activity was identified. 04/02/2024 by Elizabeth Argueta APRN.CNP Prescription Refill Information The patient has been identified by name and date of : Yes Caregiver verified no other encounters exist for this prescription request: Yes Caregiver confirmed with patient/requestor that no other refills are due, in the near future, with this provider at this time: Yes The last office visit in the department: 03/10/24 Does the patient have a future office visit with this provider/department: No My chart message sent to call office to set up a follow up appointment. Requested Prescriptions Pending Prescriptions Disp Refills zolpidem (AMBIEN) 10 mg 15 tablet 1 Sig: Take 0.5 tablets by mouth daily at bedtime for 60 days. Fatmata King LPN March 31, 2024 9:31 AM documented in this encounter [facility] 03-31-2024 Telephone encounter Note Prescription Refill Information The patient has been identified by name and date of : Yes Caregiver verified no other encounters exist for this prescription request: Yes Caregiver confirmed with patient/requestor that no other refills are due, in the near future, with this provider at this time: Yes The last office visit in the department: 03/10/24 Does the patient have a future office visit with this provider/department: No My chart message sent to call office to set up a follow up appointment. Requested Prescriptions Pending Prescriptions Disp Refills zolpidem (AMBIEN) 10 mg 15 tablet 1 Sig: Take 0.5 tablets by mouth daily at bedtime for 60 days. Fatmata King LPN March 31, 2024 9:31 AM [facility] 03-25-2024 Telephone encounter Note Sent. [facility] 03-25-2024 Miscellaneous Notes Sent. Pt's calls to report the Mounjaro 10 mg/0.5 ml rx that was sent to the pharmacy yesterday had dx on it and pharmacy said the discount coupon could not be used on it. reports with the previous rx there was no problem using discount coupon but there wasn't a dx on the rx. is requesting new rx without dx be sent to the pharmacy. Kate Damian LPN documented in this encounter [facility] 03-25-2024 Telephone encounter Note Pt's calls to report the Mounjaro 10 mg/0.5 ml rx that was sent to the pharmacy yesterday had dx on it and pharmacy said the discount coupon could not be used on it. reports with the previous rx there was no problem using discount coupon but there wasn't a dx on the rx. is requesting new rx without dx be sent to the pharmacy. Kate Damian LPN [facility] 03-24-2024 Telephone encounter Note Spouse called and reports Pharmacy requested a PA be done. I called the pharmacy to let them know the PA denied prescription for Mounjaro is not covered on pt's insurance. Instructed pharmacy spouse reports they do no go thru insurance. Pharmacy understands and will flip this to a discount card for pt. Will not be ran thru insurance. Aristeo Reyes LPN [facility] 03-24-2024 Miscellaneous Notes Spouse called and reports Pharmacy requested a PA be done. I called the pharmacy to let them know the PA denied prescription for Mounjaro is not covered on pt's insurance. Instructed pharmacy spouse reports they do no go thru insurance. Pharmacy understands and will flip this to a discount card for pt. Will not be ran thru insurance. Aristeo Reyes LPN documented in this encounter [facility] 03-12-2024 Note HNO ID: [id number] Author: RIGOBERTO CHÁVEZ, PT Service: ? Author Type: Physical Therapist Type: Progress Notes Filed: 03/13/2024 09:47 Note Text: Episode Visit Count: 2 Therapist That Will Accept/Oversee The Plan Of Care: Rigoberto Chávez PT. Start of Care Date: 02/28/24 Onset Date: 02/27/19 Patient Identified by Name and Date of : Yes REHABILITATION AND SPORTS THERAPY PHYSICAL THERAPY TREATMENT NOTE ASSESSMENT: Andreina Gee tolerated the session with no issues. She demonstrated difficulty with squat DF rocks due to B quad fatigue. The patient will continue to benefit from ongoing skilled physical therapy to progress toward set goals. PLAN FOR NEXT VISIT: Ankle DF Mobilization w/ Band; prone DF manual Mobs. SUBJECTIVE: Patient reports no problem with exercises; however no change in previous subjective report. Pain: Pain Pain Level: 0 Pain Location: Foot - Left, Foot - Right Post Treatment Pain Post Treatment Pain Level: No Change Post Treatment Pain Location: Foot - Left, Foot - Right OBJECTIVE MEASURES WITH LEVEL OF FUNCTION: Gait Gait Observation: No change in gait deficits from initial eval following DF mobility work. TREATMENT: Therapeutic Exercise: 1: *1/2 Kneeling Weightbearing Lunge w/ 10#kb on Knee: 3x10 ea. 2: // Bars Squat Rocks: 2x10 each way. 3: *Squats at Parallel Bars w/ toes elevated on wedges: 3x10 4: Discussed custom orthotics, PT reached out to referring provider for order. 6: Discussed home mobility program, patient to be sent videos of exercises via email. Skilled Intervention: Patient was educated in proper exercise technique and purpose for exercises. Reviewed and educated patient on additions/changes for home exercise program as above (*). Skilled judgment was used in selection of appropriate interventions. Correct performance of therapeutic exercises was facilitated with verbal, visual, and tactile cuing. Manual Therapy: 1: 1/2 Kneeling DF Mobilization into Therapist Webspace of Hand w/ posterior directed force: 3x10 each. 2: Talocrural AP Mobs Grade III-IV: 3x10 each. Skilled Intervention: Manual skills to improve joint mobility, ROM, and decrease pain. Utilized anatomy knowledge of the therapist, and assessment of patient's response to intervention. Billing Therapeutic Exercise Treatment Minutes: 25 Manual TherapyTreatment Minutes: 15 Total Session Time (minutes): 40 Session Start Time : 1502 Session Stop Time : 1542 Rigoberto Chávez, PT [facility] 03-12-2024 History of Present illness Narrative Episode Visit Count: 2 Therapist That Will Accept/Oversee The Plan Of Care: Rigoberto Chávez PT. Start of Care Date: 02/28/24 Onset Date: 02/27/19 Patient Identified by Name and Date of : Yes REHABILITATION AND SPORTS THERAPY PHYSICAL THERAPY TREATMENT NOTE ASSESSMENT: Andreina Gee tolerated the session with no issues. She demonstrated difficulty with squat DF rocks due to B quad fatigue. The patient will continue to benefit from ongoing skilled physical therapy to progress toward set goals. PLAN FOR NEXT VISIT: Ankle DF Mobilization w/ Band; prone DF manual Mobs. SUBJECTIVE: Patient reports no problem with exercises; however no change in previous subjective report. Pain: Pain Pain Level: 0 Pain Location: Foot - Left, Foot - Right Post Treatment Pain Post Treatment Pain Level: No Change Post Treatment Pain Location: Foot - Left, Foot - Right OBJECTIVE MEASURES WITH LEVEL OF FUNCTION: Gait Gait Observation: No change in gait deficits from initial eval following DF mobility work. TREATMENT: Therapeutic Exercise: 1: *1/2 Kneeling Weightbearing Lunge w/ 10#kb on Knee: 3x10 ea. 2: // Bars Squat Rocks: 2x10 each way. 3: *Squats at Parallel Bars w/ toes elevated on wedges: 3x10 4: Discussed custom orthotics, PT reached out to referring provider for order. 6: Discussed home mobility program, patient to be sent videos of exercises via email. Skilled Intervention: Patient was educated in proper exercise technique and purpose for exercises. Reviewed and educated patient on additions/changes for home exercise program as above (*). Skilled judgment was used in selection of appropriate interventions. Correct performance of therapeutic exercises was facilitated with verbal, visual, and tactile cuing. Manual Therapy: 1: 1/2 Kneeling DF Mobilization into Therapist Webspace of Hand w/ posterior directed force: 3x10 each. 2: Talocrural AP Mobs Grade III-IV: 3x10 each. Skilled Intervention: Manual skills to improve joint mobility, ROM, and decrease pain. Utilized anatomy knowledge of the therapist, and assessment of patient's response to intervention. Billing Therapeutic Exercise Treatment Minutes: 25 Manual TherapyTreatment Minutes: 15 Total Session Time (minutes): 40 Session Start Time : 1502 Session Stop Time : 1542 Rigoberto Chávez PT documented in this encounter [facility] 03-10-2024 Note HNO ID: [id number] Author: BABATUNDE VASQUEZ APRN.CANOPY INSPECTOR Service: ? Author Type: Nurse Practitioner Type: Progress Notes Filed: 03/10/2024 15:56 Note Text: SUBJECTIVE Andreina Gee is a 48 year old female here today for a check up on her medical problems. Chief Complaint Patient presents with: Follow Up: weight loss-moujaro HPI Andreina Gee is a 48 year old female. She is an established patient of Jena Peterson MD. Here today for follow up. Has lost 50 pounds with Mounjaro. No side effects that she has noticed. She has been focusing on diet and exercise too. Eating enough most days, eats less the days after her injection. Some manageable constipation. Working to get weight to 150's. Blood pressures doing well. Behavioral Health Screening PHQ-2 Score: 0 (Lower risk for depression) SARAH-2 Score: 0 (Lower risk for anxiety) Recommendation: no further intervention at this time Her medications were reviewed today and her list is now up to date. Medications Current Outpatient Medications Medication Sig tirzepatide (MOUNJARO) 10 mg/0.5 mL pen injector Inject 10 mg subcutaneously one time a week. Start this dose after 4 weekly doses at 5 mg meloxicam (MOBIC) 15 mg tablet Take 1 tablet by mouth once daily. sertraline (ZOLOFT) 100 mg tablet Take 2 tablets by mouth once daily. zolpidem (AMBIEN) 10 mg Take 0.5 tablets by mouth daily at bedtime for 60 days. No current facility-administered medications for this visit. 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 Respiratory: Negative. Cardiovascular: Negative. OBJECTIVE BP 112/60 Pulse 74 Resp 12 Ht 5' 4 (1.63m) Wt 167 lb (75.8kg) SpO2 99% LMP 01/24/2023 BMI 28.65 kg/(m2). Physical Exam Vitals and nursing note reviewed. Constitutional: General: She is awake. She is not in acute distress. Appearance: Normal appearance. She is well-developed and well-groomed. She is not ill-appearing, toxic-appearing or diaphoretic. HENT: Head: Normocephalic. Right Ear: External ear normal. Left Ear: External ear normal. Nose: Nose normal. Eyes: General: Vision grossly intact. Conjunctiva/sclera: Conjunctivae normal. Pupils: Pupils are equal, round, and reactive to light. Neck: Vascular: No JVD. Trachea: Trachea normal. Cardiovascular: Rate and Rhythm: Normal rate and regular rhythm. Pulses: Normal pulses. Heart sounds: Normal heart sounds. No murmur heard. Pulmonary: Effort: Pulmonary effort is normal. No accessory muscle usage, prolonged expiration or respiratory distress. Breath sounds: Normal breath sounds. Musculoskeletal: Cervical back: Neck supple. Skin: General: Skin is warm and dry. Capillary Refill: Capillary refill takes less than 2 seconds. Neurological: General: No focal deficit present. Mental Status: She is alert and oriented to person, place, and time. Mental status is at baseline. Psychiatric: Attention and Perception: Attention and perception normal. Mood and Affect: Mood and affect normal. Speech: Speech normal. Behavior: Behavior normal. Behavior is cooperative. Thought Content: Thought content normal. Cognition and Memory: Cognition and memory normal. Judgment: Judgment normal. ASSESSMENT/PLAN: 1. Essential hypertension - ICD9: 401.9, ICD10: I10 (primary diagnosis) - Controlled - Continue current medications - Recommend home blood pressure monitoring, to bring results to next visit - Encouraged sodium restriction, DASH or Mediterranean diet - Recommend regular aerobic exercise - TIRZEPATIDE 10 MG/0.5 ML SUBCUTANEOUS PEN INJECTOR 2. Anxiety - ICD9: 300.00, ICD10: F41.9 Stable and controlled. 3. Class 2 severe obesity due to excess calories with serious comorbidity and body mass index (BMI) of 36.0 to 36.9 in adult ([facility]) - ICD9: 278.01, V85.36, ICD10: E66.01, Z68.36 Weight decreasing - Behavioral intervention, - Pharmacological intervention, and - Increase Tirzepatide (Mounjaro) (more content not included)... [facility] 03-10-2024 History of Present illness Narrative SUBJECTIVE Andreina Gee is a 48 year old female here today for a check up on her medical problems. Chief Complaint Patient presents with: Follow Up: weight loss-moujaro HPI Andreina Gee is a 48 year old female. She is an established patient of Jena Peterson MD. Here today for follow up. Has lost 50 pounds with Mounjaro. No side effects that she has noticed. She has been focusing on diet and exercise too. Eating enough most days, eats less the days after her injection. Some manageable constipation. Working to get weight to 150's. Blood pressures doing well. Behavioral Health Screening PHQ-2 Score: 0 (Lower risk for depression) SARAH-2 Score: 0 (Lower risk for anxiety) Recommendation: no further intervention at this time Her medications were reviewed today and her list is now up to date. Medications Current Outpatient Medications Medication Sig tirzepatide (MOUNJARO) 10 mg/0.5 mL pen injector Inject 10 mg subcutaneously one time a week. Start this dose after 4 weekly doses at 5 mg meloxicam (MOBIC) 15 mg tablet Take 1 tablet by mouth once daily. sertraline (ZOLOFT) 100 mg tablet Take 2 tablets by mouth once daily. zolpidem (AMBIEN) 10 mg Take 0.5 tablets by mouth daily at bedtime for 60 days. No current facility-administered medications for this visit. 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 Respiratory: Negative. Cardiovascular: Negative. OBJECTIVE BP 112/60 Pulse 74 Resp 12 Ht 5' 4 (1.63m) Wt 167 lb (75.8kg) SpO2 99% LMP 01/24/2023 BMI 28.65 kg/(m^2). Physical Exam Vitals and nursing note reviewed. Constitutional: General: She is awake. She is not in acute distress. Appearance: Normal appearance. She is well-developed and well-groomed. She is not ill-appearing, toxic-appearing or diaphoretic. HENT: Head: Normocephalic. Right Ear: External ear normal. Left Ear: External ear normal. Nose: Nose normal. Eyes: General: Vision grossly intact. Conjunctiva/sclera: Conjunctivae normal. Pupils: Pupils are equal, round, and reactive to light. Neck: Vascular: No JVD. Trachea: Trachea normal. Cardiovascular: Rate and Rhythm: Normal rate and regular rhythm. Pulses: Normal pulses. Heart sounds: Normal heart sounds. No murmur heard. Pulmonary: Effort: Pulmonary effort is normal. No accessory muscle usage, prolonged expiration or respiratory distress. Breath sounds: Normal breath sounds. Musculoskeletal: Cervical back: Neck supple. Skin: General: Skin is warm and dry. Capillary Refill: Capillary refill takes less than 2 seconds. Neurological: General: No focal deficit present. Mental Status: She is alert and oriented to person, place, and time. Mental status is at baseline. Psychiatric: Attention and Perception: Attention and perception normal. Mood and Affect: Mood and affect normal. Speech: Speech normal. Behavior: Behavior normal. Behavior is cooperative. Thought Content: Thought content normal. Cognition and Memory: Cognition and memory normal. Judgment: Judgment normal. ASSESSMENT/PLAN: 1. Essential hypertension - ICD9: 401.9, ICD10: I10 (primary diagnosis) - Controlled - Continue current medications - Recommend home blood pressure monitoring, to bring results to next visit - Encouraged sodium restriction, DASH or Mediterranean diet - Recommend regular aerobic exercise - TIRZEPATIDE 10 MG/0.5 ML SUBCUTANEOUS PEN INJECTOR 2. Anxiety - ICD9: 300.00, ICD10: F41.9 Stable and controlled. 3. Class 2 severe obesity due to excess calories with serious comorbidity and body mass index (BMI) of 36.0 to 36.9 in adult (HCC) - ICD9: 278.01, V85.36, ICD10: E66.01, Z68.36 Weight decreasing - Behavioral intervention, - Pharmacological intervention, and - Increase Tirzepatide (Mounjaro) - TIRZEPATIDE 10 MG/0.5 ML SUBCUTANEOUS PEN INJECTOR 4. Screening for lipid disorders - ICD9: V77.91, ICD10: Z13.220 - LIPID PANEL, NONFASTING 5. Encounter for therapeutic drug monitoring - ICD9: V58.83, ICD10: Z51.81 - COMPLETE BLOOD COUNT AND DIFFERENTIAL - COMPREHENSIVE METABOLIC PANEL Portions of this note have been entered by ancillary staff. I have reviewed and when necessary edited, so that they are an adequate record of my encounter with this patient Please note that parts of this document were created using voice recognition software and therefore may contain grammatical errors. Patient verbalizes understanding of instructions from today's visit and in agreement with treatment plan. Questions answered. Agrees to call the office if questions, concerns of issues with acute symptoms not improving or if they worsen. See diagnoses and orders for additional plan(s). Allergies and medications were reviewed, list was updated, and refills given if needed. Past medical, surgical, social, and family history reviewed and updated as appropriate. Encouraged proper diet & exercise as well as compliance with taking medications. Age-appropriate health preventative measures were discussed. Return in about 3 months (around 06/10/2024), or if symptoms worsen or fail to improve, for Follow up on chronic conditions and medications.. Babatunde Vasquez APRN-KAI documented in this encounter [facility] 02-29-2024 History of Present illness Narrative Program_ID:[id number] Access Code: [email or web address] URL: [email or web address] Date: 02-29-2024 Prepared By: Rigoberto Chávez Program Notes Exercises - Long Sitting Calf Stretch with Strap - 2 x daily - 5-7 x weekly - 3 sets - reps - Long Sitting Soleus Stretch on Bolster with Strap - 2 x daily - 5-7 x weekly - 3 sets - reps - Standing Dorsiflexion Self-Mobilization on Step - 2 x daily - 5-7 x weekly - 2 sets - 10 reps - Sidelying Hip Abduction - 1-2 x daily - 5-7 x weekly - 2 sets - 8-12 reps - Seated Plantar Surface Stretch - 2 x daily - 5-7 x weekly - 3 sets - reps Program_ID:[id number] Access Code: [email or web address] URL: [email or web address] Date: 02-28-2024 Prepared By: Rigoberto Chávez Program Notes Exercises - Long Sitting Calf Stretch with Strap - 2 x daily - 5-7 x weekly - 3 sets - reps - Long Sitting Soleus Stretch on Bolster with Strap - 2 x daily - 5-7 x weekly - 3 sets - reps - Standing Dorsiflexion Self-Mobilization on Step - 2 x daily - 5-7 x weekly - 2 sets - 10 reps - Sidelying Hip Abduction - 1-2 x daily - 5-7 x weekly - 2 sets - 8-12 reps - Seated Plantar Surface Stretch - 2 x daily - 5-7 x weekly - 3 sets - reps Images from the original note were not included. Episode Visit Count: 1 Therapist That Will Accept/Oversee The Plan Of Care: Rigoberto Chávez PT. Start of Care Date: 02/28/24 Onset Date: 02/27/19 Patient Identified by Name and Date of : Yes REHABILITATION AND SPORTS THERAPY PHYSICAL THERAPY EVALUATION PLAN OF CARE: Assessment: Andreina Gee presents with chief complaint of B plantar sided rearfoot and forefoot pain that interferes with standing, walking, weight bearing . She presents with impairments in ADL's, gait, independence in exercise, joint mobility, overall function, range of motion, soft tissue healing, symptom management, and tissue tenderness. PROMIS (Patient-Reported Outcomes Measurement Information System) scores were reviewed and identified as a rehabilitation concern. Prognosis for therapy is Fair due to: chronic nature of impairments, clinical presentation, Prognosis may be improved by (Multiple different treatments trialed without relief.) good overall health status, good support system/ coping skills.She will benefit from skilled therapy services to meet the goals established for this plan of care as noted below. Goals for Episode of Care: created on 02/28/24 through 04/11/24 Patient reported outcome of physical function and self-efficacy will increase T-score by a minimum 5 points. [place] in home exercise program. Patient will decrease pain rating by 2 points to meet minimal clinical important difference for numeric pain rating scale. Increase B Foot DF ROM/Mobility for improved gait mechanics. Improved B Foot gait mechanics and deficits, improved heel strike to forefoot transfer. Patient Goals: Alleviate Pain as able, stand longer. Planned Interventions, Frequency, and Duration: Current Frequency: 1x/week Duration: 6 weeks Total Number of Visits Planned: 6 Planned Treatment Interventions: Therapeutic exercise (41035), Neuromuscular re-education (94790), Manual therapy (91774), Therapeutic activities (74507), Self-residential management (31887), Gait Training (44204), Patient/Family/Caregiver Education PLAN FOR NEXT VISIT: Assess response to HEP; DF mobility manual treatments (assess ROM & gait before and after for immediate feedback). Patient demonstrates good understanding of plan of care and treatment. The above goals and plan of care were discussed and agreed upon by patient/family. SUBJECTIVE: Patient comes to PT continous and constant B Foot Pain; reports the B Feet pain is impacting her QOL negatively and has been for years. Standing is the worst, cannot stand still for 5 minutes without pain coming on (worse on hard floors). Standing for 1 hour would be the most she can tolerate, however will have severe pain. No pain in the a.m., thats when she feels at her best, pain is worse after movement/activity/standing. Pain is in the B heel and ball of the foot, during the day feels like a hot/burning, stabbing and shooting pain, during the night feels a severe throb. Barefoot is terrible for her, standing still is worse than walking. Patient presents following cortisone injection in L Foot on 01/18/24, presents in boot on R. When she returns to referring provider, provider wants to do cortisone injection on the R and boot on the left. Patient has done a lot of previous treatment (see note). Reports physicians have given her exercises calf stretching, ankle pumps and wall DF mobility without relief. Patient Goals: Alleviate Pain as able, stand longer. 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.) Intake Information: Prescription present Previous Treatment: Exercises per physician (Night Splints,) Falls Interview: No positive findings with falls interview PAST MEDICAL HISTORY Diagnosis Date Essential hypertension Pain: Pain Pain Level: 1 (Sitting in exam room.) Pain Location: Foot - Left, Foot - Right Description: Dull Frequency: Continuous Detailed Pain Score: Yes Worst Pain Level: 10 Average Pain Level: 5 Best Pain Level: 1 Post Treatment Pain Post Treatment Pain Level: No Change Post Treatment Pain Location: Foot - Left, Foot - Right PROMIS Scales 02/28/2024 01/18/2024 Higher is Better Phys Func - Score 39 (moderate dysfunction) 38 (moderate dysfunction) Phys Func - Percentile 14 12 Self-Eff Symptom - Score 30 (Low) Self-Eff Symptom - Percentile 2 T-scores: mean of general population = 50. 5 points is clinically meaningfully difference Percentiles provide an indication of how the patient's score ranks in relation to the general population. Higher percentile rankings indicate better function/quality of life. 50th percentile is the average of the general population and indicates half of respondents had a worse score. OBJECTIVE MEASURES WITH LEVEL OF FUNCTION: Posture / Alignment R LE Anatomical Alignment Weight-Bearing: R Rearfoot valgus, R Low arch height L LE Anatomical Alignment Weight-Bearing: L Rearfoot valgus, L Low arch height Ankle Observations Weight Bearing Status: Other (See Comment) R Ankle Palpation Tenderness: Comments R Ankle Palpation Tenderness Comments: Patient with increased TTP on medial calcaneal tuberosity, sustentaculum kathy, navicular, first MT head, webspace inbetween 1-2 MT (increased on L vs. R). L Ankle Palpation Tenderness: Comments L Ankle Palpation Tenderness Comments: Patient with increased TTP on medial calcaneal tuberosity, sustentaculum kathy, navicular, first MT head, webspace inbetween 1-2 MT. Ankle Brace/Support: Boot (Right) Sensation - Lower Extremity LE Light Touch Sensation: Grossly Intact LE AROM R LE AROM: Limited DF with excessive 1st ray extension. L LE AROM: Limited DF with excessive 1st ray extension. LE Joint Mobility R 1st Ray: Hypermobile L 1st Ray: Hypermobile Joint Mobility Comment: Limited DF Mobility/Motion. LE Strength R LE Strength: Grossly 5/5 Hips/Knees/Ankles/Foot. L LE Strength: Grossly 5/5 Hips/Knees/Ankles/Foot. Gait Weight Bearing Status: FWB Gait: Independent Gait Deviations: General Deviations General Deviations/Observations: Antalgic gait Gait Observation: Gait Observation completed with B Barefeet - Patient with decreased B heel strike and toe off. Inc pronation bilaterally with push off and rearfoot valgus positioning, slight toe out gait Education: Education Learning/educational needs: Home exercise program, Plan of Care, Gait Training TREATMENT: PT Treatment Interventions: Therapeutic Exercise, Manual Therapy, Self-Detention Management Evaluation Therapeutic Exercise: 1: *Decreased time/unable to complete exercises today due to longer assessment needed above. Exercises prescribed for HEP found below... 2: *Exercises - Long Sitting Calf Stretch with Strap - 2 x daily - 5-7 x weekly - 3 sets - 30 seconds hold - Long Sitting Soleus Stretch on Bolster with Strap - 2 x daily - 5-7 x weekly - 3 sets - 30 seconds hold - Standing Dorsiflexion Self-Mobilization on Step - 2 x daily - 5-7 x weekly - 2 sets - 10 reps - 3-5sec. hold - Sidelying Hip Abduction - 1-2 x daily - 5-7 x weekly - 2 sets - 8-12 reps - Seated Plantar Surface Stretch - 2 x daily - 5-7 x weekly - 3 sets - 30-sec hold 3: *Discussed therapy goals, exam findings, and purpose of the exercises and the HEP handout was provided to the pt. HEP discussed in detail with how to safely and properly perform each therapeutic exercise. Discussed treatment options moving forward during POC. Skilled Intervention: Patient was educated in proper exercise technique and purpose for exercises. Reviewed and educated patient on additions/changes for home exercise program as above (*). Skilled judgment was used in selection of appropriate interventions. Provided written instruction for home exercise program to facilitate proper performance and compliance. Correct performance of therapeutic exercises was facilitated with verbal, visual, and tactile cuing. Manual Therapy: 1: ShotGun MET: 2 Bouts for alignment of hips. Skilled Intervention: Manual skills to improve joint mobility, ROM, and decrease pain. Utilized anatomy knowledge of the therapist, and assessment of patient's response to intervention. Self-Detention Management: 1: *Significant time spent rationalizing and explaining differential diagnosis today; Education and explanation structural positioning of B Feet with radiograph images; discussed anatomy relevant to diagnosis - discussed A&P of the feet/ankles/knees/hips/low back and how they interplay. Discussed structural and functional deficiencies and how they may be causing MSK Foot Pain. 2: *Discussed custom orthotics vs. powerstep OTC inserts. 3: *Educated in avoidance of aggravating exercises and activities as able, and modification of ADLs/IADLs. Skilled Intervention: Skilled judgment in the selection of proper modification for activity of daily living/home management based on clinical presentation, deficits, and needs. Reviewed patient specific diagnosis in relation to activities of daily living/home management. Activity progression based on professional judgement. Billing * Evaluation Low Complexity: 1 Unit Therapeutic Exercise Treatment Minutes: 8 Manual TherapyTreatment Minutes: 5 Self-Care/Home Management Treatment Minutes: 16 Skilled Treatment Time Minutes (timed and untimed codes): 47 Total Session Time (minutes): 47 Session Start Time : 1545 Session Stop Time : 1632 Rigoberto Chávez PT documented in this encounter [facility] 02-28-2024 Note HNO ID: [id number] Author: RIGOBERTO CHÁVEZ PT Service: ? Author Type: Physical Therapist Type: Progress Notes Filed: 02/29/2024 12:48 Note Text: Episode Visit Count: 1 Therapist That Will Accept/Oversee The Plan Of Care: Rigoberto Chávez PT. Start of Care Date: 02/28/24 Onset Date: 02/27/19 Patient Identified by Name and Date of : Yes RE[facility]ABIL[facility]ATION AND SPORTS THERAPY PHYSICAL THERAPY EVALUATION PLAN OF CARE: Assessment: Andreina Gee presents with chief complaint of B plantar sided rearfoot and forefoot pain that interferes with standing, walking, weight bearing . She presents with impairments in ADL's, gait, independence in exercise, joint mobility, overall function, range of motion, soft tissue healing, symptom management, and tissue tenderness. PROMIS? (Patient-Reported Outcomes Measurement Information System) scores were reviewed and identified as a rehabilitation concern. Prognosis for therapy is Fair due to: chronic nature of impairments, clinical presentation, Prognosis may be improved by (Multiple different treatments trialed without relief.) good overall health status, good support system/ coping skills.She will benefit from skilled therapy services to meet the goals established for this plan of care as noted below. Goals for Episode of Care: created on 02/28/24 through 04/11/24 Patient reported outcome of physical function and self-efficacy will increase T-score by a minimum 5 points. [place] in home exercise program. Patient will decrease pain rating by 2 points to meet minimal clinical important difference for numeric pain rating scale. Increase B Foot DF ROM/Mobility for improved gait mechanics. Improved B Foot gait mechanics and deficits, improved heel strike to forefoot transfer. Patient Goals: Alleviate Pain as able, stand longer. Planned Interventions, Frequency, and Duration: Current Frequency: 1x/week Duration: 6 weeks Total Number of Visits Planned: 6 Planned Treatment Interventions: Therapeutic exercise (48817), Neuromuscular re-education (05189), Manual therapy (17660), Therapeutic activities (68982), Self-residential management (16525), Gait Training (61405), Patient/Family/Caregiver Education PLAN FOR NEXT VISIT: Assess response to HEP; DF mobility manual treatments (assess ROM AND gait before and after for immediate feedback). Patient demonstrates good understanding of plan of care and treatment. The above goals and plan of care were discussed and agreed upon by patient/family. SUBJECTIVE: Patient comes to PT continous and constant B Foot Pain; reports the B Feet pain is impacting her QOL negatively and has been for years. Standing is the worst, cannot stand still for 5 minutes without pain coming on (worse on hard floors). Standing for 1 hour would be the most she can tolerate, however will have severe pain. No pain in the a.m., thats when she feels at her best, pain is worse after movement/activity/standing. Pain is in the B heel and ball of the foot, during the day feels like a hot/burning, stabbing and shooting pain, during the night feels a severe throb. Barefoot is terrible for her, standing still is worse than walking. Patient presents following cortisone injection in L Foot on 01/18/24, presents in boot on R. When she returns to referring provider, provider wants to do cortisone injection on the R and boot on the left. Patient has done a lot of previous treatment (see note). Reports physicians have given her exercises calf stretching, ankle pumps and wall DF mobility without relief. Patient Goals: Alleviate Pain as able, stand longer. 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.) Intake Information: Prescription present Previous Treatment: Exercises per physician (Night Splints,) Falls Interview: No positive findings with falls interview PAST MEDICAL HISTORY Diagnosis Date Essential hypertension Pain: Pain Pain Level: 1 (Sitting in exam room.) Pain Location: Foot - Left, Foot - Right Description: Dull Frequency: Continuous Detailed Pain Score: Yes Worst Pain Level: 10 Average Pain Level: 5 Best Pain Level: 1 Post Treatment Pain Post Treatment Pain Level: No Change Post Treatment Pain Location: Foot - Left, Foot - Right PROMIS Scales 02/28/2024 01/18/2024 Higher is Better Phys Func - Score 39 (moderate dysfunction) 38 (moderate dysfunction) Phys Func - Percentile 14 12 Self-Eff Symptom - Score 30 (Low) Self-Eff Symptom - Percentile 2 T-scores: mean of general population = 50. 5 points is clinically meaningfully difference Percentiles provide an indication of how the patient's score ranks in relation to the general population. Higher percentile rankings indicate better function/q (more content not included)... [facility] 02-15-2024 Instructions Damian Carmichael APRN.CANOPY INSPECTOR - 02/15/2024 4:51 PM EDT Images from the original note were not included. Get plenty of rest, take hot steamy showers/drink warm liquids and breathe in the steam, and stay hydrated. Pseudoephedrine (Sudafed) and Phenylephrine can raise blood pressure and in a lot of common cold medications, please do not take these Guaifenesin (generic for Mucinex) 600-1200 mg extended release twice daily as needed for thinning of mucous There is no great cough medication. Often remedies such as tea, warm steamy showers, and staying hydrated are the most effective. If you are having a productive cough (meaning you are getting mucous up with your cough), it is preferred to cough and get the mucous out so please only take cough suppressants when you really don't want to cough such as with sleeping. Some options for cough if needed: - Cough drops - Dextromethorphan (can cause drowsiness so may be best to take at bedtime), this is in over the counter medications such as mucinex DM - Albuterol inhaler (prescription) Do not take Ambien while taking the nirmatrelvir/ritonavir (paxlovid) and for 3 days after finishing paxlovid FACT SHEET FOR PATIENTS, PARENTS, AND CAREGIVERS EMERGENCY USE AUTHORIZATION (EUA) OF PAXLOVID FOR CORONAVIRUS DISEASE 2019 (COVID-19) You are being given this Fact Sheet because your healthcare provider believes it is necessary to provide you with PAXLOVID for the treatment of odxs-ed-ohjvfsmh coronavirus disease (COVID-19) caused by the SARS-CoV-2 virus. This Fact Sheet contains information to help you understand the risks and benefits of taking the PAXLOVID you may receive. This Fact Sheet also contains information about how to take PAXLOVID and how to report side effects or problems with the appearance or packaging of PAXLOVID. The U.S. Food and Drug Administration (FDA) has issued an Emergency Use Authorization (EUA) to make PAXLOVID available for the treatment of phkk-xm-znljjmsq COVID-19 in adults and children 12 years of age and older weighing at least 88 pounds (40 kg) who are at high risk for progression to severe COVID-19, including hospitalization or (for more details about an EUA please see What is an Emergency Use Authorization? at the end of this document). Read this Fact Sheet for information about PAXLOVID. Talk to your healthcare provider about your options or if you have any questions. It is your choice to take PAXLOVID. What is COVID-19? COVID-19 is caused by a virus called a coronavirus. You can get COVID-19 through close contact with another person who has the virus. COVID-19 illnesses have ranged from very ycsp-lb-tpwbwg, including illness resulting in . While information so far suggests that most COVID-19 illness is mild, serious illness can happen and may cause some of your other medical conditions to become worse. Older people and people of all ages with severe, long lasting (chronic) medical conditions like heart disease, lung disease, and diabetes, for example seem to be at higher risk of being hospitalized for COVID-19. What is PAXLOVID? PAXLOVID is a medicine that is available under EUA for the treatment of gxzk-lk-vpzgbtum COVID-19 in adults and children 12 years of age and older weighing at least 88 pounds (40 kg) who are at high risk for progression to severe COVID-19, including hospitalization or . Although PAXLOVID is FDA-approved for the treatment of COVID-19 in certain adults (see section What other treatment choices are there?), PAXLOVID use in children remains investigational because it is still being studied. There is limited information about the safety and effectiveness of using PAXLOVID to treat children with atcp-qc-cqicvbja COVID-19. What is the most important information I should know about PAXLOVID? PAXLOVID can interact with other medicines causing severe or life-threatening side effects or . It is important to know the medicines that should not be taken with PAXLOVID. Do not take PAXLOVID if: you are taking any of the following medicines: o alfuzosin o amiodarone o apalutamide o carbamazepine o colchicine o dihydroergotamine o dronedarone o eletriptan o eplerenone o ergotamine o finerenone o flecainide o flibanserin o ivabradine o lomitapide o lovastatin o lumacaftor/ivacaftor o lurasidone o methylergonovine o midazolam (oral) o naloxegol o phenobarbital o phenytoin o pimozide o primidone o propafenone o quinidine o ranolazine o rifampin o rifapentine o Geoffrey s Wort (hypericum perforatum) o sildenafil (Revatio ) for pulmonary arterial hypertension o silodosin o simvastatin o tolvaptan o triazolam o ubrogepant o voclosporin These are not the only medicines that may cause serious or life-threatening side effects if taken with PAXLOVID. PAXLOVID may increase or decrease the levels of multiple other medicines. It is very important to tell your healthcare provider about all of the medicines you are taking because additional laboratory tests or changes in the dose of your other medicines may be necessary during treatment with PAXLOVID. Your healthcare provider may also tell you about specific symptoms to watch out for that may indicate that you need to stop or decrease the dose of some of your other medicines. you are allergic to nirmatrelvir, ritonavir, or any of the ingredients in PAXLOVID. See the end of this leaflet for a complete list of ingredients in PAXLOVID. See What are the important possible side effects of PAXLOVID? for signs and symptoms of allergic reactions. What should I tell my healthcare provider before I take PAXLOVID? Tell your healthcare provider if you: have kidney problems. You may need a different dose of PAXLOVID. have liver problems, including hepatitis. have Human Immunodeficiency Virus 1 (HIV-1) infection. PAXLOVID may lead to some HIV-1 medicines not working as well in the future. are or plan to become . It is not known if PAXLOVID can harm your unborn baby. Tell your healthcare provider right away if you are or if you become . are or plan to breastfeed. It is not known if PAXLOVID can pass into your breast milk. Talk to your healthcare provider about the best way to feed your baby during treatment with PAXLOVID. Some medicines may interact with PAXLOVID and may cause serious side effects. Tell your healthcare provider about all the medicines you take, including prescription and kayt-qnc-ifkhvlg medicines, vitamins, and herbal supplements. Your healthcare provider can tell you if it is safe to take PAXLOVID with other medicines. You can ask your healthcare provider or pharmacist for a list of medicines that interact with PAXLOVID. Do not start taking a new medicine without telling your healthcare provider. Tell your healthcare provider if you are taking combined control (hormonal contraceptive). PAXLOVID may affect how your hormonal contraceptives work. Females who are able to become should use another effective alternative form of contraception or an additional barrier method of contraception during treatment with PAXLOVID. Talk to your healthcare provider if you have any questions about contraceptive methods that might be right for you. How do I take PAXLOVID? Take PAXLOVID exactly as your healthcare provider tells you to take it. PAXLOVID consists of 2 medicines: nirmatrelvir tablets and ritonavir tablets. The 2 medicines are taken together 2 times each day for 5 days. Nirmatrelvir is an oval, pink tablet. Ritonavir is a white or off-white tablet. PAXLOVID is available in 2 Dose Packs (see Figures A and B below). Your healthcare provider will prescribe the PAXLOVID Dose Pack that is right for you. If you have kidney disease, your healthcare provider may prescribe a lower dose (see Figure B). Talk to your healthcare provider to make sure you receive the correct Dose Pack. Do not remove your PAXLOVID tablets from the blister card before you are ready to take your dose. Take your first dose of PAXLOVID in the morning or evening, depending on when you picker tender helper your prescription, or as your healthcare provider tells you to. Swallow the tablets whole. Do not chew, break, or crush the tablets. Take PAXLOVID with or without food. Do not stop taking PAXLOVID without talking to your healthcare provider, even if you feel better. If you miss a dose of PAXLOVID within 8 hours of the time it is usually taken, take it as soon as you remember. If you miss a dose by more than 8 hours, skip the missed dose and take the next dose at your regular time. Do not take 2 doses of PAXLOVID at the same time. If you take too much PAXLOVID, call your healthcare provider or go to the nearest hospital emergency room right away. If you are taking a ritonavir- or cobicistat-containing medicine to treat hepatitis C or HIV-1 infection, you should continue to take your medicine as prescribed by your healthcare provider. Talk to your healthcare provider if you do not feel better or if you feel worse after 5 days. What are the important possible side effects of PAXLOVID? PAXLOVID may cause serious side effects, including: Allergic reactions, including severe allergic reactions (anaphylaxis) have happened during treatment with PAXLOVID. Stop taking PAXLOVID and get medical help right away if you get any of the following symptoms of an allergic reaction: o skin rash, hives, blisters or peeling skin o painful sores or ulcers in the mouth, nose, throat or genital area o swelling of the mouth, lips, tongue or face o trouble swallowing or breathing o throat tightness o hoarseness Liver Problems. Tell your healthcare provider right away if you get any of the following signs and symptoms of liver problems during treatment with PAXLOVID: o loss of appetite o yellowing of your skin and the white of eyes o dark-colored urine o pale colored stools o itchy skin o stomach-area (abdominal) pain The most common side effects of PAXLOVID include: altered sense of taste and diarrhea. Other possible side effects include: headache vomiting abdominal pain nausea high blood pressure feeling generally unwell These are not all the possible side effects of PAXLOVID. For more information, ask your healthcare provider or pharmacist. What other treatment choices are there? PAXLOVID is FDA-approved for the treatment of sagu-vh-wlouyvgz COVID-19 in certain adults; however, there are not sufficient quantities of the approved presentations (i.e., dose packs) of PAXLOVID at this time. This EUA continues to authorize the emergency use of PAXLOVID for the approved patient population to ensure continued access in order to meet the public health need. VEKLURY (remdesivir) is FDA-approved for the treatment of qict-ro-hyibumas COVID-19 in certain adults and children. Talk with your healthcare provider to see if VEKLURY is appropriate for you. For information on the emergency use of other medicines that are authorized by FDA to treat people with COVID-19, please go to https://www.fda.gov/emergency-pre laytuslky-qij-wtpgwtcs/mcm-legal- lavgztcrgl-zbw-klyrjw-framework/e hsnfhsar-inw-ofcbakqzjpoqn. Your healthcare provider may talk with you about clinical trials for which you may be eligible. It is your choice to be treated or not to be treated with PAXLOVID. Should you decide not to receive it or for your child not to receive it, it will not change your standard medical care. What if I am or ? There is limited experience treating women or mothers with PAXLOVID. For a mother and unborn baby, the benefit of taking PAXLOVID may be greater than the risk from the treatment. If you are , discuss your options and specific situation with your healthcare provider. If you are , discuss your options and specific situation with your healthcare provider. How do I report side effects or problems with the appearance or packaging of PAXLOVID? Contact your healthcare provider if you have any side effects that bother you or do not go away. Report side effects or problems with the appearance or packaging of PAXLOVID (see Figures A and B above for examples of PAXLOVID Dose Packs) to FDA MedWatch at www.fda.gov/medwatch or call 3-730-KZI-4896 or you can report side effects to [employer]. at the contact information provided below. How should I store PAXLOVID? Store PAXLOVID tablets at room temperature, between 68?F to 77?F (20?C to 25?C). Keep PAXLOVID and all medicines out of the reach of children. What if I have questions about the expiration date for my PAXLOVID? The FDA has extended the expiration date (shelf-life) for some lots of PAXLOVID. To find the extended expiration date, enter the lot number found on the side of carton or bottom of blister pack at this website: https://www.paxlovidlotexsimpleFLOORS.[employer] / or talk with your healthcare provider. Information on the authorized shelf-life extensions for PAXLOVID may also be found at https://www.fda.gov/emergency-pre nzrngkagw-rje-uyqzuweh/mcm-legal- mxavastjml-kvw-fvauwu-framework/e skaujjjwi-ezdgit-qhmrslxfi. How can I learn more about COVID-19? Ask your healthcare provider. Visit https://www.cdc.gov/COVID19. Contact your local or state public health department. What is an Emergency Use Authorization (EUA)? The [place] FDA has made PAXLOVID available under an emergency access mechanism called an Emergency Use Authorization (EUA). The EUA is supported by a [place] of Health and Human Services (HHS) declaration that circumstances exist to justify the emergency use of drugs and biological products during the COVID-19 pandemic. In issuing an EUA, the FDA has determined, among other things, that based on the total amount of scientific evidence available including data from adequate and well-controlled clinical trials, if available, it is reasonable to believe that the product may be effective for diagnosing, treating, or preventing COVID-19, or a serious or life-threatening disease or condition caused by COVID-19; that the known and potential benefits of the product, when used to diagnose, treat, or prevent such disease or condition, outweigh the known and potential risks of such product; and that there are no adequate, approved, and available alternatives. All of these criteria must be met to allow for the product to be available under an EUA. The EUA for PAXLOVID is in effect for the duration of the COVID-19 declaration justifying emergency use of this product, unless the relevant EUA declaration is terminated or the EUA revoked (after which the products may no longer be used under the EUA). What are the ingredients in PAXLOVID? Active ingredient: nirmatrelvir and ritonavir Nirmatrelvir inactive ingredients: colloidal silicon dioxide, croscarmellose sodium, lactose monohydrate, microcrystalline cellulose, and sodium stearyl fumarate. Film-coating contains: hydroxy propyl methylcellulose, iron oxide red, polyethylene glycol, and titanium dioxide. Ritonavir inactive ingredients: anhydrous dibasic calcium phosphate, colloidal silicon dioxide, copovidone, sodium stearyl fumarate, and sorbitan monolaurate. The film coating may contain: colloidal anhydrous silica, colloidal silicon dioxide, hydroxypropyl cellulose, hypromellose, polyethylene glycol, polysorbate 80, talc, and titanium dioxide. Additional Information For general questions, visit the website or call the telephone number provided below. Website: www.JGIOV15sprbDa.com Telephone number: (1-877-c19-PACK) Distributed by [employer] Division [place] [address] [id number] Revised: 01/2023 Steps to Take When Sick with COVID-19 Stay home and away from others (including people you live with who are not sick) if you have COVID-19 symptoms These symptoms can include fever, chills, fatigue, cough, runny nose, and headache, among others. You can go back to your normal activities when, for at least 24 hours, both are true: Your symptoms are getting better overall, and You have not had a fever (and are not using fever-reducing medication). When you go back to your normal activities, take added precaution over the next 5 days, such as taking additional steps for cleaner and polisher air, hygiene, masks, physical distancing, and/or testing when you will be around other people indoors. Keep in mind that you may still be able to spread the virus that made you sick, even if you are feeling better. You are likely to be less contagious at this time, depending on factors like how long you were sick or how sick you were. If you develop a fever or you start to feel worse after you have gone back to normal activities, stay home and away from others again until, for at least 24 hours, both are true: your symptoms are improving overall, and you have not had a fever (and are not using fever-reducing medication). Then take added precaution for the next 5 days. When to seek emergency medical attention Look for emergency warning signs for COVID-19. If someone is showing any of these signs, seek emergency medical care immediately: Trouble breathing Persistent pain or pressure in the chest New confusion Inability to wake or stay awake Bluish lips or face Call your medical provider for any other symptoms that are severe or concerning to you. Call 911 or call ahead to your local emergency facility: Notify the clamp carrier operator that you are seeking care for someone who has or may have COVID-19. Refer to the CDC for full guidance: https://www.cdc.gov/respiratory-v iruses/index.html documented in this encounter [facility] 02-15-2024 Note HNO ID: [id number] Author: DAMIAN CARMICHAEL APRN.KAI Service: ? Author Type: Nurse Practitioner Type: Progress Notes Filed: 02/15/2024 17:01 Note Text: Telemedicine Visit - Distance Health Virtual Visit Note Patient seen on [facility] Online through Zoom Video Visit Location of patient: [place] History of Present Illness Andreina Gee is a 48 year old female who presents for the past 2 days with symptoms that are:gradually worsening. Symptoms include: Cough: Yes- mostly dry and chest congestion Sore throat: Yes Nasal congestion: Yes Headache or sinus pain/sinus pressure: Yes Ear pressure: Yes Ear pain: No Nausea: No or Vomiting: No Diarrhea: No Fever (?100.4F): Did not take temp, feel feverish Shortness of breath: Hard to get a full breath. Very fatigued. Denies SOB. Chest Pain: Feels burning in chest. Pressure in chest that is worse with taking a deep breath. Burning and pressure improved with albuterol. Denies chest pain. Loss or altered sense of smell or taste: Yes - smell due to congestion Recent rapid at home COVID test taken? Yes Result? Positive Date of test: 02/13 Chance of : Denies Not currently lactating (/Pumping) Treatments tried: Ibuprofen, Pseudoephedrine, and Albuterol MDI/nebulilzer Tobacco Use: 1 packs/day, for 20 years. Quit 09/24/2011. Types: Cigarettes PAST MEDICAL HISTORY Diagnosis Date Essential hypertension PAST SURGICAL HISTORY Procedure Laterality Date SECTION HX x2 EXTRACTION, ERUPTED TOOTH OR EXPOSED ROOT (ELEVATION AND/OR FORCEPS REMOVAL) TONSILLECTOMY PRIMARY/SECONDARY Tonsillectomy FAMILY HISTORY Problem Relation Age of Onset Hypertension Mother Stroke Mother Heart Mother Hypertension Father Heart Father COPD Father Social History Tobacco Use Smoking status: Former Packs/day: 1.00 Years: 20.00 Additional pack years: 0.00 Total pack years: 20.00 Types: Cigarettes Quit date: 09/24/2011 Years since quittin.4 Smokeless tobacco: Never Tobacco comments: uses E-cigarettes Vaping Use Vaping Use: Former Substance Use Topics Alcohol use: Yes Alcohol/week: 2.0 - 4.0 standard drinks of alcohol Types: 2 - 4 Glasses of Wine (5oz) per week Drug use: No Current Outpatient Medications Medication Sig tirzepatide (MOUNJARO) 7.5 mg/0.5 mL pen injector Inject 7.5 mg subcutaneously one time a week. Start this dose after 4 weekly doses at 5 mg meloxicam (MOBIC) 15 mg tablet Take 1 tablet by mouth once daily. sertraline (ZOLOFT) 100 mg tablet Take 2 tablets by mouth once daily. zolpidem (AMBIEN) 10 mg Take 0.5 tablets by mouth daily at bedtime for 60 days. No current facility-administered medications for this visit. ALLERGIES Allergen Reactions Bee Pollen Other: See Comments Bauman Other: See Comments Grass Pollen Other: See Comments Penicillins Trees Other: See Comments Allergies, medications, problem list, and pertinent history reviewed: Yes Video Exam (Examination performed via Video enabled technology) General appearance: Alert, oriented, pleasant, in NAD: Yes Ill appearing: No Lethargic appearing: No Eyes: Conjunctiva without erythema: Yes Ears: Tragus / outer ear tenderness by self palpation: No Oropharynx: Difficult to visualize Frontal sinus tenderness by self palpation: No Maxillary sinus tenderness by self palpation: No Tender cervical adenopathy by self palpation: No Respiratory distress: No Audible wheezing noted: No Assessment and Plan (U07.1) Positive self-administered antigen test for COVID-19 (primary encounter diagnosis) Plan: nirmatrelvir tablet 300 mg (150 mg x 2) and ritonavir tablet 100 mg in a dose pack (PAXLOVID) - Discussed potential cost concerns with oral antiviral, patient will check with pharmacy on cost - Andreina Gee will begin meds as noted. Discussed pertinent side effects of medications. Patient and/or caregiver verbalized understanding. - Discussed CDC precautions for COVID - AVS instructions reviewed with patient. Please refer to AVS instructions for additional plan and education. - Discussed symptoms/conditions warranting urgent or immediate evaluation and/or when to return to care, including to follow up if symptoms persist past 10 days - All questions answered. Patient and/or caregiver verbalized understanding and comfortable with plan. Get plenty of rest, take hot steamy showers/drink warm liquids and breathe in the steam, and stay hydrated. Pseudoephedrine (Sudafed) and Phenylephrine can raise blood pressure and in a lot of common cold medications, please do not take these Guaifenesin (generic for Mucinex) 600-1200 mg extended release twice daily as needed for thinning of mucous There is no great cough medication. Often remedies such as tea, warm steamy showers, and staying hydrated are the most effective. If you are having a productive cough (meaning you are getting mucous up with y (more content not included)... [facility] 02-15-2024 History of Present illness Narrative Images from the original note were not included. Telemedicine Visit - Distance Health Virtual Visit Note Patient seen on [facility] Online through Zoom Video Visit Location of patient: [place] History of Present Illness Andreina Gee is a 48 year old female who presents for the past 2 days with symptoms that are:gradually worsening. Symptoms include: Cough: Yes- mostly dry and chest congestion Sore throat: Yes Nasal congestion: Yes Headache or sinus pain/sinus pressure: Yes Ear pressure: Yes Ear pain: No Nausea: No or Vomiting: No Diarrhea: No Fever (?100.4F): Did not take temp, feel feverish Shortness of breath: Hard to get a full breath. Very fatigued. Denies SOB. Chest Pain: Feels burning in chest. Pressure in chest that is worse with taking a deep breath. Burning and pressure improved with albuterol. Denies chest pain. Loss or altered sense of smell or taste: Yes - smell due to congestion Recent rapid at home COVID test taken? Yes Result? Positive Date of test: 02/13 Chance of : Denies Not currently lactating (/Pumping) Treatments tried: Ibuprofen, Pseudoephedrine, and Albuterol MDI/nebulilzer Tobacco Use: 1 packs/day, for 20 years. Quit 09/24/2011. Types: Cigarettes PAST MEDICAL HISTORY Diagnosis Date Essential hypertension PAST SURGICAL HISTORY Procedure Laterality Date SECTION HX x2 EXTRACTION, ERUPTED TOOTH OR EXPOSED ROOT (ELEVATION AND/OR FORCEPS REMOVAL) TONSILLECTOMY PRIMARY/SECONDARY <AGE 12 Tonsillectomy FAMILY HISTORY Problem Relation Age of Onset Hypertension Mother Stroke Mother Heart Mother Hypertension Father Heart Father COPD Father Social History Tobacco Use Smoking status: Former Packs/day: 1.00 Years: 20.00 Additional pack years: 0.00 Total pack years: 20.00 Types: Cigarettes Quit date: 09/24/2011 Years since quittin.4 Smokeless tobacco: Never Tobacco comments: uses E-cigarettes Vaping Use Vaping Use: Former Substance Use Topics Alcohol use: Yes Alcohol/week: 2.0 - 4.0 standard drinks of alcohol Types: 2 - 4 Glasses of Wine (5oz) per week Drug use: No Current Outpatient Medications Medication Sig tirzepatide (MOUNJARO) 7.5 mg/0.5 mL pen injector Inject 7.5 mg subcutaneously one time a week. Start this dose after 4 weekly doses at 5 mg meloxicam (MOBIC) 15 mg tablet Take 1 tablet by mouth once daily. sertraline (ZOLOFT) 100 mg tablet Take 2 tablets by mouth once daily. zolpidem (AMBIEN) 10 mg Take 0.5 tablets by mouth daily at bedtime for 60 days. No current facility-administered medications for this visit. ALLERGIES Allergen Reactions Bee Pollen Other: See Comments Bauman Other: See Comments Grass Pollen Other: See Comments Penicillins Trees Other: See Comments Allergies, medications, problem list, and pertinent history reviewed: Yes Video Exam (Examination performed via Video enabled technology) General appearance: Alert, oriented, pleasant, in NAD: Yes Ill appearing: No Lethargic appearing: No Eyes: Conjunctiva without erythema: Yes Ears: Tragus / outer ear tenderness by self palpation: No Oropharynx: Difficult to visualize Frontal sinus tenderness by self palpation: No Maxillary sinus tenderness by self palpation: No Tender cervical adenopathy by self palpation: No Respiratory distress: No Audible wheezing noted: No Assessment and Plan (U07.1) Positive self-administered antigen test for COVID-19 (primary encounter diagnosis) Plan: nirmatrelvir tablet 300 mg (150 mg x 2) and ritonavir tablet 100 mg in a dose pack (PAXLOVID) - Discussed potential cost concerns with oral antiviral, patient will check with pharmacy on cost - Andreina Gee will begin meds as noted. Discussed pertinent side effects of medications. Patient and/or caregiver verbalized understanding. - Discussed CDC precautions for COVID - AVS instructions reviewed with patient. Please refer to AVS instructions for additional plan and education. - Discussed symptoms/conditions warranting urgent or immediate evaluation and/or when to return to care, including to follow up if symptoms persist past 10 days - All questions answered. Patient and/or caregiver verbalized understanding and comfortable with plan. Get plenty of rest, take hot steamy showers/drink warm liquids and breathe in the steam, and stay hydrated. Pseudoephedrine (Sudafed) and Phenylephrine can raise blood pressure and in a lot of common cold medications, please do not take these Guaifenesin (generic for Mucinex) 600-1200 mg extended release twice daily as needed for thinning of mucous There is no great cough medication. Often remedies such as tea, warm steamy showers, and staying hydrated are the most effective. If you are having a productive cough (meaning you are getting mucous up with your cough), it is preferred to cough and get the mucous out so please only take cough suppressants when you really don't want to cough such as with sleeping. Some options for cough if needed: - Cough drops - Dextromethorphan (can cause drowsiness so may be best to take at bedtime), this is in over the counter medications such as mucinex DM - Albuterol inhaler (prescription) Do not take Ambien while taking the nirmatrelvir/ritonavir (paxlovid) and for 3 days after finishing paxlovid FACT SHEET FOR PATIENTS, PARENTS, AND CAREGIVERS EMERGENCY USE AUTHORIZATION (EUA) OF PAXLOVID FOR CORONAVIRUS DISEASE 2019 (COVID-19) You are being given this Fact Sheet because your healthcare provider believes it is necessary to provide you with PAXLOVID for the treatment of lmnx-vk-bahctnjz coronavirus disease (COVID-19) caused by the SARS-CoV-2 virus. This Fact Sheet contains information to help you understand the risks and benefits of taking the PAXLOVID you may receive. This Fact Sheet also contains information about how to take PAXLOVID and how to report side effects or problems with the appearance or packaging of PAXLOVID. The [place].S. Food and Drug Administration (FDA) has issued an Emergency Use Authorization (EUA) to make PAXLOVID available for the treatment of nciv-qo-czdezcxu COVID-19 in adults and children 12 years of age and older weighing at least 88 pounds (40 kg) who are at high risk for progression to severe COVID-19, including hospitalization or (for more details about an EUA please see What is an Emergency Use Authorization? at the end of this document). Read this Fact Sheet for information about PAXLOVID. Talk to your healthcare provider about your options or if you have any questions. It is your choice to take PAXLOVID. What is COVID-19? COVID-19 is caused by a virus called a coronavirus. You can get COVID-19 through close contact with another person who has the virus. COVID-19 illnesses have ranged from very jzjs-hn-fvybkc, including illness resulting in . While information so far suggests that most COVID-19 illness is mild, serious illness can happen and may cause some of your other medical conditions to become worse. Older people and people of all ages with severe, long lasting (chronic) medical conditions like heart disease, lung disease, and diabetes, for example seem to be at higher risk of being hospitalized for COVID-19. What is PAXLOVID? PAXLOVID is a medicine that is available under EUA for the treatment of wzmr-yg-ikpkhliy COVID-19 in adults and children 12 years of age and older weighing at least 88 pounds (40 kg) who are at high risk for progression to severe COVID-19, including hospitalization or . Although PAXLOVID is FDA-approved for the treatment of COVID-19 in certain adults (see section What other treatment choices are there?), PAXLOVID use in children remains investigational because it is still being studied. There is limited information about the safety and effectiveness of using PAXLOVID to treat children with lhlw-pi-tytjwlqr COVID-19. What is the most important information I should know about PAXLOVID? PAXLOVID can interact with other medicines causing severe or life-threatening side effects or . It is important to know the medicines that should not be taken with PAXLOVID. Do not take PAXLOVID if: you are taking any of the following medicines: o alfuzosin o amiodarone o apalutamide o carbamazepine o colchicine o dihydroergotamine o dronedarone o eletriptan o eplerenone o ergotamine o finerenone o flecainide o flibanserin o ivabradine o lomitapide o lovastatin o lumacaftor/ivacaftor o lurasidone o methylergonovine o midazolam (oral) o naloxegol o phenobarbital o phenytoin o pimozide o primidone o propafenone o quinidine o ranolazine o rifampin o rifapentine o Locust s Wort (hypericum perforatum) o sildenafil (Revatio ) for pulmonary arterial hypertension o silodosin o simvastatin o tolvaptan o triazolam o ubrogepant o voclosporin These are not the only medicines that may cause serious or life-threatening side effects if taken with PAXLOVID. PAXLOVID may increase or decrease the levels of multiple other medicines. It is very important to tell your healthcare provider about all of the medicines you are taking because additional laboratory tests or changes in the dose of your other medicines may be necessary during treatment with PAXLOVID. Your healthcare provider may also tell you about specific symptoms to watch out for that may indicate that you need to stop or decrease the dose of some of your other medicines. you are allergic to nirmatrelvir, ritonavir, or any of the ingredients in PAXLOVID. See the end of this leaflet for a complete list of ingredients in PAXLOVID. See What are the important possible side effects of PAXLOVID? for signs and symptoms of allergic reactions. What should I tell my healthcare provider before I take PAXLOVID? Tell your healthcare provider if you: have kidney problems. You may need a different dose of PAXLOVID. have liver problems, including hepatitis. have Human Immunodeficiency Virus 1 (HIV-1) infection. PAXLOVID may lead to some HIV-1 medicines not working as well in the future. are or plan to become . It is not known if PAXLOVID can harm your unborn baby. Tell your healthcare provider right away if you are or if you become . are or plan to breastfeed. It is not known if PAXLOVID can pass into your breast milk. Talk to your healthcare provider about the best way to feed your baby during treatment with PAXLOVID. Some medicines may interact with PAXLOVID and may cause serious side effects. Tell your healthcare provider about all the medicines you take, including prescription and jqjo-sdh-ouzvwoe medicines, vitamins, and herbal supplements. Your healthcare provider can tell you if it is safe to take PAXLOVID with other medicines. You can ask your healthcare provider or pharmacist for a list of medicines that interact with PAXLOVID. Do not start taking a new medicine without telling your healthcare provider. Tell your healthcare provider if you are taking combined control (hormonal contraceptive). PAXLOVID may affect how your hormonal contraceptives work. Females who are able to become should use another effective alternative form of contraception or an additional barrier method of contraception during treatment with PAXLOVID. Talk to your healthcare provider if you have any questions about contraceptive methods that might be right for you. How do I take PAXLOVID? Take PAXLOVID exactly as your healthcare provider tells you to take it. PAXLOVID consists of 2 medicines: nirmatrelvir tablets and ritonavir tablets. The 2 medicines are taken together 2 times each day for 5 days. Nirmatrelvir is an oval, pink tablet. Ritonavir is a white or off-white tablet. PAXLOVID is available in 2 Dose Packs (see Figures A and B below). Your healthcare provider will prescribe the PAXLOVID Dose Pack that is right for you. If you have kidney disease, your healthcare provider may prescribe a lower dose (see Figure B). Talk to your healthcare provider to make sure you receive the correct Dose Pack. Do not remove your PAXLOVID tablets from the blister card before you are ready to take your dose. Take your first dose of PAXLOVID in the morning or evening, depending on when you picker tender helper your prescription, or as your healthcare provider tells you to. Swallow the tablets whole. Do not chew, break, or crush the tablets. Take PAXLOVID with or without food. Do not stop taking PAXLOVID without talking to your healthcare provider, even if you feel better. If you miss a dose of PAXLOVID within 8 hours of the time it is usually taken, take it as soon as you remember. If you miss a dose by more than 8 hours, skip the missed dose and take the next dose at your regular time. Do not take 2 doses of PAXLOVID at the same time. If you take too much PAXLOVID, call your healthcare provider or go to the nearest hospital emergency room right away. If you are taking a ritonavir- or cobicistat-containing medicine to treat hepatitis C or HIV-1 infection, you should continue to take your medicine as prescribed by your healthcare provider. Talk to your healthcare provider if you do not feel better or if you feel worse after 5 days. What are the important possible side effects of PAXLOVID? PAXLOVID may cause serious side effects, including: Allergic reactions, including severe allergic reactions (anaphylaxis) have happened during treatment with PAXLOVID. Stop taking PAXLOVID and get medical help right away if you get any of the following symptoms of an allergic reaction: o skin rash, hives, blisters or peeling skin o painful sores or ulcers in the mouth, nose, throat or genital area o swelling of the mouth, lips, tongue or face o trouble swallowing or breathing o throat tightness o hoarseness Liver Problems. Tell your healthcare provider right away if you get any of the following signs and symptoms of liver problems during treatment with PAXLOVID: o loss of appetite o yellowing of your skin and the white of eyes o dark-colored urine o pale colored stools o itchy skin o stomach-area (abdominal) pain The most common side effects of PAXLOVID include: altered sense of taste and diarrhea. Other possible side effects include: headache vomiting abdominal pain nausea high blood pressure feeling generally unwell These are not all the possible side effects of PAXLOVID. For more information, ask your healthcare provider or pharmacist. What other treatment choices are there? PAXLOVID is FDA-approved for the treatment of gzxj-yx-fyimokmw COVID-19 in certain adults; however, there are not sufficient quantities of the approved presentations (i.e., dose packs) of PAXLOVID at this time. This EUA continues to authorize the emergency use of PAXLOVID for the approved patient population to ensure continued access in order to meet the public health need. VEKLURY (remdesivir) is FDA-approved for the treatment of fqdm-qz-fmokpeii COVID-19 in certain adults and children. Talk with your healthcare provider to see if VEKLURY is appropriate for you. For information on the emergency use of other medicines that are authorized by FDA to treat people with COVID-19, please go to https://www.fda.gov/emergency-pre grssciqcv-rbq-kegwprid/mcm-legal- bjslcycrwc-yym-twdfid-framework/e okzkckhy-kya-lqnrrqtniqwjh. Your healthcare provider may talk with you about clinical trials for which you may be eligible. It is your choice to be treated or not to be treated with PAXLOVID. Should you decide not to receive it or for your child not to receive it, it will not change your standard medical care. What if I am or ? There is limited experience treating women or mothers with PAXLOVID. For a mother and unborn baby, the benefit of taking PAXLOVID may be greater than the risk from the treatment. If you are , discuss your options and specific situation with your healthcare provider. If you are , discuss your options and specific situation with your healthcare provider. How do I report side effects or problems with the appearance or packaging of PAXLOVID? Contact your healthcare provider if you have any side effects that bother you or do not go away. Report side effects or problems with the appearance or packaging of PAXLOVID (see Figures A and B above for examples of PAXLOVID Dose Packs) to FDA [employer] at www.fda.gov/medwatch or call 6-485-LLR-7949 or you can report side effects to [employer] at the contact information provided below. How should I store PAXLOVID? Store PAXLOVID tablets at room temperature, between 68?F to 77?F (20?C to 25?C). Keep PAXLOVID and all medicines out of the reach of children. What if I have questions about the expiration date for my PAXLOVID? The FDA has extended the expiration date (shelf-life) for some lots of PAXLOVID. To find the extended expiration date, enter the lot number found on the side of carton or bottom of blister pack at this website: https://www.[employer] / or talk with your healthcare provider. Information on the authorized shelf-life extensions for PAXLOVID may also be found at https://www.fda.gov/emergency-pre isxcxpecg-wqd-kdpbsiub/mcm-legal- sgwbqnqpfn-gio-fdyyjo-framework/e mtwebqzwb-irbquw-pdigtiuat. How can I learn more about COVID-19? Ask your healthcare provider. Visit https://www.cdc.gov/COVID19. Contact your local or state public health department. What is an Emergency Use Authorization (EUA)? The [place] FDA has made PAXLOVID available under an emergency access mechanism called an Emergency Use Authorization (EUA). The EUA is supported by a [place] of Health and Human Services (HHS) declaration that circumstances exist to justify the emergency use of drugs and biological products during the COVID-19 pandemic. In issuing an EUA, the FDA has determined, among other things, that based on the total amount of scientific evidence available including data from adequate and well-controlled clinical trials, if available, it is reasonable to believe that the product may be effective for diagnosing, treating, or preventing COVID-19, or a serious or life-threatening disease or condition caused by COVID-19; that the known and potential benefits of the product, when used to diagnose, treat, or prevent such disease or condition, outweigh the known and potential risks of such product; and that there are no adequate, approved, and available alternatives. All of these criteria must be met to allow for the product to be available under an EUA. The EUA for PAXLOVID is in effect for the duration of the COVID-19 declaration justifying emergency use of this product, unless the relevant EUA declaration is terminated or the EUA revoked (after which the products may no longer be used under the EUA). What are the ingredients in PAXLOVID? Active ingredient: nirmatrelvir and ritonavir Nirmatrelvir inactive ingredients: colloidal silicon dioxide, croscarmellose sodium, lactose monohydrate, microcrystalline cellulose, and sodium stearyl fumarate. Film-coating contains: hydroxy propyl methylcellulose, iron oxide red, polyethylene glycol, and titanium dioxide. Ritonavir inactive ingredients: anhydrous dibasic calcium phosphate, colloidal silicon dioxide, copovidone, sodium stearyl fumarate, and sorbitan monolaurate. The film coating may contain: colloidal anhydrous silica, colloidal silicon dioxide, hydroxypropyl cellulose, hypromellose, polyethylene glycol, polysorbate 80, talc, and titanium dioxide. Additional Information For general questions, visit the website or call the telephone number provided below. Website: [email or web address] Telephone number: (1-877-c19-PACK) Distributed by [employer] [place] [address] [id number] Revised: 01/2023 Steps to Take When Sick with COVID-19 Stay home and away from others (including people you live with who are not sick) if you have COVID-19 symptoms These symptoms can include fever, chills, fatigue, cough, runny nose, and headache, among others. You can go back to your normal activities when, for at least 24 hours, both are true: Your symptoms are getting better overall, and You have not had a fever (and are not using fever-reducing medication). When you go back to your normal activities, take added precaution over the next 5 days, such as taking additional steps for cleaner and polisher air, hygiene, masks, physical distancing, and/or testing when you will be around other people indoors. Keep in mind that you may still be able to spread the virus that made you sick, even if you are feeling better. You are likely to be less contagious at this time, depending on factors like how long you were sick or how sick you were. If you develop a fever or you start to feel worse after you have gone back to normal activities, stay home and away from others again until, for at least 24 hours, both are true: your symptoms are improving overall, and you have not had a fever (and are not using fever-reducing medication). Then take added precaution for the next 5 days. When to seek emergency medical attention Look for emergency warning signs for COVID-19. If someone is showing any of these signs, seek emergency medical care immediately: Trouble breathing Persistent pain or pressure in the chest New confusion Inability to wake or stay awake Bluish lips or face Call your medical provider for any other symptoms that are severe or concerning to you. Call 911 or call ahead to your local emergency facility: Notify the clamp carrier operator that you are seeking care for someone who has or may have COVID-19. Refer to the CDC for full guidance: https://www.cdc.gov/respiratory-v iruses/index.html I have communicated my name and active licensure. The patient's identity and physical location were verified at the time of this visit. Either the patient or their legal marketing sales representative has been informed of the risks and benefits of -- and alternatives to -- treatment through a remote evaluation and consents to proceed with the evaluation remotely. Damian Carmichael APRN.CANOPY INSPECTOR If you let us know who your primary care provider is, we will send them a notification of today s visit through our electronic medical records system. Since not all providers have access to our notifications, we strongly encourage you to share the following record of today s visit with your primary care provider at your next visit. This will help in providing you the best care. If you do not have an established Primary Care physician and would like to continue care with a [facility] Virtual Primary Care physician, please ask your provider to place a Establish Primary Care order. Use [facility] to manage your care, wherever you are, 16/04, on your mobile device or computer. [employer] connects you to [employer] so you can access all your health information in one place and also schedule and request virtual appointments with primary care providers. Nirmatrelvir/Ritonavir (Paxlovid) Considerations Paxlovid is FDA-approved for treatment of mild to moderate COVID-19 in adults who are at high risk for progression to severe COVID-19. Consider use of Paxlovid in the following examples of high risk patients (list is not all inclusive): Age over 65 years Cardiovascular and cerebrovascular disease Chronic disease state (kidney, liver, lung) Diabetes (type 1 or type 2) Immunocompromised state (cancer, solid organ or blood stem cell transplant, HIV) Obesity Paxlovid warnings include serious drug interactions (co-administration with drugs highly dependent on CYP3A for clearance), hypersensitivity reactions, hepatotoxicity, and risk of HIV-1 resistance development. Damian Carmichael APRN.CNP February 15, 2024 4:54 PM documented in this encounter [facility] 02-15-2024 Telephone encounter Note In review of chart patient is scheduled for weight follow up with Crispin Mason on 02/20. Closing this encounter. SCOTT Guzman [facility] 02-15-2024 Miscellaneous Notes In review of chart patient is scheduled for weight follow up with Crispin Mason on 02/20. Closing this encounter. SCOTT Guzman Attempted to contact patient but not answer. Left message asking patient to review MePleasehart message if not done so and to see if we can schedule a follow up appointment for weight loss. Check to see if willing to make a visit to follow-up on weight loss documented in this encounter [facility] 02-12-2024 Telephone encounter Note Needs follow up appt [facility] 02-12-2024 Miscellaneous Notes Needs follow up appt documented in this encounter [facility] 02-12-2024 Telephone encounter Note Attempted to contact patient but not answer. Left message asking patient to review mychart message if not done so and to see if we can schedule a follow up appointment for weight loss. [facility] 02-11-2024 Telephone encounter Note Check to see if willing to make a visit to follow-up on weight loss [facility] 01-30-2024 Telephone encounter Note PA denied and patient left vm as well mychart message Mady Alicea MA [facility] 01-30-2024 Miscellaneous Notes PA denied and patient left vm as well mychart message Mady Alicea MA Received fax from pharmacy PA needed for Zepbound Completed electronically Left message for patient advising PA started and due for one month f/u needs to be in office so weight can be recorded. Mady Alicea MA documented in this encounter [facility] 01-30-2024 Telephone encounter Note Received fax from pharmacy PA needed for Zepbound Completed electronically Left message for patient advising PA started and due for one month f/u needs to be in office so weight can be recorded. Mady Alicea MA [facility] 01-29-2024 Telephone encounter Note Andrei aware of same. [facility] 01-29-2024 Miscellaneous Notes Andrei aware of same. I sent this in, please let patient know. Thanks Patient's spouse Julien calling. States the instructions for prescription for Zepbound 2.5 mg, inject 5 mg one time per week was not accepted. Per spouse, patient is agreeable to stay on the 2.5 mg, inject 2.5 mg one time a week until the 5 mg dosing becomes available. Spouse asking if provider could send new script as soon as possible for this prescription so it will be covered by insurance. Script pended for review. Please call patient or spouse with update. Thank you. documented in this encounter [facility] 01-29-2024 Telephone encounter Note I sent this in, please let patient know. Thanks [facility] 01-29-2024 Telephone encounter Note Patient's spouse Julien calling. States the instructions for prescription for Zepbound 2.5 mg, inject 5 mg one time per week was not accepted. Per spouse, patient is agreeable to stay on the 2.5 mg, inject 2.5 mg one time a week until the 5 mg dosing becomes available. Spouse asking if provider could send new script as soon as possible for this prescription so it will be covered by insurance. Script pended for review. Please call patient or spouse with update. Thank you. [facility] 01-18-2024 Instructions Leahta Armstrong DPM - 01/18/2024 3:15 PM EDT Continue with the current devices and sneakers Continue to not walk barefoot as this only exacerbates heel pain With the pneumatic walking boot daily even in the house. Take Mobic, daily Start physical therapy after at least 2 weeks of rest Return to clinic once you have had at least 3-5 sessions of physical therapy or after 8 weeks (whichever comes first). If your symptoms worsen, return to clinic sooner documented in this encounter [facility] 01-18-2024 Note HNO ID: [id number] Author: TRICIA HERNANDEZ OCCA Service: ? Author Type: Mechanical Spreader Operator Type: Progress Notes Filed: 01/18/2024 20:35 Note Text: Dispensed medium Air Select Elite Walker for the right leg. Instructions were given on adjustments and care. Patient will follow up as scheduled/prn. Patient will be billed through [facility] 01-18-2024 History of Present illness Narrative Dispensed medium Air Select Elite Walker for the right leg. Instructions were given on adjustments and care. Patient will follow up as scheduled/prn. Patient will be billed through [facility] Associated Order(s): Additional Injections: L plantar fascia Images from the original note were not included. Department of Orthopedics [facility] Name: Andreina Gee Date of Service: January 18, 2024 CC: New and Pain of the Left Foot and New and Pain of the Right Foot Subjective: This 48 year old female patient presents to clinic for bilateral foot pain. Have been dealing with symptoms of plantar fasciitis x 4 years Tx: Stretches, changed to Hoka sneakers, ice, pain medication, Hoka slides for the house, Power step arch supports. Pain has not improved at all. No pain in the morning. Pain can be at rest if she has been on her feet all day. No numbness, tingling. Positive swelling, redness and warmth. PAIN EVALUATION 01/18/2024 1301 Pain Level: 6 Pain Location: -- bilateral heel Description: Aching;Burning;Pulsating;Raw;Erwin p;Shooting;Stabbing/Not Incision;Throbbing Duration Amount of Time: 48 Duration Units: Months Frequency: Intermittent Intervention/Comfort measure: Medication;Relaxation;Cold;Educat ion;Massage Comments: She is here for bilateral heel pain. No known injury. Pain increases with activity. ROS: Neuro: Negative for numbness, tingling, burning sensations. Negative for frequent falls and balance incoordination Derm: Negative for open sores, slow healing sores. Negative rashes and itching. Musculoskeletal: Positive for foot pain. Positive localized swelling. Negative for back pain, and muscle pain I review past medical history and medications listed in epic with patient and indicates no change ALLERGIES Allergen Reactions Bee Pollen Other: See Comments Bauman Other: See Comments Grass Pollen Other: See Comments Penicillins Trees Other: See Comments Objective: Pt presents ambulating in Tennis shoes with antalgic gait pattern. General- AAO x 3, NAD, well groomed, pleasant and cooperative. Vasc: Bilaterral Pulses: DP: +2/4 , PT: +2/4 CFT is less than 3 seconds bilateral. Skin temperature is warm to cool proximal to distal bilateral. There is no edema. Neuro: Negative tinel's at the tarsal tunnel bilateral Derm: Skin is of normal turgor and texture and without redness or bruising . Ortho: There is pain on palpation of the bilateral medial calcaneal tubercle, R>>L. Pain central plantar calcaneus bilateral. There is no pain with passive or resisted ROM x 4 directions. Decreased ankle joint dorsiflexion bilateral. Foot is rectus to cavus. XRay Foot 12/18/2023: Bones in good alignment, no cortical irregularities noted, no step-offs noted, no signs of acute fracture identified. No signs of gas in the tissues. Radiologist to review. Assessment: (M72.2) Plantar fasciitis, bilateral (primary encounter diagnosis) (M21.6X1, M21.6X2) Equinus deformity of both feet (M79.671, M79.672) Heel pain, bilateral Plan: Dispensed to patient [facility] Educated patient on proper gastroc-stretching. Hold for 30 sec, repeat 3 times each foot. Perform three times a day. Continue with icing the area 15 minutes Recommend Mobic a day for next 2-3 week Pneumatic walking boot R Referral to physical therapy Continue current sneakers Intervention: If sypmtoms persist despite conservative treatment an MRI may be indicated. Follow-up: Return to clinic once you have had at least 3-5 sessions of physical therapy or after 8 weeks (whichever comes first). If your symptoms worsen, return to clinic sooner. Additional Injections: L plantar fascia for plantar fasciitis injection Informed Consent Consent Obtained: Verbal [place] Protocol A moment to CARE was completed. SIGN IN Special Equipment: N/A Patient/Surrogate Stated/Verified: Patient name, Date of , Relevant allergies and Intended procedure TIME OUT Intended patient and procedure match the source document(s). Relevant labs, photos, and/or imaging studies have been reviewed. Correct side/site marked and visible. Medications required for procedure verified. No fire risk assessment and interventions applicable. No implant(s) inserted. 01/18/2024 3:12 PM The procedure site was prepped in the usual sterile fashion. Site: L plantar fascia Medications: 20 mg triamcinolone acetonide 40 mg/mL Anesthetics: 1 mL lidocaine (PF) 20 mg/mL (2 %) Outcome: tolerated well, no immediate complications Post-injection instructions were reviewed with the patient and the patient voiced understanding of these instructions. SIGN OUT No specimen collected. No instruments, equipment or retained foreign bodies applicable. Post-procedure follow-up management communicated and Plan of Care Visit completed when applicable Patient examined and evaluated Written and verbal health teaching given to patient, patient verbalizes understanding and agrees with treatment plan. Pt to call immediately if questions, concerns, pain arise prior to next appt. Electronically Signed: Leatha Armstrong DPM January 18, 2024 2:47 PM documented in this encounter [facility] 01-18-2024 Note HNO ID: [id number] Author: LEATHA ARMSTRONG DPM Service: ? Author Type: Physician Type: Progress Notes Filed: 01/18/2024 20:35 Note Text: Department of Orthopedics [facility] Name: Andreina Gee Date of Service: January 18, 2024 CC: New and Pain of the Left Foot and New and Pain of the Right Foot Subjective: This 48 year old female patient presents to clinic for bilateral foot pain. Have been dealing with symptoms of plantar fasciitis x 4 years Tx: Stretches, changed to Hoka sneakers, ice, pain medication, [employer] slides for the house, Power step arch supports. Pain has not improved at all. No pain in the morning. Pain can be at rest if she has been on her feet all day. No numbness, tingling. Positive swelling, redness and warmth. PAIN EVALUATION 01/18/2024 1301 Pain Level: 6 Pain Location: -- bilateral heel Description: Aching;Burning;Pulsating;Raw;Erwin p;Shooting;Stabbing/Not Incision;Throbbing Duration Amount of Time: 48 Duration Units: Months Frequency: Intermittent Intervention/Comfort measure: Medication;Relaxation;Cold;Educat ion;Massage Comments: She is here for bilateral heel pain. No known injury. Pain increases with activity. ROS: Neuro: Negative for numbness, tingling, burning sensations. Negative for frequent falls and balance incoordination Derm: Negative for open sores, slow healing sores. Negative rashes and itching. Musculoskeletal: Positive for foot pain. Positive localized swelling. Negative for back pain, and muscle pain I review past medical history and medications listed in epic with patient and indicates no change ALLERGIES Allergen Reactions Bee Pollen Other: See Comments Bauman Other: See Comments Grass Pollen Other: See Comments Penicillins Trees Other: See Comments Objective: Pt presents ambulating in Tennis shoes with antalgic gait pattern. General- AAO x 3, NAD, well groomed, pleasant and cooperative. Vasc: Bilaterral Pulses: DP: +2/4 , PT: +2/4 CFT is less than 3 seconds bilateral. Skin temperature is warm to cool proximal to distal bilateral. There is no edema. Neuro: Negative tinel's at the tarsal tunnel bilateral Derm: Skin is of normal turgor and texture and without redness or bruising . Ortho: There is pain on palpation of the bilateral medial calcaneal tubercle, R>>L. Pain central plantar calcaneus bilateral. There is no pain with passive or resisted ROM x 4 directions. Decreased ankle joint dorsiflexion bilateral. Foot is rectus to cavus. XRay Foot 12/18/2023: Bones in good alignment, no cortical irregularities noted, no step-offs noted, no signs of acute fracture identified. No signs of gas in the tissues. Radiologist to review. Assessment: (M72.2) Plantar fasciitis, bilateral (primary encounter diagnosis) (M21.6X1, M21.6X2) Equinus deformity of both feet (M79.671, M79.672) Heel pain, bilateral Plan: Dispensed to patient [employer] Educated patient on proper gastroc-stretching. Hold for 30 sec, repeat 3 times each foot. Perform three times a day. Continue with icing the area 15 minutes Recommend Mobic a day for next 2-3 week Pneumatic walking boot R Referral to physical therapy Continue current sneakers Intervention: If sypmtoms persist despite conservative treatment an MRI may be indicated. Follow-up: Return to clinic once you have had at least 3-5 sessions of physical therapy or after 8 weeks (whichever comes first). If your symptoms worsen, return to clinic sooner. Additional Injections: L plantar fascia for plantar fasciitis injection Informed Consent Consent Obtained: Verbal [place] Protocol A moment to CARE was completed. SIGN IN Special Equipment: N/A Patient/Surrogate Stated/Verified: Patient name, Date of , Relevant allergies and Intended procedure TIME OUT Intended patient and procedure match the source document(s). Relevant labs, photos, and/or imaging studies have been reviewed. Correct side/site marked and visible. Medications required for procedure verified. No fire risk assessment and interventions applicable. No implant(s) inserted. 01/18/2024 3:12 PM The procedure site was prepped in the usual sterile fashion. Site: L plantar fascia Medications: 20 mg triamcinolone acetonide 40 mg/mL Anesthetics: 1 mL lidocaine (PF) 20 mg/mL (2 %) Outcome: tolerated well, no immediate complications Post-injection instructions were reviewed with the patient and the patient voiced understanding of these instructions. SIGN OUT No specimen collected. No instruments, equipment or retained foreign bodies applicable. Post-procedure follow-up management communicated and Plan of Care Visit completed when applicable Patient examined and evaluated Written and verbal health teaching given to patient, patient verbalizes understanding and agrees with treatment plan. Pt to call immediately if questions, concerns, pain arise (more content not included)... [facility] 01-14-2024 Instructions Vania Perkins - 01/14/2024 4:04 PM EDT Images from the original note were not included. What is Plantar Fasciitis? Plantar fasciitis is the most common cause of heel pain. The pain is caused by inflammation of the plantar fascia. If you strain your plantar fascia, it becomes weak, swollen and irritated (inflamed). The resulting pain may be isolated in the heel or may appear at different points on the bottom of the foot, from time to time; it may occur in one foot or both. Some think that plantar fasciitis pain is caused by irritation of nerves from tissue swelling or inflammation, but it is debatable. Plantar fasciitis is common in middle-aged people; it also occurs in younger people who are on their feet a lot, such as athletes or soldiers. The plantar fascia is a strong band of connective tissue that extends from the base of the toes, along the bottom of the foot, to the bottom of the heel (calcaneous bone); it acts like a bowstring to maintain the arch of the foot. What are heel spurs? The inflammatory reaction of the heel bone may produce spike-like projections of new bone, called heel spurs. The spurs sometimes show on X-rays. They neither cause the initial pain nor do they cause the initial problem. However, later, having to walk on spurs may cause sharp pain. What causes plantar fasciitis? Plantar fasciitis is caused by straining the ligament that supports your arch. Repeated strain can cause tiny tears in the ligament. These lead to pain and swelling. During walking, the plantar fascia experiences tension up to twice the body weight with each step. While this is normal, those who spend much time on their feet, such as nurses, acid blower/waiters, and mail carriers, often experience plantar fasciitis. Athletes involved in tennis or other racquet sports, race walking, jogging or running also show a higher incidence of plantar fasciitis than do those participating in other activities. Thus, it's clear that plantar fasciitis is predominantly an overuse injury. In fact, any activity that results in prolonged tension and stress on the plantar fascia may cause plantar fasciitis. It is possible that changes in footwear may play a role in causing plantar fasciitis, no matter what activity is occurring. Those who are overweight are prone to plantar fasciitis. This is true even for sedentary people who get little physical activity. Abnormalities of the foot and ankle joints may predispose some individuals to development of plantar fasciitis (specifically, over pronation of the subtalar joint). Contributing Factors * Flat feet * Toe running, hill running * Sudden weight increase * High-arched, rigid feet * Soft terrain, e.g. running on sand * Obesity * Pronated feet (rolled inward) * Sudden increase in activity * Family tendency * Poor shoe support * Worn out or poorly fitted shoes * Increasing age * Walking, standing or running for long periods of time, especially on hard surfaces. How is the Injury Treated? Rest Your Feet: Limit, or if possible, stop activities that are causing your heel pain. Try to avoid running or walking on hard surfaces, such as concrete. Use pain as your guide. If your foot is too painful, rest it. Ice: Ice the sore area for 30 to 60 minutes, several times a day, to reduce inflammation and relieve pain. Apply a plastic bag of crushed ice (or a bag of frozen peas) over a towel. Ice the sore area for 15 minutes after activity/exercise. Application of heat is not generally recommended, as heat expands the bone and connective tissue, perhaps exerting greater pressure on nerves and thereby increasing pain. If heat is used, follow it with ice. Medication: If your condition developed recently, anti-inflammatory/analgesic medication, combined with heel pads (see below) may be all that is necessary to relieve pain and to reduce inflammation. If no pain relief has occurred after 2-3 weeks, however, your doctor may inject either cortisone or local anesthetic directly into the tender area. Exercises: Do simple exercises, such as calf stretches and towel stretches (see below) several times a day, especially when you first get up in the morning. These can help your ligament become more flexible and strengthen the muscles that support your arch. Shoes: Poorly fitting shoes can cause plantar fasciitis. The best type of shoe to wear is a good walking or running shoe with good shock absorption and excellent arch support. You should choose the one that fits the best. [place] with your athletic shoes to find a pair that is comfortable and causes fewer symptoms. Put your shoes on as soon as you get out of bed; going barefoot or wearing slippers may make your pain worse. Good brands include (but are not limited to): New Balance, Asics, Saucony, SAS and Merrel s. Taping: Your doctor may tape your foot to maintain the arch. This takes some of the tension off the plantar fascia. Weight Loss: If your weight is putting extra stress on your feet, your doctor may encourage you to try a weight-loss program. Orthotics: An orthotic insole is a molded piece of rubber, plastic, or other material that you insert into your shoe. It corrects the alignment of your foot and cushions your foot from excessive pounding. These may be prescription or non-prescription. Prescription orthotics are custom-fitted and may fit better and control pain better, but are very expensive. Night Splints: A night splint holds the foot with the toes pointed up and the ankle at a 90-degree angle. This position applies a constant, gentle stretch to the plantar fascia. Corticosteroid Shots: Steroids may be injected into the tender area to reduce inflammation. REHAB Exercises to stretch the plantar fascia, the calf muscles, and the Achilles tendon. Tightness of the muscles of the calves may contribute to plantar fasciitis, so stretching the calf muscles is important to rehabilitation, as is stretching of the plantar fascia itself. Plantar fascial stretches Assisted Dorsiflexion/Plantar Fascia Stretch: Sit on the floor or ground, barefoot, with both legs outstretched. Use a towel or elastic band and wrap it around the ball (and not the toes) of the affected foot. Use the towel or elastic band to provide resistance to upward movement of the forefoot. Pull foot upward (toward your body) with the help of the elastic band or towel, and then return to the starting position. Ten repetitions are recommended. Perform the sequence at least three times a day. Alternate Plantar Fascia Stretch: Sit upright in a chair, barefoot. Place the ankle of the affected foot on your opposite knee. Using the same hand as the affected foot, reach across and grab the toes. Flex the ankle toward and pull the toes toward the erickson. To test the stretch, place the thumb of your hand on the bottom of the foot. You should be able to feel the cord-like plantar fascia, running the length of the foot. Hold the stretch for a count of 10, then relax. Repeat 10 times. Do the sequence at least three times a day. Achilles/Calf Stretches Strengthening the muscles of the calves may contribute to successful rehabilitation of plantar fasciitis, as well as prevent reoccurrence. The exercises below will help strengthen the calf muscles. Calf and Achilles Tendon Stretch (Gastrocnemius Stretch): Face a wall, standing an arm's length away. Place one foot back. Place both hands on the wall. Bend the elbows and knee of your forward leg, keeping the heel of the backward foot on the floor and keeping your body straight (aligned), until your forehead nearly touches the wall, or until significant stretch is felt in the muscles of the calf of the backward leg. Hold this position for 10 to 15 seconds. Extend elbows (straighten your arms and stand upright again) and maintain this position for 10 seconds. Repeat this cycle 15 to 20 times. Switch legs and repeat the exercise. documented in this encounter [facility] 01-14-2024 Note HNO ID: [id number] Author: VANIA PERKINS, ? Service: ? Author Type: Physician Type: Progress Notes Filed: 01/15/2024 21:50 Note Text: Initial Podiatric Office Visit: Chief Complaint: This 48 year old female who presents with chief complaint:b/l foot pain HPI Patient presents to clinic for evaluation of b/l feet Patient states that about 4 years ago, she noticed that if she would be standing for long periods of time on her foot, she would experience pain She first thought it was associated with weight but she has since lost the weight and she still has pain Most of the pain is located in her heels but does radiate to the ball of her foot. Patient states the abdi most when she is on her foot. She states that when she first wakes up, she feels her foot feels the best Past treatment: Patient went to a windows support engineer in [facility] and was diagnosed with plantar fasciitis. Was given a nigth splint but that did not help. Was not given inserts or recommended stretching Patient has tried over the counter inserts which does provide some relief. PAIN EVALUATION 01/13/2024 1559 01/14/2024 1540 Pain Level: -- 10 Pain Location: Foot-Left -- Description: Aching;Burning;Dull;Raw;Sharp;Katey oting;Sore;Stabbing;Throbbing -- Duration Units: Months -- Frequency: Intermittent -- Hemoglobin A1C (%) Date Value 06/15/2023 5.4 PCP: Jena Peterson MD PAST MEDICAL HISTORY Diagnosis Date Essential hypertension Current Outpatient Medications Medication Sig sertraline (ZOLOFT) 100 mg tablet Take 2 tablets by mouth once daily. tirzepatide, weight loss (ZEPBOUND) 2.5 mg/0.5 mL pen injector Inject 5 mg subcutaneously one time a week. zolpidem (AMBIEN) 10 mg Take 0.5 tablets by mouth daily at bedtime for 60 days. No current facility-administered medications for this visit. ALLERGIES Allergen Reactions Bee Pollen Other: See Comments Bauman Other: See Comments Grass Pollen Other: See Comments Penicillins Trees Other: See Comments PAST SURGICAL HISTORY Procedure Laterality Date SECTION HX x2 EXTRACTION, ERUPTED TOOTH OR EXPOSED ROOT (ELEVATION AND/OR FORCEPS REMOVAL) TONSILLECTOMY PRIMARY/SECONDARY Tonsillectomy FAMILY HISTORY Problem Relation Age of Onset Hypertension Mother Stroke Mother Heart Mother Hypertension Father Heart Father COPD Father Social History Tobacco Use Smoking status: Former Packs/day: 1.00 Years: 20.00 Additional pack years: 0.00 Total pack years: 20.00 Types: Cigarettes Quit date: 09/24/2011 Years since quittin.3 Smokeless tobacco: Never Tobacco comments: uses E-cigarettes Vaping Use Vaping Use: Former Substance Use Topics Alcohol use: Yes Alcohol/week: 2.0 - 4.0 standard drinks of alcohol Types: 2 - 4 Glasses of Wine (5oz) per week Drug use: No REVIEW OF SYSTEMS GENERAL: Negative for Malaise, significant weight loss, fever RESPIRATORY: Negative for cough, wheezing and shortness of breath CARDIOVASCULAR: Negative for chest pain, leg swelling and palpitations GI: Negative for abdominal discomfort, blood in stools or black stools and change in bowel habits : Negative for dysuria, frequency and incontinence MUSCULOSKELETAL: Negative for joint pain or swelling, back pain, and muscle pain. SKIN: Negative for lesions, rash, and itching. HEMATOLOGY/LYMPHOLOGY Negative for prolonged bleeding, bruising easily, and swollen nodes. ENDOCRINE: Negative for cold or heat intolerance, polyuria, polydipsia and goiter. NEURO: negative Physical Exam: Constitutional: Pt is a well developed 48 year old female who is alert, oriented and cooperative Eyes: Following during examination. No redness or drainage. Respiratory: RR normal and nonlabored. Even breathing. No evidence of distress or shortness of breath. Psychology: Patient is engaged during conversation. Normal affect and mood. Does not appear depressed or anxious during encounter. Vascular: Dorsalis pedis and posterior tibial pulses palpable as b/l Capillary Fill time < 5 seconds to digits 1-5 b/l Skin temperature warm to warm proximal to distal b/l Hair growth present to digits Neurological: intact light touch/epicritic sensation b/l intact protective sensation no significant neurological deficits Dermatological: Nails 1-5 b/l appear normal. Webspaces clean and dry 1-4 b/l. Skin appears well hydrated and supple. good color, texture, turgor. No open lesions present. No callosities present. Musculoskeletal/Orthopaedic: Patient has pain to palpation of b/l plantar medial calcaneal tubercle Foot type is cavusstructurally AJ ROM is decreased with knee extended and flexed 1st MPJ is full when loaded and no pain or crepitus are noted with ROM. MTJ, STJ are full and free of pain and crepitus. +5/5 muscle strength dorsiflexion, plantarflexion, inversion, eversion b/l Radiographs: 3 views b/l foot ordered January 14, 2024: I have per (more content not included)... [facility] 01-14-2024 History of Present illness Narrative Images from the original note were not included. Initial Podiatric Office Visit: Chief Complaint: This 48 year old female who presents with chief complaint:b/l foot pain HPI Patient presents to clinic for evaluation of b/l feet Patient states that about 4 years ago, she noticed that if she would be standing for long periods of time on her foot, she would experience pain She first thought it was associated with weight but she has since lost the weight and she still has pain Most of the pain is located in her heels but does radiate to the ball of her foot. Patient states the abdi most when she is on her foot. She states that when she first wakes up, she feels her foot feels the best Past treatment: Patient went to a windows support engineer in [facility] and was diagnosed with plantar fasciitis. Was given a nigth splint but that did not help. Was not given inserts or recommended stretching Patient has tried over the counter inserts which does provide some relief. PAIN EVALUATION 01/13/2024 1559 01/14/2024 1540 Pain Level: -- 10 Pain Location: Foot-Left -- Description: Aching;Burning;Dull;Raw;Sharp;Katey oting;Sore;Stabbing;Throbbing -- Duration Units: Months -- Frequency: Intermittent -- Hemoglobin A1C (%) Date Value 06/15/2023 5.4 PCP: Jena Peterson MD PAST MEDICAL HISTORY Diagnosis Date Essential hypertension Current Outpatient Medications Medication Sig sertraline (ZOLOFT) 100 mg tablet Take 2 tablets by mouth once daily. tirzepatide, weight loss (ZEPBOUND) 2.5 mg/0.5 mL pen injector Inject 5 mg subcutaneously one time a week. zolpidem (AMBIEN) 10 mg Take 0.5 tablets by mouth daily at bedtime for 60 days. No current facility-administered medications for this visit. ALLERGIES Allergen Reactions Bee Pollen Other: See Comments Bauman Other: See Comments Grass Pollen Other: See Comments Penicillins Trees Other: See Comments PAST SURGICAL HISTORY Procedure Laterality Date SECTION HX x2 EXTRACTION, ERUPTED TOOTH OR EXPOSED ROOT (ELEVATION AND/OR FORCEPS REMOVAL) TONSILLECTOMY PRIMARY/SECONDARY <AGE 12 Tonsillectomy FAMILY HISTORY Problem Relation Age of Onset Hypertension Mother Stroke Mother Heart Mother Hypertension Father Heart Father COPD Father Social History Tobacco Use Smoking status: Former Packs/day: 1.00 Years: 20.00 Additional pack years: 0.00 Total pack years: 20.00 Types: Cigarettes Quit date: 09/24/2011 Years since quittin.3 Smokeless tobacco: Never Tobacco comments: uses E-cigarettes Vaping Use Vaping Use: Former Substance Use Topics Alcohol use: Yes Alcohol/week: 2.0 - 4.0 standard drinks of alcohol Types: 2 - 4 Glasses of Wine (5oz) per week Drug use: No REVIEW OF SYSTEMS GENERAL: Negative for Malaise, significant weight loss, fever RESPIRATORY: Negative for cough, wheezing and shortness of breath CARDIOVASCULAR: Negative for chest pain, leg swelling and palpitations GI: Negative for abdominal discomfort, blood in stools or black stools and change in bowel habits : Negative for dysuria, frequency and incontinence MUSCULOSKELETAL: Negative for joint pain or swelling, back pain, and muscle pain. SKIN: Negative for lesions, rash, and itching. HEMATOLOGY/LYMPHOLOGY Negative for prolonged bleeding, bruising easily, and swollen nodes. ENDOCRINE: Negative for cold or heat intolerance, polyuria, polydipsia and goiter. NEURO: negative Physical Exam: Constitutional: Pt is a well developed 48 year old female who is alert, oriented and cooperative Eyes: Following during examination. No redness or drainage. Respiratory: RR normal and nonlabored. Even breathing. No evidence of distress or shortness of breath. Psychology: Patient is engaged during conversation. Normal affect and mood. Does not appear depressed or anxious during encounter. Vascular: Dorsalis pedis and posterior tibial pulses palpable as b/l Capillary Fill time < 5 seconds to digits 1-5 b/l Skin temperature warm to warm proximal to distal b/l Hair growth present to digits Neurological: intact light touch/epicritic sensation b/l intact protective sensation no significant neurological deficits Dermatological: Nails 1-5 b/l appear normal. Webspaces clean and dry 1-4 b/l. Skin appears well hydrated and supple. good color, texture, turgor. No open lesions present. No callosities present. Musculoskeletal/Orthopaedic: Patient has pain to palpation of b/l plantar medial calcaneal tubercle Foot type is cavusstructurally AJ ROM is decreased with knee extended and flexed 1st MPJ is full when loaded and no pain or crepitus are noted with ROM. MTJ, STJ are full and free of pain and crepitus. +5/5 muscle strength dorsiflexion, plantarflexion, inversion, eversion b/l Radiographs: 3 views b/l foot ordered January 14, 2024: I have personally reviewed and interpreted these XR myself: no acute fracture ASSESSMENT: (M72.2) Plantar fasciitis (primary encounter diagnosis) PLAN: 1. Initial Office Visit - A thorough review of the patient's PMH and Podiatric physical exam was completed. 2. Patient advised to perform stretching excercises, icing, and to make appropriate shoe gear changes to include wearing athletic-type shoes with supportive insoles. No barefoot walking. Patient also given written instructions on how to correctly perform the stretching of the achilles tendon/calf stretches, and the heel spur/plantar fasciitis regimen. 3. Patient advised to seek wide, deep toe box, accomodative, comfortable, lace-up, athletic/walking type footwear that includes motion control characteristics for support and cushion that need to be worn at all times when weight-bearing. Shoes should be tested for torsional stability as well as proper bending at the toebox rather than at the midfoot. Good quality shoes such as, but not limited to, New Balance or Asics are examples of more proper foot gear. 4. Patient recommended to continue with insoles for proper support of the arch in order to alleviate the tension and stress on the plantar fascia associated with normal daily walking. Patient advised that these modalities used in conjunction with stretching and icing are able to alleviate most symptoms from this condition. 5. If pain fails to improve, consider steroid injection Vaina Perkins DPM Podiatry [address] [facility] [address] Dept: [phone] Dept AMB ROOMING INTAKE FLOWSHEET DATA Risk Screening Do you have concerns about personal safety or safety in the home?: No Pain Pain Level: 10 Pain Location: Foot-Left Description: Aching, Burning, Dull, Raw, Sharp, Shooting, Sore, Stabbing, Throbbing Duration Units: Months Frequency: Intermittent Patient presents with: Left Foot - Established Patient, Follow Up, Pain Right Foot - Established Patient, Follow Up, Pain Cinthia Gee LPN] documented in this encounter [facility] 01-14-2024 Note HNO ID: [id number] Author: CINTHIA GEE LPN Service: ? Author Type: LICENSED NURSE Type: Progress Notes Filed: 01/15/2024 21:50 Note Text: AMB ROOMING INTAKE FLOWSHEET DATA Risk Screening Do you have concerns about personal safety or safety in the home?: No Pain Pain Level: 10 Pain Location: Foot-Left Description: Aching, Burning, Dull, Raw, Sharp, Shooting, Sore, Stabbing, Throbbing Duration Units: Months Frequency: Intermittent Patient presents with: Left Foot - Established Patient, Follow Up, Pain Right Foot - Established Patient, Follow Up, Pain Cinthia Gee LPN] [facility] 01-07-2024 Miscellaneous Notes Patient has been identified by name and date of : No Patient phones for refill(s): Requested Prescriptions Pending Prescriptions Disp Refills sertraline (ZOLOFT) 100 mg tablet 60 tablet 5 Sig: Take 2 tablets by mouth once daily. Date of last office visit in primary care: 12/31/2023 Date of next office visit in primary care: Visit date not found My chart message sent to patient to call for an appointment. Please advise. Thank you. Fatmata Morley LPN. documented in this encounter [facility] 12-31-2023 History of Present illness Narrative AMBULATORY TELEPHONE VISIT Andreina Gee has consented to this telephone encounter. Persons Present: patient Chief Complaint/Reason: weight concern HPI: Presents today regarding obesity. HPI excerpted from previous visit: Today notes that phentermine caused her to not to want to eat or sleep, seems like it was too strong/effective so she quit taking it. . Has gained a couple of pounds since discontinuing. She has tried Ozempic before but had GI upset with that. Ozempic made her nauseous / GI upset and decreased oral intake. States Qsymia did not work.Stalled out at 12 pounds of weight loss. She reports exercising 30 minutes Mondays through Sunday, jumps on the trampoline. Also walks every night for 20 to 30 minutes. Does calorie counting. SAD. Today notes that she lost 30 lbs weight lost on phentermine. 5 lbs on this medication so far. Curbing appetite. Notes wearing off effects at the endo of the week. Sticking with diet and exercise. Hemoglobin A1C (%) Date Value 06/15/2023 5.4 ) Data Reviewed: chart Assessment: No diagnosis found. Plan: ASSESSMENT/PLAN: 1. Class 2 severe obesity due to excess calories with serious comorbidity and body mass index (BMI) of 36.0 to 36.9 in adult ([facility]) - ICD9: 278.01, V85.36, ICD10: E66.01, Z68.36 Stable - Continue with Tirzepatide (Zepbound) at 5 mg for now - TIRZEPATIDE (WEIGHT LOSS) 2.5 MG/0.5 ML SUBCUTANEOUS PEN INJECTOR Will titrate up slowly due to prior intolerance of Ozempic / GI upset. Recheck in 1 month, video visit okay. In office visit by June. aJe Mason APRN.FRAME AND SCRAP CRUSHER Total Time Spent: 15 minutes Jae Mason APRN.FRAME AND SCRAP CRUSHER documented in this encounter [facility] 12-31-2023 Note HNO ID: [id number] Author: JAE MASON APRN.FRAME AND SCRAP CRUSHER Service: ? Author Type: Nurse Specialist Type: Progress Notes Filed: 12/31/2023 14:23 Note Text: AMBULATORY TELEPHONE VISIT Andreina Gee has consented to this telephone encounter. Persons Present: patient Chief Complaint/Reason: weight concern HPI: Presents today regarding obesity. HPI excerpted from previous visit: Today notes that phentermine caused her to not to want to eat or sleep, seems like it was too strong/effective so she quit taking it. . Has gained a couple of pounds since discontinuing. She has tried Ozempic before but had GI upset with that. Ozempic made her nauseous / GI upset and decreased oral intake. States Qsymia did not work.Stalled out at 12 pounds of weight loss. She reports exercising 30 minutes Mondays through Sunday, jumps on the trampoline. Also walks every night for 20 to 30 minutes. Does calorie counting. SAD. Today notes that she lost 30 lbs weight lost on phentermine. 5 lbs on this medication so far. Curbing appetite. Notes wearing off effects at the endo of the week. Sticking with diet and exercise. Hemoglobin A1C (%) Date Value 06/15/2023 5.4 ) Data Reviewed: chart Assessment: No diagnosis found. Plan: ASSESSMENT/PLAN: 1. Class 2 severe obesity due to excess calories with serious comorbidity and body mass index (BMI) of 36.0 to 36.9 in adult (HCC) - ICD9: 278.01, V85.36, ICD10: E66.01, Z68.36 Stable - Continue with Tirzepatide (Zepbound) at 5 mg for now - TIRZEPATIDE (WEIGHT LOSS) 2.5 MG/0.5 ML SUBCUTANEOUS PEN INJECTOR Will titrate up slowly due to prior intolerance of Ozempic / GI upset. Recheck in 1 month, video visit okay. In office visit by June. Jae Mason APRN.CNS Total Time Spent: 15 minutes Jae Mason APRN.CNS [facility] 12-27-2023 Miscellaneous Notes Recommend staying 2.5 mg for now or if she wants to pay out of pocket for the second dose increasing to two 2.5 mg weekly for a total of 5 mg per week. documented in this encounter [facility] 12-18-2023 History of Present illness Narrative Radiology Service Progress Note PATIENT NAME: Andreina Gee DATE OF SERVICE: December 18, 2023 TIME: 3:12 PM PATIENT IDENTITY VERIFICATION COMPLETED USING TWO (2) IDENTIFIERS: Name and Date of confirmed by patient verbally. FALL SCREENING: Has the patient had 2 falls in the last year or 1 fall with injury or currently using an Ambulatory Assistive Device (Walker, Cane, Wheelchair, Crutches, etc.)? No PATIENT GENDER DATA: Female. status: : No status: NO. PATIENT RELEVANT IMPLANT DATA REVIEWED: Not Applicable PATIENT PRESENTS WITH AN IMPLANTABLE OR ATTACHED DIGITAL MEDIA MANAGER: No RADIOLOGY DEPARTMENT: General X-ray: Exam(s) Completed: Lower Extremity X-Ray(s): Foot, Bilateral and Wt. Bearing PERIPHERAL IV DATA: Not applicable SIGNED BY: RT Kam(R) December 18, 2023 3:12 PM documented in this encounter [facility] 12-18-2023 Note HNO ID: [id number] Author: JAMARCUS KELLY RT(R) Service: Radiology Author Type: Technologist Type: Progress Notes Filed: 12/18/2023 15:23 Note Text: Radiology Service Progress Note PATIENT NAME: Andreina Gee DATE OF SERVICE: December 18, 2023 TIME: 3:12 PM PATIENT IDENTITY VERIFICATION COMPLETED USING TWO (2) IDENTIFIERS: Name and Date of confirmed by patient verbally. FALL SCREENING: Has the patient had 2 falls in the last year or 1 fall with injury or currently using an Ambulatory Assistive Device (Walker, Cane, Wheelchair, Crutches, etc.)? No PATIENT GENDER DATA: Female. status: : No status: NO. PATIENT RELEVANT IMPLANT DATA REVIEWED: Not Applicable PATIENT PRESENTS WITH AN IMPLANTABLE OR ATTACHED DIGITAL MEDIA MANAGER: No RADIOLOGY DEPARTMENT: General X-ray: Exam(s) Completed: Lower Extremity X-Ray(s): Foot, Bilateral and Wt. Bearing PERIPHERAL IV DATA: Not applicable SIGNED BY: RT Kam(R) December 18, 2023 3:12 PM [facility] 12-03-2023 Note HNO ID: [id number] Author: JAE MASON APRN.FRAME AND SCRAP CRUSHER Service: ? Author Type: Nurse Specialist Type: Progress Notes Filed: 12/03/2023 15:15 Note Text: AMBULATORY TELEPHONE VISIT Andreina Gee has consented to this telephone encounter. Persons Present: patient Chief Complaint/Reason: weight concern HPI: Presents today regarding obesity. Interested in weight loss. Today notes that phentermine caused her to not to want to eat or sleep, seems like it was too strong/effective so she quit taking it. . Has gained a couple of pounds since discontinuing. She has tried Ozempic before but had GI upset with that. Ozempic made her nauseous / GI upset and decreased oral intake. States Qsymia did not work.Stalled out at 12 pounds of weight loss. She reports exercising 30 minutes Mondays through Sunday, jumps on the trampoline. Also walks every night for 20 to 30 minutes. Does calorie counting. SAD. Sticking with diet and exercise. Hemoglobin A1C (%) Date Value 06/15/2023 5.4 ) Data Reviewed: chart Assessment: (E66.01, Z68.36) Class 2 severe obesity due to excess calories with serious comorbidity and body mass index (BMI) of 36.0 to 36.9 in adult ([facility]) (primary encounter diagnosis) Plan: ASSESSMENT/PLAN: 1. Class 2 severe obesity due to excess calories with serious comorbidity and body mass index (BMI) of 36.0 to 36.9 in adult ([facility]) - ICD9: 278.01, V85.36, ICD10: E66.01, Z68.36 Stable - Add Tirzepatide (Zepbound) - TIRZEPATIDE (WEIGHT LOSS) 2.5 MG/0.5 ML SUBCUTANEOUS PEN INJECTOR Will titrate up slowly due to prior intolerance of Ozempic / GI upset. Recheck in 1 month, video visit jones. Jae Mason APRN.FRAME AND SCRAP CRUSHER Total Time Spent: 15 minutes Jae Mason APRN.CNS [facility] 12-03-2023 History of Present illness Narrative AMBULATORY TELEPHONE VISIT Andreina Gee has consented to this telephone encounter. Persons Present: patient Chief Complaint/Reason: weight concern HPI: Presents today regarding obesity. Interested in weight loss. Today notes that phentermine caused her to not to want to eat or sleep, seems like it was too strong/effective so she quit taking it. . Has gained a couple of pounds since discontinuing. She has tried Ozempic before but had GI upset with that. Ozempic made her nauseous / GI upset and decreased oral intake. States Qsymia did not work.Stalled out at 12 pounds of weight loss. She reports exercising 30 minutes Mondays through Sunday, jumps on the trampoline. Also walks every night for 20 to 30 minutes. Does calorie counting. SAD. Sticking with diet and exercise. Hemoglobin A1C (%) Date Value 06/15/2023 5.4 ) Data Reviewed: chart Assessment: (E66.01, Z68.36) Class 2 severe obesity due to excess calories with serious comorbidity and body mass index (BMI) of 36.0 to 36.9 in adult (HCC) (primary encounter diagnosis) Plan: ASSESSMENT/PLAN: 1. Class 2 severe obesity due to excess calories with serious comorbidity and body mass index (BMI) of 36.0 to 36.9 in adult (HCC) - ICD9: 278.01, V85.36, ICD10: E66.01, Z68.36 Stable - Add Tirzepatide (Zepbound) - TIRZEPATIDE (WEIGHT LOSS) 2.5 MG/0.5 ML SUBCUTANEOUS PEN INJECTOR Will titrate up slowly due to prior intolerance of Ozempic / GI upset. Recheck in 1 month, video visit okay. Jae Mason APRN.FRAME AND SCRAP CRUSHER Total Time Spent: 15 minutes Jae Mason APRN.FRAME AND SCRAP CRUSHER documented in this encounter [facility] 12-03-2023 Miscellaneous Notes PDMP website checked and validated. All prescriptions have been APPROPRIATELY filled. No suspicious activity was identified. 12/03/2023 by Babatunde Vasquez APRN.CANOPY INSPECTOR Patient has been identified by name and date of : Yes Patient phones for refill(s): Requested Prescriptions Pending Prescriptions Disp Refills zolpidem (AMBIEN) 10 mg 15 tablet 1 Sig: Take 0.5 tablets by mouth daily at bedtime for 60 days. Date of last office visit in primary care: 06/15/2023 Date of next office visit in primary care: 12/03/2023 Please advise. Thank you. SCOTT Guzman. documented in this encounter [facility] 11-14-2023 Note Patient Outreach (IN TMMN) ANDREINA GEE ([id number]) 1975 F T Date Time Provider Department 11/14/23 JENA PETERSON During your visit today, we recorded the following information about you: Allergies As of Date: 11/14/2023 Noted Allergy Reaction BEE POLLEN 06/15/2023 14 - Other: See Comments BAUMAN 06/15/2023 14 - Other: See Comments GRASS POLLEN 06/15/2023 14 - Other: See Comments PENICILLINS 03/02/2006 TREES 06/15/2023 14 - Other: See Comments Date Reviewed: 09/11/2023 Reviewed by: Daphnie Navarro APRN.CANOPY INSPECTOR - Fully Assessed Visit Diagnosis:Encounter for screening mammogram for breast cancer [Z12.31] Order(s):[facility] SCREENING [[id number]] Order #: [id number] FUTURE Prescriptions as of 11/19/2023 - zolpidem (AMBIEN) 10 mg Take 0.5 tablets by mouth daily at bedtime for 60 days. - sertraline (ZOLOFT) 100 mg tablet Take 2 tablets by mouth once daily. - loratadine (CLARITIN ORAL) Take by mouth. - fluticasone propionate (FLONASE NASAL) Use in the nose. 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 Author Type: Nurse Practitioner Type: Progress Notes Filed: 09/11/2023 3:40 PM Note Text: Telemedicine Visit - Digital Health Virtual Visit Note Patient seen on [employer] Video Visit platform. Location of patient: [place] I have communicated my name and active licensure. The patient's identity and physical location were verified at the time of this visit. Either the patient or their legal marketing sales representative has been informed of the risks and benefits of -- and alternatives to -- treatment through a remote evaluation and consents to proceed with the evaluation remotely. History of Present Illness Andreina Gee is a 48 year old year old female who presents for the past 4-5 DAYS with symptoms of Nausea and Emesis that are: Constant NAUSEA AND VOMITING FOR LAST 4-5 DAYS NO FEVER CHILLS ABD PAIN LAST EMESIS WAS 10MIN AGO, 10+/DAY , MOST DRY HEAVES +EXHAUSTED BUT NOT DIZZY OR LIGHT HEADED, STILL VOIDING Symptoms include: SEE ABOVE No history of gastrointestinal disease. No known risk factors for parasitic or bacterial infection. Oral intake: OK Sick contacts: NO Recent travel: NO Recent Antibiotic use: PHENTERMINE (END OF 90 DAYS ) STOPPED THIS MED Recent Hospitalization: N OTC meds/remedies that patient has tried: OMEPRAZOLE 40MG X 1 PAST MEDICAL HISTORY Diagnosis Date Essential hypertension PAST SURGICAL HISTORY Procedure Laterality Date SECTION HX x2 EXTRACTION, ERUPTED TOOTH OR EXPOSED ROOT (ELEVATION AND/OR FORCEPS REMOVAL) TONSILLECTOMY PRIMARY/SECONDARY Tonsillectomy FAMILY HISTORY Problem Relation Age of Onset Hypertension Mother Stroke Mother Heart Mother Hypertension Father Heart Father COPD Father Social History Tobacco Use Smoking status: Former Packs/day: 1.00 Years: 20.00 Additional pack years: 0.00 Total pack years: 20.00 Types: Cigarettes Quit date: 09/24/2011 Years since quittin.9 Smokeless tobacco: Never Tobacco comments: uses E-cigarettes Vaping Use Vaping Use: Former Substance Use Topics Alcohol use: Yes Alcohol/week: 2.0 - 4.0 standard drinks of alcohol Types: 2 - 4 Glasses of Wine (5oz) per week Drug use: No Current Outpatient Medications Medication Sig zolpidem (AMBIEN) 10 mg Take 0.5 tablets by mouth daily at bedtime for 60 days. Phentermine HCl 37.5 mg tablet Take 0.5-1 tablets by mouth once daily for 90 days. sertraline (ZOLOFT) 100 mg tablet Take 2 tablets by mouth once daily. loratadine (CLARITIN ORAL) Take by mouth. fluticasone propionate (FLONASE NASAL) Use in the nose. No current facility-administered medications for this visit. ALLERGIES Allergen Reactions Bee Pollen Other: See Comments Bauman Other: See Comments Grass Pollen Other: See Comments Penicillins Trees Other: See Comments Video Exam (Examination performed via Video enabled technology) General appearance: Alert, oriented, pleasant, in NAD :Yes Ill appearing :No Lethargic appearing :No Hydration: Appears Hydrated Oropharynx:Mucus membranes appears moist Skin: Turgor <3 seconds Respiratory distress :No Abdomen inspection: Distended: Yes, Tenderness to self-palpation: No FEELS BLOATED, BUT SOFT ABD NOT RIGID ASSESSMENT/PLAN: 1. Nausea - ICD9: 787.02, ICD10: R11.0 (primary diagnosis) - ONDANSETRON HCL 8 MG TABLET 2. Nausea and vomiting, unspecified vomiting type - ICD9: 787.01, ICD10: R11.2 - ONDANSETRON HCL 8 MG TABLET PLAN: - Symptomatic treatment: Pepto-Bismol as needed - Clear liquids in frequent, small amounts - BRAT diet (bananas, rice, applesauce, toast) advance diet as tolerated. Avoid dairy products - Handwashing - Recheck prn persistence, worsening, appearance of new symptoms. - Red flags discussed for need for in person care - All questions answered Daphnie Navarro APRN.CANOPY INSPECTOR If you let us know who your primary care provider is, we will send them a notification of today's visit through our electronic medical records system. Since not all providers have access to our notifications, we strongly encourage you to share the following record of today's visit with your primary care provider at your next visit. This will help in providing you the best care. [facility] 08-06-2023 Miscellaneous Notes Spoke to Elder/Thierry, Patient has 1 refill remaining on Sertraline (Zoloft) 100mg. Pharmacy says it is to soon to fill. Lacey Rivera LPN documented in this encounter [facility] 07-10-2023 Miscellaneous Notes OK for half tablet. Offered OV for recheck. documented in this encounter [facility] 06-15-2023 Instructions Jae Mason APRN.CNS - 06/15/2023 2:38 PM EDT Regarding phentermine: May continue on therapy after 12 weeks Need to be seen at least every 3 months to check weight, blood pressure, and heart rate Will not not to continue in patients who have not achieved a weight loss of at least 5% of the initial weight, during the initial three month Recommend portion control and daily could be exercise such as walking to help with weight loss. documented in this encounter [facility] 06-15-2023 History of Present illness Narrative SUBJECTIVE: Andreina Gee is a 48 year old female. Hepatitis B Vaccine(1 of 3 - 3-dose series) Never done Pap Testing Never done HPV Testing Never done Mammogram Screening due on 02/12/2020 Colorectal Cancer Screening Never done Covid-19 Vaccine(4 - Pfizer series) due on 07/28/2022 Depression Assessment due on 09/24/2022 Diabetes Screening due on 11/27/2022 Influenza Vaccine(1) due on 05/25/2023 HPI Presents today regarding obesity. Interested in weight loss. She has tried Ozempic before but had GI upset with that. Also tried Qsymia, stalled out a for 12 pounds of weight loss. She reports exercising 30 minutes Mondays through Sunday, jumps on the trampoline. Also walks every night for 20 to 30 minutes. Does calorie counting. SAD. Taking Zoloft for anxiety, has been on for several years. Prefers not to change at this time. Review of Systems Constitutional: Negative. Respiratory: Negative. Cardiovascular: Negative. Gastrointestinal: Negative. Endocrine: Negative. Objective BP 123/83 Pulse 78 Resp 16 Wt 97.5 kg (215 lb) LMP 01/24/2023 BMI 36.90 kg/m Physical Exam Vitals and nursing note reviewed. Constitutional: Appearance: Normal appearance. HENT: Head: Normocephalic and atraumatic. Eyes: Conjunctiva/sclera: Conjunctivae normal. Cardiovascular: Rate and Rhythm: Normal rate and regular rhythm. Heart sounds: Normal heart sounds. Pulmonary: Effort: Pulmonary effort is normal. Breath sounds: Normal breath sounds. Abdominal: General: Bowel sounds are normal. Palpations: Abdomen is soft. Musculoskeletal: Right lower leg: No edema. Left lower leg: No edema. Skin: General: Skin is warm and dry. Neurological: General: No focal deficit present. Mental Status: She is alert and oriented to person, place, and time. ALLERGIES Allergen Reactions Bee Pollen Other: See Comments Bauman Other: See Comments Grass Pollen Other: See Comments Penicillins Trees Other: See Comments Medication zolpidem (AMBIEN) 10 mg Take 0.5 tablets by mouth daily at bedtime for 30 days. sertraline (ZOLOFT) 100 mg tablet Take 2 tablets by mouth once daily. loratadine (CLARITIN ORAL) Take by mouth. fluticasone propionate (FLONASE NASAL) Use in the nose. azithromycin (ZITHROMAX) 250 mg tablet Take 2 tablets today then one tablet daily for 4 days. (Patient not taking: Reported on 06/15/2023) PAST MEDICAL HISTORY Diagnosis Date Essential hypertension Social History Tobacco Use Smoking status: Former Packs/day: 1.00 Years: 20.00 Additional pack years: 0.00 Total pack years: 20.00 Types: Cigarettes Quit date: 09/24/2011 Years since quittin.7 Smokeless tobacco: Never Tobacco comments: uses E-cigarettes Vaping Use Vaping Use: Former Substance Use Topics Alcohol use: Yes Alcohol/week: 5.0 - 10.0 standard drinks of alcohol Types: 2 - 4 Glasses of Wine (5oz) per week Drug use: No ASSESSMENT/PLAN: 1. Class 2 severe obesity due to excess calories with serious comorbidity and body mass index (BMI) of 37.0 to 37.9 in adult ([facility]) - ICD9: 278.01, V85.37, ICD10: E66.01, Z68.37 She notes weight is increasing. She noted GI upset with semaglutide in the past. Qsymia lost 12 pounds and then stalled out. Recommend lab work today. Try phentermine daily. 3-month recheck - [facility] - COMP METABOLIC PANEL - CBC + DIFF - TSH BLD - HGB A1C - TOX SCREEN ROUT UR - PHENTERMINE 37.5 MG TABLET May continue on therapy after 12 weeks Need to be seen at least every 3 months to check weight, blood pressure, and heart rate Will not not to continue in patients who have not achieved a weight loss of at least 5% of the initial weight, during the initial three month Recommend portion control and daily could be exercise such as walking to help with weight loss. Interested in bariatric program, not surgical but medical. Jae Mason APRN.LYN Medical Decision Making: Problems: Moderate: 1+ chronic illnesses with change Data: Unique test(s) ordered: 3+ Risk: Moderate: Drug management Medical Decision Making Level: 4 - Moderate documented in this encounter [facility] 05-29-2023 Miscellaneous Notes Patient has been identified by name and date of : No Patient phones for refill(s): Requested Prescriptions Pending Prescriptions Disp Refills zolpidem (AMBIEN) 10 mg 15 tablet 0 Sig: Take 0.5 tablets by mouth daily at bedtime for 30 days. Date of last office visit in primary care: 05/03/23 Last 2 Encounter Wt Readings: Date: Wt: 05/13/2023 97.1 kg (214 lb) 05/03/2023 97.1 kg (214 lb) Previous labs/tests for medication: Not applicable Please advise. Thank you. Fatmata Morley LPN documented in this encounter [facility] 05-13-2023 History of Present illness Narrative Subjective Ear Pain Associated symptoms include congestion. Pertinent negatives include no chest pain, chills, coughing, fever, headaches, myalgias or sore throat. SUSANNA Gee is a 47 year old female who presents today for CC of left ear pain and pressure for 3 days. States the pain kept her up last night. She denies and cough, sore throat, fever, nausea, vomiting or diarrhea. She recently was treated with erythromycin due to recent travel illness. BP 112/70 Pulse 80 Temp 36.3 C (97.4 F) (Tympanic) Resp 16 Wt 97.1 kg (214 lb) [facility] 01/24/2023 BMI 36.73 kg/m Social History Tobacco Use Smoking status: Former Packs/day: 1.00 Years: 20.00 Additional pack years: 0.00 Total pack years: 20.00 Types: Cigarettes Quit date: 09/24/2011 Years since quittin.6 Smokeless tobacco: Never Tobacco comments: uses E-cigarettes Vaping Use Vaping Use: Former Substance Use Topics Alcohol use: Yes Alcohol/week: 5.0 - 10.0 standard drinks of alcohol Types: 2 - 4 Glasses of Wine (5oz) per week Drug use: No PAST MEDICAL HISTORY Diagnosis Date Essential hypertension I have confirmed and edited as necessary, the [facility] Review of Systems Constitutional: Negative for chills and fever. HENT: Positive for congestion, ear pain and sinus pain. Negative for sore throat. Respiratory: Negative for cough, sputum production, shortness of breath and wheezing. Cardiovascular: Negative for chest pain. Musculoskeletal: Negative for myalgias. Neurological: Negative for headaches. Objective Physical Exam Vitals and nursing note reviewed. HENT: Head: Normocephalic and atraumatic. Right Ear: Tympanic membrane, ear canal and external ear normal. Left Ear: Ear canal and external ear normal. A middle ear effusion is present. Tympanic membrane is bulging. Nose: Mucosal edema, congestion and rhinorrhea present. Right Sinus: No maxillary sinus tenderness or frontal sinus tenderness. Left Sinus: Maxillary sinus tenderness present. No frontal sinus tenderness. Mouth/Throat: Pharynx: Uvula midline. No oropharyngeal exudate or posterior oropharyngeal erythema. Cardiovascular: Rate and Rhythm: Normal rate and regular rhythm. Heart sounds: Normal heart sounds. Pulmonary: Effort: Pulmonary effort is normal. Breath sounds: Normal breath sounds. Lymphadenopathy: Head: Right side of head: No submental, submandibular or tonsillar adenopathy. Left side of head: No submental, submandibular or tonsillar adenopathy. Cervical: No cervical adenopathy. Skin: General: Skin is warm and dry. Neurological: Mental Status: She is alert and oriented to person, place, and time. Psychiatric: Mood and Affect: Affect normal. ASSESSMENT/PLAN: 1. Bacterial sinusitis - ICD9: 473.9, 041.9, ICD10: J32.9, B96.89 (primary diagnosis) - Will begin treatment with as per antibiotic as written, see orders - Supportive care with plenty of fluids, rest, and analgesia prn. - Follow up in one week if symptoms persist or worsen. 2. Problem of left ear - ICD9: V41.3, ICD10: H93.92 Possible effusion Cover with cefdinir due to PCN allergy Flonase, claritin Diagnosis and treatment plan were discussed and questions were answered to the patient's satisfaction. Pt acknowledged understanding of concepts and follow up plan. Specific signs and symptoms that would indicate the need for higher level of care were discussed in detail warranting prompt ER evaluation. Andreina Mustafa APRN.CANOPY INSPECTOR documented in this encounter [facility] 05-03-2023 History of Present illness Narrative PCP: Jena Peterson MD SUBJECTIVE Andreina Gee is a 47 year old female who presents with 1 week of symptoms that are stable. She called the office earlier today with report of sinus pain and pressure, head congestion and headache stiff neck photophobia runny nose cough. She reports illness in [facility] March 26 with [place] on [place] 28. Reports 3 home COVID test were negative at that time. She reports 2 weeks of illness in March with improvement now with recurrence x1 week. Headache yesterday which was severe, no longer having this. Did not seek care when this initially occurred. Symptoms include: Fever (?100.4F): No or Chills: No Cough: Yes Shortness of breath: No or Difficulty breathing: No Fatigue: Yes Muscle aches: No Headache: Yes maxillary and over top of head New loss of smell or taste: No Sore throat: Yes Nasal congestion: Yes or Rhinorrhea: Yes Nausea: No or Vomiting: No Diarrhea: No OTC meds/remedies that patient has tried: OTC flonase, antihistamine. OBJECTIVE PHYSICAL EXAM: BP 132/82 Pulse 81 Temp 36.1 C (96.9 F) Resp 16 Wt 97.1 kg (214 lb) LMP 01/24/2023 SpO2 96% BMI 36.73 kg/m General appearance: tired/ill appearing, alert, cooperative, pleasant, in no acute distress Head: Normocephalic Eyes: conjunctiva/corneas normal Ears: R TM - clear with good landmarks, nl light reflex, L TM - clear with good landmarks, nl light reflex Nose: clear rhinorrhea, mucosa erythematous and swollen, sinus tenderness over maxillary sinuses bilateral Oropharynx: moist without lesions Neck: supple and small, benign anterior cervical nodes bilaterally Heart: regular rate and rhythm, without murmur Lungs: clear to auscultation, without rales or wheeze, good air exchange Neck: ROM WNL, no stiffness ASSESSMENT/PLAN (J01.00) Acute non-recurrent maxillary sinusitis (primary encounter diagnosis) ASSESSMENT/PLAN: 1. Acute non-recurrent maxillary sinusitis - ICD9: 461.0, ICD10: J01.00 - Will begin treatment with as per antibiotic as written, see orders - Supportive care with plenty of fluids, rest, and analgesia prn. - Follow up if symptoms persist or worsen. Should be feeling improvement in a couple of days. Consider NeilMed nasal rinse QD in addition to Flonase and antihistamine aJe Mason APRN.CNS Medical Decision Making: Problems: Low: Acute, uncomplicated illness or injury Risk: Moderate: Drug management Medical Decision Making Level: 3 - Low documented in this encounter [facility] 05-03-2023 Miscellaneous Notes noted Patient returned call. Provider asked nurse to triage patient, since her (per pt) scheduled today's appt for possible bacterial meningitis. Patient states she wishes would not have said that. Patient's symptoms do not match that of bacterial meningitis. Advised patient to come to appt today for s/s mild sinus pain/pressure/congestion, head congestion, ANDRADE gone today. Patient agreeable. See triage below. Answer Assessment - Initial Assessment Questions 1. LOCATION: Sinus pain / pressure below eyes. Whole head congested. ANDRADE across top of head (ear to ear), stiff neck able to touch chin to chest without pain. No fever. Eyes sensitive to bright light. Runny nose. Sinus drainage that creates cough. 3 home covid tests were negative- 2 days apart- in March. Returned from [facility] on 03-28-23. Was sick in [facility] on March 26- returned to [facility] on 03-28. Was sick for 2 weeks, with same s/s she reports today, then felt better, the last couple weeks sick again with all the same symptoms. No N or V. Has chronic joint pain unrelated to this. Is feeling exhausted. No chills. 2. ONSET: See above 3. SEVERITY: Today sinus pain/pressure mild. ANDRADE was severe yesterday- lasted 4 hours. ANDRADE gone today. Took tylenol / ibuprofen for ANDRADE which gave relief. 4. RECURRENT SYMPTOM: Has hx of allergies- environmental that does create sinus/congestion issues. Allergy to PCN. 5. NASAL CONGESTION: Today has nasal congestion. Nose is not blocked. 6. NASAL DISCHARGE: No runny nose today. 7. FEVER: No 8. OTHER SYMPTOMS: No sore throat. Cough only with sinus drainage. No SOB. No earache. 9. : No. is fixed. Protocols used: Sinus Pain or [id number] documented in this encounter [facility] 04-18-2023 Miscellaneous Notes Patient has been identified by name and date of : No Patient phones for refill(s): Requested Prescriptions Pending Prescriptions Disp Refills zolpidem (AMBIEN) 10 mg 15 tablet 0 Sig: Take 0.5 tablets by mouth daily at bedtime for 30 days. Date of last office visit in primary care: 10/18/22 Last 2 Encounter Wt Readings: Date: Wt: 03/14/2023 96.2 kg (212 lb) 08/18/2022 93 kg (205 lb) Previous labs/tests for medication: Not applicable Please advise. Thank you. Fatmata Amanda LPN documented in this encounter [facility] 04-03-2023 Miscellaneous Notes Patient has been identified by name and date of : No Patient phones for refill(s): Requested Prescriptions Pending Prescriptions Disp Refills sertraline (ZOLOFT) 100 mg tablet 60 tablet 5 Sig: Take 2 tablets by mouth once daily. Date of last office visit in primary care: 10/18/22 Last 2 Encounter Wt Readings: Date: Wt: 03/14/2023 96.2 kg (212 lb) 08/18/2022 93 kg (205 lb) Previous labs/tests for medication: Not applicable Please advise. Thank you. Fatmata Amanda LPN documented in this encounter [facility] 03-14-2023 History of Present illness Narrative Plastic Surgery Note CC: follow up HPI: Andreina is a 47 year old female who presents today for follow up regarding excess skin of the neck. No results found for: HBA1C Last 10 Encounter BP Readings: Date: BP: 08/18/2022 114/60 12/21/2021 118/74 11/29/2021 130/71 03/14/2021 112/78 11/28/2019 96/70 11/04/2019 113/69 03/29/2019 130/72 12/17/2018 106/62 11/19/2018 108/60 11/03/2018 102/76 CBC Latest Ref Rng & Units 12/17/2015 07/24/2018 10/20/2018 WBC 4.5 - 11.0 k/uL 13.98(H) 10.80 11.79(H) RBC 4.00 - 5.20 m/uL 4.63 4.74 4.46 HEMOGLOBIN 12.0 - 16.0 g/dL 15.3 16.1(H) 15.1 HEMATOCRIT 36.0 - 46.0 % 44.4 46.9(H) 44.6 MCV 80 - 100 fL 95.9 98.9 100.0 MCH 26 - 34 pG 33.0 34.0 33.9 MCHC 31 - 37 g/dL 34.5 34.3 33.9 RDW-CV 11.5 - 14.5 % 12.2 12.1 12.9 PLATELETS 150 - 450 k/uL 239 259 222 MPV 9.0 - 12.7 fL 10.3 9.8 - BASO% 0 - 1 % 0.1 0.6 0.3 ABS NEUT (ANC) 1.8 - 7.7 k/uL 10.16(H) 7.98(H) 7.86(H) ABS LYMPH 1.0 - 4.0 k/uL 3.02 1.99 2.31 ABS MONO 0 - 0.8 k/uL 0.71 0.55 0.61 ABS EOSIN 0 - 0.4 k/uL 0.07 0.22 0.93(H) ABS BASO 0 - 0.2 k/uL 0.02 0.06 0.04 NRBC 0 - 0.9 /100 WBC - - 0 DIFF TYPE - Auto Diff Auto Diff - CMP Latest Ref Rng & Units 10/21/2018 10/23/2018 11/28/2019 SODIUM 136 - 144 mmol/L 138 141 140 POTASSIUM 3.7 - 5.1 mmol/L 3.6 3.9 4.0 CHLORIDE 97 - 105 mmol/L 99 103 101 CO2 22 - 30 mmol/L 35(H) 33(H) 25 GLUCOSE 74 - 99 mg/dL 100 102 81 BUN 7 - 21 mg/dL 8 8 9 CREATININE 0.58 - 0.96 mg/dL 0.63 0.61 0.62 EGFR-ALL OTHER RACES . >60 >60 >60 EGFR- - >60 >60 >60 PROTEIN, TOTAL 6.3 - 8.0 g/dL - - 7.3 ALBUMIN 3.9 - 4.9 g/dL - - 4.6 CALCIUM, TOTAL 8.5 - 10.2 mg/dL 8.6 8.8 9.6 BILIRUBIN, TOTAL 0.2 - 1.3 mg/dL - - 0.2 AST 13 - 35 U/L - - 20 ALT 7 - 38 U/L - - 14 ALKALINE PHOSPHATASE 34 - 123 U/L - - 63 YES NO Smoking, vaping, nicotine, cannabis [] [] Cigarettes/ day.... ? Diabetes [] [] []Type 1? []Type 2 ?Last A1c:..... Systemic inflammatory diseases [] [] []RA []Gout []Other... Hypertension [] [] Meds:....... Heart disease or pacemaker [] [] ............ Family history blood clots [] [] Personal history blood clots [] [] Anticoagulation (aspirin, coumadin, xarelto,etc) [] [] What........... Reason:........... Immunosuppressants (steroid, biologic meds infusion, etc) [] [] What........... Reason:........... Pt AGAINST blood transfusion? [] [] Objective: [facility] 08/06/2017 PAST MEDICAL HISTORY Diagnosis Date Essential hypertension PAST SURGICAL HISTORY Procedure Laterality Date SECTION HX x2 EXTRACTION, ERUPTED TOOTH OR EXPOSED ROOT (ELEVATION AND/OR FORCEPS REMOVAL) TONSILLECTOMY PRIMARY/SECONDARY <AGE 12 Tonsillectomy Current Outpatient Medications Medication Sig Dispense Refill zolpidem (AMBIEN) 10 mg Take 0.5 tablets by mouth daily at bedtime for 30 days. 15 tablet 0 sertraline (ZOLOFT) 100 mg tablet Take 2 tablets by mouth once daily. 60 tablet 5 loratadine (CLARITIN ORAL) Take by mouth. fluticasone propionate (FLONASE NASAL) Use in the nose. No current facility-administered medications for this visit. ALLERGIES Allergen Reactions Penicillins ROS: All negative except for: GENERAL: []weight loss []malaise []fevers HEENT: []frequent or significant headaches []changes in hearing []change in vision []nose bleeds []other nasal problems NECK: []lumps []goiter []pain and significant neck swelling RESPIRATORY: []cough []hemoptysis []wheezing []COPD []dyspnea []shortness of breath CARDIOVASCULAR: []chest pain []leg swelling []hypertension []CHF []palpitations GI: []nausea []vomiting []diarrhea MUSCULOSKELETAL: see HPI SKIN: [] skin lesions []rash []itching PSYCH: []sleep disturbance []mood disorder []recent psychosocial stressors HEMATOLOGY/LYMPHOLOGY: []prolonged bleeding []bruising easily []swollen nodes ENDOCRINE: []cold intolerance []heat intolerance []polyuria []polydipsia []goiter PE: Alert, awake in NAD LUNGS: Lungs clear to auscultation, Good diaphragmatic excursion CARDIAC: Normal S1 and S2; no rubs, murmurs, or gallops, Rhythm: regular rate and rhythm, Rate: normal A/P: Neck aging Discussed with patient that she has not lost weight as recommended at previous visit Recommend patient loses weight and then follow up for re-evaluation The patient is seen and examined by Dr. Boston and the following reflects his/her service. Scribed by Melly Chau RN I agree with the Chief Complaint, ROS, and Past Histories independently gathered by the clinical support services tech and the remaining scribed note accurately describes my personal service to the patient. I spent a total of 30 minutes on the date of the service which included preparing to see the patient, [id number] patient care, completing clinical documentation, obtaining and/or reviewing separately obtained history, performing a medically appropriate examination and counseling and educating the patient/family/caregiver. Shaunna Boston MD PhD March 14, 2023 4:48 PM This note was generated with voice recognition software and may contain errors, including spelling, grammar, syntax and misrecognition of what was dictated, that are not fully corrected. documented in this encounter [facility] 01-22-2023 Miscellaneous Notes Notified via [employer]. Cassidy Blanco Ma Patient needs schedule for in office routine visit. Thank you Elizabeth Argueta APRN.CNP PDMP website checked and validated. All prescriptions have been APPROPRIATELY filled. No suspicious activity was identified. 01/22/2023 by Elizabeth Argueta APRN.CNP Patient has been identified by name and date of : No Patient phones for refill(s): Requested Prescriptions Pending Prescriptions Disp Refills sertraline (ZOLOFT) 100 mg tablet 60 tablet 5 Sig: Take 2 tablets by mouth once daily. zolpidem (AMBIEN) 10 mg 15 tablet 0 Sig: Take 0.5 tablets by mouth daily at bedtime for 30 days. Date of last office visit in primary care: 08/18/22 Last 2 Encounter Wt Readings: Date: Wt: 08/18/2022 93 kg (205 lb) 05/16/2022 88.5 kg (195 lb) Previous labs/tests for medication: Not applicable Please advise. Thank you. Fatmata Amanda LPN documented in this encounter [facility] 12-25-2022 Miscellaneous Notes PDMP website checked and validated. All prescriptions have been APPROPRIATELY filled. No suspicious activity was identified. 12/25/2022 by Elizabeth Argueta APRN.CANOPY INSPECTOR Not Dr Keane's Pt-Dr Peterson's pt Nikkie Shaffer LPN documented in this encounter [facility] 12-25-2022 Miscellaneous Notes Pharmacy electronically requesting refills as follows: Requested Prescriptions Pending Prescriptions Disp Refills zolpidem (AMBIEN) 10 mg [Pharmacy Med Name: ZOLPIDEM TARTRATE 10 MG TABLET] 15 tablet 0 Sig: Take 0.5 tablets by mouth daily at bedtime. Last [facility] visit Please review and advise. Annette Nguyễn RN documented in this encounter [facility] 11-25-2022 Miscellaneous Notes The following approved medication requests have been transmitted electronically. Requested Prescriptions Signed Prescriptions Disp Refills zolpidem (AMBIEN) 10 mg 15 tablet 0 Sig: Take 0.5 tablets by mouth daily at bedtime for 30 days. PDMP website checked and validated. All prescriptions have been APPROPRIATELY filled. No suspicious activity was identified. 11/25/2022 by DO Rocio Alfaro DO Spoke with construction contractor provider, stated he would send in refill in the next few hours. Patient notified. Rose Reyes LPN Patient calling with medication/refill: Patient/caregiver requesting refill of Ambien 10 mg, she takes 1/2 tablet by mouth at bedtime be called to [facility] at [phone]. Patient denies any new or worsening symptoms of which a provider is not aware:Yes. Reason for call: Refill request for Ambien. Outcome: Message sent to [facility] medication refill pool. documented in this encounter [facility] 11-24-2022 Miscellaneous Notes Patient has been identified by name and date of : No Patient phones for refill(s): Requested Prescriptions Pending Prescriptions Disp Refills zolpidem (AMBIEN) 10 mg 15 tablet 5 Sig: Take 0.5 tablets by mouth daily at bedtime for 30 days. Date of last office visit in primary care: 10/18/22 Last 2 Encounter Wt Readings: Date: Wt: 08/18/2022 93 kg (205 lb) 05/16/2022 88.5 kg (195 lb) Previous labs/tests for medication: Not applicable Please advise. Thank you. Fatmata Amanda LPN documented in this encounter [facility] 11-10-2022 Miscellaneous Notes Rx medication as requested documented in this encounter [facility] 10-18-2022 History of Present illness Narrative Chief Complaint Patient presents with: Abnormal Weight Gain HPI Andreina Gee is a 47 year old female who is contacted today for a virtual/telemedicine visit. This is an established patient of Dr. Jena Peterson MD. She is here for weight management, she developed a sweet tooth after starting ozempic, and did not go beyond 12 pounds of weight loss. She has been eating better and is very active and would like to try something as she has absolutely no success with losing any weight. I did not ask her what exactly her weight was today. We discussed phentermine and Qsymia. She was interested in Qsymia Past medical history, appointments, medications, allergies reviewed 10/18/2022 Previous Medical History PAST MEDICAL HISTORY Diagnosis Date Essential hypertension Previous Surgical History PAST SURGICAL HISTORY Procedure Laterality Date SECTION HX x2 EXTRACTION, ERUPTED TOOTH OR EXPOSED ROOT (ELEVATION AND/OR FORCEPS REMOVAL) TONSILLECTOMY PRIMARY/SECONDARY <AGE 12 Tonsillectomy Family History FAMILY HISTORY Problem Relation Age of Onset Hypertension Mother Stroke Mother Heart Mother Hypertension Father Heart Father COPD Father Patient Allergies ALLERGIES Allergen Reactions Penicillins Current Medications Current Outpatient Medications on File Prior to Visit Medication Sig semaglutide (OZEMPIC) 1 mg/dose (4 mg/3 mL) pen Inject 1 mg subcutaneously one time a week. zolpidem (AMBIEN) 10 mg Take 0.5 tablets by mouth daily at bedtime for 30 days. sertraline (ZOLOFT) 100 mg tablet Take 2 tablets by mouth once daily. loratadine (CLARITIN ORAL) Take by mouth. fluticasone propionate (FLONASE NASAL) Use in the nose. No current facility-administered medications on file prior to visit. Social History Social History Tobacco Use Smoking status: Former Packs/day: 1.00 Years: 20.00 Pack years: 20.00 Types: Cigarettes Quit date: 09/24/2011 Years since quittin.0 Smokeless tobacco: Never Tobacco comments: uses E-cigarettes Vaping Use Vaping Use: Former Substance Use Topics Alcohol use: Yes Alcohol/week: 5.0 - 10.0 standard drinks Types: 2 - 4 Glasses of Wine (5oz) per week Drug use: No Review of Symptoms GENERAL: No weight loss. No malaise or fevers HEENT: Negative for headaches No eye discharge or redness No earaches or drainage No sore throat Nose POS/NEG for congestion and nasal discharge NECK: Negative for lumps, pain or significant neck swelling RESPIRATORY: No wheezing, SOB, Difficulty breathing. CARDIOVASCULAR: Negative for chest pain GI: No nausea, vomiting, or diarrhea MUSCULOSKELETAL: Negative for muscle aches or bodyaches SKIN: Negative for lesions, rash, and itching Neuro: No lightheadedness or dizziness EXAM: [facility] 08/06/2017 Deferred physical exam as visit was completed over the phone. Virtual visit completed using video, limited exam completed. General Appearance: Well appearing, alert, in no acute distress, well-hydrated, well nourished. Skin: Skin color Head: Normocephalic Psych: Attitude - cooperative, easily engaged in conversation Appearance - normal, hygiene and grooming appropriate Affect - euthymic, normal mood Mental status: Alert, attentive. Speech is clear and fluent with good repetition, comprehension Coordination: No abnormal or extraneous movements. Gait/Stance: Posture is normal. Health Maintenance List HEPATITIS B(1 of 3 - 3-dose series) Never done PAP TESTING Never done HPV TESTING Never done MAMMOGRAM due on 02/12/2020 COLORECTAL CANCER SCREENING Never done COVID-19 VACCINE(4 - Booster for Pfizer series) due on 07/28/2022 DEPRESSION ASSESSMENT due on 09/24/2022 DIABETES SCREEN due on 11/27/2022 LIPID SCREEN due on 07/24/2023 ANNUAL PCP TEAM CHRONIC DISEASE VISIT due on 08/18/2023 BP CONTROLLED (<130/80) due on 08/18/2023 DTAP,TDAP,TD(2 - Td or Tdap) due on 03/29/2029 INFLUENZA Completed HIV SCREENING Completed HEPATITIS C SCREENING Discontinued PNEUMOCOCCAL Discontinued Data reviewed Last 5 Encounter BP Readings: Date: BP: 08/18/2022 114/60 12/21/2021 118/74 11/29/2021 130/71 03/14/2021 112/78 11/28/2019 96/70 BMI Readings from Last 5 Encounters: 08/18/22 : 35.19 kg/m 08/04/22 : (P) 34.50 kg/m 05/16/22 : 33.47 kg/m 04/05/22 : 35.36 kg/m 12/21/21 : 33.64 kg/m Last 5 Encounter Wt Readings: Date: Wt: 08/18/2022 93 kg (205 lb) 05/16/2022 88.5 kg (195 lb) 04/05/2022 93.4 kg (206 lb) 12/21/2021 88.9 kg (196 lb) 11/29/2021 90.3 kg (199 lb) Medication and allergy list reviewed, reconciled and updated 10/18/2022 ASSESSMENT/PLAN: 1. Class 2 severe obesity with serious comorbidity and body mass index (BMI) of 35.0 to 35.9 in adult, unspecified obesity type (HCC) - ICD9: 278.01, V85.35, ICD10: E66.01, Z68.35 Went over the side effect profile for the drug with the patient, mentioned every one of it , discussed appropriate concerns , alternatives and benefits of the drug. - QSYMIA 3.75 MG-23 MG CAPSULE, EXTENDED RELEASE Increase in 1 month., follow up in 2 weeks Jena Peterson MD documented in this encounter [facility] 09-15-2022 History of Present illness Narrative POPULATION HEALTH NAVIGATION OUTREACH Action/FYI Patient Outreach: Left voicemail for patient to call back to schedule in [facility]ST. (please see [employer] order dated for 08/04/2022). Any agent can assist with scheduling. Pt identified by name and : NO Outreach Outcome/Action Unable to reach patient: Left message Did you use a PCP flex slot to schedule this appointment? No Reason for Outreach Care Gap or Scheduling/Wellness visits Payer: Payor: [employer] / Plan: BLUE CARD EPO OOS / Product Type: EPO / Care Gap Reviewed:: Specialty Scheduling Reminder: Reminder note to check Health Maintenance for items below Health Maintenance items due: HEPATITIS B(1 of 3 - 3-dose series) Never done PAP TESTING Never done HPV TESTING Never done MAMMOGRAM due on 02/12/2020 COLORECTAL CANCER SCREENING Never done COVID-19 VACCINE(4 - Booster for Pfizer series) due on 07/28/2022 Navigation Signature: Sharon Christy Pss September 15, 2022 10:10 AM documented in this encounter [facility] 08-18-2022 History of Present illness Narrative Reason for Visit Patient presents with: Follow Up: left hip pain x 2 years Andreina Gee is a 47 year old female who presents here today for Above Complaints. Health Maintenance HEPATITIS B(1 of 3 - 3-dose series) PAP TESTING HPV TESTING MAMMOGRAM COLORECTAL CANCER SCREENING DEPRESSION ASSESSMENT BP CONTROLLED (<130/80) COVID-19 VACCINE(4 - Booster for Pfizer series) HPI Obesity : she had gained around 45 pounds during the pandemic . On Ozempic, her trend of gain is broken but not losing as he would like to. Has nausea, decreased appetite, and she does feel full and there is no weight loss in the past 2 months Something different about this medication is that fact that she developed a sweet. Patient says she feels exhausted most days after starting medication at this dose. She is not as hungry on this dose but has a sweet tooth, she def has a lunch and dinner and snack. She did not check her blood sugars at this time Does not exercise as much because of her hip She had oral steroids for the left hip but that did not help her much she would like to take the shot if we can give it to her today Procedure note: Trochanteric bursitis The risk, benefits and alternatives of injection and no injection therapy were discussed. The patient consented for an injection. Time out was conducted. The injection site was prepped with a Chlorhexadine swab. The right trochanteric bursa a the tenderest Point was injected with a 22 gauge needle with 1 cc (40 mg) kenalog, 1 cc of lidocaine . The injection site was then dressed with a bandaid. The patient tolerated the injection well. The patient was instructed to call the office if any adverse local effects occurred or any if any questions or concerns arise. No problem-specific Assessment & Plan notes found for this encounter. PAST MEDICAL HISTORY Diagnosis Date Essential hypertension PAST SURGICAL HISTORY Procedure Laterality Date SECTION HX x2 EXTRACTION, ERUPTED TOOTH OR EXPOSED ROOT (ELEVATION AND/OR FORCEPS REMOVAL) TONSILLECTOMY PRIMARY/SECONDARY <AGE 12 Tonsillectomy FAMILY HISTORY Problem Relation Age of Onset Hypertension Mother Stroke Mother Heart Mother Hypertension Father Heart Father COPD Father Social History Tobacco Use Smoking status: Former Packs/day: 1.00 Years: 20.00 Pack years: 20.00 Types: Cigarettes Quit date: 09/24/2011 Years since quittin.9 Smokeless tobacco: Never Tobacco comments: uses E-cigarettes Vaping Use Vaping Use: Former Substance Use Topics Alcohol use: Yes Alcohol/week: 5.0 - 10.0 standard drinks Types: 2 - 4 Glasses of Wine (5oz) per week Drug use: No Past medical history, appointments, medications, allergies reviewed. Pertinent Lab/Diagnostic Studies are reviewed and discussed today Current Outpatient Medications: semaglutide (OZEMPIC) 1 mg/dose (4 mg/3 mL) pen zolpidem (AMBIEN) 10 mg sertraline (ZOLOFT) 100 mg tablet loratadine (CLARITIN ORAL) fluticasone propionate (FLONASE NASAL) Review of Systems CONSTITUTIONAL: No fevers, chills [...] or numbness of concern. Physical Exam BP 114/60 (BP Site: Right Arm, BP Position: Sitting, BP Cuff Size: Large Adult) Pulse 81 Temp 36.9 C (98.4 F) Resp 12 Ht 162.6 cm (5' 4 ) Wt 93 kg (205 lb) LMP 08/06/2017 SpO2 97% BMI 35.19 kg/m General appearance: Well appearing, alert, in no [...] or cyanosis. Good capillary refill. ASSESSMENT/PLAN: 1. Class 2 obesity without serious comorbidity with body mass index (BMI) of 35.0 to 35.9 in adult, unspecified obesity type - ICD9: 278.00, V85.35, ICD10: E66.9, Z68.35 (primary diagnosis) The medication is not doing what it should have done in the past. 2. Essential hypertension - ICD9: 401.9, ICD10: I10 - good control - Recommended regular aerobic exercise. - Recommend home blood pressure monitoring, to bring results in on next visit - Goal of BP <130/80 3. Class 2 severe obesity due to excess calories with serious comorbidity and body mass index (BMI) of 37.0 to 37.9 in adult (HCC) - ICD9: 278.01, V85.37, ICD10: E66.01, Z68.37 4. Anxiety - ICD9: 300.00, ICD10: F41.9 Zoloft to continue 5. Trochanteric bursitis, left hip - ICD9: 726.5, ICD10: M70.62 Injection for it was given today - TRIAMCINOLONE ACETONIDE 40 MG/ML SUSPENSION FOR INJECTION Jena Peterson MD documented in this encounter [facility] 08-04-2022 History of Present illness Narrative This note was created using Meep[employer]. Subjective Andreina Gee is a 47 year old female. She's had a bad hip for years. 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 In particular left hip pain has been noted x 15 years, worsening the past 6 months. For unclear reasons, left hip has been severe the last few weeks. Pain is burning, and mainly bothersome at night, interfering with sleep. Pain is minimal during the day when active. Aleve, Tylenol, and Advil had been tried with short lived benefit. ACTIVE PROBLEM LIST Other Specified Disease of White Blood Cells Essential Hypertension Alcohol Abuse Anxiety Obesity Due to Excess Calories Current Outpatient Medications Medication Sig semaglutide (OZEMPIC) 1 mg/dose (4 mg/3 mL) pen Inject 1 mg subcutaneously one time a week. zolpidem (AMBIEN) 10 mg Take 0.5 tablets by mouth daily at bedtime for 30 days. sertraline (ZOLOFT) 100 mg tablet Take 2 tablets by mouth once daily. loratadine (CLARITIN ORAL) Take by mouth. fluticasone propionate (FLONASE NASAL) Use in the nose. predniSONE (DELTASONE) 10 mg tablet Take 4 tabs daily for 3 days, then 2 tabs daily for 3 days, then 1 tab daily for 3 days with food. No current facility-administered medications for this visit. Review of Systems Constitutional: Negative for fever and unexpected weight change. Musculoskeletal: Positive for back pain. Negative for gait problem and joint swelling. Neurological: Negative for weakness and numbness. Objective BP (P) 115/82 (BP Site: Left Arm, BP Position: Sitting, BP Cuff Size: Large Adult) Pulse (P) 97 Wt (P) 91.2 kg (201 lb) LMP 08/06/2017 BMI (P) 34.50 kg/m Physical Exam Constitutional: Appearance: She is not ill-appearing. Musculoskeletal: Lumbar back: No tenderness. Negative right straight leg raise test and negative left straight leg raise test. Right hip: Normal. Left hip: Tenderness present. No deformity, bony tenderness or crepitus. Normal range of motion. Normal strength. Comments: Soft tissue tenderness left hip greater trochanter. Neurological: Mental Status: She is alert. Assessment and Plan 1. Trochanteric bursitis of left hip - ICD9: 726.5, ICD10: M70.62 (primary diagnosis) Shared Medical Decision Making was done: Medication: prednisone. Benefits: Medication may help inflammation in the short term. Risks: Possible side effects were discussed including weight gain. Possible interactions: n/a. Duration: short term. - PREDNISONE 10 MG TABLET - CONSULT TO PHYSICAL THERAPY 2. Need for influenza vaccination - ICD9: V04.81, ICD10: Z23 - INFLUENZA VACCINE QUADRIVALENT 6 MO - 64 YRS IM Leon Guy MD documented in this encounter [facility] 07-29-2022 Miscellaneous Notes Check with pharmacy, Patient does have 1 refill. Pharmacy will have Patient call to schedule an appt w/PCP. Lacey Rivera LPN documented in this encounter [facility] 07-15-2022 Miscellaneous Notes Last OV: 05/16/22 Next OV: N/A documented in this encounter [facility] 05-25-2022 Miscellaneous Notes Patient has been identified by name and date of : Yes Requested Prescriptions Pending Prescriptions Disp Refills zolpidem (AMBIEN) 10 mg 15 tablet 0 Sig: Take 0.5 tablets by mouth daily at bedtime for 30 days. RX INSTRUCTIONS: patient had virtual visit with provider on 05/16/22 . Patient aware RX will be sent to pharmacy. No need to nofity patient. Controlled medication - must be call in. Vanna Terrell Pss documented in this encounter [facility] 05-23-2022 Miscellaneous Notes Duplicate. Lacey Rivera LPN documented in this encounter [facility] 05-16-2022 History of Present illness Narrative Chief Complaint No chief complaint on file. SUSANNA Gee is a 46 year old female who is contacted today for a virtual/telemedicine visit. This is an established patient of Dr. Jena Peterson MD. States she Is doing very very good, with the ozempic. Lost 11 pounds since she last saw me on ozempic. She is not having major side effect and tolerating the medication well. Past medical history, appointments, medications, allergies reviewed 05/16/2022 Previous Medical History PAST MEDICAL HISTORY Diagnosis Date Essential hypertension Previous Surgical History PAST SURGICAL HISTORY Procedure Laterality Date SECTION HX x2 EXTRACTION, ERUPTED TOOTH OR EXPOSED ROOT (ELEVATION AND/OR FORCEPS REMOVAL) TONSILLECTOMY PRIMARY/SECONDARY <AGE 12 Tonsillectomy Family History FAMILY HISTORY Problem Relation Age of Onset Hypertension Mother Stroke Mother Heart Mother Hypertension Father Heart Father COPD Father Patient Allergies ALLERGIES Allergen Reactions Penicillins Current Medications Current Outpatient Medications on File Prior to Visit Medication Sig zolpidem (AMBIEN) 10 mg Take 0.5 tablets by mouth daily at bedtime for 30 days. semaglutide (OZEMPIC) 0.25 mg or 0.5 mg(2 mg/1.5 mL) pen injector Inject 0.25 mg subcutaneously one time a week. sertraline (ZOLOFT) 100 mg tablet Take 2 tablets by mouth once daily. loratadine (CLARITIN ORAL) Take by mouth. fluticasone propionate (FLONASE NASAL) Use in the nose. No current facility-administered medications on file prior to visit. Social History Social History Tobacco Use Smoking status: Former Packs/day: 1.00 Years: 20.00 Pack years: 20.00 Types: Cigarettes Quit date: 09/24/2011 Years since quittin.6 Smokeless tobacco: Never Tobacco comments: uses E-cigarettes Substance Use Topics Alcohol use: Yes Alcohol/week: 5.0 - 10.0 standard drinks Types: 2 - 4 Glasses of Wine (5oz) per week Drug use: No Review of Symptoms GENERAL: No weight loss. No malaise or fevers HEENT: Negative for headaches No eye discharge or redness No earaches or drainage No sore throat Nose POS/NEG for congestion and nasal discharge NECK: Negative for lumps, pain or significant neck swelling RESPIRATORY: No wheezing, SOB, Difficulty breathing. CARDIOVASCULAR: Negative for chest pain GI: No nausea, vomiting, or diarrhea MUSCULOSKELETAL: Negative for muscle aches or bodyaches SKIN: Negative for lesions, rash, and itching Neuro: No lightheadedness or dizziness EXAM: [facility] 08/06/2017 Deferred physical exam as visit was completed over the phone.Virtual visit completed using video, limited exam completed. General Appearance: Well appearing, alert, in no acute distress, well-hydrated, well nourished. Skin: Skin color Head: Normocephalic Psych: Attitude - cooperative, easily engaged in conversation Appearance - normal, hygiene and grooming appropriate Affect - euthymic, normal mood Mental status: Alert, attentive. Speech is clear and fluent with good repetition, comprehension Coordination: No abnormal or extraneous movements. Gait/Stance: Posture is normal. Health Maintenance List HEPATITIS B(1 of 3 - 3-dose series) Never done PAP TESTING Never done HPV TESTING Never done MAMMOGRAM due on 02/12/2020 COLORECTAL CANCER SCREENING Never done INFLUENZA(1) due on 05/25/2022 DIABETES SCREEN due on 11/27/2022 BP CONTROLLED (<130/80) due on 12/21/2022 DEPRESSION SCREENING due on 04/03/2023 ANNUAL PCP TEAM CHRONIC DISEASE VISIT due on 04/05/2023 LIPID SCREEN due on 07/24/2023 DTAP,TDAP,TD(2 - Td or Tdap) due on 03/29/2029 HIV SCREENING Completed COVID-19 VACCINE Completed HEPATITIS C SCREENING Discontinued PNEUMOCOCCAL Discontinued Data reviewed Last 5 Encounter BP Readings: Date: BP: 12/21/2021 118/74 11/29/2021 130/71 03/14/2021 112/78 11/28/2019 96/70 11/04/2019 113/69 BMI Readings from Last 5 Encounters: 04/05/22 : 35.36 kg/m 12/21/21 : 33.64 kg/m 11/29/21 : 34.16 kg/m 03/14/21 : 32.96 kg/m 11/28/19 : 27.29 kg/m Last 5 Encounter Wt Readings: Date: Wt: 04/05/2022 93.4 kg (206 lb) 12/21/2021 88.9 kg (196 lb) 11/29/2021 90.3 kg (199 lb) 03/14/2021 87.1 kg (192 lb) 11/28/2019 72.1 kg (159 lb) Medication and allergy list reviewed, reconciled and updated 05/16/2022 ASSESSMENT/PLAN: 1. Class 2 severe obesity due to excess calories with serious comorbidity and body mass index (BMI) of 37.0 to 37.9 in adult (HCC) - ICD9: 278.01, V85.37, ICD10: E66.01, Z68.37 Increased the dose of ozempic to 0.5 mgs - SEMAGLUTIDE 0.25 MG OR 0.5 MG (2 MG/1.5 ML) SUBCUTANEOUS PEN INJECTOR Jena Peterson MD documented in this encounter [facility] 04-21-2022 Miscellaneous Notes PDMP website checked and validated. All prescriptions have been APPROPRIATELY filled. No suspicious activity was identified. 04/21/2022 by Elizabeth Argueta APRN.KAI Patient has been identified by name and date of : Yes Patient phones for refill(s): Pending Prescriptions Disp Refills ZOLPIDEM 10 MG TABLET 15 tablet 0 Sig: Take 0.5 tablets by mouth daily at bedtime for 30 days. MAVERICK Class: C-IV SHAYAN: No Date of last office visit in primary care: 04/05/2022 Appt: 05/16/2022 Last 2 Encounter Wt Readings: Date: Wt: 04/05/2022 93.4 kg (206 lb) 12/21/2021 88.9 kg (196 lb) Previous labs/tests for medication: Not applicable Please advise. Thank you. Lacey Rivera LPN documented in this encounter [facility] 04-20-2022 Chief complaint Narrative - Reported An interactive audio and video telecommunication system which permits real time communications between the patient (at the originating site) and provider (at the distant site) was utilized to provide this telehealth service.Verbal consent was requested and obtained from ANDREINA GEE on this date, 04/20/2022 03:00 PM , for a telehealth visit.Post-operative visit status post KTP laser ablation of left laryngocele on 03/20/22 [id number]-Pmlgzy n Voice Work Phone: 04-05-2022 History of Present illness Narrative Chief Complaint Patient presents with: Abnormal Weight Gain HPI Andreina Gee is a 46 year old female who is contacted today for a virtual/telemedicine visit. This is an established patient of Dr. Jena Peterson MD. States: weight gain from zoloft, it did help her with the anxiety, she does not feel as anxious and is in better control. Been on zoloft for a year and since then she has noticed weight gain. She has always in the 150 to 170 range, 170 being the highest and now she is 208 Pounds despite making a lot of effort to doing better. The changes she has made is restricting calories to 1200 to 1500 a day, she is exercising 4 times a week. 5 days minimum for 30 mins, she does some walking. Food choices are much healthy, they are doing low carb as a lifestyle, veggies, fruits, meat, low calorie ice cream. They eat smart pop or snap string cheese. Cut out eating out. She think that was around joi she started doing this For the past 3 months not had a period, mother had early menopause at 35. She has insomnia, irritability, Weight gain, jesus around the mid riff. Past medical history, appointments, medications, allergies reviewed 04/05/2022 Previous Medical History PAST MEDICAL HISTORY Diagnosis Date Essential hypertension Previous Surgical History PAST SURGICAL HISTORY Procedure Laterality Date SECTION HX x2 EXTRACTION, ERUPTED TOOTH OR EXPOSED ROOT (ELEVATION AND/OR FORCEPS REMOVAL) TONSILLECTOMY PRIMARY/SECONDARY <AGE 12 Tonsillectomy Family History FAMILY HISTORY Problem Relation Age of Onset Hypertension Mother Stroke Mother Heart Mother Hypertension Father Heart Father COPD Father Patient Allergies ALLERGIES Allergen Reactions Penicillins Current Medications Current Outpatient Medications on File Prior to Visit Medication Sig zolpidem (AMBIEN) 10 mg Take 0.5 tablets by mouth daily at bedtime for 30 days. sertraline (ZOLOFT) 100 mg tablet Take 2 tablets by mouth once daily. albuterol HFA (PROVENTIL HFA, VENTOLIN HFA) 90 mcg/actuation inhaler Inhale 1-2 Puffs as instructed every 6 hours as needed for wheezing/shortness of breath. loratadine (CLARITIN ORAL) Take by mouth. fluticasone propionate (FLONASE NASAL) Use in the nose. No current facility-administered medications on file prior to visit. Social History Social History Tobacco Use Smoking status: Former Smoker Packs/day: 1.00 Years: 20.00 Pack years: 20.00 Quit date: 09/24/2011 Years since quittin.5 Smokeless tobacco: Never Used Tobacco comment: uses E-cigarettes Substance Use Topics Alcohol use: Yes Alcohol/week: 5.0 - 10.0 standard drinks Types: 2 - 4 Glasses of Wine (5oz) per week Drug use: No Review of Symptoms GENERAL: No weight loss. No malaise or fevers HEENT: Negative for headaches No eye discharge or redness No earaches or drainage No sore throat Nose POS/NEG for congestion and nasal discharge NECK: Negative for lumps, pain or significant neck swelling RESPIRATORY: No wheezing, SOB, Difficulty breathing. CARDIOVASCULAR: Negative for chest pain GI: No nausea, vomiting, or diarrhea MUSCULOSKELETAL: Negative for muscle aches or bodyaches SKIN: Negative for lesions, rash, and itching Neuro: No lightheadedness or dizziness EXAM: Wt 93.4 kg (206 lb) LMP 08/06/2017 BMI 35.36 kg/m Deferred physical exam as visit was completed over the phone. Virtual visit completed using video, limited exam completed. General Appearance: Well appearing, alert, in no acute distress, well-hydrated, well nourished. Skin: Skin color Head: Normocephalic Psych: Attitude - cooperative, easily engaged in conversation Appearance - normal, hygiene and grooming appropriate Affect - euthymic, normal mood Mental status: Alert, attentive. Speech is clear and fluent with good repetition, comprehension Coordination: No abnormal or extraneous movements. Gait/Stance: Posture is normal. Health Maintenance List PAP TESTING Never done HPV TESTING Never done MAMMOGRAM due on 02/12/2020 COLORECTAL CANCER SCREENING Never done INFLUENZA(1) due on 05/25/2022 DIABETES SCREEN due on 11/27/2022 BP CONTROLLED (<130/80) due on 12/21/2022 ANNUAL PCP TEAM CHRONIC DISEASE VISIT due on 02/07/2023 DEPRESSION SCREENING due on 04/03/2023 LIPID SCREEN due on 07/24/2023 DTAP,TDAP,TD(2 - Td or Tdap) due on 03/29/2029 HIV SCREENING Completed COVID-19 VACCINE Completed HEPATITIS C SCREENING Discontinued PNEUMOCOCCAL Discontinued Data reviewed Last 5 Encounter BP Readings: Date: BP: 12/21/2021 118/74 11/29/2021 130/71 03/14/2021 112/78 11/28/2019 96/70 11/04/2019 113/69 BMI Readings from Last 5 Encounters: 04/05/22 : 35.36 kg/m 12/21/21 : 33.64 kg/m 11/29/21 : 34.16 kg/m 03/14/21 : 32.96 kg/m 11/28/19 : 27.29 kg/m Last 5 Encounter Wt Readings: Date: Wt: 12/21/2021 88.9 kg (196 lb) 11/29/2021 90.3 kg (199 lb) 03/14/2021 87.1 kg (192 lb) 11/28/2019 72.1 kg (159 lb) 11/04/2019 71.7 kg (158 lb) Medication and allergy list reviewed, reconciled and updated 04/05/2022 ASSESSMENT/PLAN: 1. Class 2 drug-induced obesity with serious comorbidity and body mass index (BMI) of 36.0 to 36.9 in adult - ICD9: 278.00, V85.36, ICD10: E66.1, Z68.36 (primary diagnosis) Weight increasing Went over the side effect profile for the drug with the patient, mentioned every one of it , discussed appropriate concerns , alternatives and benefits of the drug, We discussed low increase of medication - SEMAGLUTIDE 0.25 MG OR 0.5 MG (2 MG/1.5 ML) SUBCUTANEOUS PEN INJECTOR - HGB A1C - TSH BLD 2. Menopausal symptom - ICD9: 627.2, ICD10: N95.1 Still not 1 year out of periods 3. Abnormal weight gain - ICD9: 783.1, ICD10: R63.5 4. Essential hypertension - ICD9: 401.9, ICD10: I10 - good control - Recommended regular aerobic exercise. - Recommend home blood pressure monitoring, to bring results in on next visit - Goal of BP <130/80 - COMP METABOLIC PANEL - CBC + DIFF Jena Peterson MD documented in this encounter [facility] 03-28-2022 Miscellaneous Notes The following approved medication requests have been transmitted electronically. Signed Prescriptions Disp Refills zolpidem (AMBIEN) 10 mg 15 tablet 0 Sig: Take 0.5 tablets by mouth daily at bedtime for 30 days. MAVERICK Class: C-IV SHAYAN: No Authorizing Provider: LEON GUY LPN Patient's request for medication is as follows Signed Prescriptions Disp Refills zolpidem (AMBIEN) 10 mg 15 tablet 0 Sig: Take 0.5 tablets by mouth daily at bedtime for 30 days. MAVERICK Class: C-IV SHAYAN: No Authorizing Provider: LEON GUY Appointment with PCP team needed. Leon Guy MD documented in this encounter [facility] 03-28-2022 Miscellaneous Notes Duplicate request medication has already been approved and sent to pharmacy. Fatmata Amanda LPN documented in this encounter [facility] 03-25-2022 Miscellaneous Notes Reason for call: calling with request for medication/refill: Patient/caregiver requesting refill of Ambien be called to [facility] pharmacy at [place], [place]., Do you have enough medication to last until the office reopens? No. and Have you contacted your pharmacy to ask for enough medication to get by until the office reopens? Yes. denies any new or worsening symptoms of which a provider is not aware: Yes. Patient had vocal cord surgery with Dr. Alfonso on 03/20/2022 and is unable to sleep due to pain. Patient has reached out to Dr. Alfonso's office for recommendations. Patient would like to have Ambien refilled to help with sleep. Outcome: Call PCP now; Reviewed sx/course with Dr. Leon Guy construction contractor. Dr. Leon Guy will review chart and renew Ambien. Patient's notified. GO TO THE EMERGENCY ROOM OR CALL 911 IF: * You develop any new symptoms * Your condition worsens * You are concerned or anxious about your condition for any other reason. If you have any questions, you can call Nurse planer stone back. documented in this encounter [facility] 03-20-2022 History of Present illness Narrative ANDREINA GEE is a 46 year female presenting for a post-operative visit status post KTP laser ablation of a left laryngocele on 03/20/22.PMH: Allergic rhinitis, HTN, anxietyInterval History 02/04/2022:1. Voice: She has noticed an improvement in her voice. She states that she no longer experiences hoarseness or scratchiness, and her vocal complications have resolved. Very pleased.No swallowing, breathing, laryngospasm, fever, chills, nausea, or vomiting. [id number]-[id number]-Jzrjvz n Voice Work Phone: 03-20-2022 Note PROCEDURE DETAILS Preoperative Diagnosis: Vocal fold nodule, laryngocele, dysphonia Postoperative Diagnosis: laryngocele, dysphonia Surgeon: Devi Alfonso MD Resident/Fellow/Other Fire Crew Specialist: Karson Procedure: 1. MicroDirect laryngoscopy, diagnostic 2. MicroDirect laryngoscopy, with KTP laser ablation of left laryngocele Anesthesia: GET via laser safe tube Estimated Blood Loss: 0 Findings: Please see operative report Specimens(s) Collected: no, Complications: No immediate intraoperative complications Drains and/or Catheters: None Implants: None Patient Returned To/Condition: PACU/Stable Operative Report: Indication for Surgery : Laryngocele, vocal fold nodule, dysphonia We discussed the risks and benefits to include, but not be limited to, hoarseness which may be permanent, scarring, swallow change which may require secondary intervention, bleeding; infection; damage to surrounding structures including the teeth, gums, lips, tongue; laser fire/burn; taste change; medical complications; and risks of anesthesia. Their questions are answered and they sign written consent. Operative Procedure : The patient was brought back to the operating room and transferred to the operating room table. The patient was pre-oxygenated with 100% oxygen via facemask. Following time-out the patient received anesthesia and was intubated with 5-0 laser safe tube. The bed was turned 90 to the laryngology team. A pause was performed confirming procedure. A moldable tooth guard was placed on the upper dentition. The glottiscope was introduced transorally along the right side of the tongue. No concerning masses or lesions were identified in the oral cavity, oropharynx, or hypopharynx. The laryngoscope was secured on the mustard stand and the microscope was utilized to inspect the airway and used for the remainder of the procedure. Appropriate eye and face protections was applied to the patient and the operating room staff. The oxygen level was also at or below 30% for the entirety of the procedure. Findings and treatment include: resolution of left sided vocal cord lesion, and persistent anterior left larynogcele. Anterior positioning Under microscopic guidance, we viewed the larynx. The previously noted lesion on the left vocal cord was now resolved. the left sided laryngocele remained. She had very anterior positioning which allowed for visualization of only the posterior 1/2 of the vocal cords. with anterior pressure we could visualize the full extent. No lesion was noted and pictures were documented in imagestream. We also pulled up her image stream to compare and no lesion was seen. The laryngocele could only be reached with the endoscope. This was used for visualization and the kTP laser via curved fiber used to ablate the laryngocele. The pulsed KTP laser was utilized at a setting of 30-35W, 15 ms pulse mode and 2 pulses per second to treat the affected areas. A total of 145 joules was utilized. The patient tolerated this well. The patient was then turned back to Anesthesia for extubation and returned to the recovery room in satisfactory condition. Sponge, needle, instrument counts were reported as correct. Estimated blood loss was minimal. I was present and participated in all aspects of procedure.. Note Recipients: Jena Peterson MD - [phone] [] Attestation: Note Completion: Attending AttestationI was present for the entire procedure I am a:Resident/Fellow Electronic Signatures: Benjamin Ty (Resident)) (Signed 20-Mar-2022 06:20) Authored: Post-Operative Note, Chart Review, Note Completion Devi Alfonso) (Signed 20-Mar-2022 12:27) Authored: Post-Operative Note, Chart Review, Note Completion Last Updated: 20-Mar-2022 12:27 by Devi Alfonso) [facility] 03-20-2022 Note History of Present I llness: /Lactating: Are You unable to answer Order Testpatient declines Are You Currently Breastfeedingunable to answer History Present Illness: Reason for surgery: Vocal fold nodule - MDL with laser HPI: Planned Surgery: MDL, KTP, Blue light, steroid injection Name: Andreina Gee ([id number]) Surgeon: Devi Alfonso MD Age: 46 Date of Surgery: 03/20 Dispo: Outpt Preop H+P Date: >30 d Preop Diagnosis: Laryngocele, vocal fold nodule HPI: 46-year-old woman referred for 3 to 6 months of worsening dysphonia. She underwent flexible laryngoscopy at most recent visit and was noted to have a left-sided vocal fold nodule and a left greater than right laryngocele. After discussion of risks, benefits, and alternatives, the decision was made to pursue the above listed procedure. All questions were answered, the patient expressed understanding. Scope Hx: Left vocal fold nodule, left greater than right laryngocele PMH: Elevated BMI, as above SHx: Denies tobacco use FHx: None relevant All: Penicillins, latex, environmental Rx: Claritin, fluticasone nasal, sertraline 200, trazodone, zolpidem F/U: TBS Allergies: Allergies: penicillin: Anaphylaxis Home Medication Review: Home Medications Reviewed: yes Impression/Procedure: Impression and Planned Procedure: Vocal fold nodule - MDL with laser ERAS (Enhanced Recovery After Surgery): ERAS Patient: no Vital Signs: Temperature C: 36.9 degrees C Temperature F: 98.4 degrees F Heart Rate: 75 beats per minute Respiratory Rate: 16 breath per minute Blood Pressure Systolic: 124 mm/Hg Blood Pressure Diastolic: 82 mm/Hg Physical Exam by System: Respiratory/Thorax: Unlabored room air Cardiovascular: Well perfused Consent: COVID-19 Consent: COVID-19 Risk ConsentSurgeon has reviewed neely risks related to the risk of candie COVID-19 and if they contract COVID-19 what the risks are. Attestation: Note Completion: I am a: Resident/Fellow Attending AttestationI saw and evaluated the patient. I personally obtained the neely and critical portions of the history and physical exam or was physically present for neely and critical portions performed by the resident/fellow. I reviewed the resident/fellows documentation and discussed the patient with the resident/fellow. I agree with the resident/fellows medical decision making as documented in the note. I personally evaluated the patient [id number] Electronic Signatures: Benjamin Ty (Resident)) (Signed 20-Mar-2022 11:32) Authored: History of Present Illness, Allergies, Home Medication Review, Impression/Procedure, ERAS, Physical Exam, Consent, Note Completion Devi Alfonso) (Signed 20-Mar-2022 13:58) Authored: History of Present Illness, Note Completion Co-Signer: History of Present Illness, Allergies, Home Medication Review, Impression/Procedure, ERAS, Physical Exam, Consent, Note Completion Last Updated: 20-Mar-2022 13:58 by Devi Alfonso) [facility] 02-06-2022 History of Present illness Narrative Telemedicine Visit - Distance Health Virtual Visit Note Patient seen on [employer] video visit platform. Location of patient: [place] History of Present Illness Patient presents for COVID follow-up. Symptoms began 01/27. Positive for COVID 01/30. Reports some improvement of symptoms. Former smoker. Feels like she may have bronchitis. Ongoing productive cough productive purulent sputum. Chest is burning with deep breaths. No wheeze, but reports BHATT. Fevers have resolved. PAST MEDICAL HISTORY Diagnosis Date Essential hypertension Current Outpatient Medications on File Prior to Visit Medication Sig sertraline (ZOLOFT) 100 mg tablet Take 2 tablets by mouth once daily. sertraline (ZOLOFT) 100 mg tablet Take 2 tablets by mouth once daily. zolpidem (AMBIEN) 10 mg Take 0.5 tablets by mouth daily at bedtime for 180 days. loratadine (CLARITIN ORAL) Take by mouth. fluticasone propionate (FLONASE NASAL) Use in the nose. No current facility-administered medications on file prior to visit. Social History Tobacco Use Smoking status: Former Smoker Packs/day: 1.00 Years: 20.00 Pack years: 20.00 Quit date: 09/24/2011 Years since quittin.3 Smokeless tobacco: Never Used Tobacco comment: uses E-cigarettes Substance Use Topics Alcohol use: Yes Alcohol/week: 5.0 - 10.0 standard drinks Types: 2 - 4 Glasses of Wine (5oz) per week Drug use: No Video Exam (Examination performed via Video enabled technology) General appearance: Alert, oriented, pleasant, in NAD :Yes Ill appearing :No Lethargic appearing :No Respiratory distress :No ASSESSMENT/PLAN: 1. Chronic bronchitis with acute exacerbation (HCC) - ICD9: 466.0, 491.9, ICD10: J20.9, J42 Hydration, symptomatic treatments, prn Albuterol, Prednisone burst, antibiotic - Return if symptoms persist or worsen, or if new symptoms develop. - PREDNISONE 20 MG TABLET - ALBUTEROL SULFATE HFA 90 MCG/ACTUATION AEROSOL INHALER - DOXYCYCLINE MONOHYDRATE 100 MG CAPSULE Tristen Sullivan MD documented in this encounter [facility] 01-23-2022 Miscellaneous Notes Patient has been identified by name and date of : Yes Patient phones for refill(s): Pending Prescriptions Disp Refills SERTRALINE 100 MG TABLET 60 tablet 1 Sig: Take 2 tablets by mouth once daily. SHAYAN: No Date of last office visit in primary care: 12/21/21 Last 2 Encounter Wt Readings: Date: Wt: 12/21/2021 88.9 kg (196 lb) 11/29/2021 90.3 kg (199 lb) Previous labs/tests for medication: Not applicable Please advise. Thank you. Fatmata Amanda LPN documented in this encounter [facility] 01-23-2022 History of Present illness Narrative ANDREINA GEE is a 46 year female referred to me today by Dr. Wellington for worsening hoarseness over the last 3-6 months. Her hoarseness has been on going intermittently for several years.PMH: Allergic rhinitis,, HTN, anxietyInterval History ():1. Voice: She has noticed an improvement in her voice. She is using a microphoneNo swallowing, breathing, laryngospasm, fever, chills, nausea or vomiting.ROS performed. All other systems are reviewed and are negative for complaint except as noted in HPI.I personally reviewed the patient AMER and available consult notesPrior Chart notes are reviewed and applicable Xrays: [facility] Work Phone: 01-10-2022 Note Plan of Care Continue Current Plan of Care Progress with POC, as tolerated. Patient to follow up with physician in 2 weeks. Discussed plan of care with: patient Patient/caregiver agreeable with plan of care. Assessment Patient reports one extreme coughing fit about 1 week ago that lasted an hour. She states she tried using the cough techniques to stop it but had aspirated a small piece of tissue paper and felt she needed to cough it out. Discussed the possibility that she did not aspirate it but went into a coughing spasm to protect her airway. Encouraged her to use the learned strategies if a coughing fit happens again until the cough stops. Good compliance with HEP including throat clear reduction via seltzer gargle more than the effortful swallow or RTB. She does admit to reduced but some daily clearing. Reviewed how both the effortful swallow and RTB reduce throat tightness and the urge to clear the throat. Reiterated the goal being no throat clearing. Good compliance with vocal wellness strategies to limit phono trauma. She is using either a personal amplifier with headset microphone or excellent quality free standing microphone for work. She is able to use a confidential voice at home and is only talking when she is close enough to tough the conversational partner. Answered all questions/concerns. Patient has a follow up in person visit in [facility] in 2 weeks. She is hoping to be cleared for surgical management if still warranted. Voice: Voice quality based on the GRBAS scale: 0=absent; 1=mild; 2=moderate; 3=severe Grade: 1 Roughness: 1 Breathiness: 1 Asthenia: 0 Strain: 0 Voice: level 4 initial Reason For Visit An interactive audio and video telecommunication system which permits real time communications between the patient (at the originating site) and provider (at the distant site) was utilized to provide this telehealth service. Verbal consent was requested and obtained from ANDREINA GEE on this date, 01/10/2022 02:30 PM , for a telehealth visit. Insurance Insurance reviewed Visit number: 3 Onset Date: 2021 Subjective Living Environment: home - patient lives with spouse, 3 teenagers, 3 dogs. Patient arrival: accompanied by spouse Patient alert and ready to participate in telehealth visit this date. Objective Progress to date: skilled nursing goals: Improve overall vocal health to foster increased participation levels at home, work and in the community environment. Short term goals: Patient will increase vocal wellness and decrease phono trauma in adherence with clinician prescribed vocal hygiene and wellness program per patient report 80% of his/her day. (GOAL MET) Patient will increase ability to produce voice without tension within 5 minute conversational task x 80% accuracy as judged by clinician observation and/or patient report. (GOAL MET) Patient will demonstrate independent use of voice techniques x 80% accuracy. (GOAL MET) Patient will increase the balance of the respiratory/laryngeal musculature x 80% accuracy. Treatment Time in clinic started at 1430 Time in clinic ended at 1450 Total time in clinic is 20 minutes. Provided to: patient Response to education: verbalized understanding, demonstrated understanding and needs reinforcement Patient/caregiver verbalized understanding and agreement: yes Limited Codes ([facility] Only): [id number] Speech language treatment limited. Signatures Electronically signed by : Blanca Stroud CCC-CLINICAL RESEARCH SPECIALIST; Jan 10 2022 3:06PM EST (Author) [employer] 01-10-2022 Reason for visit Narrative An interactive audio and video telecommunication system which permits real time communications between the patient (at the originating site) and provider (at the distant site) was utilized to provide this telehealth service.Verbal consent was requested and obtained from ANDREINA GEE on this date, 01/10/2022 02:30 PM , for a telehealth visit. [facility] [address] [place] Work Phone: 01-04-2022 History of Present illness Narrative Patient reports one extreme coughing fit about 1 week ago that lastedan hour. She states she tried using the cough techniques to stop it but had aspirated a small piece of tissue paper and felt she needed to cough it out. Discussed the possibility that she did not aspirate it but went into a coughing spasm to protect her airway. Encouraged her to use the learned strategies if a coughing fit happens again until the cough stops. Good compliance with HEP including throat clear reduction via seltzer gargle more than the effortful swallow or RTB. She does admit to reduced but some daily clearing. Reviewed how both the effortful swallow and RTB reduce throat tightness and the urge to clear the throat. Reiterated the goal being no throat clearing. Good compliance with vocal wellness strategies to limit phono trauma. She is using either a personal amplifier with headset microphone or excellent quality free standing microphone for work. She is able to use a confidential voice at home and is only talking when she is close enough to tough the conversational partner.Answered all questions/concerns. Patient has a follow up in person visit in [facility] in 2 weeks. She is hoping to be cleared for surgical management if still warranted.Voice: Voice quality based on the GRBAS scale: 0=absent; 1=mild; 2=moderate; 3=severeGrade: 1Roughness: 1Breathiness: 1Asthenia: 0Strain: 0Voice: level 4 initial [facility] [address] [place] Work Phone: 12-27-2021 Note Plan of Care Continue Current Plan of Care Progress with POC, as tolerated. Discussed plan of care with: patient Patient/caregiver agreeable with plan of care. Assessment Patient reports good compliance with HEP including cough/throat clear reduction via effortful swallow > RTB and vocal wellness strategies to reduce cough/throat clear triggers and phono trauma. She purchased a personal amplifier with headset microphone and excellent quality free standing microphone for her home computer. Patient was able to use a confidential voice and easily be heard by clinician. She admits to making a significant effort to use the confidential voice only and states that it is difficult at times due to habit. However, her family has been very supportive and she has been compliant most of the time. She notes that her voice quality is significantly smoother with the confidential voice than when she tries to push her voice. Answered all questions/concerns. Patient has a follow up virtual visit in 2 weeks. Okayed her to cancel if she is still doing well and does not have any new concerns. Voice: Voice quality based on the GRBAS scale: 0=absent; 1=mild; 2=moderate; 3=severe Grade: 1 Roughness: 1 Breathiness: 1 Asthenia: 0 Strain: 0 Voice: level 4 initial Reason For Visit An interactive audio and video telecommunication system which permits real time communications between the patient (at the originating site) and provider (at the distant site) was utilized to provide this telehealth service. Verbal consent was requested and obtained from ANDREINA GEE on this date, 12/27/2021 02:30 PM , for a telehealth visit. Insurance Insurance reviewed Visit number: 2 Onset Date: 2021 Subjective Living Environment: home - patient lives with spouse, 3 teenagers, 3 dogs. Patient arrival: accompanied by spouse Patient alert and ready to participate in telehealth visit this date. 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 Short term goals: Patient will increase vocal wellness and decrease phono trauma in adherence with clinician prescribed vocal hygiene and wellness program per patient report 80% of his/her day. Patient will increase ability to produce voice without tension within 5 minute conversational task x 80% accuracy as judged by clinician observation and/or patient report. Patient will demonstrate independent use of voice techniques x 80% accuracy. Patient will increase the balance of the respiratory/laryngeal musculature x 80% accuracy. Treatment Time in clinic started at 1430 Time in clinic ended at 1445 Total time in clinic is 15 minutes. Provided to: patient Response to education: verbalized understanding, demonstrated understanding and needs reinforcement Patient/caregiver verbalized understanding and agreement: yes Limited Codes ([facility] Only): [id number] Speech language treatment limited. Signatures Electronically signed by : Blanca Stroud CCC-CLINICAL RESEARCH SPECIALIST; Dec 27 2021 5:28PM EST (Author) [employer] 12-27-2021 Reason for visit Narrative An interactive audio and video telecommunication system which permits real time communications between the patient (at the originating site) and provider (at the distant site) was utilized to provide this telehealth service.Verbal consent was requested and obtained from ANDREINA GEE on this date, 12/27/2021 02:30 PM , for a telehealth visit. [facility] [address] [place] Work Phone: 12-21-2021 Instructions Leon Guy MD - 12/21/2021 2:40 PM EDT Tennis elbow splint. Use aleve daily for 2 weeks. Avoid repetitious elbow movements. Cologuard ordered. documented in this encounter [facility] 12-21-2021 History of Present illness Narrative This note was created using [employer] Doctor[employer]. Subjective Andreina Gee is a 46 year old female. She's had recurring right lateral elbow pain for 6 months, usually when she was using her arm a lot. She had tried Tylenol, Aleve, Advil with no lasting relief. There was no injury. 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 Review of Systems Constitutional: Negative. Musculoskeletal: Negative for joint swelling. Neurological: Negative. ACTIVE PROBLEM LIST Other Specified Disease of White Blood Cells Essential Hypertension Alcohol Abuse Anxiety Current Outpatient Medications Medication Sig sertraline (ZOLOFT) 100 mg tablet Take 2 tablets by mouth once daily. zolpidem (AMBIEN) 10 mg Take 0.5 tablets by mouth daily at bedtime for 180 days. loratadine (CLARITIN ORAL) Take by mouth. fluticasone propionate (FLONASE NASAL) Use in the nose. No current facility-administered medications for this visit. Objective BP 118/74 (BP Site: Left Arm, BP Position: Sitting, BP Cuff Size: Large Adult) Pulse 84 Temp 36.4 C (97.5 F) (Temporal Artery) Resp 20 Wt 88.9 kg (196 lb) LMP 08/06/2017 BMI 33.64 kg/m Physical Exam Musculoskeletal: Right elbow: Swelling present. No deformity. Normal range of motion. Tenderness present in lateral epicondyle. No radial head, medial epicondyle or olecranon process tenderness. Assessment and Plan 1. Lateral epicondylitis of right elbow - ICD9: 726.32, ICD10: M77.11 (primary diagnosis) This overuse syndrome was discussed. See printed instructions or information. Consider PT if not better. 2. Screening for colon cancer - ICD9: V76.51, ICD10: Z12.11 Guidelines discussed. Options discussed. Negative family history. 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 Patient appears to be a candidate for surgical management following therapy which will target vocal wellness.Voice quality based on the GRBAS scale: 0=absent; 1=mild; 2=moderate; 3=severeGrade: 2Roughness: 2Breathiness: 1Asthenia: 0Strain: 1Contributing Factors: habitual behaviors that misuse/abuse the voice and abnormal vibratory mechanisms due to physical changesNOMS Score: moderate: level 4Treatment recommendations: treatment indicated (see goals below) [facility] Work Phone: 08-18-2021 History of Present illness Narrative ANDREINA GEE is a 46 year old female referred to me today by Dr Wellington for left sided vocal cord nodule with worsening hoarseness over the last 4 months.PMH:Social: Tobacco ETOH LivesFHx: reviewed and non-contributory to current complaint.I personally reviewed the patient AEMR notes, and consult notes , 12/12/2021 .ROS performed. All other systems are reviewed and are negative for complaint.I personally reviewed prior chart notes and radiology images today, including [facility] Work Phone: 08-14-2021 History of Present illness Narrative ANDREINA GEE is a 46 year old female referred to me today by Dr Wellington for left sided vocal cord nodule with worsening hoarseness over the last 4 months.PMH:Social: Tobacco ETOH LivesFHx: reviewed and non-contributory to current complaint.I personally reviewed the patient AEMR notes, and consult notes , 12/12/2021 .ROS performed. All other systems are reviewed and are negative for complaint.I personally reviewed prior chart notes and radiology images today, [facility] [address] Work Phone: 08-01-2021 Miscellaneous Notes Patient had VV today and Dr. Peterson would like her to follow up in 6 weeks. No answer left message for patient to call office and ask to speak with a nurse to schedule an appointment. documented in this encounter [facility] Evaluation note Diagnosis Lateral epicondylitis of right elbow- Primary Lateral epicondylitis of elbow Screening for colon cancer Special screening for malignant neoplasms, colon [facility]counter for [facility] for [facility] Diagnosis Chronic bronchitis with acute exacerbation (HCC)- Primary Acute bronchitis [facility] Diagnosis Insomnia, unspecified type documented in this encounter [facility] note* Diagnosis Insomnia, unspecified type documented in this encounter [facility] note* Diagnosis Class 2 drug-induced obesity with serious comorbidity and body mass index (BMI) of 36.0 to 36.9 in adult- Primary Menopausal symptom Symptomatic menopausal or female climacteric states Abnormal weight gain Essential hypertension Unspecified essential hypertension documented in this encounter [facility] note* Diagnosis Insomnia, unspecified type documented in this encounter [facility] note* Diagnosis Class 2 severe obesity due to excess calories with serious comorbidity and body mass index (BMI) of 37.0 to 37.9 in adult ([facility])- Primary documented in this encounter [facility] note* Diagnosis Insomnia, unspecified type documented in this encounter [facility] note* Diagnosis Insomnia, unspecified type documented in this encounter [facility] note* Diagnosis Class 2 severe obesity due to excess calories with serious comorbidity and body mass index (BMI) of 37.0 to 37.9 in adult ([facility]) documented in this encounter [facility] note* Diagnosis Trochanteric bursitis of left hip- Primary Enthesopathy of hip region Need for influenza vaccination Need for prophylactic vaccination and inoculation against influenza documented in this encounter [facility] note* Diagnosis Class 2 obesity without serious comorbidity with body mass index (BMI) of 35.0 to 35.9 in adult, unspecified obesity type- Primary Essential hypertension Unspecified essential hypertension Class 2 severe obesity due to excess calories with serious comorbidity and body mass index (BMI) of 37.0 to 37.9 in adult ([facility]) Anxiety Anxiety state, unspecified Trochanteric bursitis, left hip documented in this encounter [facility] note* Diagnosis Class 2 severe obesity with serious comorbidity and body mass index (BMI) of 35.0 to 35.9 in adult, unspecified obesity type ([facility])- Primary documented in this encounter [facility] note* Diagnosis Class 2 severe obesity with serious comorbidity and body mass index (BMI) of 35.0 to 35.9 in adult, unspecified obesity type ([facility])- Primary documented in this encounter [facility] note* Diagnosis Primary insomnia- Primary Persistent disorder of initiating or maintaining sleep documented in this encounter [facility] note* Diagnosis Insomnia, unspecified type documented in this encounter [facility] note* Diagnosis Insomnia, unspecified type documented in this encounter [facility] note* Diagnosis Encounter for screening mammogram for breast cancer documented in this encounter [facility] note* Diagnosis Primary insomnia Persistent disorder of initiating or maintaining sleep documented in this encounter [facility] note* Diagnosis Primary insomnia Persistent disorder of initiating or maintaining sleep documented in this encounter [facility] note* Diagnosis Primary insomnia Persistent disorder of initiating or maintaining sleep documented in this encounter [facility] note* Diagnosis Primary insomnia Persistent disorder of initiating or maintaining sleep documented in this encounter [facility] note* Diagnosis Class 1 obesity due to excess calories without serious comorbidity with body mass index (BMI) of 34.0 to 34.9 in adult- Primary documented in this encounter [facility] note* Diagnosis Acute non-recurrent maxillary sinusitis- Primary documented in this encounter [facility] note* Diagnosis Bacterial sinusitis- Primary Unspecified sinusitis (chronic) Problem of left ear documented in this encounter [facility] note* Diagnosis Primary insomnia Persistent disorder of initiating or maintaining sleep documented in this encounter [facility] note* Diagnosis Class 2 severe obesity due to excess calories with serious comorbidity and body mass index (BMI) of 37.0 to 37.9 in adult- Primary documented in this encounter [facility] note* Diagnosis Class 2 severe obesity due to excess calories with serious comorbidity and body mass index (BMI) of 37.0 to 37.9 in adult documented in this encounter [facility] note* Diagnosis Encounter for screening mammogram for breast cancer documented in this encounter [facility] note* Diagnosis Primary insomnia Persistent disorder of initiating or maintaining sleep documented in this encounter [facility] note* Diagnosis Class 2 severe obesity due to excess calories with serious comorbidity and body mass index (BMI) of 36.0 to 36.9 in adult (HCC)- Primary documented in this encounter [facility] note* Diagnosis Pain- Primary Generalized pain documented in this encounter [facility] note* Diagnosis Class 2 severe obesity due to excess calories with serious comorbidity and body mass index (BMI) of 36.0 to 36.9 in adult (HCC) documented in this encounter [facility] note* Diagnosis Plantar fasciitis- Primary Plantar fascial fibromatosis [facility] Diagnosis Plantar fasciitis, bilateral- Primary Plantar fascial fibromatosis Equinus deformity of both feet Heel pain, bilateral [facility] Diagnosis Class 2 severe obesity due to excess calories with serious comorbidity and body mass index (BMI) of 36.0 to 36.9 in adult ([facility]) [facility] Diagnosis Positive self-administered antigen test for COVID-19- Primary [facility] Diagnosis Plantar fasciitis, bilateral- Primary Plantar fascial fibromatosis Equinus deformity of both feet Heel pain, bilateral [facility] Diagnosis Essential hypertension- Primary Unspecified essential hypertension Anxiety Anxiety state, unspecified Class 2 severe obesity due to excess calories with serious comorbidity and body mass index (BMI) of 36.0 to 36.9 in adult ([facility]) Screening for lipid disorders Encounter for therapeutic drug monitoring [facility] Diagnosis Plantar fasciitis, bilateral- Primary Plantar fascial fibromatosis Equinus deformity of both feet Heel pain, bilateral [facility] Diagnosis Plantar fasciitis, bilateral- Primary Plantar fascial fibromatosis Equinus deformity of both feet Heel pain, bilateral [facility] Diagnosis Essential hypertension Unspecified essential hypertension Class 2 severe obesity due to excess calories with serious comorbidity and body mass index (BMI) of 36.0 to 36.9 in adult ([facility]) [facility] Diagnosis Primary insomnia Persistent disorder of initiating or maintaining sleep [facility] Diagnosis Pain Generalized pain [facility] Diagnosis Essential hypertension- Primary Unspecified essential hypertension Primary insomnia Persistent disorder of initiating or maintaining sleep Class 2 severe obesity due to excess calories with serious comorbidity and body mass index (BMI) of 36.0 to 36.9 in adult (HCC) Anxiety Anxiety state, unspecified Cervical cancer screening Screening for malignant neoplasm of the cervix Screening for lipid disorders [facility] Patient reports good compliance with HEP including cough/throat clear reduction via effortful swallow > RTB and vocal wellness strategies to reduce cough/throat clear triggers and phono trauma. She purchased a personal amplifier with headset microphone and excellent quality free standing microphone for her home computer. Patient was able to use a confidential voice and easily be heard by clinician. She admits to making a significant effort to use the confidential voice only and states that it is difficult at times due to habit. However, her family has been very supportive and she has been compliant most of the time. She notes that her voice quality is significantly smoother with the confi dential voice than when she tries to push her voice. * Answered all questions/concerns. Patient has a follow up virtual visit in 2 weeks. Okayed her to cancel if she is still doing well and does not have any new concerns. * Voice: Voice quality based on the GRBAS scale: 0=absent; 1=mild; 2=moderate; 3=severe * Grade: 1 * Roughness: 1 * Breathiness: 1 * Asthenia: 0 * Strain: 0 * Voice: level 4 initial [facility] [address] [place] Work Phone: History of Present illness Narrative* ANDREINA GEE is a 46 year female referred to me today by Dr. Wellington for worsening hoarseness over the last 3-6 months. Her hoarseness has been on going intermittently for several years. * PMH: Allergic rhinitis,, HTN, anxiety * Interval History (): * 1. Voice: She has noticed an improvement in her voice. She is using a microphone consistently * No swallowing, breathing, laryngospasm, fever, chills, nausea or vomiting. * ROS performed. All other systems are reviewed and are negative for complaint except as noted in HPI. * : [facility] Work Phone: Reason for referral (narrative)* Diagnostic Procedure Only (Routine) - Authorized Specialty Diagnoses / Procedures Referred By Contshruti t Referred To Contact [facility] Diagnoses Encounter for screening mammogram for breast cancer Procedures ROLANDO SCREENING SCREENING MAMMOGRAPHY BI 2-VIEW BREAST INC CAD Jena Peterson MD [address] [place] [address] [facility] [address] [place] [address] Referral ID Status Reason Start Date Expiration Date Visits Requested Visits Authorized [id number] Authorized Auto-Generate d Referral Financial Clearance Required - OON Payor Patient Cleared INN/SMCP Payor Auth Obtained 12/21/2021 09/23/2022 1 1 [facility] for referral (narrative)* Diagnostic Procedure Only (Routine) - Pending Review Specialty Diagnoses / Procedures Referred By Roger to Referred To Contact [facility] Diagnoses Encounter for screening mammogram for breast cancer Procedures ROLANDO SCREENING SCREENING MAMMOGRAPHY BI 2-VIEW BREAST INC Jena Aguilar MD [address] [place] [address] [facility] [address] [place] [address] Referral ID Status Reason Start Date Expiration Date Visits Requested Visits Authorized [id number] Pending Review Auto-Generat ed Referral 11/29/2022 12/29/2023 1 1 [facility] for referral (narrative)* Diagnostic Procedure Only (Routine) - Pending Review Specialty Diagnoses / Procedures Referred By Roger to Referred To Contact [facility] Diagnoses Encounter for screening mammogram for breast cancer Procedures ROLANDO SCREENING SCREENING MAMMOGRAPHY BI 2-VIEW BREAST INC Jena Aguilar MD [facility] [place] [address] [facility] [address] [place] [address] Referral ID Status Reason Start Date Expiration Date Visits Requested Visits Authorized [id number] Pending Review Auto-Generat ed Referral 11/14/2023 12/13/2024 1 1 [facility] for referral (narrative)* Diagnostic Procedure Only (Routine) - Authorized Specialty Diagnoses / Procedures Referred By Roger to Referred To Contact [facility] IMAGING Diagnoses Pain Procedures XR FOOT GENERAL 3V AP/LAT/OBL BILATERAL RADEX FOOT COMPLETE MINIMUM 3 VIEWS Leatha Armstrong, [address] [place] [address] [place] [address] Referral ID Status Reason Start Date Expiration Date Visits Requested Visits Authorized [id number] Authorized Auto-Generat ed Referral 12/17/2023 01/15/2025 1 1 [facility] for referral (narrative)* Diagnostic Procedure Only (Routine) - Closed Specialty Diagnoses / Procedures Referred By Contac t Referred To Contact XR IMAGING Diagnoses Pain Procedures XR FOOT GENERAL 3V AP/LAT/OBL BILATERAL RADEX FOOT COMPLETE MINIMUM 3 VIEWS Leatha Armstrong, YFNM [address] [place] [address] [place] [address] Referral ID Status Reason Start Date Expiration Date V isits Requested Visits Authorized [id number] Closed Auto-Generate d Referral 12/17/2023 01/15/2025 1 1 [facility] for visit Narrative* Diagnostic Procedure Only (Routine) - Closed Specialty Diagnoses / Procedures Referred By Contac t Referred To Contact XR IMAGING Diagnoses Pain Procedures XR FOOT GENERAL 3V AP/LAT/OBL BILATERAL RADEX FOOT COMPLETE MINIMUM 3 VIEWS Leatha Armstrong, YFNM [address] [place] [address] [place] [address] Referral ID Status Reason Start Date Expiration Date V isits Requested Visits Authorized [id number] Closed Auto-Generate d Referral 12/17/2023 01/15/2025 1 1 [facility] Summary Purpose Family History No Family History Records FoundNo Family History Records FoundNo Family History Records FoundNo Family History Records FoundNo Family History Records FoundNo Family History Records Found Advance Directives No Advanced Directives Records FoundNo Advanced Directives Records FoundNo Advanced Directives Records FoundNo Advanced Directives Records FoundNo Advanced Directives Records FoundNo Advanced Directives Records Found Chief Complaint vocal cord nodulesvocal cord nodulesVoiceVoice Reason for Referral Specialty Diagnoses / Procedures Referred By Contac t Referred To Contact [facility] Diagnoses Trochanteric bursitis of left hip Procedures CONSULT TO PHYSICAL THERAPY PHYSICAL THERAPY EVALUATION HIGH COMPLEX 45 MINS Leon Guy MD [address] [place] [address] [facility] [address] [address] Referral ID Status Reason Start Date Expiration Date Visits Requested Visits Authorized [id number] Pending Review Auto-Generat ed Referral 2 08/04/2023 1 1 Specialty Diagnoses / Procedures Referred By Contac t Referred To Contact Diagnoses Class 1 obesity due to excess calories without serious comorbidity with body mass index (BMI) of 34.0 to 34.9 in adult Procedures CONSULT BARIATRIC/[facility] OFFICE/OUTPATIENT [facility] 60-74 MINUTES Shaunna Boston MD [address] [place] [address] Referral ID Status Reason Start Date Expiration Date Visits Requested Visits Authorized [id number] Pending Review PCP Requested Referral 03/14/2023 03/13/2024 1 1 Specialty Diagnoses / Procedures Referred By Contac t Referred To Contact Diagnoses Class 2 severe obesity due to excess calories with serious comorbidity and body mass index (BMI) of 37.0 to 37.9 in adult Procedures CONSULT [facility]ATRIC[facility] OFFICE/OUTPATIENT [facility] 60-74 MINUTES Jae Mason APRN.[facility]NS [address] [place] [address] Referral ID Status Reason Start Date Expiration Date Visits Requested Visits Authorized [id number] Pending Review PCP Requested Referral 06/15/2023 06/14/2024 1 1 Specialty Diagnoses / Procedures Referred By Contac t Referred To Contact [facility] Diagnoses Plantar fasciitis, bilateral Equinus deformity of both feet Heel pain, bilateral Procedures CONSULT TO PHYSICAL THERAPY PHYSICAL THERAPY EVALUATION HIGH COMPLEX 45 MINS Leatha Armstrong, DPM [address] [place] [address] [facility] [address] [address] Referral ID Status Reason Start Date Expiration Date Visits Requested Visits Authorized [id number] Pending Review Auto-Generat ed Referral 01/18/2024 01/17/2025 1 1 Specialty Diagnoses / Procedures Referred By Contac t Referred To Contact Jae Mason APRN.[facility] [address] [place] [address] Referral ID Status Reason Start Date Expiration Date Visits Re quested Visits Authorized [id number] Closed 1 1 Specialty Diagnoses / Procedures Referred By Contac t Referred To Contact Diagnoses Essential hypertension Class 2 severe obesity due to excess calories with serious comorbidity and body mass index (BMI) of 36.0 to 36.9 in adult (FORM[facility]LY [facility]) Babatunde Vasquez APRN.[employer] [address] [place] [address] Referral ID Status Reason Start Date Expiration Date Visits Re quested Visits Authorized [id number] Closed 1 1 Referral ID Status Reason Start Date Expiration Date Visits Requested Visits Authorized [id number] Pending Review Auto-Generat ed Referral 03/12/2024 03/12/2025 1 1 Specialty Diagnoses / Procedures Referred By Contac t Referred To Contact Babatunde Vasquez APRN.[facility] [address] [place] [address] Referral ID Status Reason Start Date Expiration Date Visits Re quested Visits Authorized [id number] Denied 1 1 Specialty Diagnoses / Procedures Referred By Contac t Referred To Contact Diagnoses Cervical cancer screening Procedures CONSULT TO TRAFFIC CONTROLLER CABLE OFFICE/OUTPATIENT [facility] 60 MINUTES Jae Mason APRN.[employer] [address] [place] [address] Referral ID Status Reason Start Date Expiration Date Visits Requested Visits Authorized [id number] Authorized PCP Requested Referral Auto-Generate d Referral 06/13/2024 06/13/2025 1 1 Specialty Diagnoses / Procedures Referred By Contac t Referred To Contact Diagnoses Class 2 severe obesity due to excess calories with serious comorbidity and body mass index (BMI) of 36.0 to 36.9 in adult ([facility]) Jae Mason APRN.[employer] [address] [place] [address] Referral ID Status Reason Start Date Expiration Date Visits Re quested Visits Authorized [id number] Denied 06/13/2024 08/12/2024 1 1 Additional Source Comments INFORMATION SOURCE (unrecogn ized section and content) DATE CREATED AUTHOR 08/31/2018 [facility] DATE CREATED AUTHOR AUTHOR'S ORGANIZ ATION 11/12/2018 [facility] DATE CREATED AUTHOR AUTHOR'S ORGANIZ ATION 04/15/2020 [facility] DATE CREATED AUTHOR AUTHOR'S ORGANIZ ATION 03/28/2022 [facility] DATE CREATED AUTHOR AUTHOR'S ORGANIZ ATION 04/27/2022 [employer] DATE CREATED AUTHOR AUTHOR'S ORGANIZ ATION 06/18/2024 [facility] Source Comments (unrecognize d section and content) In the event this informatio n is protected by the Federal Confidentiality of Alcohol and Drug Abuse Patient Records regulations: The Federal rules restrict any use of the information to criminally investigate or prosecute any alcohol or drug abuse patient.[facility] the event this information is protected by the Federal Confidentiality of Alcohol and Drug Abuse Patient Records regulations: The Federal rules restrict any use of the information to criminally investigate or prosecute any alcohol or drug abuse patient.[facility] the event this information is protected by the Federal Confidentiality of Alcohol and Drug Abuse Patient Records regulations: The Federal rules restrict any use of the information to criminally investigate or prosecute any alcohol or drug abuse patient.[facility] the event this information is protected by the Federal Confidentiality of Alcohol and Drug Abuse Patient Records regulations: The Federal rules restrict any use of the information to criminally investigate or prosecute any alcohol or drug abuse patient.[facility] the event this information is protected by the Federal Confidentiality of Alcohol and Drug Abuse Patient Records regulations: The Federal rules restrict any use of the information to criminally investigate or prosecute any alcohol or drug abuse patient.[facility] the event this information is protected by the Federal Confidentiality of Alcohol and Drug Abuse Patient Records regulations: The Federal rules restrict any use of the information to criminally investigate or prosecute any alcohol or drug abuse patient.[facility] the event this information is protected by the Federal Confidentiality of Alcohol and Drug Abuse Patient Records regulations: The Federal rules restrict any use of the information to criminally investigate or prosecute any alcohol or drug abuse patient.[facility]igh[facility] the event this information is protected by the Federal Confidentiality of Alcohol and Drug Abuse Patient Records regulations: The Federal rules restrict any use of the information to criminally investigate or prosecute any alcohol or drug abuse patient.[facility]igh[facility] the event this information is protected by the Federal Confidentiality of Alcohol and Drug Abuse Patient Records regulations: The Federal rules restrict any use of the information to criminally investigate or prosecute any alcohol or drug abuse patient.[facility]igh[facility] the event this information is protected by the Federal Confidentiality of Alcohol and Drug Abuse Patient Records regulations: The Federal rules restrict any use of the information to criminally investigate or prosecute any alcohol or drug abuse patient.[facility]igh[facility] the event this information is protected by the Federal Confidentiality of Alcohol and Drug Abuse Patient Records regulations: The Federal rules restrict any use of the information to criminally investigate or prosecute any alcohol or drug abuse patient.[facility]igh[facility] the event this information is protected by the Federal Confidentiality of Alcohol and Drug Abuse Patient Records regulations: The Federal rules restrict any use of the information to criminally investigate or prosecute any alcohol or drug abuse patient.[facility]igh[facility] the event this information is protected by the Federal Confidentiality of Alcohol and Drug Abuse Patient Records regulations: The Federal rules restrict any use of the information to criminally investigate or prosecute any alcohol or drug abuse patient.[facility]igh[facility] the event this information is protected by the Federal Confidentiality of Alcohol and Drug Abuse Patient Records regulations: The Federal rules restrict any use of the information to criminally investigate or prosecute any alcohol or drug abuse patient.[facility]igh[facility] the event this information is protected by the Federal Confidentiality of Alcohol and Drug Abuse Patient Records regulations: The Federal rules restrict any use of the information to criminally investigate or prosecute any alcohol or drug abuse patient.[facility]igh[facility] the event this information is protected by the Federal Confidentiality of Alcohol and Drug Abuse Patient Records regulations: The Federal rules restrict any use of the information to criminally investigate or prosecute any alcohol or drug abuse patient.[facility]ighIn the event this information is protected by the Federal Confidentiality of Alcohol and Drug Abuse Patient Records regulations: The Federal rules restrict any use of the information to criminally investigate or prosecute any alcohol or drug abuse patient.[facility]ighIn the event this information is protected by the Federal Confidentiality of Alcohol and Drug Abuse Patient Records regulations: The Federal rules restrict any use of the information to criminally investigate or prosecute any alcohol or drug abuse patient.[facility]In the event this information is protected by the Federal Confidentiality of Alcohol and Drug Abuse Patient Records regulations: The Federal rules restrict any use of the information to criminally investigate or prosecute any alcohol or drug abuse patient.[facility]igh[facility] the event this information is protected by the Federal Confidentiality of Alcohol and Drug Abuse Patient Records regulations: The Federal rules restrict any use of the information to criminally investigate or prosecute any alcohol or drug abuse patient.[facility]ighIn the event this information is protected by the Federal Confidentiality of Alcohol and Drug Abuse Patient Records regulations: The Federal rules restrict any use of the information to criminally investigate or prosecute any alcohol or drug abuse patient.[facility]ighIn the event this information is protected by the Federal Confidentiality of Alcohol and Drug Abuse Patient Records regulations: The Federal rules restrict any use of the information to criminally investigate or prosecute any alcohol or drug abuse patient.[facility]ighIn the event this information is protected by the Federal Confidentiality of Alcohol and Drug Abuse Patient Records regulations: The Federal rules restrict any use of the information to criminally investigate or prosecute any alcohol or drug abuse patient.[facility]ighIn the event this information is protected by the Federal Confidentiality of Alcohol and Drug Abuse Patient Records regulations: The Federal rules restrict any use of the information to criminally investigate or prosecute any alcohol or drug abuse patient.[facility]ighIn the event this information is protected by the Federal Confidentiality of Alcohol and Drug Abuse Patient Records regulations: The Federal rules restrict any use of the information to criminally investigate or prosecute any alcohol or drug abuse patient.[facility]ighIn the event this information is protected by the Federal Confidentiality of Alcohol and Drug Abuse Patient Records regulations: The Federal rules restrict any use of the information to criminally investigate or prosecute any alcohol or drug abuse patient.[facility]ighIn the event this information is protected by the Federal Confidentiality of Alcohol and Drug Abuse Patient Records regulations: The Federal rules restrict any use of the information to criminally investigate or prosecute any alcohol or drug abuse patient.[facility]ighIn the event this information is protected by the Federal Confidentiality of Alcohol and Drug Abuse Patient Records regulations: The Federal rules restrict any use of the information to criminally investigate or prosecute any alcohol or drug abuse patient.[facility]ighIn the event this information is protected by the Federal Confidentiality of Alcohol and Drug Abuse Patient Records regulations: The Federal rules restrict any use of the information to criminally investigate or prosecute any alcohol or drug abuse patient.[facility]ighIn the event this information is protected by the Federal Confidentiality of Alcohol and Drug Abuse Patient Records regulations: The Federal rules restrict any use of the information to criminally investigate or prosecute any alcohol or drug abuse patient.[facility]ighIn the event this information is protected by the Federal Confidentiality of Alcohol and Drug Abuse Patient Records regulations: The Federal rules restrict any use of the information to criminally investigate or prosecute any alcohol or drug abuse patient.[facility]ighIn the event this information is protected by the Federal Confidentiality of Alcohol and Drug Abuse Patient Records regulations: The Federal rules restrict any use of the information to criminally investigate or prosecute any alcohol or drug abuse patient.[facility]ighIn the event this information is protected by the Federal Confidentiality of Alcohol and Drug Abuse Patient Records regulations: The Federal rules restrict any use of the information to criminally investigate or prosecute any alcohol or drug abuse patient.[facility]ighIn the event this information is protected by the Federal Confidentiality of Alcohol and Drug Abuse Patient Records regulations: The Federal rules restrict any use of the information to criminally investigate or prosecute any alcohol or drug abuse patient.[facility]ighIn the event this information is protected by the Federal Confidentiality of Alcohol and Drug Abuse Patient Records regulations: The Federal rules restrict any use of the information to criminally investigate or prosecute any alcohol or drug abuse patient.[facility]ighIn the event this information is protected by the Federal Confidentiality of Alcohol and Drug Abuse Patient Records regulations: The Federal rules restrict any use of the information to criminally investigate or prosecute any alcohol or drug abuse patient.[facility]ighIn the event this information is protected by the Federal Confidentiality of Alcohol and Drug Abuse Patient Records regulations: The Federal rules restrict any use of the information to criminally investigate or prosecute any alcohol or drug abuse patient.[facility]ighIn the event this information is protected by the Federal Confidentiality of Alcohol and Drug Abuse Patient Records regulations: The Federal rules restrict any use of the information to criminally investigate or prosecute any alcohol or drug abuse patient.[facility]ighIn the event this information is protected by the Federal Confidentiality of Alcohol and Drug Abuse Patient Records regulations: The Federal rules restrict any use of the information to criminally investigate or prosecute any alcohol or drug abuse patient.[facility]ighIn the event this information is protected by the Federal Confidentiality of Alcohol and Drug Abuse Patient Records regulations: The Federal rules restrict any use of the information to criminally investigate or prosecute any alcohol or drug abuse patient.[facility]ighIn the event this information is protected by the Federal Confidentiality of Alcohol and Drug Abuse Patient Records regulations: The Federal rules restrict any use of the information to criminally investigate or prosecute any alcohol or drug abuse patient.[facility]ighIn the event this information is protected by the Federal Confidentiality of Alcohol and Drug Abuse Patient Records regulations: The Federal rules restrict any use of the information to criminally investigate or prosecute any alcohol or drug abuse patient.[facility]ighIn the event this information is protected by the Federal Confidentiality of Alcohol and Drug Abuse Patient Records regulations: The Federal rules restrict any use of the information to criminally investigate or prosecute any alcohol or drug abuse patient.[facility]ighIn the event this information is protected by the Federal Confidentiality of Alcohol and Drug Abuse Patient Records regulations: The Federal rules restrict any use of the information to criminally investigate or prosecute any alcohol or drug abuse patient.[facility]ighIn the event this information is protected by the Federal Confidentiality of Alcohol and Drug Abuse Patient Records regulations: The Federal rules restrict any use of the information to criminally investigate or prosecute any alcohol or drug abuse patient.[facility]ighIn the event this information is protected by the Federal Confidentiality of Alcohol and Drug Abuse Patient Records regulations: The Federal rules restrict any use of the information to criminally investigate or prosecute any alcohol or drug abuse patient.[facility]ighIn the event this information is protected by the Federal Confidentiality of Alcohol and Drug Abuse Patient Records regulations: The Federal rules restrict any use of the information to criminally investigate or prosecute any alcohol or drug abuse patient.[facility]ighIn the event this information is protected by the Federal Confidentiality of Alcohol and Drug Abuse Patient Records regulations: The Federal rules restrict any use of the information to criminally investigate or prosecute any alcohol or drug abuse patient.[facility]ighIn the event this information is protected by the Federal Confidentiality of Alcohol and Drug Abuse Patient Records regulations: The Federal rules restrict any use of the information to criminally investigate or prosecute any alcohol or drug abuse patient.[facility]ighIn the event this information is protected by the Federal Confidentiality of Alcohol and Drug Abuse Patient Records regulations: The Federal rules restrict any use of the information to criminally investigate or prosecute any alcohol or drug abuse patient.[facility]ighIn the event this information is protected by the Federal Confidentiality of Alcohol and Drug Abuse Patient Records regulations: The Federal rules restrict any use of the information to criminally investigate or prosecute any alcohol or drug abuse patient.[facility]ighIn the event this information is protected by the Federal Confidentiality of Alcohol and Drug Abuse Patient Records regulations: The Federal rules restrict any use of the information to criminally investigate or prosecute any alcohol or drug abuse patient.[facility]ighIn the event this information is protected by the Federal Confidentiality of Alcohol and Drug Abuse Patient Records regulations: The Federal rules restrict any use of the information to criminally investigate or prosecute any alcohol or drug abuse patient.[facility]ighIn the event this information is protected by the Federal Confidentiality of Alcohol and Drug Abuse Patient Records regulations: The Federal rules restrict any use of the information to criminally investigate or prosecute any alcohol or drug abuse patient.[facility]ighIn the event this information is protected by the Federal Confidentiality of Alcohol and Drug Abuse Patient Records regulations: The Federal rules restrict any use of the information to criminally investigate or prosecute any alcohol or drug abuse patient.[facility]ighIn the event this information is protected by the Federal Confidentiality of Alcohol and Drug Abuse Patient Records regulations: The Federal rules restrict any use of the information to criminally investigate or prosecute any alcohol or drug abuse patient.[facility]ighIn the event this information is protected by the Federal Confidentiality of Alcohol and Drug Abuse Patient Records regulations: The Federal rules restrict any use of the information to criminally investigate or prosecute any alcohol or drug abuse patient.[facility]ighIn the event this information is protected by the Federal Confidentiality of Alcohol and Drug Abuse Patient Records regulations: The Federal rules restrict any use of the information to criminally investigate or prosecute any alcohol or drug abuse patient.[facility]ighIn the event this information is protected by the Federal Confidentiality of Alcohol and Drug Abuse Patient Records regulations: The Federal rules restrict any use of the information to criminally investigate or prosecute any alcohol or drug abuse patient.[facility]ighIn the event this information is protected by the Federal Confidentiality of Alcohol and Drug Abuse Patient Records regulations: The Federal rules restrict any use of the information to criminally investigate or prosecute any alcohol or drug abuse patient.[facility]ighIn the event this information is protected by the Federal Confidentiality of Alcohol and Drug Abuse Patient Records regulations: The Federal rules restrict any use of the information to criminally investigate or prosecute any alcohol or drug abuse patient.[facility]ighIn the event this information is protected by the Federal Confidentiality of Alcohol and Drug Abuse Patient Records regulations: The Federal rules restrict any use of the information to criminally investigate or prosecute any alcohol or drug abuse patient.[facility]ighIn the event this information is protected by the Federal Confidentiality of Alcohol and Drug Abuse Patient Records regulations: The Federal rules restrict any use of the information to criminally investigate or prosecute any alcohol or drug abuse patient.[facility]ighIn the event this information is protected by the Federal Confidentiality of Alcohol and Drug Abuse Patient Records regulations: The Federal rules restrict any use of the information to criminally investigate or prosecute any alcohol or drug abuse patient.[facility]ighIn the event this information is protected by the Federal Confidentiality of Alcohol and Drug Abuse Patient Records regulations: The Federal rules restrict any use of the information to criminally investigate or prosecute any alcohol or drug abuse patient.[facility]ighIn the event this information is protected by the Federal Confidentiality of Alcohol and Drug Abuse Patient Records regulations: The Federal rules restrict any use of the information to criminally investigate or prosecute any alcohol or drug abuse patient.[facility]ighIn the event this information is protected by the Federal Confidentiality of Alcohol and Drug Abuse Patient Records regulations: The Federal rules restrict any use of the information to criminally investigate or prosecute any alcohol or drug abuse patient.[facility]ighIn the event this information is protected by the Federal Confidentiality of Alcohol and Drug Abuse Patient Records regulations: The Federal rules restrict any use of the information to criminally investigate or prosecute any alcohol or drug abuse patient.[facility] the event this information is protected by the Federal Confidentiality of Alcohol and Drug Abuse Patient Records regulations: The Federal rules restrict any use of the information to criminally investigate or prosecute any alcohol or drug abuse patient.[facility]ighIn the event this information is protected by the Federal Confidentiality of Alcohol and Drug Abuse Patient Records regulations: The Federal rules restrict any use of the information to criminally investigate or prosecute any alcohol or drug abuse patient.[facility]ighIn the event this information is protected by the Federal Confidentiality of Alcohol and Drug Abuse Patient Records regulations: The Federal rules restrict any use of the information to criminally investigate or prosecute any alcohol or drug abuse patient.[facility]ighIn the event this information is protected by the Federal Confidentiality of Alcohol and Drug Abuse Patient Records regulations: The Federal rules restrict any use of the information to criminally investigate or prosecute any alcohol or drug abuse patient.[facility]ighIn the event this information is protected by the Federal Confidentiality of Alcohol and Drug Abuse Patient Records regulations: The Federal rules restrict any use of the information to criminally investigate or prosecute any alcohol or drug abuse patient.[facility] Reason for Visit (unrecogniz ed section and content) Reason Comments Physical Therapy Specialty Diagnoses / Procedures Referred By Roger to Referred To Contact [facility] Diagnoses Plantar fasciitis, bilateral Equinus deformity of both feet Heel pain, bilateral Procedures CONSULT TO PHYSICAL THERAPY PHYSICAL THERAPY EVALUATION HIGH COMPLEX 45 MINS Leatha Armstrong, [address] [place] [address] [facility] [place] [address] [place] [address] Referral ID Status Reason Start Date Expiration Date Visits Requested Visits Authorized [id number] Authorized Auto-Generat ed Referral 09/24/2023 09/23/2024 20 20 Reason Comments Right elbow pain Specialty Diagnoses / Procedures Referred By Roger t Referred To Contact Internal Medicine / INTERNAL MEDICINE Diagnoses Elbow pain Procedures MYC OFFICE VISIT Self Leon Guy MD [address] [place] [address] Referral ID Status Reason Start Date Expiration Date Visits Re quested Visits Authorized [id number] Closed 12/21/2021 09/23/2022 1 1 Reason Onset Date Comments Refill Request 01/20/2022 Reason Comments Refill Request Reason Onset Date Comments Refill Request 01/21/2022 Reason Comments Covid Follow Up Specialty Diagnoses / Procedures Referred By Roger t Referred To Contact Family Practice / FAMILY MEDICINE Diagnoses COVID positive, chest burning with cough Procedures VIDEO PRIMARY NEW Self Tristen Sullivan MD [address] [place] [address] Referral ID Status Reason Start Date Expiration Date Visits Requested Visits Authorized [id number] Closed OON Notification Letter Financial Clearance Required - OON Payor Patient Cleared INN/SM[facility] Payor Auth Obtained 02/07/2022 09/23/2022 1 1 Reason Onset Date Comments Refill Request 03/24/2022 Reason Comments medication renewal Reason Comments Abnormal Weight Gain Specialty Diagnoses / Procedures Referred By Contac t Referred To Contact Internal Medicine / INTERNAL MEDICINE Diagnoses Weight loss Procedures VIDEO PRIMARY EST Self, Jnea Goff MD [address] [place] [id number] Referral ID Status Reason Start Date Expiration Date Visits Re quested Visits Authorized [id number] Closed 04/05/2022 09/23/2022 1 1 Reason Onset Date Comments Refill Request 04/20/2022 Reason Comments Weight Check Specialty Diagnoses / Procedures Referred By Contac t Referred To Contact Internal Medicine / INTERNAL MEDICINE Diagnoses Review weight loas Procedures VIDEO PRIMARY EST Self, Jena Goff MD [address] [place] [id number] Referral ID Status Reason Start Date Expiration Date Visits Re quested Visits Authorized [id number] Closed 05/16/2022 09/23/2022 1 1 Reason Comments Appointment Reason Onset Date Comments Refill Request 05/22/2022 Reason Onset Date Comments Refill Request 05/25/2022 Reason Onset Date Comments Refill Request 06/29/2022 Reason Onset Date Comments Refill Request 07/14/2022 Reason Onset Date Comments Refill Request 07/29/2022 Reason Onset Date Comments Hip Pain Bilateral hip pa in x6 months Immunizations 08/04/2022 Flu vaccination Specialty Diagnoses / Procedures Referred By Contac t Referred To Contact Internal Medicine / INTERNAL MEDICINE Diagnoses Hip pain Hip pain Procedures OFFICE/OUTPATIENT ESTABLISHED MOD MDM 30-39 MIN MYC OFFICE VISIT Leon Guy MD [address] [place] [id number] Leon Guy MD [address] [place] [phone] Referral ID Status Reason Start Date Expiration Date Visits Re quested Visits Authorized [id number] Closed 08/04/2022 09/23/2022 1 1 Reason Comments Follow Up left hip pain x 2 ye ars Specialty Diagnoses / Procedures Referred By Roger t Referred To Contact Internal Medicine / INTERNAL MEDICINE Diagnoses Hip pain Hip pain. Procedures MYC OFFICE VISIT Jena Peterson MD [address] [place] [address] Jena Peterson MD [address] [place] [address] Referral ID Status Reason Start Date Expiration Date Visits Re quested Visits Authorized [id number] Closed 08/18/2022 09/23/2022 1 1 Specialty Diagnoses / Procedures Referred By Roger to Referred To Contact Internal Medicine / INTERNAL MEDICINE Diagnoses Weight Procedures VIDEO PRIMARY EST Self Jena Peterson MD [address] [place] [address] Referral ID Status Reason Start Date Expiration Date Visits Re quested Visits Authorized [id number] Closed 10/18/2022 09/23/2023 1 1 Reason Comments Medication Problem Reason Onset Date Comments Refill Request 11/24/2022 Reason Onset Date Comments Refill Request 12/23/2022 Reason Onset Date Comments Refill Request 12/25/2022 Reason Onset Date Comments Refill Request 01/21/2023 Reason Comments Post Op Double chin reductio n Specialty Diagnoses / Procedures Referred By Roger to Referred To Contact Plastic Surgery / PLASTIC SURGERY Diagnoses Double chin reduction Procedures OFFICE/OUTPATIENT NEW MODERATE MDM 45-59 MINUTES MYC SPECIALIST OFFICE VISIT Self Shaunna Boston MD [address] [place] [address] Referral ID Status Reason Start Date Expiration Date Visits Requested Visits Authorized [id number] Closed Financial Clearance Required - OON Payor OON Notification Letter Clearance Not Met - Admin/Irrigation Pump Installer/D irector Advise to Postpone/Resched ule or Not Proceed 03/20/2023 06/18/2023 1 1 Reason Onset Date Comments Refill Request 04/03/2023 Reason Onset Date Comments Refill Request 04/17/2023 Reason Comments Nasal Congestion Reason Comments Head Congestion Reason Comments Ear Pain Left ear pain x 1 da y Reason Onset Date Comments Refill Request 05/26/2023 Reason Comments Weight Control Reason Onset Date Comments Refill Request 08/05/2023 Reason Onset Date Comments Refill Request 12/02/2023 Reason Comments Weight Problem Reason Comments Recheck Reason Onset Date Comments Refill Request 01/05/2024 Reason Comments Established Patient Follow Up Pain Reason Comments New Pain Reason Comments Prescription Update Reason Comments Insurance Authorization zepbound Reason Comments Covid19 Concern Reason Comments PT Eval Reason Comments Follow Up weight loss-moujaro Reason Comments medication issue Reason Comments Medication Problem Reason Onset Date Comments Refill Request 03/30/2024 Reason Comments Medication Follow-up Care Teams (unrecognized sec tion and content) Shingle Cutter Relationship Specialty Start Date End Date Jena Peterson MD [address] [place] [place] [address] PCP - General Internal Medicine 04/24/16 Shingle Cutter Relationship Specialty Start Date End Date Jena Peterson MD [address] [place] [place] [address] PCP - General Internal Medicine 04/24/16 Shingle Cutter Relationship Specialty Start Date End Date Jena Peterson MD [address] [place] [place] [address] PCP - General Internal Medicine 04/24/16 Shingle Cutter Relationship Specialty Start Date End Date Jena Peterson MD [address] [place] [address] PCP - General Internal Medicine 04/24/16 Shingle Cutter Relationship Specialty Start Date End Date Jena Peterson MD [address] [place] [address] PCP - General Internal Medicine 04/24/16 Shingle Cutter Relationship Specialty Start Date End Date Jena Peterson MD [address] [place] [place] [address] PCP - General Internal Medicine 04/24/16 Shingle Cutter Relationship Specialty Start Date End Date Jena Peterson MD [address] [place] [address] PCP - General Internal Medicine 04/24/16 Shingle Cutter Relationship Specialty Start Date End Date Jena Peterson MD [address] [place] [address] PCP - General Internal Medicine 04/24/16 Shingle Cutter Relationship Specialty Start Date End Date Jena Peterson MD [address] [place] [address] PCP - General Internal Medicine 04/24/16 Shingle Cutter Relationship Specialty Start Date End Date Jena Peterson MD [address] [place] [address] PCP - General Internal Medicine 04/24/16 Shingle Cutter Relationship Specialty Start Date End Date Jena Peterson MD [address] [place] [address] PCP - General Internal Medicine 04/24/16 Shingle Cutter Relationship Specialty Start Date End Date Jena Peterson MD [address] [place] [address] PCP - General Internal Medicine 04/24/16 Shingle Cutter Relationship Specialty Start Date End Date Jena Peterson MD [address] [place] [address] PCP - General Internal Medicine 04/24/16 Shingle Cutter Relationship Specialty Start Date End Date Jena Peterson MD [address] [place] [address] PCP - General Internal Medicine 04/24/16 Shingle Cutter Relationship Specialty Start Date End Date Jena Peterson MD [address] [place] [address] PCP - General Internal Medicine 04/24/16 Shingle Cutter Relationship Specialty Start Date End Date Jena Peterson MD [address] [place] [place] [address] PCP - General Internal Medicine 04/24/16 Shingle Cutter Relationship Specialty Start Date End Date Jena Peterson MD [address] [place] [address] PCP - General Internal Medicine 04/24/16 Shingle Cutter Relationship Specialty Start Date End Date Jena Peterson MD [address] [place] [place] [address] PCP - General Internal Medicine 04/24/16 Shingle Cutter Relationship Specialty Start Date End Date Jena Peterson MD [address] [place] [address] PCP - General Internal Medicine 04/24/16 Shingle Cutter Relationship Specialty Start Date End Date Jena Peterson MD [address] [place] [address] PCP - General Internal Medicine 04/24/16 Shingle Cutter Relationship Specialty Start Date End Date Jena Peterson MD [address] [place] [address] PCP - General Internal Medicine 04/24/16 Shingle Cutter Relationship Specialty Start Date End Date Jena Peterson MD [address] [place] [place] [address] PCP - General Internal Medicine 04/24/16 Shingle Cutter Relationship Specialty Start Date End Date Jena Peterson MD [address] [place] [address] PCP - General Internal Medicine 04/24/16 Shingle Cutter Relationship Specialty Start Date End Date Jena Peterson MD [address] [place] [place] [address] PCP - General Internal Medicine 04/24/16 Shingle Cutter Relationship Specialty Start Date End Date Jena Peterson MD [address] [place] [address] PCP - General Internal Medicine 04/24/16 Shingle Cutter Relationship Specialty Start Date End Date Jena Peterson MD [address] [place] [place] [address] PCP - General Internal Medicine 04/24/16 Shingle Cutter Relationship Specialty Start Date End Date Jena Peterson MD [address] [place] [address] PCP - General Internal Medicine 04/24/16 Shingle Cutter Relationship Specialty Start Date End Date Jena Peterson MD [address] [place] [place] [address] PCP - General Internal Medicine 04/24/16 Shingle Cutter Relationship Specialty Start Date End Date Jena Peterson MD [address] [place] [address] PCP - General Internal Medicine 04/24/16 Shingle Cutter Relationship Specialty Start Date End Date Jena Peterson MD [address] [place] [place] [address] PCP - General Internal Medicine 04/24/16 Shingle Cutter Relationship Specialty Start Date End Date Jena Peterson MD [address] [place] [place] [address] PCP - General Internal Medicine 04/24/16 Shingle Cutter Relationship Specialty Start Date End Date Jena Peterson MD [address] [place] [address] PCP - General Internal Medicine 04/24/16 Shingle Cutter Relationship Specialty Start Date End Date Jena Peterson MD [address] [place] [address] PCP - General Internal Medicine 04/24/16 Shingle Cutter Relationship Specialty Start Date End Date Jena Peterson MD [address] [place] [address] PCP - General Internal Medicine 04/24/16 Shingle Cutter Relationship Specialty Start Date End Date Jena Peterson MD [address] [place] [address] PCP - General Internal Medicine 04/24/16 Shingle Cutter Relationship Specialty Start Date End Date Jena Peterson MD [address] [place] [address] PCP - General Internal Medicine 04/24/16 Shingle Cutter Relationship Specialty Start Date End Date Jena Peterson MD [address] [place] [address] PCP - General Internal Medicine 04/24/16 Shingle Cutter Relationship Specialty Start Date End Date Jena Peterson MD [address] [place] [address] PCP - General Internal Medicine 04/24/16 Shingle Cutter Relationship Specialty Start Date End Date Jena Peterson MD [address] [place] [address] PCP - General Internal Medicine 04/24/16 Shingle Cutter Relationship Specialty Start Date End Date Jena Peterson MD [address] [place] [address] PCP - General Internal Medicine 04/24/16 Shingle Cutter Relationship Specialty Start Date End Date Jena Peterson MD [address] [place] [place] [address] PCP - General Internal Medicine 04/24/16 Shingle Cutter Relationship Specialty Start Date End Date Jena Peterson MD [address] [place] [address] PCP - General Internal Medicine 04/24/16 Shingle Cutter Relationship Specialty Start Date End Date Jena Peterson MD [address] [place] [place] [address] PCP - General Internal Medicine 04/24/16 Shingle Cutter Relationship Specialty Start Date End Date Jena Peterson MD [address] [place] [place] [address] PCP - General Internal Medicine 04/24/16 Shingle Cutter Relationship Specialty Start Date End Date Jena Peterson MD [address] [place] [place] [address] PCP - General Internal Medicine 04/24/16 FOR RECORDS PERTAINING TO PATIENTS WHO ARE OR HAVE BEEN ENROLLED IN A CHEMICAL DEPENDENCY/SUBSTANCEABUSE PROGRAM, SOME INFORMATION MAY BE OMITTED. This clinical summary was aggregated from multiple sources. Caution should be exercised in using it in the provision of clinical care. This summary normalizes information from multiple sources, and as a consequence, information in this document may materially change the coding, format and clinical context of patient data. In addition, data may be omitted in some cases. CLINICAL DECISIONS SHOULD BE BASED ON THE PRIMARY CLINICAL RECORDS. [facility]. provides no warranty or guarantee of the accuracy or completeness of information in this document.
[2024-07-31] MEDS: HYDROcodone Bitartrate/Apap 5/325 Tablet PO (21:39)
[2024-07-31] MEDS: Clindamycin HCl 150 MG Capsule 300 MG PO (21:39)
[2024-07-31 21:43] VITALS: BP 131/78; PULSE 69; RESP 15; TEMP 35.9; O2SAT 100
== END 2024-07-31 21:45 | disposition home or self-care (01) ==
LOC: ED 21:35
PROVIDERS: Emergency Provider Emergency Medicine; PCP Internal Medicine; Visit Provider Emergency Medicine
DX: K04.7 Periapical abscess without sinus (principal); Z79.899 Other long term (current) drug therapy; Z87.891 Personal history of nicotine dependence
CPT/HCPCS: 99283